=== PATIENT | female | born 1950 | race Caucasian/White ===

== ENCOUNTER → 2017-01-08 | Outpatient (CLI) | payer OTHER ==
[~2017-01-08] MED LIST: ADVIN10/60 INH; ALPR-411 PO; BISO10TA2 PO; CHOL100010 PO; DILT1TAB50 PO; FLUT0.15 NAE; LOSA50TA54 PO; MONT1TAB3 PO; OMEP40CA PO; OXGN; SERT100T PO; TIOTCAP INH; VNTHFA/IN INH
[2017-01-08 13:14] LABS: BASO % 0.2 %; BASO ABS # 0.02 K/uL (0-0.2); COMPLETE YES; EOS % 1.7 %; HEMATOCRIT 36.6 % (37-47); IG% 0.3 %; LYMPH % 8.7 %; LYMPH ABS # 0.81 K/uL (1.2-3.4); MEAN CELL VOLUME 89.7 fL (80-100); MEAN CORPUSCULAR HEMOGLOBIN 27.9 pg (25-34); MEAN CORPUSCULAR HGB CONC 31.1 g/dl (32-36); MEAN PLATELET VOLUME 10.5 fL (7.4-10.4); NEUT % 81.1 %; PLATELET COUNT 288 K/uL (130-400); RED BLOOD COUNT 4.08 M/uL (4.2-5.4); WHITE BLOOD COUNT 9.29 K/uL (4.8-10.8)
[2017-01-08 13:49] LABS: ESTIMATED AVERAGE GLUCOSE 117 mg/dl; HA1C FLAG Normal (Normal)
[2017-01-08 18:15] LABS: ALT/SGPT 13 U/L (12-78); BLOOD UREA NITROGEN 11 mg/dl (7-18); BUN/CREATININE RATIO 13.9 (10-20); CALCIUM 9.1 mg/dl (8.5-10.1); CARBON DIOXIDE 28 mmol/L (21-32); CHLORIDE 102 mmol/L (98-107); CHOLESTEROL 218 mg/dl (0-200); CREATININE 0.75 mg/dl (0.60-1.20); GLUCOSE,FASTING 114 mg/dl (70-99); POTASSIUM 3.6 mmol/L (3.5-5.1); SODIUM 137 mmol/L (136-145); TRIGLYCERIDES 146 mg/dl (0-150); VERY LOW DENSITY LIPOPROT CALC 29 mg/dl
[2017-01-08 18:18] LABS: ALB/GLOB RATIO 0.9 (0.9-2); ALKALINE PHOSPHATASE 79 U/L (45-117); AST/SGOT 11 U/L (15-37); CHOLESTEROL/HDL RATIO 4.6; HDL CHOLESTEROL 47 mg/dl; LDL CHOLESTEROL CALCULATED 142 mg/dl
== END | disposition home or self-care (01) ==
LOC: C.LABPBG 11:01
PROVIDERS: ATTEND Physician Assistant
DX: T80.219A Unspecified infection due to central venous catheter, initial encounter (principal); Y83.8 Other surgical procedures as the cause of abnormal reaction of the patient, or of later complication, without mention of misadventure at the time of the procedure; R73.9 Hyperglycemia, unspecified; E55.9 Vitamin D deficiency, unspecified

== ENCOUNTER → 2017-06-23 | Outpatient (CLI) | payer OTHER ==
[2017-06-23 13:41] LABS: HEMOGLOBIN A1C 5.8 % (4.5-5.6)
[2017-06-23 14:13] LABS: BLOOD UREA NITROGEN 14 mg/dl (7-18); CALCIUM 8.9 mg/dl (8.5-10.1); CARBON DIOXIDE 28 mmol/L (21-32); CREATININE 0.75 mg/dl (0.60-1.20); GLUCOSE 124 mg/dl (70-99); POTASSIUM 3.3 mmol/L (3.5-5.1); SODIUM 140 mmol/L (136-145)
[2017-06-23 14:18] LABS: CHOLESTEROL 192 mg/dl (0-200); LDL CHOLESTEROL CALCULATED 116 mg/dl
== END | disposition home or self-care (01) ==
LOC: C.LABPBG 09:59
PROVIDERS: ATTEND Family Medicine
DX: D50.9 Iron deficiency anemia, unspecified (principal); G47.33 Obstructive sleep apnea (adult) (pediatric); F41.9 Anxiety disorder, unspecified; I10 Essential (primary) hypertension; J96.10 Chronic respiratory failure, unspecified whether with hypoxia or hypercapnia; J44.9 Chronic obstructive pulmonary disease, unspecified; R73.03 Prediabetes

== ENCOUNTER → 2017-09-18 | Outpatient (CLI) | payer OTHER, MEDICARE ==
--- NOTE | 2017-09-19 15:28 | MAMMOGRAPHY REPORT ---
BILATERAL DIGITAL SCREENING MAMMOGRAM TOMOSYNTHESIS WITH CAD: 09/18/2017 CLINICAL HISTORY: Routine screening. Patient has no complaints. TECHNIQUE: The study was acquired using full field digital technology and interpreted from soft copy. Breast tomosynthesis in addition to standard 2D mammography was performed. Current study was also ev aluated with a Computer Aided Detection (CAD) system. COMPARISON: Prior outside mammograms dated 2016, 2015, 2014, 2013, 2012, 2011, 2010, 2008 from [facility]. BREAST COMPOSITION: The tissue of both breasts is almost entirely fatty. FINDINGS: No suspicious masses, calcifications, or areas of architectural distortion are noted in either breast . There has been no significant interval change compared to prior exams. Bilateral benign-appearing calcifications are not significantly changed. IMPRESSION: ACR BI-RADS CATEGORY 2: BENIGN There is no mammographic evidence of malignancy. A 1 year screening mammogram is recommended.( [id number]) The patient will receive written notification of the results. Some breast cancers are not detected with mammography. A negative mammographic report should not qiana y biopsy if a clinically suggestive mass is present. Emily Combs M.D. ah/:09/18/2017 16:17:31 Preschool Substitute Teacher: RT Jennifer(Daniel)(M), [facility] letter sent: Normal 1/2 BI-RADS Code: ACR BI-RADS Category 2: Benign
== END | disposition home or self-care (01) ==
LOC: C.MAMM 15:09
PROVIDERS: ATTEND Family Medicine
DX: Z12.31 Encounter for screening mammogram for malignant neoplasm of breast (principal)

== ENCOUNTER 2020-03-10 11:54 | Inpatient (IN) ==
[2020-03-10] MEDS ORDERED: ALBUTEROL 0.083% NEBU SOLN 3 ML VIAL NEB STA (12:21)
[2020-03-10] MEDS ORDERED: methylPREDNISolone 125 MG/2 ML VIAL IV STA (12:21)
[2020-03-10] MEDS ORDERED: SODIUM CHLORIDE 0.9% 500 ML IV ONE (12:21)
--- NOTE | 2020-03-10 12:29 | Emergency Department Note ---
Impression & Plan Acute respiratory distress, Breath shortness, Cough, COPD with acute exacerbation ED Provider Note NAME: DOMINIQUE AVILES AGE: 69 SEX: F : 1950 ARRIVES VIA: Walk-In INFORMANT: Patient ED PROVIDER(S): Sabino Bocanegra DO CHIEF COMPLAINT: shortness of breath HPI: Patient is a 69-year-old female with extensive past medical history which includes COPD, pulmonary hypertension, recent Covid pneumonia with 12-day admission and discharge in early February. She presents the ER for increasing shortness of breath which started in the past 5 days. She denies any headache or change in vision. Chronically wears 5 L nasal cannula. Significantly short of breath with any kind of movement. She believes she gained about 5 pounds overnight. No history of heart failure. Denies any belly pain, nausea, vomiting, diarrhea, dysuria, urgency or frequency. Has had a change in cough as well. ROS: See above HPI for pertinent positives & negatives. A total of 10 systems reviewed and were otherwise negative. PAST MEDICAL HISTORY:See Below PAST SURGICAL HISTORY:See Below FAMILY HISTORY:See Below SOCIAL HISTORY:See Below HOME MEDICATIONS:See Below ALLERGIES:See Below VITALS:See Below PHYSICAL EXAMINATION: GENERAL: Sitting up in bed, alert, severely short of breath with conversation, moderate distress EYE EXAM: normal conjunctiva. OROPHARYNX: mucous membranes are dry NECK: supple, no nuchal rigidity, no adenopathy, non-tender LUNGS: Diminished bilaterally with minimal air movement. Normal chest wall mechanics HEART: no murmurs, S1 normal and S2 normal ABDOMEN: abdomen soft, non-tender, normo-active bowel sounds, no masses, no rebound or guarding. UPPER EXTREMITIES: upper extremities are grossly normal. LOWER EXTREMITIES: No pitting edema. Calves are equal bilateral NEURO EXAM: Normal sensorium, cranial nerves II-XII grossly intact, normal speech, no gross weakness of arms, no gross weakness of legs. MEDICAL DECISION MAKING: Patient is a 69-year-old female who presents the ER for shortness of breath which has been getting worse over the past 5 days. History of COPD and asthma. IV was established blood work was obtained. When she presented she was in significant distress and extremely short of breath. She was placed on BiPAP. IV was established blood work was obtained. She was given an hour-long neb tr eatment. She was also given steroids. Labs show no significant leukocytosis and mild anemia. INR unremarkable. D-dimer was elevated at 1500. BMP with slightly elevated chloride. LFTs bilirubin was unremarkable. Troponin was negative with symptoms greater than 6 hours not indicative of ACS. Lipase was unremarkable. Covid was negative. CT angio of the chest shows no acute pathology. Patient was updated bedside and remained on BiPAP. Discussed with the hospitalist. She was much improved following BiPAP. Triage Nursing notes reviewed. Limited review of prior medical records performed Vital Signs: reviewed and remarkable for tachy Differential diagnosis: Differential diagnoses includes but is not limited to pneumonia, bronchitis, COPD/Asthma exacerbation, pneumothorax, pulmonary embolism, congestive heart failure, acute coronary syndrome ER treatment provided: See below Diagnostics interpreted by me: ECG: Sinus tachycardia rate of 117 Normal axis Poor baseline QTC 421 Cardiac Monitoring: An order was placed for continuous cardiac monitoring. The monitor shows a rate of 113 with sinus rhythm. Laboratory studies: As stated above and show below. Imaging studies: CT angio of the chest shows no acute pathology Portable AP upright 1 view of the chest shows no focal infiltrate or pneumothorax Consultation(s): Discussed with hospitalist for further evaluation Procedures: none Critical Care: I have personally spent 32 minutes of critical care time in the direct management of this patient. This includes bedside care, interpretation of diagnostic studies, and testing, discussion with consultants, patient, and family members, and other required patient management activities. This 32 m inutes is in excess of all separately billable procedures. Past Med/Surg History Medical History (Updated 03/10/20 @ 16:38 by Sabino Bocanegra DO) Anxiety Asthma Chronic respiratory failure Chronic steroid use Collagenous colitis COPD (chronic obstructive pulmonary disease) Gastritis, chronic Gastroparesis pt denies Hyperlipidemia Hypertension Insomnia, persistent Iron deficiency anemia On home oxygen therapy 4lpm via n/c continuous Osteoarthritis Peripheral neuropathy bilateral hands & feet Prediabetes Pulmonary emphysema Raynaud's disease Right lower lobe pneumonia Urinary incontinence Surgical History H/O cataract extraction (09/2019) b/l eyes H/O laminectomy Lumbar area H/O tooth extraction History of bilateral tubal ligation History of bladder surgery bladder tack History of cataract extraction (09/30/19) Both eyes History of cholecystectomy Open History of colonoscopy History of cystoscopy History of dilatation and curettage History of esophagogastroduodenoscopy (EGD) History of tonsillectomy Hx of lumpectomy Left (-) Family History (Updated 03/10/20 @ 15:28 by Daniel Roberson) Mother , age 73 Stroke Father , age 71 Lung cancer Sister Non Hodgkin's lymphoma Lupus Social History (Updated 03/10/20 @ 15:28 by Daniel Roberson) Smoking Status: Former smoker Tobacco Type: Cigarettes Age Quit Using Tobacco: 59; Years Smoked: 33; Cigarettes Per Day: 40; Smoking End Date: 10 years ago; Number of Years Since Quit: 10; Second Hand Exposure: No; Hx Alcohol Use: No Hx Substance Use: No Preferred Language: Maori Communication Ability: Effective Financial Services Manager Required: No Beliefs That Will Affect Care: None marital status: Current Living Situation: Spouse and Family Current Living Situation Comment: lives in [place] with current occupational status: retired 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 ; 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 How many Children do You have: 2 Other Information That Helps Us Care for You: No Feels Safe at Home: Yes Safety Concerns: Feels Safe At This Time Dental Care, Regularly: Yes Physical Activity Frequency: Does not Exercise Seatbelt Use: always Sunscreen Use: Yes Assistive Devices: Oxygen - Continuous Assistive Devices Comment: scooter Allergies Allergies Allergy/AdvReac Type Severity Reaction Status Date / Time ferric carboxymaltose Allergy Intermediate SOB, Verified 03/10/20 15:56 [From Injectafer] tachycardia Home Meds Home Medications Medication Instructions Recorded Confirmed amlodipine 10 mg PO QAM 02/08/18 03/10/20 calcium carbonate [Calcium 500] 500 mg PO QPM 02/08/18 03/10/20 cholecalciferol (vitamin D3) 2,000 unit PO QAM 02/08/18 03/10/20 [Vitamin D3] Oxygen Home #1 ea 11/03/18 02/14/20 clobetasol 1 applic TOPICAL DAILY PRN 02/01/20 03/10/20 oxybutynin chloride 5 mg PO HS 02/01/20 03/10/20 prednisone 10 mg PO Q2D 02/01/20 03/10/20 sildenafil (pulm.hypertension) 20 mg PO TID 02/04/20 03/10/20 duloxetine 60 mg PO QAM 03/10/20 03/10/20 tiotropium bromide [Spiriva with 1 cap INHALATION QAM 03/10/20 03/10/20 HandiHaler] Previous Rx's Medication Instructions Recorded alprazolam 0.5 mg tablet 0.5 mg PO HS #30 tab 11/25/19 omeprazole 20 mg capsule,delayed 20 mg PO BID #180 cap 12/09/19 release bupropion HCl 100 mg tablet,12 hr 100 mg PO BID #60 ea 01/13/20 sustained-release benzonatate [Tessalon Perles] 100 - 200 mg PO TID PRN #30 cap 02/13/20 codeine-guaifenesin 5 ml PO Q6H PRN #100 ml 02/13/20 folic acid 1 mg PO QAM 30 Days #30 tab 02/13/20 nystatin 5 ml PO QID 10 Days #200 ml 02/13/20 albuterol sulfate 90 mcg/actuation 2 puff INHALATION QID PRN #18 g 02/17/20 aerosol inhaler fluticasone propionate 230 2 puff INHALATION BID #1 inhaler 02/17/20 mcg-salmeterol 21 mcg/actuation HFA inhaler 4 wheeled walker #1 ea 02/18/20 Potty Chair #1 ea 02/18/20 valsartan 80 mg tablet See Rx Instructions .ROUTE 02/20/20 .COMPLEX #90 tablet Portable Oxygen #1 ea 02/21/20 ipratropium 0.5 mg-albuterol 3 mg 3 ml INHALATION Q8H PRN #180 ml 02/22/20 (2.5 mg base)/3 mL nebulization soln Results & Data (ED) Vital Signs Vital Signs - 24 hr 03/10/20 11:55 03/10/20 12:18 03/10/20 12:37 Temperature 36.5 C Temperature Source Temporal Artery Scan Pulse Rate 115 H 124 H Pulse Rate [Apical] 121 H Respiratory Rate 24 24 Respiratory Effort / Characteristics Spontaneous Spontaneous Labored Respiratory Depth Shallow Blood Pressure 133/75 Blood Pressure [Left Arm] Blood Pressure Mean 94 Blood Pressure Mean [Left Arm] Blood Pressure Position Sitting Blood Pressure Position [Left Arm] Pulse Oximetry 97 99 Oxygen Delivery Method Nasal Cannula Nasal Cannula BiPAP Oxygen Flow Rate 5 5 Fraction of Inspired Oxygen 40 Sepsis Recent Fever Within 48 Hours No Sepsis New/Unexplained Change in Mental Status N/A Sepsis Action Taken by Nursing No Action Required 03/10/20 13:12 03/10/20 13:15 03/10/20 14:25 Temperature Temperature Source Pulse Rate Pulse Rate [Apical] 113 H 116 H Respiratory Rate 24 24 Respiratory Effort / Characteristics Respiratory Depth Blood Pressure Blood Pressure [Left Arm] 99/74 L 130/67 Blood Pressure Mean Blood Pressure Mean [Left Arm] 82 88 Blood Pressure Position Blood Pressure Position [Left Arm] Pulse Oximetry 97 97 98 Oxygen Delivery Method BiPAP BiPAP BiPAP Oxygen Flow Rate Fraction of Inspired Oxygen Sepsis Recent Fever Within 48 Hours Sepsis New/Unexplained Change in Mental Status Sepsis Action Taken by Nursing 03/10/20 15:52 03/10/20 16:22 Temperature Temperature Source Pulse Rate Pulse Rate [Apical] 111 H Respiratory Rate 20 Respiratory Effort / Characteristics Respiratory Depth Blood Pressure Blood Pressure [Left Arm] 137/75 Blood Pressure Mean Blood Pressure Mean [Left Arm] 95 Blood Pressure Position Blood Pressure Position [Left Arm] Lying Pulse Oximetry 93 93 Oxygen Delivery Method Nasal Cannula Nasal Cannula Oxygen Flow Rate 5 5 Fraction of Inspired Oxygen Sepsis Recent Fever Within 48 Hours Sepsis New/Unexplained Change in Mental Status Sepsis Action Taken by Nursing Laboratory Data Result diagrams: 03/10/20 13:00 03/10/20 13:00 Lab Results 03/10/20 03/10/20 03/10/20 Range/Units 13:00 13:00 13:00 WBC 8.57 (4.8-10.8) K/uL RBC 3.78 L (4.2-5.4) M/uL Hgb 11.4 L (12.0-16.0) g/dL Hct 36.3 L (37-47) % MCV 96.0 (80-100) fL MCH 30.2 (25-34) pg MCHC 31.4 L (32-36) g/dL RDW Std Deviation 58.4 H (36.4-46.3) fL RDW Coeff of Mag 16.6 H (11.5-14.5) % Plt Count 418 H (130-400) K/uL MPV 9.0 (7.4-10.4) fL Immature Gran % (Auto) 0.8 % Neut % (Auto) 89.8 % Lymph % (Auto) 6.1 % [place] % (Auto) 2.6 % Eos % (Auto) 0.5 % Baso % (Auto) 0.2 % Neut # (Auto) 7.70 H (1.4-6.5) K/uL Lymph # (Auto) 0.52 L (1.2-3.4) K/uL [place] # (Auto) 0.22 (0.11-0.59) K/uL Eos # (Auto) 0.04 (0-0.5) K/uL Baso # (Auto) 0.02 (0-0.2) K/uL Immature Gran # (Auto) 0.07 H (0.00-0.02) K/uL PT 10.0 (9.0-12.0) Seconds INR 0.9 (0.9-1.1) APTT 23.7 (21.0-31.0) Seconds PTT Ratio 0.8 D-Dimer 1560 H* (0-500) ug/L FEU Sodium 141 (136-145) mmol/L Potassium 4.3 (3.5-5.1) mmol/L Chloride 110 H (98-107) mmol/L Carbon Dioxide 26 (21-32) mmol/L Anion Gap 5.0 (3-11) BUN 12 (7-18) mg/dl Creatinine 0.69 (0.6-1.2) mg/dl Est Cr Clr Drug Dosing 83.3 ml/min Est GFR ( Amer) 103.7 Est GFR (Non-Af Amer) 89.4 BUN/Creatinine Ratio 17.8 (10-20) Glucose 149 H (70-99) mg/dl Calcium 8.6 (8.5-10.1) mg/dl Total Bilirubin 0.3 (0.2-1) mg/dl AST 14 L (15-37) U/L ALT 17 (12-78) U/L Alkaline Phosphatase 82 (45-117) U/L Troponin I < 0.015 (0-0.045) ng/ml Total Protein 6.8 (6.4-8.2) gm/dl Albumin 3.3 L (3.4-5.0) gm/dl Globulin 3.5 (2.5-4.0) gm/dl Albumin/Globulin Ratio 0.9 (0.9-2) Lipase 102 (73-393) U/L COVID-19 Eval Order SARS-CoV-2 (PCR) (Negative) Influenza Type A (PCR) (Neg) Influenza Type B (PCR) (Neg) RSV (RT-PCR) (Neg) 03/10/20 03/10/20 Range/Units 14:30 14:30 WBC (4.8-10.8) K/uL RBC (4.2-5.4) M/uL Hgb (12.0-16.0) g/dL Hct (37-47) % MCV (80-100) fL MCH (25-34) pg MCHC (32-36) g/dL RDW Std Deviation (36.4-46.3) fL RDW Coeff of Mag (11.5-14.5) % Plt Count (130-400) K/uL MPV (7.4-10.4) fL Immature Gran % (Auto) % Neut % (Auto) % Lymph % (Auto) % [place] % (Auto) % Eos % (Auto) % Baso % (Auto) % Neut # (Auto) (1.4-6.5) K/uL Lymph # (Auto) (1.2-3.4) K/uL [place] # (Auto) (0.11-0.59) K/uL Eos # (Auto) (0-0.5) K/uL Baso # (Auto) (0-0.2) K/uL Immature Gran # (Auto) (0.00-0.02) K/uL PT (9.0-12.0) Seconds INR (0.9-1.1) APTT (21.0-31.0) Seconds PTT Ratio D-Dimer (0-500) ug/L FEU Sodium (136-145) mmol/L Potassium (3.5-5.1) mmol/L Chloride (98-107) mmol/L Carbon Dioxide (21-32) mmol/L Anion Gap (3-11) BUN (7-18) mg/dl Creatinine (0.6-1.2) mg/dl Est Cr Clr Drug Dosing ml/min Est GFR ( Amer) Est GFR (Non-Af Amer) BUN/Creatinine Ratio (10-20) Glucose (70-99) mg/dl Calcium (8.5-10.1) mg/dl Total Bilirubin (0.2-1) mg/dl AST (15-37) U/L ALT (12-78) U/L Alkaline Phosphatase (45-117) U/L Troponin I (0-0.045) ng/ml Total Protein (6.4-8.2) gm/dl Albumin (3.4-5.0) gm/dl Globulin (2.5-4.0) gm/dl Albumin/Globulin Ratio (0.9-2) Lipase (73-393) U/L COVID-19 Eval Order CovFluRsv at [facility] SARS-CoV-2 (PCR) NEGATIVE (Negative) Influenza Type A (PCR) Negative (Neg) Influenza Type B (PCR) Negative (Neg) RSV (RT-PCR) Negative (Neg) Administered Medications Discontinued Medications Albuterol (Albuterol 0.083% Nebu Soln 3 Ml Vial) 10 mg NEB NOW STA Stop: 03/10/20 12:22 Last Admin: 03/10/20 12:36 Dose: 10 mg Documented by: [id number] Furosemide (Furosemide 40 Mg/4 Ml Vial) 20 mg IV NOW STA Stop: 03/10/20 16:02 Last Admin: 03/10/20 16:22 Dose: 20 mg Documented by: [id number] Sodium Chloride (Nss) 500 mls @ 999 mls/hr IV .Q31M ONE Stop: 03/10/20 12:51 Last Infusion: 03/10/20 13:36 Dose: 0 mls/hr Documented by: [id number] Admin: 03/10/20 13:06 Dose: 999 mls/hr Documented by: [id number] Ioversol (Optiray 320 125ml) 120 ml IV ONCE ONE Stop: 03/10/20 15:02 Last Admin: 03/10/20 15:01 Dose: 120 ml Documented by: [id number] Methylprednisolone (Methylprednisolone 125 Mg/2 Ml Vial) 60 mg IV NOW STA Stop: 03/10/20 12:22 Last Admin: 03/10/20 13:06 Dose: 60 mg Documented by: [id number] Discharge Plan Visit Data Chief Complaint: Respiratory Problems Stated Complaint: TROUBLES BREATHING/ELEVATED HEART RATE ED Provider: Sabino Bocanegra Discharge Problem: Acute respiratory distress, Breath shortness, Cough, COPD with acute exacerbation Forms Stand Alone Forms: [facility] Prescriptions Prescriptions: No Action alprazolam 0.5 mg tablet 0.5 mg PO HS Qty: 30 RF: 3 omeprazole 20 mg capsule,delayed release(DR/EC) 20 mg PO BID Qty: 180 RF: 1 (DME) 4 wheeled walker See Rx Instructions .Route .MEDSUPPLY Qty: 1 RF: 0 (DME) Potty Chair See Rx Instructions .Route .MEDSUPPLY Qty: 1 RF: 0 valsartan 80 mg tablet See Rx Instructions .ROUTE .COMPLEX Qty: 90 RF: 1 ipratropium-albuterol 0.5 mg-3 mg(2.5 mg base)/3 mL solution for nebulization 3 ml inhalation Q8H PRN (Reason: COPD- DX J44.9 J43.9 J45.909 ) Qty: 180 RF: 5 albuterol sulfate [Ventolin HFA] 90 mcg/actuation HFA aerosol inhaler 2 puff inhalation QID PRN (Reason: Shortness Of Breath) Qty: 18 RF: 3 Advair HFA 230-21 mcg/actuation HFA aerosol inhaler 2 puff INHALATION BID Qty: 1 RF: 5 (DME) Portable Oxygen Misc See Rx Instructions .MEDSUPPLY Qty: 1 RF: 0 (DME) Oxygen Home Liters Per Minute See Dose Instructions .ROUTE .MEDSUPPLY Qty: 1 RF: 0 bupropion HCl [Wellbutrin SR] 100 mg tablet sustained-release 12 hr 100 mg PO BID Qty: 60 RF: 5 calcium carbonate [Calcium 500] 500 mg calcium (1,250 mg) Tablet 500 mg PO QPM RF: 0 amlodipine 10 mg tablet 10 mg PO QAM RF: 0 cholecalciferol (vitamin D3) [Vitamin D3] 2,000 unit Tablet 2,000 unit PO QAM RF: 0 prednisone 10 mg tablet 10 mg PO Q2D RF: 0 oxybutynin chloride 5 mg tablet extended release 24hr 5 mg PO HS RF: 0 clobetasol 0.05 % solution 1 applic topical DAILY PRN (Reason: Dandruff) RF: 0 sildenafil (pulm.hypertension) 20 mg Tablet 20 mg PO TID RF: 0 nystatin 100,000 unit/mL Suspension 5 ml PO QID 10 Days Qty: 200 RF: 1 folic acid 1 mg Tablet 1 mg PO QAM 30 Days Qty: 30 RF: 0 codeine-guaifenesin 10-100 mg/5 mL Liquid 5 ml PO Q6H PRN (Reason: cough) Qty: 100 RF: 0 benzonatate [Tessalon Perles] 100 mg capsule 100 - 200 mg PO TID PRN (Reason: cough) Qty: 30 RF: 1 duloxetine 60 mg capsule,delayed release(DR/EC) 60 mg PO QAM RF: 0 Spiriva with HandiHaler 18 mcg capsule, w/inhalation device 1 cap INHALATION QAM RF: 0
--- NOTE | 2020-03-10 12:59 | XRay Report ---
XR chest 1V portable CLINICAL HISTORY: Atypical chest pain COMPARISON STUDY: 02/08/2020 FINDINGS: The cardiac and mediastinal contours remain stable. There is a left-sided A-Port catheter. There is chronic basilar interstitial thickening similar to the prior study. There is pulmonary emphy sema.[ IMPRESSION: Stable chronic interstitial thickening. Pulmonary emphysema. No evidence of acute parench ymal consolidation ACT 112: Negative or not required by law. Electronically signed by: Ayo Stark M.D. 03/10/2020 12:57 PM
--- NOTE | 2020-03-10 13:04 | Electrocardiogram Report ---
Test Reason : Blood Pressure : / mmHG Vent. Rate : 117 BPM Atrial Rate : 117 BPM P-R Int : 172 ms QRS Dur : 078 ms QT Int : 302 ms P-R-T Axes : 068 000 059 degrees QTc Int : 421 ms Poor data quality, interpretation may be adversely affected Sinus tachycardia Low voltage QRS Borderline ECG When compared with ECG of 01-FEB-2020 10:53, Premature ventricular complexes are no longer Present Confirmed by Rao Redmond ([id number]) on 03/10/2020 1:04:39 PM Referred By: REFERRED SELF Confirmed By:Miguelito Redmond
[2020-03-10 13:16] LABS: Basophils # (auto) 0.02 K/uL (0-0.2); Basophils % (auto) 0.2 %; Eosinophils # (auto) 0.04 K/uL (0-0.5); Eosinophils % (auto) 0.5 %; Hematocrit (blood only) 36.3 % (37-47); Hemoglobin 11.4 g/dL (12.0-16.0); Immature Granulocytes # (auto) 0.07 K/uL (0.00-0.02); Immature Granulocytes % (auto) 0.8 %; Lymphocytes # (auto) 0.52 K/uL (1.2-3.4); Lymphocytes % (auto) 6.1 %; Mean Corpuscular Hemoglobin 30.2 pg (25-34); Mean Corpuscular Hgb Conc 31.4 g/dL (32-36); Monocytes # (auto) 0.22 K/uL (0.11-0.59); Monocytes % (auto) 2.6 %; Neutrophils % (auto) 89.8 %; Platelet Count 418 K/uL (130-400); RDW Coefficient of Variation 16.6 % (11.5-14.5); RDW Standard Deviation 58.4 fL (36.4-46.3); Red Blood Count 3.78 M/uL (4.2-5.4); White Blood Count 8.57 K/uL (4.8-10.8)
[2020-03-10 13:38] LABS: INR 0.9 (0.9-1.1); Partial Thromboplastin Ratio 0.8; Partial Thromboplastin Time 23.7 Seconds (21.0-31.0)
[2020-03-10 13:41] LABS: D Dimer 1560 ug/L FEU (0-500)
[2020-03-10 13:42] LABS: Alanine Aminotransferase 17 U/L (12-78); Albumin Level 3.3 gm/dl (3.4-5.0); Aspartate Aminotransferase 14 U/L (15-37); BUN Creatinine Ratio 17.8 (10-20); Blood Urea Nitrogen 12 mg/dl (7-18); Calcium 8.6 mg/dl (8.5-10.1); Carbon Dioxide 26 mmol/L (21-32); Chloride 110 mmol/L (98-107); Creatinine Clr Calc Pharmacy 83.3 ml/min; Est GFR (African American) 103.7; Est GFR (Non-African American) 89.4; Glucose 149 mg/dl (70-99); Lipase 102 U/L (73-393); Potassium 4.3 mmol/L (3.5-5.1); Sodium 141 mmol/L (136-145)
[2020-03-10 13:47] LABS: Albumin Globulin Ratio 0.9 (0.9-2); Alkaline Phosphatase 82 U/L (45-117); Bilirubin,Total 0.3 mg/dl (0.2-1); Globulin 3.5 gm/dl (2.5-4.0); Total Protein 6.8 gm/dl (6.4-8.2); Troponin I < 0.015 ng/ml (0-0.045)
[2020-03-10] MEDS ORDERED: OPTIRAY 320 125ml IV ONE (15:01)
[2020-03-10 15:22] LABS: Influenza A virus by PCR Negative (Neg); Influenza B virus by PCR Negative (Neg); RSV by PCR Negative (Neg); SARS CoV2 RNA(COVID-19) InHosp NEGATIVE (Negative)
--- NOTE | 2020-03-10 15:25 | History & Physical Report ---
Date of Service March 10, 2020 Assessment & Plan (1) Acute on chronic respiratory failure with hypoxia: acute component - suspect 2nd to COPD exacerbation. I cannot rule out element of volume overload given her recent weight gain and report of LE edema (although none on exam today). No evidence of PE or pneumonia. She has made a full recovery from her recent COVID and repeat testing is negative. chronic - 2nd to end-stage, severe COPD. Typically on 5 L NC O2 at rest and 7 L NC O2 w/ ambulation. required BiPAP in ER - received 1-hour duoneb and steroids - able to be weaned back to NC O2. (2) COPD (chronic obstructive pulmonary disease): With exacerbation. Trigger - sinusitis?? Other viral pathogen? Flu/COVID/RSV negative. Solumedrol 60mg IV x 1 given in ER along with bronchodilators. Treat possible sinusitis with omnicef. COPD - continue solumedrol - schedule 60mg IV BID. Schedule duonebs q6h. Pulmonary toilet (flutter valve, incentive, etc). Mucinex. Home inhalers. O2 to maintain sats 90-92%. (3) Acute sinusitis: Suspected. Omnicef 300mg BID x 7-10 days. Saline spray. Nasocort nasal spray. Mucinex. (4) Tachycardia: Hemoglobin - mildly anemic but at baseline. No significant pain or anxiety. TSH wnl. No PE. 2nd to increased cardiac output in the setting of severe COPD with exacerbation? Acute CHF? Other? Telemetry. Echo. Follow. (5) History of COVID-19: Hospitalized for ~10 days from 01/29 to 03/02. Recovered. CTA chest w/o pneumonia or signs of residual COVID. Repeat COVID testing today negative. (6) Hypertension: Cont norvasc 10mg daily. Continue ARB. Had been on low-dose HCTZ in the past but it was stopped during her prior COVID admission due to low BPs. May need the HCTZ resumed. Follow BPs for now. (7) Prediabetes: DM diet. Follow BSGs in light of IV steroid use. A1C 6.5% earlier this month. (8) Scleroderma: Noted. Interstitial findings on CTA chest -- 2nd to scleroderma?? (9) Pulmonary arterial hypertension: Cont sildenafil. Cont NC O2. Echo. (10) Anxiety: Cont home meds. (11) Hyperlipidemia: Not on meds for such. (12) Folate deficiency: Dx earlier this month. Continue folic acid supplement. (13) Candidiasis of mouth and esophagus: Resolved on exam today but will continue nystatin in light of high-dose steroid use. (14) DVT prophylaxis: lovenox 40mg daily updated by phone today History of Present Illness Chief Complaint: dyspnea, cough, sinus symptoms, weight gain Primary Care Provider: Eliza Mayorga, DO Very pleasant 69yo female with O2-dependent COPD with resulting chronic hypoxic respiratory failure on home O2 (5L at rest, 7L with ambulation) - admitted to [facility] with COVID-19 pneumonia from 02/01/20 to 02/13/20 - presents with worsening dyspnea over the last 2 days, 5 pounds of weight gain over the last day, 10 pounds of weight gain over the last week, sinus congestion with purulent drainage (acute on chronic), mild cough, and tachycardia. She states that a home physical therapist visited her today for a PT session and her HR was noted to be in the 120s which is unusual for her. Given her symptoms the PT recommended she come to [facility] for evaluation. Patient reports that her home O2 has not changed - still remains at 5L at rest and 7L with ambulation. Lowest O2 sats at home today were in the low 70s with ambulation. Denies any fevers, chills, loss of appetite, sputum production, orthopnea, chest pain or abdominal pain. No nausea, emesis or diarrhea. Did have LE edema about 1 week ago - now resolved. Patient states that following her admission for COVID she has experienced considerable fatigue but has made progress with her strength and ambulation. She is still hoping to obtain a lung transplant and has f/u with a transplant center later this spring. Prior to my assessment she was placed on BIPAP by the ER provider. During my visit her O2 sats were 100% on BIPAP and 40% FIO2. I asked staff to place her back on 5L NC and she tolerated such with sats in the low to mid 90s. Allergies Allergy/AdvReac Type Severity Reaction Status Date / Time ferric carboxymaltose Allergy Intermediate SOB, Verified 03/10/20 15:56 [From Injectafer] tachycardia Home Medications Medication Instructions Recorded Confirmed Type amlodipine 10 mg PO QAM 12/30/18 01/29/21 History calcium carbonate [Calcium 500] 500 mg PO QPM 02/08/18 03/10/20 History cholecalciferol (vitamin D3) 2,000 unit PO QAM 02/08/18 03/10/20 History [Vitamin D3] Oxygen Home #1 ea 11/03/18 02/14/20 History alprazolam 0.5 mg tablet 0.5 mg PO HS #30 tab 11/25/19 03/10/20 Rx omeprazole 20 mg capsule,delayed 20 mg PO BID #180 cap 12/09/19 03/10/20 Rx release bupropion HCl 100 mg tablet,12 hr 100 mg PO BID #60 ea 01/13/20 03/10/20 Rx sustained-release clobetasol 1 applic TOPICAL DAILY PRN 02/01/20 03/10/20 History oxybutynin chloride 5 mg PO HS 02/01/20 03/10/20 History prednisone 10 mg PO Q2D 02/01/20 03/10/20 History sildenafil (pulm.hypertension) 20 mg PO TID 02/04/20 03/10/20 History benzonatate [Tessalon Perles] 100 - 200 mg PO TID PRN #30 cap 02/13/20 03/10/20 Rx codeine-guaifenesin 5 ml PO Q6H PRN #100 ml 02/13/20 03/10/20 Rx folic acid 1 mg PO QAM 30 Days #30 tab 02/13/20 03/10/20 Rx nystatin 5 ml PO QID 10 Days #200 ml 02/13/20 03/10/20 Rx albuterol sulfate 90 mcg/actuation 2 puff INHALATION QID PRN #18 g 02/17/20 03/10/20 Rx aerosol inhaler fluticasone propionate 230 2 puff INHALATION BID #1 inhaler 02/17/20 03/10/20 Rx mcg-salmeterol 21 mcg/actuation HFA inhaler 4 wheeled walker #1 ea 02/18/20 Rx Potty Chair #1 ea 02/18/20 Rx valsartan 80 mg tablet See Rx Instructions .ROUTE 02/20/20 03/10/20 Rx .COMPLEX #90 tablet Portable Oxygen #1 ea 02/21/20 02/21/20 Rx ipratropium 0.5 mg-albuterol 3 mg 3 ml INHALATION Q8H PRN #180 ml 02/22/20 03/10/20 Rx (2.5 mg base)/3 mL nebulization soln duloxetine 60 mg PO QAM 03/10/20 03/10/20 History tiotropium bromide [Spiriva with 1 cap INHALATION QAM 03/10/20 03/10/20 History HandiHaler] Past Med/Surg History Medical History (Updated 03/10/20 @ 22:26 by Daniel Roberson) Anxiety Asthma Chronic respiratory failure Chronic steroid use Collagenous colitis COPD (chronic obstructive pulmonary disease) Gastritis, chronic Gastroparesis pt denies History of COVID-19 Dx 01/2020; required hospitalization Hyperlipidemia Hypertension Insomnia, persistent Iron deficiency anemia On home oxygen therapy 4lpm via n/c continuous Osteoarthritis Peripheral neuropathy bilateral hands & feet Prediabetes Pulmonary emphysema Raynaud's disease Right lower lobe pneumonia Urinary incontinence Surgical History H/O cataract extraction (09/2019) b/l eyes H/O laminectomy Lumbar area H/O tooth extraction History of bilateral tubal ligation History of bladder surgery bladder tack History of cataract extraction (09/30/19) Both eyes History of cholecystectomy Open History of colonoscopy History of cystoscopy History of dilatation and curettage History of esophagogastroduodenoscopy (EGD) History of tonsillectomy Hx of lumpectomy Left (-) Family History (Updated 03/10/20 @ 15:28 by Daniel Roberson) Mother , age 73 Stroke Father , age 71 Lung cancer Sister Non Hodgkin's lymphoma Lupus Social History (Updated 03/10/20 @ 15:28 by Daniel Roberson) Smoking Status: Unknown if ever smoked Tobacco Type: Cigarettes Age Quit Using Tobacco: 59; Years Smoked: 33; Cigarettes Per Day: 40; Smoking End Date: 10 years ago; Number of Years Since Quit: 10; Second Hand Exposure: No; Do You Dip or Chew Tobacco: No; Hx Alcohol Use: No Hx Substance Use: No Preferred Language: Romanian Communication Ability: Effective 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: No Beliefs That Will Affect Care: None marital status: Current Living Situation: Spouse Current Living Situation Comment: lives in [place] with current occupational status: retired 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 ; 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 How many Children do You have: 2 Other Information That Helps Us Care for You: No Feels Safe at Home: Yes Safety Concerns: Feels Safe At This Time Dental Care, Regularly: Yes Physical Activity Frequency: Does not Exercise Seatbelt Use: always Sunscreen Use: Yes Assistive Devices: Oxygen - Continuous Assistive Devices Comment: mobile home oxygen tank Review of Systems Constitutional: + fatigue and + weight gain; no fever, no chills, no body aches, no weakness and no anorexia Eyes: no worsening vision Ear, Nose, Mouth, Throat: + nasal congestion and + nasal discharge; no dry mouth and no sore throat Respiratory: + cough, + dyspnea and + dyspnea on exertion; no hemoptysis and no wheezing Cardiovascular: as per Subjective / HPI, + dyspnea on exertion and + edema; no chest pain Gastrointestinal: no abdominal pain, no nausea, no vomiting, no constipation, no diarrhea/loose stools and no blood in stools Genitourinary: no dysuria Musculoskeletal: no joint pain Integumentary: no rash Neurologic: no loss of sensation Psychiatric: no depression Endocrine: denies diabetes Hematologic / Lymphatic: no night sweats Physical Exam Constitutional: no acute distress (comfortable on BIPAP) and no altered mental status Eyes: PERRL ENMT: Ears: no TM abnormality Mouth: no oral mucosal abnormality and oral mucous membranes not dry Neck: trachea midline, no thyromegaly Respiratory: no respiratory distress Auscultation: + diminished lung sounds (bases) and + rales (faint, dry, minimal - bases ); no wheezes Cardiovascular: Rate/Rhythm: regular rhythm and + tachycardic Heart Sounds: normal S1 and normal S2; no murmur Vessels: posterior tibial pulses present and dorsalis pedis pulses present; no JVD Extremities: + vascular access device (left upper chest - clean ); no edema Gastrointestinal (Abdomen): normal bowel sounds, soft, nontender, no hepatosplenomegaly Musculoskeletal: Extremities: + clubbing Skin: mild erythematous papules upper chest Neurologic: moves all extremities; no focal motor deficits reflexes brisk b/l Psychiatric: Orientation: alert and oriented x 3 Lymphatic: no cervical lymphadenopathy Results & Data Results & Data ([facility]) Vital Signs (Past 12 Hours) Vital Signs Temp Pulse Pulse Resp BP BP Pulse Ox 03/10/20 14:25 116 H 24 130/67 98 03/10/20 13:15 113 H 24 99/74 L 97 03/10/20 13:12 97 03/10/20 12:37 124 H 121 H 24 99 03/10/20 12:18 97 03/10/20 11:55 36.5 C 115 H 24 133/75 Laboratory Results Laboratory Results - last 24 hr 03/10/20 03/10/20 03/10/20 13:00 13:00 13:00 WBC 8.57 RBC 3.78 L Hgb 11.4 L Hct 36.3 L MCV 96.0 MCH 30.2 MCHC 31.4 L RDW Std Deviation 58.4 H RDW Coeff of Mag 16.6 H Plt Count 418 H MPV 9.0 Immature Gran % (Auto) 0.8 Neut % (Auto) 89.8 Lymph % (Auto) 6.1 [place] % (Auto) 2.6 Eos % (Auto) 0.5 Baso % (Auto) 0.2 Neut # (Auto) 7.70 H Lymph # (Auto) 0.52 L [place] # (Auto) 0.22 Eos # (Auto) 0.04 Baso # (Auto) 0.02 Immature Gran # (Auto) 0.07 H PT 10.0 INR 0.9 APTT 23.7 PTT Ratio 0.8 D-Dimer 1560 H* Sodium 141 Potassium 4.3 Chloride 110 H Carbon Dioxide 26 Anion Gap 5.0 BUN 12 Creatinine 0.69 Est Cr Clr Drug Dosing 83.3 Est GFR ( Amer) 103.7 Est GFR (Non-Af Amer) 89.4 BUN/Creatinine Ratio 17.8 Glucose 149 H Calcium 8.6 Total Bilirubin 0.3 AST 14 L ALT 17 Alkaline Phosphatase 82 Troponin I < 0.015 Total Protein 6.8 Albumin 3.3 L Globulin 3.5 Albumin/Globulin Ratio 0.9 Lipase 102 TSH Pending COVID-19 Eval Order SARS-CoV-2 (PCR) Influenza Type A (PCR) Influenza Type B (PCR) RSV (RT-PCR) 03/10/20 03/10/20 14:30 14:30 WBC RBC Hgb Hct MCV MCH MCHC RDW Std Deviation RDW Coeff of Amg Plt Count MPV Immature Gran % (Auto) Neut % (Auto) Lymph % (Auto) [place] % (Auto) Eos % (Auto) Baso % (Auto) Neut # (Auto) Lymph # (Auto) [place] # (Auto) Eos # (Auto) Baso # (Auto) Immature Gran # (Auto) PT INR APTT PTT Ratio D-Dimer Sodium Potassium Chloride Carbon Dioxide Anion Gap BUN Creatinine Est Cr Clr Drug Dosing Est GFR ( Amer) Est GFR (Non-Af Amer) BUN/Creatinine Ratio Glucose Calcium Total Bilirubin AST ALT Alkaline Phosphatase Troponin I Total Protein Albumin Globulin Albumin/Globulin Ratio Lipase TSH COVID-19 Eval Order CovFluRsv at [facility] SARS-CoV-2 (PCR) NEGATIVE Influenza Type A (PCR) Negative Influenza Type B (PCR) Negative RSV (RT-PCR) Negative Diagnostic Findings CTA chest: IMPRESSION: 1. No evidence for pulmonary embolus. 2. Severe emphysema. 3. Stable 5 mm and 3 mm subpleural nodules within the left upper lobe. No new pulmonary nodules identified. 4. Mild diffuse interstitial thickening which is likely chronic. No new focal lung consolidations to suggest pneumonia. EKG - my reading - sinus tachycardia, low voltage especially inferior leads, no ST changes Code Status & VTE Plan Code Status full code VTE Prophylaxis Plan VTE Prophylaxis will be ordered: Yes PG Care Time/CCT Total # of Minutes Spent Total Time Spent with Patient: Total time spent is greater than 50% in coordination of care (as documented) at patient's floor/unit and/or counseling patient: Coding Level of Care Code 50545 Initial Inpt Care Lvl 3 Diagnoses Acute on chronic respiratory failure with hypoxia J96.21 COPD (chronic obstructive pulmonary disease) J44.9 COPD type: unspecified COPD Acute sinusitis J01.90 Tachycardia R00.0 History of COVID-19 Z86.16 Hypertension I10 Prediabetes R73.03 Scleroderma M34.9 Pulmonary arterial hypertension I27.21 Anxiety F41.9 Hyperlipidemia E78.5 Folate deficiency E53.8 Candidiasis of mouth and esophagus B37.81; B37.0 DVT prophylaxis Z29.9 (1) COPD (chronic obstructive pulmonary disease) COPD type: unspecified COPD Qualified Code(s): J44.9 - Chronic obstructive pulmonary disease, unspecified
--- NOTE | 2020-03-10 15:27 | CT Scan Report ---
CHEST CTA for PULMONARY ARTERIES CT DOSE: 682.82 mGycm HISTORY: Shortness of breath. TECHNIQUE: Multiaxial CT images of the chest were performed following the intravenous administration of contrast to evaluate the pulmonary arteries. Maximal intensity projection images were also obtaine d. A dose lowering technique was utilized adhering to the principles of ALARA. COMPARISON STUDY: Chest CT 03/17/2019. FINDINGS: Normal caliber thoracic aorta with no evidence for dissection. There is a left subclavian P ort-A-Cath which terminates in the distal SVC. The heart is normal in size. No pleural or pericardial effusions. Streak artifact from the patient's overlapping arms results in suboptimal evaluation of t he bilateral segmental and subsegmental pulmonary arteries. However, there are no definite filling de fects within the pulmonary arteries to suggest a pulmonary embolus. The visualized spleen and adrenal glands are within normal limits. Stable 1.4 cm hypodense lesion within the left hepatic lobe. This f avors a small cyst. Normal esophagus. Right retrocrural hypodense nodule remains stable. This may rep resent a normal cisterna chyli. Stable mediastinal and hilar lymph nodes which measure subcentimeter in short axis diameter. Severe emphysema. No pneumothorax. Stable 5 mm subpleural nodule within the l eft upper lobe on image 157. Stable 3 mm subpleural nodule within the left upper lobe on image 136. M ild diffuse interstitial thickening which is likely chronic. This is not significantly changed. No ne w focal lung consolidations to suggest pneumonia. No pneumothorax. The central airways are patent. IMPRESSION: 1. No evidence for pulmonary embolus. 2. Severe emphysema. 3. Stable 5 mm and 3 mm subpleural nodules within the left upper lobe. No new pulmonary nodules ident ified. 4. Mild diffuse interstitial thickening which is likely chronic. No new focal lung consolidations to suggest pneumonia. ACT 112: Negative or not required by law. Electronically signed by: Jose Ramon Morrow M.D. 03/10/2020 3:26 PM
[2020-03-10] MEDS ORDERED: FUROSEMIDE 40 MG/4 ML VIAL IV STA (16:01)
[2020-03-10 16:39] LABS: Thyroid Stimulating Hormone 0.861 uIu/ml (0.300-4.500)
[2020-03-10] MEDS ORDERED: BENZONATATE 100 MG CAPSULE PO PRN (17:51)
[2020-03-10] MEDS ORDERED: ACETAMINOPHEN 325 MG TAB PO PRN (17:51)
[2020-03-10] MEDS ORDERED: SODIUM CHLORIDE 0.65% NA SOLN 45 ML (OCEAN) PRN (17:51)
[2020-03-10] MEDS ORDERED: ONDANSETRON INJ 2 MG/ML 2 ML VIAL IV PRN (17:51)
[2020-03-10] MEDS: ENOXAPARIN INJ 40 MG/0.4 ML SYR SQ SCH (19:10)
[2020-03-10] MEDS: NYSTATIN SUSP 500,000 U/5 ML UDC PO SCH ×2 (19:11→21:00)
[2020-03-10] MEDS: CEFDINIR 300 MG CAP PO SCH (19:12)
[2020-03-10] MEDS: buPROPion SR 100 MG TABCR PO SCH (19:12)
[2020-03-10] MEDS ORDERED: ALBUT/IPRATROP 3MG/0.5MG NEB 3 ML VIAL NEB STA (19:44)
[2020-03-10] MEDS: ALBUT/IPRATROP 3MG/0.5MG NEB 3 ML VIAL INH SCH (20:24)
[2020-03-10] MEDS: OXYBUTYNIN CHLORIDE XL 5 MG TABCR PO SCH (20:59)
[2020-03-10] MEDS: guaiFENesin 600 MG TABCR PO SCH (21:00)
[2020-03-10] MEDS: PANTOprazole 40 MG TAB PO SCH (21:00)
[2020-03-10] MEDS: CALCIUM CARBONATE 1250MG TAB PO SCH (21:01)
[2020-03-10] MEDS: methylPREDNISolone 60 MG in SYRINGE 0 ML IV SCH (21:01)
[2020-03-10] MEDS: ALPRAZolam 0.5 MG TABLET PO SCH (21:05)
[2020-03-10] MEDS: SILDENAFIL CITRATE 20 MG TABLET PO SCH (21:06)
[2020-03-10] MEDS ORDERED: HEPARIN 100 UNIT/ML 5ML FLUSH FLUSH PRN (22:54)
[2020-03-11] MEDS: ALBUT/IPRATROP 3MG/0.5MG NEB 3 ML VIAL INH SCH ×4 (07:26→19:22)
[2020-03-11 07:29] LABS: Hematocrit (blood only) 34.3 % (37-47); Hemoglobin 10.9 g/dL (12.0-16.0); Mean Corpuscular Hemoglobin 29.9 pg (25-34); Mean Corpuscular Hgb Conc 31.8 g/dL (32-36); Mean Corpuscular Volume 94.2 fL (80-100); Mean Platelet Volume 9.6 fL (7.4-10.4); Platelet Count 467 K/uL (130-400); RDW Coefficient of Variation 16.2 % (11.5-14.5); RDW Standard Deviation 56.7 fL (36.4-46.3); Red Blood Count 3.64 M/uL (4.2-5.4); White Blood Count 3.63 K/uL (4.8-10.8)
[2020-03-11 08:16] LABS: Calcium 9.5 mg/dl (8.5-10.1); Est GFR (African American) 104.2; Est GFR (Non-African American) 89.9; Potassium 3.9 mmol/L (3.5-5.1)
[2020-03-11] MEDS: TRIAMCINOLONE ACET NASAL SPRAY 10.8ML BTL NAE SCH (09:20)
[2020-03-11] MEDS: FLUTICASONE/VILANTEROL 200/25MCG 14 PUFFS/INHALER INH SCH (09:20)
[2020-03-11] MEDS: PANTOprazole 40 MG TAB PO SCH ×2 (09:21→20:10)
[2020-03-11] MEDS: CHOLECALCIFEROL 1,000 UNITS 25 MCG TAB PO SCH (09:21)
[2020-03-11] MEDS: NYSTATIN SUSP 500,000 U/5 ML UDC PO SCH ×4 (09:21→20:06)
[2020-03-11] MEDS: SILDENAFIL CITRATE 20 MG TABLET PO SCH ×3 (09:21→20:08)
[2020-03-11] MEDS: buPROPion SR 100 MG TABCR PO SCH ×2 (09:21→17:00)
[2020-03-11] MEDS: ADVANCED PROBIOTIC 1250 MG CAPSULE PO SCH (09:21)
[2020-03-11] MEDS: CEFDINIR 300 MG CAP PO SCH ×2 (09:21→20:09)
[2020-03-11] MEDS: FOLIC ACID 1 MG TAB PO SCH (09:22)
[2020-03-11] MEDS: methylPREDNISolone 60 MG in SYRINGE 0 ML IV SCH ×2 (09:22→20:08)
[2020-03-11] MEDS: DULoxetine HCL 60 MG CAP PO SCH (09:22)
[2020-03-11] MEDS: VALSARTAN 80 MG TAB PO SCH (09:22)
[2020-03-11] MEDS: amLODIPine BESYLATE 5 MG TAB PO SCH (09:22)
[2020-03-11] MEDS: UMECLIDINIUM BROMIDE 62.5MCG/BLISTER 7 PUFFS/INHALER INH SCH (09:22)
[2020-03-11] MEDS: guaiFENesin 600 MG TABCR PO SCH ×2 (09:22→20:08)
--- NOTE | 2020-03-11 13:01 | XCELERA ---
[id number]
[2020-03-11] MEDS ORDERED: DEXTROSE 50% 50 ML SYRINGE IV PRN (13:44)
[2020-03-11] MEDS ORDERED: CARBOHYDRATES FOR HYPOGLYCEMIA PO PRN (13:44)
[2020-03-11] MEDS ORDERED: GLUCAGON FOR INJ 1 MG VIAL SQ PRN (13:44)
[2020-03-11] MEDS ORDERED: GLUCOSE 10 TABS/TUBE PO PRN (13:44)
[2020-03-11] MEDS ORDERED: GLUCOSE 40% GEL 15 GM TUBE PO PRN (13:44)
--- NOTE | 2020-03-11 13:47 | Hospitalist Progress Note ---
Date of Service March 11, 2020 Assessment & Plan (1) Acute on chronic respiratory failure with hypoxia: acute component - suspect 2nd to COPD exacerbation. I cannot rule out element of volume overload given her recent weight gain and report of LE edema (although none on exam today). No evidence of PE or pneumonia. She has made a full recovery from her recent COVID and repeat testing is negative. She is now much improved after receiving IV Lasix. Her HCTZ and bisoprolol were discontinued a few weeks ago during her last hospitalization-she has been tachycardic, hypertensive, this may have exacerbated acute on chronic diastolic CHF chronic - 2nd to end-stage, severe COPD. Typically on 5 L NC O2 at rest and 7 L NC O2 w/ ambulation. required BiPAP in ER - received 1-hour duoneb and steroids -now weaned back to her baseline O2 at rest -Restart home bisoprolol/HCTZ (2) COPD (chronic obstructive pulmonary disease): With exacerbation. Trigger - sinusitis most likely Flu/COVID/RSV negative. Improving -Continue Solumedrol 60mg IV twice daily for now and then return to eventually to prednisone 10 mg every other day -Continue to treat possible sinusitis with omnicef. -Continue Schedule duonebs q6h. Pulmonary toilet (flutter valve, incentive, etc). Mucinex. Home inhalers. O2 to maintain sats 90-92%. Follows with lung transplant at [facility] (3) Acute sinusitis: Suspected. Omnicef 300mg BID x 7-10 days. Saline spray. Nasocort nasal spray. Mucinex. (4) Tachycardia: Hemoglobin - mildly anemic but at baseline. No significant pain or anxiety. TSH wnl. No PE. Could be secondary to discontinuation of previous beta-monroe 2 to 3 weeks ago during last hospital admission Echocardiogram normal -Restart home bisoprolol Follow on telemetry (5) History of COVID-19: Hospitalized for ~10 days from 01/29 to 03/02. Recovered. CTA chest w/o pneumonia or signs of residual COVID. Repeat COVID testing now here is negative. (6) Hypertension: Blood pressures are elevated Cont norvasc 10mg daily. Continue ARB. Restart home bisoprolol/HCT Follow blood pressures (7) Prediabetes: DM diet. Follow BSGs in light of IV steroid use. Add on glucose checks, NovoLog sliding scale A1C 6.5% earlier this month. (8) Scleroderma: Noted. With systemic scleroderma With known pulmonary hypertension, esophageal dysmotility issues, Raynaud's Interstitial findings on CTA chest -- 2nd to scleroderma?? (9) Pulmonary arterial hypertension: Cont sildenafil. Cont NC O2. (10) Anxiety: Cont home meds. (11) Folate deficiency: Dx earlier this month. Continue folic acid supplement. (12) Candidiasis of mouth and esophagus: Resolved on exam here but will continue nystatin in light of high-dose steroid use. (13) DVT prophylaxis: lovenox 40mg daily Dispo-continued stay Admission and Anticipated Discharge Date Admission Date: March 10, 2020 Subjective Patient feeling much better today, less short of breath. She reports she had some ankle swelling and was stopped from her bisoprolol/HCTZ last admission for Covid pneumonia because her blood pressure was mildly low. She did receive IV Lasix upon admission. She is also questioning if her worsening anemia is playing a role in her shortness of breath and reports she previously got IV iron through her pharmacy clinical specialist. She denies chest pain or abdominal pain, is eating well. Had sinus congestion which is now improving. Telemetry with sinus tachycardia and PVCs with rates in the 100s Review of Systems Review of Systems: All systems reviewed & are unremarkable except as noted in HPI & below Physical Exam Constitutional: WD/WN, vitals as above Eyes: + anicteric sclerae Neck: trachea midline, no thyromegaly Respiratory: normal respiratory effort Auscultation: + crackles (Mild at the bases) and + wheezes (Scattered expiratory bilateral); no rhonchi Cardiovascular: Rate/Rhythm: regular rhythm and + tachycardic Heart Sounds: no murmur Extremities: no edema Chest (Breasts): Chest: normal inspection of chest Gastrointestinal (Abdomen): normal bowel sounds, soft, nontender, no hepatosplenomegaly Musculoskeletal: Extremities: extremities normal to inspection; no cyanosis and no clubbing Skin: no rashes, warm and dry Neurologic: moves all extremities and awake; no focal motor deficits Psychiatric: A+Ox3, euthymic affect Lymphatic: no lymphedema Results & Data Results & Data ([facility]) Vital Signs (Past 12 Hours) Vital Signs Temp Pulse Pulse Pulse Resp BP Pulse Ox 03/11/20 12:01 36.7 C 109 H 22 142/74 H 98 03/11/20 11:32 94 H 18 96 03/11/20 07:53 36.7 C 104 H 20 130/84 96 03/11/20 07:26 97 H 18 96 03/11/20 07:00 105 H 03/11/20 03:42 37.2 C 105 H 20 143/71 H 96 03/11/20 03:20 112 H 20 97 Laboratory Results 03/11/20 03/11/20 03/11/20 Range/Units 20:34 16:11 11:18 WBC (4.8-10.8) K/uL RBC (4.2-5.4) M/uL Hgb (12.0-16.0) g/dL Hct (37-47) % MCV (80-100) fL MCH (25-34) pg MCHC (32-36) g/dL RDW Std Deviation (36.4-46.3) fL RDW Coeff of Mag (11.5-14.5) % Plt Count (130-400) K/uL MPV (7.4-10.4) fL Sodium (136-145) mmol/L Potassium (3.5-5.1) mmol/L Chloride (98-107) mmol/L Carbon Dioxide (21-32) mmol/L Anion Gap (3-11) BUN (7-18) mg/dl Creatinine (0.6-1.2) mg/dl Est Cr Clr Drug Dosing ml/min Est GFR ( Amer) Est GFR (Non-Af Amer) BUN/Creatinine Ratio (10-20) Glucose (70-99) mg/dl POC Glucose 189 H 184 H 196 H (70-99) mg/dl Calcium (8.5-10.1) mg/dl Iron (35-150) mcg/dl TIBC (250-450) mcg/dl Transferrin (200-360) mg/dl Transferrin % Sat (15-50) % Ferritin (8-388) ng/ml 03/11/20 03/11/20 03/11/20 Range/Units 07:37 06:53 06:53 WBC (4.8-10.8) K/uL RBC (4.2-5.4) M/uL Hgb (12.0-16.0) g/dL Hct (37-47) % MCV (80-100) fL MCH (25-34) pg MCHC (32-36) g/dL RDW Std Deviation (36.4-46.3) fL RDW Coeff of Mag (11.5-14.5) % Plt Count (130-400) K/uL MPV (7.4-10.4) fL Sodium 139 (136-145) mmol/L Potassium 3.9 (3.5-5.1) mmol/L Chloride 105 (98-107) mmol/L Carbon Dioxide 27 (21-32) mmol/L Anion Gap 7.0 (3-11) BUN 15 (7-18) mg/dl Creatinine 0.68 (0.6-1.2) mg/dl Est Cr Clr Drug Dosing 83.0 ml/min Est GFR ( Amer) 104.2 Est GFR (Non-Af Amer) 89.9 BUN/Creatinine Ratio 22.0 H (10-20) Glucose 171 H (70-99) mg/dl POC Glucose 174 H (70-99) mg/dl Calcium 9.5 (8.5-10.1) mg/dl Iron 39 (35-150) mcg/dl TIBC 320 (250-450) mcg/dl Transferrin 248 (200-360) mg/dl Transferrin % Sat 11 L (15-50) % Ferritin 75.6 (8-388) ng/ml 03/11/20 Range/Units 06:53 WBC 3.63 L (4.8-10.8) K/uL RBC 3.64 L (4.2-5.4) M/uL Hgb 10.9 L (12.0-16.0) g/dL Hct 34.3 L (37-47) % MCV 94.2 (80-100) fL MCH 29.9 (25-34) pg MCHC 31.8 L (32-36) g/dL RDW Std Deviation 56.7 H (36.4-46.3) fL RDW Coeff of Mag 16.2 H (11.5-14.5) % Plt Count 467 H (130-400) K/uL MPV 9.6 (7.4-10.4) fL Sodium (136-145) mmol/L Potassium (3.5-5.1) mmol/L Chloride (98-107) mmol/L Carbon Dioxide (21-32) mmol/L Anion Gap (3-11) BUN (7-18) mg/dl Creatinine (0.6-1.2) mg/dl Est Cr Clr Drug Dosing ml/min Est GFR ( Amer) Est GFR (Non-Af Amer) BUN/Creatinine Ratio (10-20) Glucose (70-99) mg/dl POC Glucose (70-99) mg/dl Calcium (8.5-10.1) mg/dl Iron (35-150) mcg/dl TIBC (250-450) mcg/dl Transferrin (200-360) mg/dl Transferrin % Sat (15-50) % Ferritin (8-388) ng/ml PG Care Time/CCT Total # of Minutes Spent Total Time Spent with Patient: Total time spent is greater than 50% in coordination of care (as documented) at patient's floor/unit and/or counseling patient: Coding Level of Care Code 79063 Subseq Hosp Care Lvl 3 Diagnoses Acute on chronic respiratory failure with hypoxia J96.21 COPD (chronic obstructive pulmonary disease) J44.9 COPD type: unspecified COPD Acute sinusitis J01.90 Tachycardia R00.0 History of COVID-19 Z86.16 Hypertension I10 Prediabetes R73.03 Scleroderma M34.9 Pulmonary arterial hypertension I27.21 Anxiety F41.9 Folate deficiency E53.8 Candidiasis of mouth and esophagus B37.81; B37.0 DVT prophylaxis Z29.9 (1) COPD (chronic obstructive pulmonary disease) COPD type: unspecified COPD Qualified Code(s): J44.9 - Chronic obstructive pulmonary disease, unspecified
[2020-03-11] MEDS: BISOPROLOL FUMARATE 5 MG TAB PO SCH (14:54)
[2020-03-11] MEDS: hydroCHLOROthiazide 25 MG TAB PO SCH (14:54)
[2020-03-11 15:26] LABS: Ferritin 75.6 ng/ml (8-388)
[2020-03-11] MEDS: INSULIN ASPART 100 UNITS/ML 3 ML PEN SC SCH ×2 (16:58→21:43)
[2020-03-11] MEDS: ENOXAPARIN INJ 40 MG/0.4 ML SYR SQ SCH (17:00)
[2020-03-11] MEDS: OXYBUTYNIN CHLORIDE XL 5 MG TABCR PO SCH (20:07)
[2020-03-11] MEDS: CALCIUM CARBONATE 1250MG TAB PO SCH (20:07)
[2020-03-11] MEDS: ALPRAZolam 0.5 MG TABLET PO SCH (20:13)
[2020-03-12 07:11] LABS: Basophils # (auto) 0.01 K/uL (0-0.2); Basophils % (auto) 0.1 %; Hematocrit (blood only) 35.7 % (37-47); Hemoglobin 11.2 g/dL (12.0-16.0); Immature Granulocytes # (auto) 0.04 K/uL (0.00-0.02); Immature Granulocytes % (auto) 0.5 %; Lymphocytes # (auto) 0.79 K/uL (1.2-3.4); Lymphocytes % (auto) 9.7 %; Mean Corpuscular Hemoglobin 29.6 pg (25-34); Mean Corpuscular Hgb Conc 31.4 g/dL (32-36); Mean Corpuscular Volume 94.2 fL (80-100); Mean Platelet Volume 9.8 fL (7.4-10.4); Monocytes # (auto) 0.26 K/uL (0.11-0.59); Monocytes % (auto) 3.2 %; Neutrophils # (auto) 7.04 K/uL (1.4-6.5); Neutrophils % (auto) 86.5 %; Platelet Count 468 K/uL (130-400); RDW Coefficient of Variation 16.2 % (11.5-14.5); RDW Standard Deviation 56.3 fL (36.4-46.3); Red Blood Count 3.79 M/uL (4.2-5.4); White Blood Count 8.14 K/uL (4.8-10.8)
[2020-03-12] MEDS: ALBUT/IPRATROP 3MG/0.5MG NEB 3 ML VIAL INH SCH ×2 (07:14→11:17)
[2020-03-12 07:44] LABS: BUN Creatinine Ratio 33.3 (10-20); Calcium 9.1 mg/dl (8.5-10.1); Est GFR (African American) 105.7; Est GFR (Non-African American) 91.2
[2020-03-12 08:28] LABS: Folate (Folic Acid) > 20.00 ng/ml (>5.38); Vitamin B12 325 pg/ml (193-986)
[2020-03-12] MEDS ORDERED: IRON SUCROSE 300 MG in SODIUM CHLORIDE 0.9% 250 ML IV SCH (09:00)
[2020-03-12] MEDS: TRIAMCINOLONE ACET NASAL SPRAY 10.8ML BTL NAE SCH (09:13)
[2020-03-12] MEDS: FLUTICASONE/VILANTEROL 200/25MCG 14 PUFFS/INHALER INH SCH (09:14)
[2020-03-12] MEDS: methylPREDNISolone 60 MG in SYRINGE 0 ML IV SCH (09:14)
[2020-03-12] MEDS: UMECLIDINIUM BROMIDE 62.5MCG/BLISTER 7 PUFFS/INHALER INH SCH (09:14)
[2020-03-12] MEDS: NYSTATIN SUSP 500,000 U/5 ML UDC PO SCH (09:14)
[2020-03-12] MEDS: buPROPion SR 100 MG TABCR PO SCH (09:16)
[2020-03-12] MEDS: CHOLECALCIFEROL 1,000 UNITS 25 MCG TAB PO SCH (09:16)
[2020-03-12] MEDS: ADVANCED PROBIOTIC 1250 MG CAPSULE PO SCH (09:16)
[2020-03-12] MEDS: PANTOprazole 40 MG TAB PO SCH (09:16)
[2020-03-12] MEDS: SILDENAFIL CITRATE 20 MG TABLET PO SCH (09:16)
[2020-03-12] MEDS: guaiFENesin 600 MG TABCR PO SCH (09:17)
[2020-03-12] MEDS: amLODIPine BESYLATE 5 MG TAB PO SCH (09:17)
[2020-03-12] MEDS: hydroCHLOROthiazide 25 MG TAB PO SCH (09:17)
[2020-03-12] MEDS: BISOPROLOL FUMARATE 5 MG TAB PO SCH (09:17)
[2020-03-12] MEDS: FOLIC ACID 1 MG TAB PO SCH (09:17)
[2020-03-12] MEDS: VALSARTAN 80 MG TAB PO SCH (09:17)
[2020-03-12] MEDS: CEFDINIR 300 MG CAP PO SCH (09:17)
[2020-03-12] MEDS: DULoxetine HCL 60 MG CAP PO SCH (09:17)
[2020-03-12] MEDS: INSULIN ASPART 100 UNITS/ML 3 ML PEN SC SCH (09:18)
--- NOTE | 2020-03-12 11:51 | Discharge Summary ---
Date of Service March 12, 2020 Admission HPI Per Admitting Provider Very pleasant 69yo female with O2-dependent COPD with resulting chronic hypoxic respiratory failure on home O2 (5L at rest, 7L with ambulation) - admitted to [facility] with COVID-19 pneumonia from 02/01/20 to 02/13/20 - presents with worsening dyspnea over the last 2 days, 5 pounds of weight gain over the last day, 10 pounds of weight gain over the last week, sinus congestion with purulent drainage (acute on chronic), mild cough, and tachycardia. She states that a home physical therapist visited her today for a PT session and her HR was noted to be in the 120s which is unusual for her. Given her symptoms the PT rec ommended she come to [facility] for evaluation. Patient reports that her home O2 has not changed - still remains at 5L at rest and 7L with ambulation. Lowest O2 sats at home today were in the low 70s with ambulation. Denies any fevers, chills, loss of appetite, sputum production, orthopnea, chest pain or abdominal pain. No nausea, emesis or diarrhea. Did have LE edema about 1 week ago - now resolved. Patient states that following her admission for COVID she has experienced considerable fatigue but has made progress with her strength and ambulation. She is still hoping to obtain a lung transplant and has f/u with a transplant center later this spring. Prior to my assessment she was placed on BIPAP by the ER provider. During my visit her O2 sats were 100% on BIPAP and 40% FIO2. I asked staff to place her back on 5L NC and she tolerated such with sats in the low to mid 90s. Principal Diagnosis Acute on chronic respiratory failure with hypoxia, COPD exacerbation, Acute sinusitis Discharge Exam Constitutional WD/WN, vitals as above Eyes + anicteric sclerae Neck trachea midline, no thyromegaly Respiratory normal respiratory effort, lungs clear to auscultation Auscultation: + diminished lung sounds (throughout) Cardiovascular RRR, no murmur, no edema Chest (Breasts) Chest: normal inspection of chest Gastrointestinal (Abdomen) normal bowel sounds, soft, nontender, no hepatosplenomegaly Musculoskeletal Extremities: extremities normal to inspection; no cyanosis and no clubbing Skin no rashes, warm and dry Neurologic moves all extremities and awake; no focal motor deficits Psychiatric A+Ox3, euthymic affect Lymphatic no lymphedema Discharge Data Allergies Allergy/AdvReac Type Severity Reaction Status Date / Time ferric carboxymaltose Allergy Intermediate SOB, Verified 03/10/20 15:56 [From Injectafer] tachycardia Consultations 03/10/20 14:37 ED Decision to Admit Stat Ordered Studies 03/10/20 13:48 CT angio chest PE protocol Stat CXR ECHO Hospital Course (1) Acute on chronic respiratory failure with hypoxia: acute component - suspect 2nd to COPD exacerbation. I cannot rule out element of volume overload given her recent weight gain and report of LE edema (although none on exam today). No evidence of PE or pneumonia. She has made a full recovery from her recent COVID and repeat testing is negative. She is now much improved after receiving IV Lasix. Her HCTZ and bisoprolol were discontinued a few weeks ago during her last hospitalization-she has been tachycardic, hypertensive, this may have exacerbated acute on chronic diastolic CHF chronic - 2nd to end-stage, severe COPD. Typically on 5 L NC O2 at rest and 7 L NC O2 w/ ambulation. required BiPAP in ER - received 1-hour duoneb and steroids -now weaned back to her baseline O2 at rest ECHO here with preserved EF -Restarted home bisoprolol/HCTZ and had significant improvement (2) COPD (chronic obstructive pulmonary disease): With exacerbation. Trigger - sinusitis most likely Flu/COVID/RSV negative. Improved -received Solumedrol 60mg IV twice daily and then go home with prednisone 40mg daily x 2 days, then 20mg daily x 2 days, then 10mg daily x 2 days, then return to usual 10 mg every other day -Continue to treat possible sinusitis with omnicef x 7 day course -Continue bronchodilators Pulmonary toilet (flutter valve, incentive, etc). Home inhalers. O2 to maintain sats 90-92%. On 5LNC here which is her baseline Follows with lung transplant at [facility] (3) Acute sinusitis: Suspected. Omnicef 300mg BID x 7 days. Saline spray. (4) Tachycardia: Sinus tachycardia Hemoglobin - mildly anemic but at baseline. No significant pain or anxiety. TSH wnl. No PE. Could be secondary to discontinuation of previous beta-monroe 2 to 3 weeks ago during last hospital admission Echocardiogram normal -Restarted home bisoprolol and no further tachycardia (5) History of COVID-19: Hospitalized for ~10 days from 01/29 to 02/11. Recovered. CTA chest w/o pneumonia or signs of residual COVID. Repeat COVID testing now here is negative. (6) Hypertension: Blood pressures were elevated and then improved with addition of bisoprolol/HCT Cont norvasc 10mg daily. Continue ARB. Restarted home bisoprolol/HCT (7) Prediabetes: DM diet. NovoLog sliding scale used while here A1C 6.5% earlier this month. f/u with PCP no meds on discharge (8) Scleroderma: Noted. With systemic scleroderma With known pulmonary hypertension, esophageal dysmotility issues, Raynaud's Interstitial findings on CTA chest -- 2nd to scleroderma?? (9) Pulmonary arterial hypertension: Cont sildenafil. Cont NC O2. (10) Anxiety: Cont home meds. (11) Folate deficiency: Dx earlier this month. Continue folic acid supplement. (12) Candidiasis of mouth and esophagus: Resolved on exam here but will continue nystatin in light of high-dose steroid use. (13) B12 deficiency: B12 level low normal at 325 start B12 1000mcg po once daily (14) Iron deficiency anemia: Iron sat 10% gave one dose Venofer IV here on day of discharge follows with Heme as outpt (15) DVT prophylaxis: lovenox 40mg daily Dispo-stable for dc to home Total Time Total Time Spent Total Time Spent (In Minutes): 35 min Total Time Includes: Examination of the Patient, Discharge Planning and Medication Reconciliation Discharge Plan Discharge Items Patient Disposition: Home - Self-Care Reason For Visit: ACUTE/CHRONIC HYPOXIA RESPIRATORY FAILURE Discharge Diagnosis: Acute on chronic respiratory failure with hypoxia Condition on Discharge: Good Activity: As commented below Bathing: No limitations Exercise/Sports: Gradually increase as tolerated Non-emergency contact: Primary Care Provider and Wet Process Assistant Head [place] Follow-up/Referrals: Eliza Mayorga DO [Primary Care Provider] - (Follow up within 1 week) Diet: Heart Healthy Addtl Attending Provider Instructions: You were admitted with worsening shortness of breath and low oxygen levels. You were treated with IV diuretics to rid you of excess fluid as well as treated with BiPAP. Your previous medication of bisoprolol/HCT was restarted as your blood pressure and heart rates were elevated; you also will benefit from the diuretic effect of this drug. Please complete a short burst of prednisone 40mg once daily x 2 days then 20mg once daily x 2 days then 10mg once daily x 2 days, then back to usual dose of 10mg every other day. You were also given a dose of IV Venofer (iron) while you were here for low iron levels and anemia. Your vitamin B12 levels were low normal also and this can contribute to anemia-please start taking Vitamin B12 1000mcg once daily by mouth. Please follow up with your PCP and Wet Process Assistant Head [facility]. Pending Studies at Discharge: No Stand-Alone Forms: My [facility] Medications and DC Order Prescriptions: New cefdinir 300 mg Capsule 300 mg PO BID 6 Days Qty: 12 RF: 0 bisoprolol-hydrochlorothiazide 10-6.25 mg tablet 1 tab PO DAILY Qty: 30 RF: 0 cyanocobalamin (vitamin B-12) 1,000 mcg capsule 1,000 mcg PO DAILY Qty: 30 RF: 0 prednisone 20 mg tablet 40 mg PO DAILY Qty: 6 RF: 0 Continued alprazolam 0.5 mg tablet 0.5 mg PO HS Qty: 30 RF: 3 omeprazole 20 mg capsule,delayed release(DR/EC) 20 mg PO BID Qty: 180 RF: 1 (DME) 4 wheeled walker See Rx Instructions .Route .MEDSUPPLY Qty: 1 RF: 0 (DME) Potty Chair See Rx Instructions .Route .MEDSUPPLY Qty: 1 RF: 0 valsartan 80 mg tablet See Rx Instructions .ROUTE .COMPLEX Qty: 90 RF: 1 ipratropium-albuterol 0.5 mg-3 mg(2.5 mg base)/3 mL solution for nebulization 3 ml inhalation Q8H PRN (Reason: COPD- DX J44.9 J43.9 J45.909 ) Qty: 180 RF: 5 albuterol sulfate [Ventolin HFA] 90 mcg/actuation HFA aerosol inhaler 2 puff inhalation QID PRN (Reason: Shortness Of Breath) Qty: 18 RF: 3 Advair HFA 230-21 mcg/actuation HFA aerosol inhaler 2 puff INHALATION BID Qty: 1 RF: 5 (DME) Portable Oxygen Misc See Rx Instructions .MEDSUPPLY Qty: 1 RF: 0 (DME) Oxygen Home Liters Per Minute See Dose Instructions .ROUTE .MEDSUPPLY Qty: 1 RF: 0 bupropion HCl [Wellbutrin SR] 100 mg tablet sustained-release 12 hr 100 mg PO BID Qty: 60 RF: 5 calcium carbonate [Calcium 500] 500 mg calcium (1,250 mg) Tablet 500 mg PO QPM RF: 0 amlodipine 10 mg tablet 10 mg PO QAM RF: 0 cholecalciferol (vitamin D3) [Vitamin D3] 2,000 unit Tablet 2,000 unit PO QAM RF: 0 prednisone 10 mg tablet 10 mg PO Q2D RF: 0 oxybutynin chloride 5 mg tablet extended release 24hr 5 mg PO HS RF: 0 clobetasol 0.05 % solution 1 applic topical DAILY PRN (Reason: Dandruff) RF: 0 sildenafil (pulm.hypertension) 20 mg Tablet 20 mg PO TID RF: 0 nystatin 100,000 unit/mL Suspension 5 ml PO QID 10 Days Qty: 200 RF: 1 folic acid 1 mg Tablet 1 mg PO QAM 30 Days Qty: 30 RF: 0 codeine-guaifenesin 10-100 mg/5 mL Liquid 5 ml PO Q6H PRN (Reason: cough) Qty: 100 RF: 0 benzonatate [Tessalon Perles] 100 mg capsule 100 - 200 mg PO TID PRN (Reason: cough) Qty: 30 RF: 1 duloxetine 60 mg capsule,delayed release(DR/EC) 60 mg PO QAM RF: 0 Spiriva with HandiHaler 18 mcg capsule, w/inhalation device 1 cap INHALATION QAM RF: 0 Discharge Orders: Discharge Order (Routine); Ordered 03/12/20 Ordered By: Rama Corey Admission Data Admit Date/Time: 03/10/20 16:10 Attending Provider: Rama Corey Admit Provider: Daniel Roberson Primary Care Provider: Eliza Mayorga Other Providers: Daniel Roberson Coding Level of Care Code D/C Day Management >30 mins Diagnoses Acute on chronic respiratory failure with hypoxia J96.21 COPD (chronic obstructive pulmonary disease) J44.9 COPD type: unspecified COPD Acute sinusitis J01.90 Tachycardia R00.0 History of COVID-19 Z86.16 Hypertension I10 Prediabetes R73.03 Scleroderma M34.9 Pulmonary arterial hypertension I27.21 Anxiety F41.9 Folate deficiency E53.8 Candidiasis of mouth and esophagus B37.81; B37.0 B12 deficiency E53.8 Iron deficiency anemia D50.9 DVT prophylaxis Z29.9
== END 2020-03-12 13:10 | disposition home or self-care (01) | DRG 190 ==
LOC: ED 11:54 → 2S 16:10 → SUATTDRO 16:10 → 2S 17:07

== ENCOUNTER 2022-01-04 14:01 | Inpatient (IN) ==
--- NOTE | 2022-01-04 15:05 | Emergency Department Note ---
Impression & Plan PATEL (dyspnea on exertion), COPD exacerbation ED Provider Note NAME: DOMINIQUE AVILES AGE: 71 SEX: F : 1950 ARRIVES VIA: Walk-In INFORMANT: Patient, ED PROVIDER(S): Riki Sanabria MD Chief Complaint: Shortness of breath HPI: Patient has a known history of COPD and associated emphysema who is presenting due to concern for worsening shortness of breath. Ongoing for 2 to 3 weeks. She does have baseline oxygen requirement of 10 L. Patient does use the daily nebulizer treatments and prednisone every other day. Patient does feel improved when she is sitting upright. No leg swelling no calf pain. Patient does have a pulse oximeter at home but states that sometimes it is difficult to get an accurate reading given her history of scleroderma. Patient states that she had checked in the past and it was in the 70s. Patient has been wearing her 10 L over the last 3 weeks. Patient does complain of exertional dyspnea and states that she can even walk around her home without being exceptionally w inded. Patient does follow with Dr. Cam. Patient does take 10 mg of prednisone every other day. The patient has had occasionally productive cough. Patient is a former smoker quitting greater than 10 years ago. ROS: See HPI for pertinent positives and negatives. A total of 10 systems were revi ewed and otherwise negative. Past medical history: See below Surgical history: See below Social history: See below Physical Exam: GENERAL: NAD, wearing a mask, non-toxic. Nasal cannula in place EYE EXAM: Normal conjunctiva. PERRL, no anisocoria and EOM's grossly intact w/o pain. NECK: Supple, no nuchal rigidity, no adenopathy, non-tender. No signs of meningismus. FROM of the neck with good chin to chest and neck extension. No stridor. LUNGS: Decreased breath sounds throughout. Normal chest wall mechanics. HEART: NSR, no MRG. ABDOMEN: Abdomen soft, non-tender, normo-active bowel sounds, no masses, no rebound or guarding. BACK: No CVA TTP. SKIN: No rashes and no bruising. UPPER EXTREMITIES: Upper extremities are grossly normal. LOWER EXTREMITIES: Grossly normal, trace symmetric bilateral lower extremity edema. No calf pain or erythema. NEURO EXAM: A&O x3, cranial nerves II-XII grossly intact, normal speech, moves all 4 extremities. Differential diagnoses: Reactive airway disease, pneumonia, pneumothorax, COPD, CHF, infections, cardiac ischemia, pulmonary embolism, musculoskeletal, gastrointestinal, as well as other pathologies. Course: Patient was seen and evaluated the bedside. Full history physical exam was performed. EKG interpreted by me Normal sinus rhythm, rate 82 normal intervals normal axis no ST elevations Imaging Studies: See Below Cardiac monitoring: An order was placed for continuous cardiac monitoring. The monitor shows a rate of 85 with sinus rhythm. MDM: Patient presents due to concern for shortness of breath. Blood work was obtained. The patient's viral swab is negative. VBG does not show any evidence of hypercarbia or acidemia. The patient has a normal white count H&H and platelet count. The patient did have mild improvement with BiPAP but did develop some claustrophobia so this was ceased. I did speak the on-call hospitalist and the patient was admitted by Dr. Jones. Critical Care: I have personally spent 42 minutes of critical care time in direct management of this patient. This includes bedside care, interpretation of diagnostic studies, and testing, discussion with consultants, patient, and family members, and other require inpatient management activities. This 42 minutes is in excess of all separately billable procedures. Past Med/Surg History Medical History Anxiety Asthma Chronic steroid use Collagenous colitis COPD (chronic obstructive pulmonary disease) Gastritis, chronic Gastroparesis pt denies History of COVID-19 Dx 01/2020; required hospitalization Hyperlipidemia Hypertension Insomnia, persistent Iron deficiency anemia On home oxygen therapy 4lpm via n/c continuous Osteoarthritis Osteopenia Perforated nasal septum Peripheral neuropathy bilateral hands & feet Prediabetes Pulmonary emphysema Raynaud's disease Right lower lobe pneumonia Urinary incontinence Surgical History H/O cataract extraction (09/2019) b/l eyes H/O laminectomy Lumbar area H/O tooth extraction History of bilateral tubal ligation History of bladder surgery bladder tack History of cataract extraction (09/30/19) Both eyes History of cholecystectomy Open History of colonoscopy History of cystoscopy History of dilatation and curettage History of esophagogastroduodenoscopy (EGD) History of tonsillectomy Hx of lumpectomy Left (-) Family History Mother , age 73 Stroke Father , age 71 Lung cancer Sister Non Hodgkin's lymphoma Lupus Denies family history of Ovarian cancer Prostate cancer Myocardial infarction Breast cancer Colorectal cancer Social History Smoking Status: Former smoker Tobacco Type: Cigarettes Age Quit Using Tobacco: 59; Cigarettes Per Day: 40; Second Hand Exposure: No; Hx Alcohol Use: No Hx Substance Use: No Preferred Language: Danish Communication Ability: Effective Visual Impairment: Limited Hearing Ability: Normal Prescription Eyeglass Maker Required: No Beliefs That Will Affect Care: None marital status: Current Living Situation: Spouse current occupational status: retired 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 ; 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 How many Children do You have: 2 Other Information That Helps Us Care for You: Yes (waiting on dalia lung transplant) Feels Safe at Home: Yes Safety Concerns: Feels Safe At This Time Diet Comment: chicken and veggies, occasional red meat caffeine: Yes (very little) during the past year weight has: decreased > 10 lbs Dental Care, Regularly: Yes Physical Activity Frequency: Does not Exercise Seatbelt Use: always Sunscreen Use: Yes Assistive Devices: CPAP and Oxygen - Continuous Allergies Allergies Allergy/AdvReac Type Severity Reaction Status Date / Time ferric carboxymaltose Allergy Intermediate SOB, Verified 01/04/22 18:17 [From Injectafer] tachycardia Home Meds Home Medications Medication Instructions Recorded Confirmed amlodipine 10 mg tablet 10 mg PO QAM 02/08/18 01/04/22 cholecalciferol (vitamin D3) 50 2,000 unit PO QAM 02/08/18 01/04/22 mcg (2,000 unit) tablet (Vitamin D3) sildenafil (pulm.hypertension) 20 20 mg PO TID 02/04/20 01/04/22 mg tablet Oxygen Home #1 ea 03/21/20 12/04/21 calcium carbonate 500 mg calcium 500 mg PO QPM 01/04/22 01/04/22 (1,250 mg) tablet nystatin 100,000 unit/mL oral 0 ml buccal BID PRN Mouth 01/04/22 01/04/22 suspension Irritation valsartan 80 mg tablet 80 mg PO QAM 01/04/22 01/04/22 Previous Rx's Medication Instructions Recorded Portable Oxygen #1 ea 02/21/20 cyanocobalamin (vitamin B-12) 1,000 mcg PO DAILY #30 caps 03/12/20 1,000 mcg capsule bupropion HCl 100 mg tablet,12 hr 100 mg PO BID #60 ea 04/17/21 sustained-release (Wellbutrin SR) albuterol sulfate 90 mcg/actuation 2 puff inhalation QID PRN 05/11/21 aerosol inhaler (Ventolin HFA) Shortness Of Breath #18 grams ipratropium 0.5 mg-albuterol 3 mg 3 ml inhalation Q8H PRN COPD- DX 05/11/21 (2.5 mg base)/3 mL nebulization J44.9 J43.9 J45.909 #180 mL soln benzonatate 100 mg capsule 100 mg PO TID PRN cough #30 caps 06/08/21 prednisone 10 mg tablet 10 mg PO Q2D #90 tabs 06/25/21 duloxetine 60 mg capsule,delayed 60 mg PO QAM #90 caps 07/13/21 release oxybutynin chloride 5 mg 5 mg PO HS #90 tabs 08/06/21 tablet,extended release 24 hr tiotropium bromide 18 mcg capsule 1 cap inhalation QAM #90 10/09/21 with inhalation device (Spiriva inhalations with HandiHaler) mupirocin 2 % topical ointment 1 applic topical BID PRN nasal 11/26/21 irritation #22 grams omeprazole 20 mg capsule,delayed 20 mg PO BID #180 caps 11/28/21 release bisoprolol 10 1 tab PO DAILY #90 tabs 11/29/21 mg-hydrochlorothiazide 6.25 mg tablet fluticasone propionate 230 2 puff inhalation BID #1 inhaler 12/03/21 mcg-salmeterol 21 mcg/actuation HFA inhaler (Advair HFA) Results & Data (ED) Vital Signs Vital Signs - 24 hr 01/04/22 14:12 01/04/22 15:04 01/04/22 15:04 Temperature 36.7 C Temperature Source Skin Pulse Rate 93 H Pulse Rate [Right Finger] 89 Pulse Rhythm Regular Pulse Strength Normal Respiratory Rate 24 Respiratory Effort / Characteristics Spontaneous Short of Breath Respiratory Depth Respiratory Pattern Regular Blood Pressure 123/75 Blood Pressure [Right Arm] 142/91 H Blood Pressure Mean 91 Blood Pressure Mean [Right Arm] 108 Pulse Oximetry 94 93 Oxygen Delivery Method Nasal Cannula Nasal Cannula Nasal Cannula Oxygen Flow Rate 4 8 8 Fraction of Inspired Oxygen SaO2/FiO2 Ratio Sepsis Recent Fever Within 48 Hours No Sepsis New/Unexplained Change in Mental Status N/A Sepsis Action Taken by Nursing No Action Required Pulse Oximetry Post Tiitration 92 01/04/22 15:04 01/04/22 15:36 01/04/22 15:36 Temperature Temperature Source Pulse Rate 94 H Pulse Rate [Right Finger] 89 Pulse Rhythm Pulse Strength Respiratory Rate 24 24 Respiratory Effort / Characteristics Non-Labored Spontaneous Non-Labored Spontaneous Respiratory Depth Normal Respiratory Pattern Regular Blood Pressure Blood Pressure [Right Arm] Blood Pressure Mean Blood Pressure Mean [Right Arm] Pulse Oximetry 93 96 94 Oxygen Delivery Method Nasal Cannula CPAP Oxygen Flow Rate 8 Fraction of Inspired Oxygen 35 SaO2/FiO2 Ratio Sepsis Recent Fever Within 48 Hours Sepsis New/Unexplained Change in Mental Status Sepsis Action Taken by Nursing Pulse Oximetry Post Tiitration 01/04/22 17:00 Temperature Temperature Source Pulse Rate Pulse Rate [Right Finger] 95 H Pulse Rhythm Pulse Strength Respiratory Rate Respiratory Effort / Characteristics Respiratory Depth Respiratory Pattern Blood Pressure Blood Pressure [Right Arm] Blood Pressure Mean Blood Pressure Mean [Right Arm] Pulse Oximetry 95 Oxygen Delivery Method BiPAP Oxygen Flow Rate Fraction of Inspired Oxygen 35 SaO2/FiO2 Ratio 271 Sepsis Recent Fever Within 48 Hours Sepsis New/Unexplained Change in Mental Status Sepsis Action Taken by Nursing Pulse Oximetry Post Tiitration Home Medications Current Medication List: was personally reviewed by me Laboratory Data Attestation: I reviewed the patient's lab results. Result diagrams: 01/04/22 14:50 01/04/22 14:50 Lab Results 01/04/22 01/04/22 01/04/22 Range/Units 14:50 14:50 14:50 WBC 10.66 (4.8-10.8) K/ul RBC 3.99 (3.93-5.22) M/uL Hgb 12.3 (12.0-16.0) g/dl Hct 36.9 (34.1-44.9) % MCV 92.5 (80.0-100.0) fL MCH 30.8 (25.0-34.0) pg MCHC 33.3 (32.0-36.0) g/dL RDW Std Deviation 45.2 (36.4-46.3) fL RDW Coeff of Mag 13.3 (11.5-14.5) % Plt Count 326 (130-400) K/uL MPV 9.5 (9.4-12.3) fL Immature Gran % (Auto) 0.3 % Neut % (Auto) 84.7 % Lymph % (Auto) 6.9 % Baca % (Auto) 5.2 % Eos % (Auto) 2.3 % Baso % (Auto) 0.6 % Neut # (Auto) 9.04 H (1.4-6.5) K/uL Lymph # (Auto) 0.74 L (1.2-3.4) K/uL [place] # (Auto) 0.55 (0.24-0.82) K/uL Eos # (Auto) 0.24 (0-0.50) K/uL Baso # (Auto) 0.06 (0-0.2) K/uL Immature Gran # (Auto) 0.03 H (0.00-0.02) K/uL PT 10.3 (9.0-12.0) Seconds INR 1.0 (0.9-1.1) APTT 27.4 (21.0-31.0) Seconds PTT Ratio 1.0 VBG pH (7.36-7.41) VBG pCO2 (38-50) mmHg VBG pO2 mmHg VBG HCO3 mmol/L VBG O2 Saturation % VBG Base Excess mEq/L Sodium 137 (136-145) mmol/L Potassium 3.6 (3.5-5.1) mmol/L Chloride 101 (98-107) mmol/L Carbon Dioxide 28 (21-32) mmol/L Anion Gap 8 (3-11) BUN 10 (6-23) mg/dl Creatinine 0.55 L (0.6-1.2) mg/dl Est Cr Clr Drug Dosing 98.0 ml/min Est GFR ( Amer) 110.1 ml/min Est GFR (Non-Af Amer) 95.0 ml/min BUN/Creatinine Ratio 18.2 (10-20) Glucose 126 H (70-99(Fasting)) mg/dl Calcium 8.9 (8.5-10.1) mg/dl Magnesium 1.8 (1.7-2.4) mg/dl Total Bilirubin 0.7 (0.2-1.0) mg/dl AST 11 L (13-39) U/L ALT 9 (7-52) U/L Alkaline Phosphatase 68 (34-104) U/L Troponin I High Sens 8.9 (0-14) pg/ml Total Protein 6.9 (6.0-8.3) gm/dl Albumin 4.0 (3.4-5.0) gm/dl Globulin 2.9 (2.5-4.0) gm/dl Albumin/Globulin Ratio 1.4 (0.9-2) SARS-CoV-2 (PCR) (Negative) Influenza Type A (PCR) (Neg) Influenza Type B (PCR) (Neg) RSV (RT-PCR) (Neg) 01/04/22 01/04/22 Range/Units 15:10 15:13 WBC (4.8-10.8) K/ul RBC (3.93-5.22) M/uL Hgb (12.0-16.0) g/dl Hct (34.1-44.9) % MCV (80.0-100.0) fL MCH (25.0-34.0) pg MCHC (32.0-36.0) g/dL RDW Std Deviation (36.4-46.3) fL RDW Coeff of Mag (11.5-14.5) % Plt Count (130-400) K/uL MPV (9.4-12.3) fL Immature Gran % (Auto) % Neut % (Auto) % Lymph % (Auto) % Baca % (Auto) % Eos % (Auto) % Baso % (Auto) % Neut # (Auto) (1.4-6.5) K/uL Lymph # (Auto) (1.2-3.4) K/uL [place] # (Auto) (0.24-0.82) K/uL Eos # (Auto) (0-0.50) K/uL Baso # (Auto) (0-0.2) K/uL Immature Gran # (Auto) (0.00-0.02) K/uL PT (9.0-12.0) Seconds INR (0.9-1.1) APTT (21.0-31.0) Seconds PTT Ratio VBG pH 7.41 (7.36-7.41) VBG pCO2 44 (38-50) mmHg VBG pO2 31 mmHg VBG HCO3 28 mmol/L VBG O2 Saturation < 60.0 % VBG Base Excess 2.8 mEq/L Sodium (136-145) mmol/L Potassium (3.5-5.1) mmol/L Chloride (98-107) mmol/L Carbon Dioxide (21-32) mmol/L Anion Gap (3-11) BUN (6-23) mg/dl Creatinine (0.6-1.2) mg/dl Est Cr Clr Drug Dosing ml/min Est GFR ( Amer) ml/min Est GFR (Non-Af Amer) ml/min BUN/Creatinine Ratio (10-20) Glucose (70-99(Fasting)) mg/dl Calcium (8.5-10.1) mg/dl Magnesium (1.7-2.4) mg/dl Total Bilirubin (0.2-1.0) mg/dl AST (13-39) U/L ALT (7-52) U/L Alkaline Phosphatase (34-104) U/L Troponin I High Sens (0-14) pg/ml Total Protein (6.0-8.3) gm/dl Albumin (3.4-5.0) gm/dl Globulin (2.5-4.0) gm/dl Albumin/Globulin Ratio (0.9-2) SARS-CoV-2 (PCR) NEGATIVE (Negative) Influenza Type A (PCR) Negative (Neg) Influenza Type B (PCR) Negative (Neg) RSV (RT-PCR) Negative (Neg) Administered Medications Azithromycin 500 mg/ Dextrose 255 mls @ 127.5 mls/hr IV NOW STA Stop: 01/04/22 20:11 Last Admin: 01/04/22 19:15 Dose: 127.5 mls/hr Documented By: RYAN Azithromycin 500 mg/ Dextrose 255 mls @ 125 mls/hr IV Q24H JAVIER Stop: 01/07/22 19:13 Last Admin: 01/04/22 19:55 Dose: Not Given Documented By: CM Discontinued Medications Albuterol (Albut/Ipratrop 3mg/0.5mg Neb 3 Ml Vial) 12 ml NEB ONE ONE; Protocol Stop: 01/04/22 15:09 Last Admin: 01/04/22 15:33 Dose: 12 ml Documented By: NANNETTE Magnesium Sulfate/Dextrose (Magnesium Sulfate / D5w) 1 gm in 100 mls @ 200 mls/hr IV NOW STA Stop: 01/04/22 15:37 Last Infusion: 01/04/22 15:53 Dose: 0 mls/hr Documented By: Admin: 01/04/22 15:20 Dose: 200 mls/hr Documented By: CARMEN Methylprednisolone (Methylprednisolone 125 Mg/2 Ml Vial) 125 mg IV NOW STA Stop: 01/04/22 15:09 Last Admin: 01/04/22 15:20 Dose: 125 mg Documented By: CARMEN Imaging Data Radiologist's Impression: Chest X-Ray 01/04/22 14:16 XR chest 1V portable HISTORY: 71 years-old Female SOB acute shortness of breath COMPARISON: Chest radiograph 03/10/2020 TECHNIQUE: Portable AP view of the chest FINDINGS: Cardiomediastinal and hilar silhouettes are within normal limits. Emphysema with chronic interstitial coarsening. No pneumothorax, pleural effusion, airspace consolidation or overt pulmonary edema. Degenerative changes of the shoulders and spine. Unchanged left subclavian [id number] catheter. IMPRESSION: Emphysema without acute process. ACT 112: Negative or not required by law. The above report was generated using voice recognition software. It may contain grammatical, syntax or spelling errors. Electronically signed by: Reagan Faith M.D. 01/04/2022 3:44 PM Discharge Plan Visit Data Chief Complaint: Shortness of Breath/Dyspnea Stated Complaint: COPD, SHORTNESS OF BREATH ED Provider: Riki Sanabria ED Midlevel Provider: Carlota Turcios Discharge Problem: PATEL (dyspnea on exertion), COPD exacerbation Patient Disposition: Admitted As Inpatient Discharge Instructions Interventions: ED Discharge Assessment Last Done: 01/04/22 18:30
[2022-01-04 15:08] LABS: Basophils # (auto) 0.06 K/uL (0-0.2); Basophils % (auto) 0.6 %; Eosinophils # (auto) 0.24 K/uL (0-0.50); Eosinophils % (auto) 2.3 %; Hematocrit (blood only) 36.9 % (34.1-44.9); Hemoglobin 12.3 g/dl (12.0-16.0); Immature Granulocytes # (auto) 0.03 K/uL (0.00-0.02); Immature Granulocytes % (auto) 0.3 %; Lymphocytes # (auto) 0.74 K/uL (1.2-3.4); Lymphocytes % (auto) 6.9 %; Mean Corpuscular Hemoglobin 30.8 pg (25.0-34.0); Mean Corpuscular Hgb Conc 33.3 g/dL (32.0-36.0); Mean Corpuscular Volume 92.5 fL (80.0-100.0); Mean Platelet Volume 9.5 fL (9.4-12.3); Monocytes # (auto) 0.55 K/uL (0.24-0.82); Monocytes % (auto) 5.2 %; Neutrophils # (auto) 9.04 K/uL (1.4-6.5); Neutrophils % (auto) 84.7 %; Platelet Count 326 K/uL (130-400); RDW Coefficient of Variation 13.3 % (11.5-14.5); RDW Standard Deviation 45.2 fL (36.4-46.3); Red Blood Count 3.99 M/uL (3.93-5.22); White Blood Count 10.66 K/ul (4.8-10.8)
[2022-01-04] MEDS ORDERED: methylPREDNISolone 125 MG/2 ML VIAL IV STA (15:08)
[2022-01-04] MEDS ORDERED: ALBUT/IPRATROP 3MG/0.5MG NEB 3 ML VIAL NEB ONE (15:08)
[2022-01-04] MEDS ORDERED: MAGNESIUM SULFATE / D5W 1 GM/100 ML BAG IV STA (15:08)
[2022-01-04 15:21] LABS: Partial Thromboplastin Time 27.4 Seconds (21.0-31.0); Prothrombin Time 10.3 Seconds (9.0-12.0)
--- NOTE | 2022-01-04 15:37 | Electrocardiogram Report ---
Test Reason : Blood Pressure : / mmHG Vent. Rate : 092 BPM Atrial Rate : 092 BPM P-R Int : 182 ms QRS Dur : 084 ms QT Int : 368 ms P-R-T Axes : 058 001 051 degrees QTc Int : 455 ms Poor data quality, interpretation may be adversely affected Normal sinus rhythm Low voltage QRS Borderline ECG When compared with ECG of 10-MAR-2020 12:18, No significant change was found Confirmed by Dawson Cruz ([id number]) on 01/04/2022 3:37:30 PM Referred By: Confirmed By:Dawson Cruz
[2022-01-04 15:39] LABS: Albumin Globulin Ratio 1.4 (0.9-2); BUN Creatinine Ratio 18.2 (10-20); Bilirubin,Total 0.7 mg/dl (0.2-1.0); Calcium 8.9 mg/dl (8.5-10.1); Est GFR (African American) 110.1 ml/min; Globulin 2.9 gm/dl (2.5-4.0); Magnesium 1.8 mg/dl (1.7-2.4); Potassium 3.6 mmol/L (3.5-5.1); Total Protein 6.9 gm/dl (6.0-8.3)
[2022-01-04 15:43] LABS: Troponin I High Sensitivity 8.9 pg/ml (0-14)
[2022-01-04 15:43] LABS: Base Excess VBG 2.8 mEq/L; HCO3 VBG 28 mmol/L; Oxygen Saturation VBG < 60.0 %; PCO2 VBG 44 mmHg (38-50); PO2 VBG 31 mmHg; pH VBG 7.41 (7.36-7.41)
--- NOTE | 2022-01-04 15:45 | XRay Report ---
XR chest 1V portable HISTORY: 71 years-old Female SOB acute shortness of breath COMPARISON: Chest radiograph 03/10/2020 TECHNIQUE: Portable AP view of the chest FINDINGS: Cardiomediastinal and hilar silhouettes are within normal limits. Emphysema with chronic interstitial coarsening. No pneumothorax, pleural effusion, airspace consolidation or overt pulmonary edema. Dege nerative changes of the shoulders and spine. Unchanged left subclavian [id number] catheter. IMPRESSION: Emphysema without acute process. ACT 112: Negative or not required by law. The above report was generated using voice recognition software. It may contain grammatical, syntax o r spelling errors. Electronically signed by: Reagan Faith M.D. 01/04/2022 3:44 PM
--- NOTE | 2022-01-04 16:45 | History & Physical Report ---
Date of Service January 04, 2022 Assessment & Plan (1) Acute and chronic respiratory failure with hypoxia: Plan: - Increased O1 requirement with conversational dyspnea, accessory muscles use on arrival, diaphoresis apprecioated on exam - Likely an exacerbation of her COPD/emphysema due to sinusitis, perforated syndrome vs viral - Labs and CXR did not indicate an infectious process, does not appear volume overloaded making CHF exacerbation less likely, low suspicion for PE however if she remains tachycardic and hypoxia samw/worsening with COPD management, would consider chest CT to r/o PE. - Continue home inhalers, scheduled DuoNeb/prn overnight. - Mucinex 1200 mg BID. - Azithromycin for COPD exacerbation/? sinusitis. - Solu Medrol 60 mg IV BID. - FLU/RSV/COVID neg, will add on biofire. - Is a prediabetic manages with lifestyle, will have to monitor BSG with Iv steroids to determine if she requires SSI. - Flutter valve, incentive spirometry encouraged. (2) COPD (chronic obstructive pulmonary disease): Plan: - COPD/BONITA/pulmonary HTN - GOLD Class D - As above, continue home inhalers, Sildenafil - Previously on prednisone 10 mg QOD--hold while receiving IV steroids. - Follows with [facility], currently working towards gary loss to be accepted onto transplant list. - BONITA, will order CPAP at night--brought hers in from home. (3) Hypertension: Plan: - Continue bisoprolol/HCTZ, losartan. (4) Scleroderma: Plan: - Noted, follows with [facility]. - Previously on Plaquenil, d/c in 2019. (5) Gastritis, chronic: Plan: - History of GAVE. - Receives occasional IV iron treatments. Hgb13.7 today. - Continue PPI twice daily. - EGD q3 months. (6) Iron deficiency anemia: Plan: - Secondary to GAVE, b12 deficiency. - B12 injections q6 weeks. - Required occasional IV iron transfusions, last received in September. - Hgb 13.7 on admit. Monitor. (7) Insomnia, persistent: Plan: - Had previously been on Xanax for 20 years, recently tapered off of this and tried trazodone and Remeron, both with significant nasal congestion, therefore stopped these. - Will try combination of melatonin and hydroxyzine while admitted. (8) Perforated nasal septum: Plan: - Diagnosed at PCP appt last month, had a lesion for 2 years that often got picked at, no hx of drug use. - Has been using mupirocin cream. - Seen in [place] for possible surgical repair--not a good candidate. Plan - Admit to PCU. - SCDs for VTE ppx, avoid chemoppx with history of GAVE. - Full Code. History of Present Illness Chief Complaint: Shortness of breath on exertion worsening over 3 weeks Primary Care Provider: DO Victoria Oropeza Neelam is a 71-year-old female with a past medical history significant for COPD on home O2, BONITA, pulmonary arterial hypertension, hyperlipidemia, urinary incontinence, scleroderma, GAVE, iron deficiency anemia, depression, anxiety, insomnia, and recently perforated nasal septum who is presenting today with shortness of breath. This has been ongoing for the past 3 weeks despite using oxygen continuously with daily nebulizer treatments and chronic steroids every other day. She has also had cold sweats, sinus congestion, and a cough sometimes productive of yellow sputum, but denies fevers, orthopnea, weight gain, chest pain, or palpitations. In fact she believes she has lost a few lbs due to lack of appetite with her symptoms. Her baseline O2 requirement is 5 L NC at rest with 7L w/ activity, however for at least 3 months now has required 10 L NC at all times. For the past month, she can barely walk a few steps through her home without becoming short of breath even with her O2 at 10 L. She previously was able to shower independently, ambulate short distances even without her oxygen at times, and perform light household duties such as washing dishes and cooking. She has been checking her pulse ox at home, with readings in the 70s but notes accurate readings are difficult to get with her scleroderma. She had COVID in September and feels she had just recovered back to baseline before her breathing got worse again. She is currently working to lose weight in order to be on the lung transplant list, follows with [facility]. Upon presentation to the ED, she is mildly tachycardic with HR in the 90s, O2 dipping below 90% on 10 L NC, placed on BiPAP. Labs largely unremarkable, without leukocytosis, VBG 7.41/4//28, renal function at baseline, without electrolyte abnormalities. Troponin 8.9. COVID/flu/RSV negative. CXR shows emphysema without acute process. ED course: Neb treatment, IV Solu-Medrol, magnesium. Allergies Allergy/AdvReac Type Severity Reaction Status Date / Time ferric carboxymaltose Allergy Intermediate SOB, Verified 12/04/21 10:41 [From Injectafer] tachycardia Home Medications Medication Instructions Recorded Confirmed Type amlodipine 10 mg tablet 10 mg PO QAM 02/08/18 12/04/21 History cholecalciferol (vitamin D3) 50 2,000 unit PO QAM 02/08/18 12/04/21 History mcg (2,000 unit) tablet (Vitamin D3) sildenafil (pulm.hypertension) 20 20 mg PO TID 02/04/20 12/04/21 History mg tablet Portable Oxygen #1 ea 02/21/20 12/04/21 Rx cyanocobalamin (vitamin B-12) 1,000 mcg PO DAILY #30 caps 03/12/20 12/04/21 Rx 1,000 mcg capsule Oxygen Home #1 ea 03/21/20 12/04/21 History valsartan 80 mg tablet See Rx Instructions .Route 12/18/20 12/04/21 Rx .COMPLEX #90 tabs bupropion HCl 100 mg tablet,12 hr 100 mg PO BID #60 ea 04/17/21 12/04/21 Rx sustained-release (Wellbutrin SR) albuterol sulfate 90 mcg/actuation 2 puff inhalation QID PRN 05/11/21 12/04/21 Rx aerosol inhaler (Ventolin HFA) Shortness Of Breath #18 grams ipratropium 0.5 mg-albuterol 3 mg 3 ml inhalation Q8H PRN COPD- DX 05/11/21 12/04/21 Rx (2.5 mg base)/3 mL nebulization J44.9 J43.9 J45.909 #180 mL soln benzonatate 100 mg capsule 100 mg PO TID PRN cough #30 caps 06/08/21 12/04/21 Rx prednisone 10 mg tablet 10 mg PO Q2D #90 tabs 06/25/21 12/04/21 Rx duloxetine 60 mg capsule,delayed 60 mg PO QAM #90 caps 07/13/21 12/04/21 Rx release oxybutynin chloride 5 mg 5 mg PO HS #90 tabs 08/06/21 12/04/21 Rx tablet,extended release 24 hr tiotropium bromide 18 mcg capsule 1 cap inhalation QAM #90 10/09/21 12/04/21 Rx with inhalation device (Spiriva inhalations with HandiHaler) mupirocin 2 % topical ointment 1 applic topical BID PRN nasal 11/26/21 12/04/21 Rx irritation #22 grams omeprazole 20 mg capsule,delayed 20 mg PO BID #180 caps 11/28/21 12/04/21 Rx release bisoprolol 10 1 tab PO DAILY #90 tabs 11/29/21 12/04/21 Rx mg-hydrochlorothiazide 6.25 mg tablet fluticasone propionate 230 2 puff inhalation BID #1 inhaler 12/03/21 12/04/21 Rx mcg-salmeterol 21 mcg/actuation HFA inhaler (Advair HFA) calcium carbonate 500 mg calcium 500 mg PO QPM 01/04/22 01/04/22 History (1,250 mg) tablet Past Med/Surg History Medical History Anxiety Asthma Chronic steroid use Collagenous colitis COPD (chronic obstructive pulmonary disease) Gastritis, chronic Gastroparesis pt denies History of COVID-19 Dx 01/2020; required hospitalization Hyperlipidemia Hypertension Insomnia, persistent Iron deficiency anemia On home oxygen therapy 4lpm via n/c continuous Osteoarthritis Osteopenia Perforated nasal septum Peripheral neuropathy bilateral hands & feet Prediabetes Pulmonary emphysema Raynaud's disease Right lower lobe pneumonia Urinary incontinence Surgical History H/O cataract extraction (09/2019) b/l eyes H/O laminectomy Lumbar area H/O tooth extraction History of bilateral tubal ligation History of bladder surgery bladder tack History of cataract extraction (09/30/19) Both eyes History of cholecystectomy Open History of colonoscopy History of cystoscopy History of dilatation and curettage History of esophagogastroduodenoscopy (EGD) History of tonsillectomy Hx of lumpectomy Left (-) Family History Mother , age 73 Stroke Father , age 71 Lung cancer Sister Non Hodgkin's lymphoma Lupus Denies family history of Ovarian cancer Prostate cancer Myocardial infarction Breast cancer Colorectal cancer Social History Smoking Status: Current every day smoker Tobacco Type: Cigarettes Age Quit Using Tobacco: 59; Cigarettes Per Day: 40; Second Hand Exposure: No; Hx Alcohol Use: No Hx Substance Use: No Preferred Language: German Communication Ability: Effective Visual Impairment: Limited Hearing Ability: Normal 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 Required: No Beliefs That Will Affect Care: None marital status: Current Living Situation: Spouse Current Living Situation Comment: lives in [place] with current occupational status: retired 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 ; 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 How many Children do You have: 2 Feels Safe at Home: Yes Diet Comment: chicken and veggies, occasional red meat caffeine: Yes (very little) during the past year weight has: decreased > 10 lbs Dental Care, Regularly: Yes Physical Activity Frequency: Does not Exercise Seatbelt Use: always Sunscreen Use: Yes Assistive Devices: CPAP and Oxygen - Continuous Review of Systems Review of Systems: Constitutional: cold sweats, anorexia, fatigue x 3 weeks; no weakness, myalgias, night sweats Eyes: No diplopia, no worsening or blurred vision ENT: normal hearing, no trouble swallowing Respiratory: severe PATEL with minimal activity such as speaking, with sinus congestion and productive cough Cardiovascular: No chest pain, tightness or palpitations Abdomen: No pain, nausea, vomiting, diarrhea or constipation : Denies dysuria, hematuria, increased urgency/frequency, urinary retention Musculoskeletal: No joint pain, calf pain, swelling Neurologic: No weakness, numbness/tingling, or balance problems Psychiatric: No anxiety or depression Skin: No rash or itch Physical Exam Physical Exam: General: awake, alert, no apparent distress; on 9 L NC Head: Normocephalic, atraumatic ENT: PERRL, EOMI, no pharyngeal exudate, mucous membranes moist Chest: diminished breath sounds throughout, without accessory muscle use Cardiac: Regular rate and rhythm, no murmur, no JVD, normal peripheral pulses, good capillary refill Abdominal: NABS x 4 quadrants, soft, nontender to palpation, no rebound, guarding or tenderness Extremities: Normal inspection, no peripheral edema or erythema, calfs nontender to palpation Psych: Normal mood and affect Neuro: AAO x 3, strength intact bilaterally and rated 5/5, no motor deficits, speech is clear, no peripheral sensory deficits Skin: no rash or erythema Results & Data Results & Data ([facility]) Vital Signs (Past 12 Hours) Vital Signs Temp Pulse Pulse Resp BP BP Pulse Ox 01/04/22 15:36 94 H 24 94 01/04/22 15:36 89 24 96 01/04/22 15:04 93 01/04/22 15:04 89 142/91 H 93 01/04/22 15:04 01/04/22 14:12 36.7 C 93 H 24 123/75 94 O2 Del Method O2 Flow Rate FiO2 01/04/22 15:36 35 01/04/22 15:36 CPAP 01/04/22 15:04 Nasal Cannula 8 01/04/22 15:04 Nasal Cannula 8 01/04/22 15:04 Nasal Cannula 8 01/04/22 14:12 Nasal Cannula 4 Laboratory Results Abnormal lab results 01/04/22 01/04/22 Range/Units 14:50 14:50 Neut # (Auto) 9.04 H (1.4-6.5) K/uL Lymph # (Auto) 0.74 L (1.2-3.4) K/uL Immature Gran # (Auto) 0.03 H (0.00-0.02) K/uL Creatinine 0.55 L (0.6-1.2) mg/dl Glucose 126 H (70-99(Fasting)) mg/dl AST 11 L (13-39) U/L Diagnostic Findings Chest X-Ray 01/04/22 14:16 XR chest 1V portable HISTORY: 71 years-old Female SOB acute shortness of breath COMPARISON: Chest radiograph 03/10/2020 TECHNIQUE: Portable AP view of the chest FINDINGS: Cardiomediastinal and hilar silhouettes are within normal limits. Emphysema with chronic interstitial coarsening. No pneumothorax, pleural effusion, airspace consolidation or overt pulmonary edema. Degenerative changes of the shoulders and spine. Unchanged left subclavian [id number] catheter. IMPRESSION: Emphysema without acute process. ACT 112: Negative or not required by law. The above report was generated using voice recognition software. It may contain grammatical, syntax or spelling errors. Electronically signed by: Reagan Faith M.D. 01/04/2022 3:44 PM ECG Additional Comments: Normal sinus rhythm Low voltage QRS Borderline ECG When compared with ECG of 10-MAR-2020 12:18, No significant change was found Confirmed by Dawson Cruz ([id number]) on 01/04/2022 3:37:30 PM. Code Status & VTE Plan Code Status Full Code. Supervising Physician Co-Signing Physician Notes Patient was seen and examined independently I discussed the case with Laura SIFUENTES I reviewed pertinent past medical social family history and also the plan of care and agree with the plan of care. Patient with severe COPD Gold class D reported is being evaluated for transplantation. Presents with exacerbation of her chronic pulmonary disease with escalation of her oxygen need. She typically is on 10 L of oxygen nasal cannula at all times over the last few months. She has been diligent with her inhaler use. She has had recently a cold type symptom complex with upper respiratory and sinus type symptoms. She presents tonight requiring noninvasive positive pressure ventilation to stabilize her now she is escalated back to 10 L nasal cannula. Her significant other also has some coryza. On examination there is any significant focal symptoms to identify objectively she does have very poor air movement and prolonged expiratory phase but no focal air loss. Patient will be given azithromycin and treated as a COPD exacerbation. If need be we can involve pulmonary typical echo technician is Dr. Casillas Any exceptions will be noted below PG Care Time/CCT Total # of Minutes Spent Total Time Spent with Patient: Total time spent is greater than 50% in coordination of care (as documented) at patient's floor/unit and/or counseling patient: Coding Level of Care Code 06368 Initial Inpt Care Lvl 3 Diagnoses Acute and chronic respiratory failure with hypoxia J96.21 COPD (chronic obstructive pulmonary disease) J44.9 COPD type: unspecified COPD Hypertension I10 Scleroderma M34.9 Gastritis, chronic K29.50 Iron deficiency anemia D50.9 Insomnia, persistent G47.00 Perforated nasal septum J34.89 (1) COPD (chronic obstructive pulmonary disease) COPD type: unspecified COPD Qualified Code(s): J44.9 - Chronic obstructive pulmonary disease, unspecified
[2022-01-04 17:07] LABS: Influenza A virus by PCR Negative (Neg); Influenza B virus by PCR Negative (Neg); RSV by PCR Negative (Neg); SARS CoV2 RNA(COVID-19) Ceph NEGATIVE (Negative)
[2022-01-04] MEDS ORDERED: AZITHROMYCIN 500 MG in DEXTROSE 5% 250 ML IV STA (18:12)
[2022-01-04 18:57] LABS: Adenovirus PCR Not Detected (NotDetected); Bordetella parapertussis PCR Not Detected (NotDetected); Bordetella pertussis PCR Not Detected (NotDetected); Chlamydia pneumoniae PCR Not Detected (NotDetected); Coronavirus 229E PCR Not Detected (NotDetected); Coronavirus CoV-2 (COVID19)PCR Not Detected (NotDetected); Coronavirus HKU1 PCR Not Detected (NotDetected); Coronavirus NL63 PCR Not Detected (NotDetected); Coronavirus OC43PCR Not Detected (NotDetected); Human Metapneumovirus PCR Not Detected (NotDetected); Influenza A PCR Not Detected (NotDetected); Influenza B PCR Not Detected (NotDetected); Mycoplasma pneumoniae PCR Not Detected (NotDetected); Parainfluenza Virus 1 PCR Not Detected (NotDetected); Parainfluenza Virus 2 PCR Not Detected (NotDetected); Parainfluenza Virus 3 PCR Not Detected (NotDetected); Parainfluenza Virus 4 PCR Not Detected (NotDetected); Respiratory Syncytial VirusPCR Not Detected (NotDetected); Rhinovirus/Enterovirus PCR Not Detected (NotDetected)
[2022-01-04] MEDS ORDERED: ALUMINUM/MAGNESIUM SUSP 30 ML UDC PO PRN (19:14)
[2022-01-04] MEDS ORDERED: AZITHROMYCIN 500 MG in DEXTROSE 5% 250 ML IV SCH (19:14)
[2022-01-04] MEDS ORDERED: POLYETHYLENE (MIRALAX) 17 GM PACK PO PRN (19:14)
[2022-01-04] MEDS ORDERED: ALBUT/IPRATROP 3MG/0.5MG NEB 3 ML VIAL NEB PRN (19:14)
[2022-01-04] MEDS ORDERED: ALBUT/IPRATROP 3MG/0.5MG NEB 3 ML VIAL INH PRN (19:14)
[2022-01-04] MEDS ORDERED: ONDANSETRON INJ 2 MG/ML 2 ML VIAL IV PRN (19:14)
[2022-01-04] MEDS: ALBUT/IPRATROP 3MG/0.5MG NEB 3 ML VIAL INH SCH (20:38)
[2022-01-04] MEDS ORDERED: CALCIUM CARBONATE 500 MG PO SCH (21:00)
[2022-01-04] MEDS ORDERED: CALCIUM PO SCH (21:00)
[2022-01-04] MEDS ORDERED: MIRTAZAPINE TAB 15 MG TAB PO SCH ×2 (21:00)
[2022-01-04] MEDS: guaiFENesin 600 MG TABCR PO SCH (21:15)
[2022-01-04] MEDS: CALCIUM CARBONATE 500 MG CHEWABLE TAB PO SCH (21:15)
[2022-01-04] MEDS: methylPREDNISolone 60 MG in SYRINGE 0 ML IV SCH (21:16)
[2022-01-04] MEDS: OXYBUTYNIN CHLORIDE XL 5 MG TABCR PO SCH (22:10)
[2022-01-04] MEDS: PANTOprazole 40 MG TAB PO SCH (22:10)
[2022-01-04] MEDS: SILDENAFIL CITRATE 20 MG TABLET PO SCH (22:10)
[2022-01-05] MEDS: ALBUT/IPRATROP 3MG/0.5MG NEB 3 ML VIAL INH SCH ×4 (00:27→19:48)
[2022-01-05 07:43] LABS: Hematocrit (blood only) 37.8 % (34.1-44.9); Hemoglobin 12.5 g/dl (12.0-16.0); Immature Granulocytes # (auto) 0.02 K/uL (0.00-0.02); Immature Granulocytes % (auto) 0.6 %; Lymphocytes # (auto) 0.62 K/uL (1.2-3.4); Lymphocytes % (auto) 18.2 %; Mean Corpuscular Hemoglobin 30.3 pg (25.0-34.0); Mean Corpuscular Hgb Conc 33.1 g/dL (32.0-36.0); Mean Corpuscular Volume 91.7 fL (80.0-100.0); Mean Platelet Volume 9.3 fL (9.4-12.3); Monocytes # (auto) 0.08 K/uL (0.24-0.82); Monocytes % (auto) 2.4 %; Neutrophils # (auto) 2.68 K/uL (1.4-6.5); Neutrophils % (auto) 78.8 %; Platelet Count 312 K/uL (130-400); RDW Coefficient of Variation 13.2 % (11.5-14.5); RDW Standard Deviation 44.8 fL (36.4-46.3); Red Blood Count 4.12 M/uL (3.93-5.22)
[2022-01-05 07:59] LABS: BUN Creatinine Ratio 27.1 (10-20); Calcium 9.5 mg/dl (8.5-10.1); Creatinine Clr Calc Pharmacy 91.7 ml/min; Est GFR (African American) 107.6 ml/min; Est GFR (Non-African American) 92.9 ml/min; Magnesium 2.2 mg/dl (1.7-2.4); Potassium 3.9 mmol/L (3.5-5.1)
[2022-01-05] MEDS: BISOPROLOL FUMARATE 5 MG TAB PO SCH (08:20)
[2022-01-05] MEDS: CHOLECALCIFEROL 1,000 UNITS 25 MCG TAB PO SCH (08:21)
[2022-01-05] MEDS: CYANOCOBALAMIN (B-12) 500 MCG TABLET PO SCH (08:21)
[2022-01-05] MEDS: DULoxetine HCL 60 MG CAP PO SCH (08:24)
[2022-01-05] MEDS: guaiFENesin 600 MG TABCR PO SCH ×2 (08:26→20:22)
[2022-01-05] MEDS: methylPREDNISolone 60 MG in SYRINGE 0 ML IV SCH (08:27)
[2022-01-05] MEDS: PANTOprazole 40 MG TAB PO SCH ×2 (08:27→20:21)
[2022-01-05] MEDS: hydroCHLOROthiazide 25 MG TAB PO SCH (08:28)
[2022-01-05] MEDS: SILDENAFIL CITRATE 20 MG TABLET PO SCH ×3 (08:29→20:22)
[2022-01-05] MEDS: UMECLIDINIUM BROMIDE 62.5MCG/BLISTER 7 PUFFS/INHALER INH SCH (08:29)
[2022-01-05] MEDS: HEPARIN 100 UNIT/ML 5ML FLUSH FLUSH PRN ×2 (08:34→22:10)
[2022-01-05] MEDS: FLUTICASONE/VILANTEROL 100/25MCG 14 PUFFS/INHALER INH SCH (08:44)
[2022-01-05] MEDS ORDERED: FLUTICASONE/VILANTEROL 200/25MCG 14 PUFFS/INHALER INH SCH (09:00)
[2022-01-05] MEDS: LANTUS PER UNIT CHARGE SQ SCH (09:51)
[2022-01-05] MEDS ORDERED: ALTEPLASE, RECOMBINANT 1 MG/ML 2ML VIAL INSTIL ONE (12:00)
[2022-01-05] MEDS: INSULIN ASPART PER UNIT SC SCH ×3 (12:22→20:11)
[2022-01-05] MEDS ORDERED: OPTIRAY 320 500ml IV ONE (15:05)
--- NOTE | 2022-01-05 18:23 | CT Scan Report ---
CT ANGIOGRAM OF THE CHEST CLINICAL HISTORY: COPD. Respiratory failure. COMPARISON STUDY: Chest x-ray dated 01/04/2022. Chest CT dated 12/10/2021. TECHNIQUE: Following the IV administration of 117 cc of Optiray 320, CT angiogram of the chest was pe rformed from the upper abdomen to the thoracic inlet utilizing the pulmonary embolus protocol. Images are reviewed in the axial, sagittal, and coronal planes. 3-D MIPS images are created and assessed. I V contrast was administered without complication. A dose lowering technique was utilized adhering to the principles of ALARA. There is streak artifact from the arms which could not be elevated of the c hest. CT DOSE: 699.06 mGy.cm FINDINGS: Thyroid: Imaged portions of the thyroid gland are normal in size and attenuation. Thoracic aorta: There is atherosclerotic calcification of the thoracic aorta, which is normal in [place] and demonstrates standard 3-vessel arch anatomy. No dissection is seen. Pulmonary vasculature: The main pulmonary arteries are dilated suggesting pulmonary artery hypertensi on. There are no filling defects identified in main, lobar, or segmental pulmonary branches to sugges t pulmonary embolus. Heart: A left subclavian central venous infusion port is in place. The heart is enlarged and without pericardial effusion. Lungs and pleural spaces: There is advanced emphysema. No air space consolidation typical for pneumon ia or pleural effusion is identified. The trachea and central airways appear clear. Foci of probable scarring are seen throughout both lungs. Scattered calcified granulomas are incidentally noted. 5 mm pulmonary and pleural-based nodules are again seen in the left upper lobe on images #143 and #166. Th kanika are unchanged from previous. Mediastinum: Scattered subcentimeter mediastinal lymph nodes are not pathologically enlarged by size criteria. These are unchanged from previous. Sumi: Clear. Axillae: There is no axillary lymphadenopathy. Upper abdomen: Partially visualized upper abdominal viscera is within normal limits. Skeletal structures: The skeletal structures are osteopenic. Degenerative change is noted throughout the thoracic spine. No lytic or blastic bony lesions are seen. IMPRESSION: 1. There is no evidence of pulmonary embolus in the main, lobar, or segmental pulmonary arteries. 2. Cardiomegaly and advanced emphysema. 3. There is no airspace consolidation or pleural effusion. ACT 112: Negative or not required by law. Electronically signed by: Walter Rothman M.D. 01/05/2022 6:20 PM
[2022-01-05] MEDS: OXYBUTYNIN CHLORIDE XL 5 MG TABCR PO SCH (20:21)
[2022-01-05] MEDS: methylPREDNISolone 40 MG in SYRINGE 0 ML IV SCH (20:21)
[2022-01-05] MEDS: CEFDINIR 300 MG CAP PO SCH (20:21)
[2022-01-05] MEDS: CALCIUM CARBONATE 500 MG CHEWABLE TAB PO SCH (20:21)
--- NOTE | 2022-01-05 20:45 | Hospitalist Progress Note ---
Date of Service January 05, 2022 Assessment & Plan (1) Acute and chronic respiratory failure with hypoxia: Plan: acutely she presented with conversational dyspnea, accessory muscles use, tachypnea with documented RR of 26 in the ER, and diaphoresis. chronically she has been on 10 L NC O2 since late summer/early fall. acute resp failure 2nd to COPD exacerbation. although respirator biofire was negative her was recently sick with URI symptoms. thus, she likely has a viral process that has triggered the exacerbation. can't rule out bacterial sinusitis contributing to the exacerbation. CTA chest obtained today - no PE, no pulm edema, no effusions, no pneumonia. Advanced emphysematous changes seen. Continue home inhalers Continue scheduled DuoNebs Mucinex 1200 mg BID Cont Solu Medrol but lower to 40mg IV BID (~1mg/kg/day) Pulmonary toilet Change azithromycin to omnicef 300mg BID for better sinusitis coverage (2) COPD (chronic obstructive pulmonary disease): Plan: COPD - GOLD Class D Steroid dependent -- prednisone 10mg every other day; hold while on IV solumedrol Follows with [facility] -- trying to get on lung transplant list (3) Hypertension: Plan: Continue bisoprolol/HCTZ, losartan. Controlled. (4) Scleroderma: Plan: Follows with [facility] health system. No signs of ILD on CT chest. Previously on Plaquenil, d/c in 2019. (5) Gastritis, chronic: Plan: History of GAVE. Continue PPI twice daily. Gets EGDs every 3 months by report. (6) Iron deficiency anemia: Plan: Secondary to GAVE. Receives occasional IV iron transfusions - previous one was in September. H/H remain stable. (7) Insomnia, persistent: Plan: Had previously been on Xanax for 20 years, recently tapered off Had trials of trazodone and Remeron - prefers to not be on either Melatonin HS (8) Perforated nasal septum: Plan: Seen in [place] for possible surgical repair but felt not to be an operative candidate. (9) BONITA (obstructive sleep apnea): Plan: CPAP HS (10) B12 deficiency: Plan: Is on monthly shots Last B12 level 12/2020 was in the 800+ range (11) Prediabetes: Plan: Last HbA1c was 12/2020; level was 6.1% consider rechecking while here (12) Pulmonary arterial hypertension: Plan: severe 2nd to end-stage COPD on pulmonary vasodilators at home with sildenafil 20mg TID cont NC O2 Plan DVT proph - despite h/o GAVE and Fe def she is at high risk of DVT/PE due to immobility from severe dyspnea consider heparin SC starting in am updated at bedside today Admission and Anticipated Discharge Date Admission Date: January 04, 2022 Subjective patient recounts the last few months of her health had COVID in September 2021 took at least 3-4 weeks for her symptoms - fatigue, increasing dyspnea - to improve has been on 10 L NC O2 since her COVID infection seen by [facility] in November - being prepped for placement on the lung transplant list had negative CT chest late November (no pneumonia, etc) over the last 3-4 weeks has had severe dyspnea and PATEL this has worsened to the point she has severe dyspnea with minimal activity reports sinusitis type symptoms - purulent nasal discharge, etc dx recently with perforated nasal septum - not a candidate to repair it per ENT tele overnight - NSR or sinus tach Review of Systems Review of Systems: gen - no fevers but has had cold chills at times recently cv - mild sternal chest tightness when breathing is at its worst pulm - minimal cough, minimal sputum GI - no abd pain, no nausea or emesis Physical Exam Physical Exam: gen - pleasant, NAD neck - mild JVD present HENT - perforated nasal septum present; MM dry; no thrush heart - tachy, s1 s2 lungs - CTA b/l, no rales, no wheeze, no increased work of breathing abd - soft NT ND BS+ ext - no edema, pulses 2+ b/l psych - a/o x 3 Results & Data Results & Data ([facility]) Vital Signs (Past 12 Hours) Vital Signs Temp Pulse Resp BP Pulse Ox O2 Del Method O2 Flow Rate 01/05/22 19:50 99 H 20 96 Nasal Cannula 9 01/05/22 18:54 36.5 C 93 H 20 144/79 H 94 Nasal Cannula 9 01/05/22 15:25 36.8 C 91 H 21 129/76 91 High Flow Nasal Cannula 9 01/05/22 12:04 84 16 97 Nasal Cannula 10 01/05/22 11:04 36.3 C L 85 22 116/71 95 High Flow Nasal Cannula 10 Laboratory Results Laboratory Results - last 24 hr 01/04/22 01/05/22 01/05/22 20:36 07:17 07:17 WBC 3.40 L D RBC 4.12 Hgb 12.5 Hct 37.8 MCV 91.7 MCH 30.3 MCHC 33.1 RDW Std Deviation 44.8 RDW Coeff of Mag 13.2 Plt Count 312 MPV 9.3 L Immature Gran % (Auto) 0.6 Neut % (Auto) 78.8 Lymph % (Auto) 18.2 Terry % (Auto) 2.4 Eos % (Auto) 0.0 Baso % (Auto) 0.0 Neut # (Auto) 2.68 Lymph # (Auto) 0.62 L Terry # (Auto) 0.08 L Eos # (Auto) 0.00 Baso # (Auto) 0.00 Immature Gran # (Auto) 0.02 Sodium 139 Potassium 3.9 Chloride 104 Carbon Dioxide 25 Anion Gap 10 BUN 16 Creatinine 0.59 L Est Cr Clr Drug Dosing 91.7 Est GFR ( Amer) 107.6 Est GFR (Non-Af Amer) 92.9 BUN/Creatinine Ratio 27.1 H Glucose 179 H POC Glucose 204 H Calcium 9.5 Magnesium 2.2 01/05/22 01/05/22 01/05/22 07:21 11:07 16:21 WBC RBC Hgb Hct MCV MCH MCHC RDW Std Deviation RDW Coeff of Mag Plt Count MPV Immature Gran % (Auto) Neut % (Auto) Lymph % (Auto) Terry % (Auto) Eos % (Auto) Baso % (Auto) Neut # (Auto) Lymph # (Auto) Terry # (Auto) Eos # (Auto) Baso # (Auto) Immature Gran # (Auto) Sodium Potassium Chloride Carbon Dioxide Anion Gap BUN Creatinine Est Cr Clr Drug Dosing Est GFR ( Amer) Est GFR (Non-Af Amer) BUN/Creatinine Ratio Glucose POC Glucose 163 H 253 H 156 H Calcium Magnesium 01/05/22 20:03 WBC RBC Hgb Hct MCV MCH MCHC RDW Std Deviation RDW Coeff of Mag Plt Count MPV Immature Gran % (Auto) Neut % (Auto) Lymph % (Auto) Terry % (Auto) Eos % (Auto) Baso % (Auto) Neut # (Auto) Lymph # (Auto) Terry # (Auto) Eos # (Auto) Baso # (Auto) Immature Gran # (Auto) Sodium Potassium Chloride Carbon Dioxide Anion Gap BUN Creatinine Est Cr Clr Drug Dosing Est GFR ( Amer) Est GFR (Non-Af Amer) BUN/Creatinine Ratio Glucose POC Glucose 153 H Calcium Magnesium PG Care Time/CCT Total # of Minutes Spent Total Time Spent with Patient: Total time spent is greater than 50% in coordination of care (as documented) at patient's floor/unit and/or counseling patient: Coding Level of Care Code 94193 Subseq Hosp Care Lvl 3 Diagnoses Acute and chronic respiratory failure with hypoxia J96.21 COPD (chronic obstructive pulmonary disease) J44.9 COPD type: unspecified COPD Hypertension I10 Scleroderma M34.9 Gastritis, chronic K29.50 Iron deficiency anemia D50.9 Insomnia, persistent G47.00 Perforated nasal septum J34.89 BONITA (obstructive sleep apnea) G47.33 B12 deficiency E53.8 Prediabetes R73.03 Pulmonary arterial hypertension I27.21 (1) COPD (chronic obstructive pulmonary disease) COPD type: unspecified COPD Qualified Code(s): J44.9 - Chronic obstructive pulmonary disease, unspecified
[2022-01-05] MEDS: hydrOXYzine HCl 25 MG TAB PO PRN (22:09)
[2022-01-05] MEDS: MUPIROCIN 2% OINT 22 GM TUBE TOP PRN (22:10)
[2022-01-06] MEDS: ALBUT/IPRATROP 3MG/0.5MG NEB 3 ML VIAL INH SCH ×4 (00:13→19:34)
[2022-01-06] MEDS: MELATONIN 3 MG TAB PO PRN ×2 (00:25→22:39)
[2022-01-06 05:37] LABS: Basophils # (auto) 0.01 K/uL (0-0.2); Basophils % (auto) 0.1 %; Hematocrit (blood only) 34.3 % (34.1-44.9); Hemoglobin 11.2 g/dl (12.0-16.0); Immature Granulocytes # (auto) 0.05 K/uL (0.00-0.02); Immature Granulocytes % (auto) 0.5 %; Lymphocytes # (auto) 0.67 K/uL (1.2-3.4); Lymphocytes % (auto) 7.2 %; Mean Corpuscular Hemoglobin 30.2 pg (25.0-34.0); Mean Corpuscular Hgb Conc 32.7 g/dL (32.0-36.0); Mean Corpuscular Volume 92.5 fL (80.0-100.0); Mean Platelet Volume 9.4 fL (9.4-12.3); Monocytes # (auto) 0.21 K/uL (0.24-0.82); Monocytes % (auto) 2.3 %; Neutrophils # (auto) 8.38 K/uL (1.4-6.5); Neutrophils % (auto) 89.9 %; Platelet Count 289 K/uL (130-400); RDW Coefficient of Variation 13.2 % (11.5-14.5); Red Blood Count 3.71 M/uL (3.93-5.22); White Blood Count 9.32 K/ul (4.8-10.8)
[2022-01-06 06:00] LABS: BUN Creatinine Ratio 42.4 (10-20); Calcium 9.2 mg/dl (8.5-10.1); Creatinine Clr Calc Pharmacy 92.5 ml/min; Est GFR (African American) 107.6 ml/min; Est GFR (Non-African American) 92.9 ml/min
[2022-01-06] MEDS: INSULIN ASPART PER UNIT SC SCH ×4 (08:07→20:53)
[2022-01-06] MEDS: LANTUS PER UNIT CHARGE SQ SCH (08:08)
[2022-01-06] MEDS: BENZONATATE 100 MG CAPSULE PO PRN (08:11)
[2022-01-06] MEDS: PANTOprazole 40 MG TAB PO SCH ×2 (08:12→20:23)
[2022-01-06] MEDS: guaiFENesin 600 MG TABCR PO SCH ×2 (08:12→20:23)
[2022-01-06] MEDS: CHOLECALCIFEROL 1,000 UNITS 25 MCG TAB PO SCH (08:12)
[2022-01-06] MEDS: SILDENAFIL CITRATE 20 MG TABLET PO SCH ×3 (08:12→20:23)
[2022-01-06] MEDS: methylPREDNISolone 40 MG in SYRINGE 0 ML IV SCH ×2 (08:12→20:23)
[2022-01-06] MEDS: DULoxetine HCL 60 MG CAP PO SCH (08:12)
[2022-01-06] MEDS: hydroCHLOROthiazide 25 MG TAB PO SCH (08:13)
[2022-01-06] MEDS: BISOPROLOL FUMARATE 5 MG TAB PO SCH (08:13)
[2022-01-06] MEDS: CYANOCOBALAMIN (B-12) 500 MCG TABLET PO SCH (08:13)
[2022-01-06] MEDS: FLUTICASONE/VILANTEROL 100/25MCG 14 PUFFS/INHALER INH SCH (08:15)
[2022-01-06] MEDS: UMECLIDINIUM BROMIDE 62.5MCG/BLISTER 7 PUFFS/INHALER INH SCH (08:15)
[2022-01-06] MEDS: CEFDINIR 300 MG CAP PO SCH ×2 (08:16→20:23)
[2022-01-06] MEDS: HEPARIN 100 UNIT/ML 5ML FLUSH FLUSH PRN (08:25)
[2022-01-06] MEDS: MUPIROCIN 2% OINT 22 GM TUBE TOP PRN (08:33)
[2022-01-06] MEDS: HEPARIN SOD 5,000 UNIT/0.5 ML VIAL SQ SCH ×2 (12:31→20:23)
--- NOTE | 2022-01-06 17:47 | XCELERA ---
[id number]
[2022-01-06] MEDS: OXYBUTYNIN CHLORIDE XL 5 MG TABCR PO SCH (20:23)
[2022-01-06] MEDS: CALCIUM CARBONATE 500 MG CHEWABLE TAB PO SCH (20:23)
--- NOTE | 2022-01-06 20:26 | Hospitalist Progress Note ---
Date of Service January 06, 2022 Assessment & Plan (1) Acute and chronic respiratory failure with hypoxia: Plan: acutely she presented with conversational dyspnea, accessory muscles use, tachypnea with documented RR of 26 in the ER, and diaphoresis. chronically she has been on 10 L NC O2 since late summer/early fall when she had COVID-19 infection. acute resp failure 2nd to COPD exacerbation. although respirator biofire was negative her was recently sick with URI symptoms. thus, she likely has a viral process that has triggered the exacerbation. can't rule out bacterial sinusitis contributing to the exacerbation. CTA chest obtained 01/05 - no PE, no pulm edema, no effusions, no pneumonia. Advanced emphysematous changes seen. 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 Controlled. (4) Scleroderma: Plan: Follows with [facility] health system. No signs of ILD on CT chest. Previously on Plaquenil, d/c in 2019. (5) Gastritis, chronic: Plan: History of GAVE. Continue PPI twice daily. Gets EGDs every 3 months by report. (6) Iron deficiency anemia: Plan: Secondary to GAVE. Receives occasional IV iron transfusions - previous one was in September. H/H remain stable. (7) Insomnia, persistent: Plan: Had previously been on Xanax for 20 years, recently tapered off Had trials of trazodone and Remeron - prefers to not be on either Melatonin HS Atarax HS if neither of the above help -- doxepin? other? (8) Perforated nasal septum: Plan: Seen in [place] for possible surgical repair but felt not to be an operative candidate. (9) BONITA (obstructive sleep apnea): Plan: CPAP HS (10) B12 deficiency: Plan: Is on monthly shots Last B12 level 12/2020 was in the 800+ range (11) Prediabetes: Plan: Last HbA1c was 12/2020; level was 6.1% consider rechecking while here (12) Pulmonary arterial hypertension: Plan: severe 2nd to end-stage COPD on pulmonary vasodilators at home with sildenafil 20mg TID cont NC O2 (13) NSVT (nonsustained ventricular tachycardia): Plan: 1 run, no symptoms echo obtained today to recheck LV function - EF preserved; no wall motion abnormalities follow tele no specific Rx needed K/mag wnl Plan DVT proph - despite h/o GAVE and Fe def she is at high risk of DVT/PE due to immobility from severe dyspnea start heparin 5000 BID updated at bedside again today Admission and Anticipated Discharge Date Admission Date: January 04, 2022 Subjective patient could not fall asleep last pm despite melatonin & atarax eventually did fall asleep about 1am then slept until the am dyspnea and PATEL about the same as previous eating well minimal cough had brief (9 beat) run of NSVT - no symptoms monitor otherwise wnl Review of Systems Review of Systems: gen - no fevers; still with sweats at times cv - no cp pulm - minimal cough GI - no nausea, emesis psych - insomnia Physical Exam Physical Exam: gen - pleasant, NAD, looks similar to yesterday neck - no JVD present HENT - MM dry; no thrush heart - RRR, s1 s2, 1-2/6 DESTINY LSB lungs - CTA b/l, no rales, no wheeze, no increased work of breathing abd - soft NT ND BS+ ext - no edema, pulses 2+ b/l psych - a/o x 3 Results & Data Results & Data ([facility]) Vital Signs (Past 12 Hours) Vital Signs Temp Pulse Resp BP Pulse Ox O2 Del Method O2 Flow Rate 01/06/22 19:34 20 90 Nasal Cannula 8 01/06/22 19:00 36.7 C 86 20 139/82 94 Nasal Cannula 9 01/06/22 15:39 36.7 C 95 H 20 125/81 92 Nasal Cannula 8 01/06/22 14:14 82 20 92 Nasal Cannula 8 01/06/22 12:00 36.8 C 83 20 124/80 93 Nasal Cannula 8 Laboratory Results Laboratory Results - last 24 hr 01/06/22 01/06/22 01/06/22 05:18 05:18 07:28 WBC 9.32 RBC 3.71 L Hgb 11.2 L Hct 34.3 MCV 92.5 MCH 30.2 MCHC 32.7 RDW Std Deviation 45.0 RDW Coeff of Mag 13.2 Plt Count 289 MPV 9.4 Immature Gran % (Auto) 0.5 Neut % (Auto) 89.9 Lymph % (Auto) 7.2 [place] % (Auto) 2.3 Eos % (Auto) 0.0 Baso % (Auto) 0.1 Neut # (Auto) 8.38 H Lymph # (Auto) 0.67 L [place] # (Auto) 0.21 L Eos # (Auto) 0.00 Baso # (Auto) 0.01 Immature Gran # (Auto) 0.05 H Sodium 138 Potassium 4.0 Chloride 103 Carbon Dioxide 28 Anion Gap 7 BUN 25 H Creatinine 0.59 L Est Cr Clr Drug Dosing 92.5 Est GFR ( Amer) 107.6 Est GFR (Non-Af Amer) 92.9 BUN/Creatinine Ratio 42.4 H Glucose 176 H POC Glucose 158 H Calcium 9.2 01/06/22 01/06/22 01/06/22 11:31 16:37 20:00 WBC RBC Hgb Hct MCV MCH MCHC RDW Std Deviation RDW Coeff of Mag Plt Count MPV Immature Gran % (Auto) Neut % (Auto) Lymph % (Auto) [place] % (Auto) Eos % (Auto) Baso % (Auto) Neut # (Auto) Lymph # (Auto) [place] # (Auto) Eos # (Auto) Baso # (Auto) Immature Gran # (Auto) Sodium Potassium Chloride Carbon Dioxide Anion Gap BUN Creatinine Est Cr Clr Drug Dosing Est GFR ( Amer) Est GFR (Non-Af Amer) BUN/Creatinine Ratio Glucose POC Glucose 155 H 181 H 132 H Calcium PG Care Time/CCT Total # of Minutes Spent Total Time Spent with Patient: Total time spent is greater than 50% in coordination of care (as documented) at patient's floor/unit and/or counseling patient: Coding Level of Care Code 52054 Subseq Hosp Care Lvl 2 Diagnoses Acute and chronic respiratory failure with hypoxia J96.21 COPD (chronic obstructive pulmonary disease) J44.9 COPD type: unspecified COPD Hypertension I10 Scleroderma M34.9 Gastritis, chronic K29.50 Iron deficiency anemia D50.9 Insomnia, persistent G47.00 Perforated nasal septum J34.89 BONITA (obstructive sleep apnea) G47.33 B12 deficiency E53.8 Prediabetes R73.03 Pulmonary arterial hypertension I27.21 NSVT (nonsustained ventricular tachycardia) I47.29 (1) COPD (chronic obstructive pulmonary disease) COPD type: unspecified COPD Qualified Code(s): J44.9 - Chronic obstructive pulmonary disease, unspecified
[2022-01-06] MEDS: hydrOXYzine HCl 25 MG TAB PO PRN (22:39)
[2022-01-07] MEDS: ALBUT/IPRATROP 3MG/0.5MG NEB 3 ML VIAL INH SCH ×4 (00:04→17:49)
[2022-01-07] MEDS: HEPARIN 100 UNIT/ML 5ML FLUSH FLUSH PRN ×2 (03:00→09:38)
[2022-01-07 06:36] LABS: Calcium 9.1 mg/dl (8.5-10.1); Creatinine Clr Calc Pharmacy 78.8 ml/min; Est GFR (African American) 102.2 ml/min; Est GFR (Non-African American) 88.2 ml/min; Potassium 4.2 mmol/L (3.5-5.1)
[2022-01-07] MEDS: SILDENAFIL CITRATE 20 MG TABLET PO SCH ×3 (08:12→20:15)
[2022-01-07] MEDS: PANTOprazole 40 MG TAB PO SCH ×2 (08:12→20:16)
[2022-01-07] MEDS: guaiFENesin 600 MG TABCR PO SCH ×2 (08:12→20:15)
[2022-01-07] MEDS: DULoxetine HCL 60 MG CAP PO SCH (08:12)
[2022-01-07] MEDS: CYANOCOBALAMIN (B-12) 500 MCG TABLET PO SCH (08:13)
[2022-01-07] MEDS: CHOLECALCIFEROL 1,000 UNITS 25 MCG TAB PO SCH (08:13)
[2022-01-07] MEDS: CEFDINIR 300 MG CAP PO SCH ×2 (08:13→20:16)
[2022-01-07] MEDS: BISOPROLOL FUMARATE 5 MG TAB PO SCH (08:13)
[2022-01-07] MEDS: hydroCHLOROthiazide 25 MG TAB PO SCH (08:14)
[2022-01-07] MEDS: LANTUS PER UNIT CHARGE SQ SCH (08:56)
[2022-01-07] MEDS: INSULIN ASPART PER UNIT SC SCH ×4 (08:58→21:18)
[2022-01-07] MEDS: HEPARIN SOD 5,000 UNIT/0.5 ML VIAL SQ SCH ×2 (09:18→20:15)
[2022-01-07] MEDS: methylPREDNISolone 40 MG in SYRINGE 0 ML IV SCH ×2 (09:22→20:16)
[2022-01-07] MEDS: UMECLIDINIUM BROMIDE 62.5MCG/BLISTER 7 PUFFS/INHALER INH SCH (09:23)
[2022-01-07] MEDS: FLUTICASONE/VILANTEROL 100/25MCG 14 PUFFS/INHALER INH SCH (09:24)
[2022-01-07] MEDS: MUPIROCIN 2% OINT 22 GM TUBE TOP PRN (09:28)
[2022-01-07] MEDS: CALCIUM CARBONATE 500 MG CHEWABLE TAB PO SCH (20:15)
[2022-01-07] MEDS: OXYBUTYNIN CHLORIDE XL 5 MG TABCR PO SCH (20:15)
[2022-01-07] MEDS: buPROPion SR 100 MG TABCR PO SCH (20:15)
--- NOTE | 2022-01-07 21:35 | Hospitalist Progress Note ---
Date of Service January 07, 2022 Assessment & Plan (1) Acute and chronic respiratory failure with hypoxia: Plan: acutely she presented with conversational dyspnea, accessory muscles use, tachypnea with documented RR of 26 in the ER, and diaphoresis. chronically she has been on 10 L NC O2 since late summer/early fall when she had COVID-19 infection. acute resp failure 2nd to COPD exacerbation. although respiratory biofire was negative her was recently sick with URI symptoms/bronchitis arguing she too has a viral process. this likely triggered the exacerbation. can't rule out bacterial sinusitis contributing to the exacerbation. CTA chest obtained 01/05 - no PE, no pulm edema, no effusions, no pneumonia. Advanced emphysematous changes seen. 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 Controlled. (4) Scleroderma: Plan: Follows with [facility] health system. No signs of ILD on CT chest. Previously on Plaquenil, d/c in 2019. (5) Gastritis, chronic: Plan: History of GAVE. Continue PPI twice daily. Gets EGDs every 3 months by report. (6) Iron deficiency anemia: Plan: Secondary to GAVE. Receives occasional IV iron transfusions - previous one was in September. H/H remain stable. (7) Insomnia, persistent: Plan: Had previously been on Xanax for 20 years, recently tapered off Had trials of trazodone and Remeron - prefers to not be on either Melatonin HS Atarax HS (8) Perforated nasal septum: Plan: Seen in [place] for possible surgical repair but felt not to be an operative candidate. ?concurrent sinusitis - cont omnicef (9) BONITA (obstructive sleep apnea): Plan: CPAP HS (10) B12 deficiency: Plan: Is on monthly shots Last B12 level 12/2020 was in the 800+ range (11) Prediabetes: Plan: Last HbA1c was 12/2020; level was 6.1% recheck while here (12) Pulmonary arterial hypertension: Plan: severe 2nd to end-stage COPD on pulmonary vasodilators at home with sildenafil 20mg TID cont NC O2 echo this admission - PA pressure 40-50mmHg (13) NSVT (nonsustained ventricular tachycardia): Plan: 1 run, no symptoms echo obtained - EF preserved; no wall motion abnormalities follow tele no specific Rx needed K/mag wnl Plan DVT proph - despite h/o GAVE and Fe def she is at high risk of DVT/PE due to immobility from severe dyspnea cont heparin 5000 BID updated at bedside yesterday slow improvement as anticipated given severity of COPD at baseline Admission and Anticipated Discharge Date Admission Date: January 04, 2022 Subjective tele overnight - NSR no additional runs of NSVT (had 1 brief episode, 9 beats, over weekend) feels about the same as yesterday no better but no worse HOWEVER - does have less PATEL than when she first arrived cough is same eating well no new complaints Review of Systems Review of Systems: gen - no fevers cv - no cp, no orthopnea pulm - baseline PATEL; no dyspnea at rest GI - no nausea, no emesis Physical Exam Physical Exam: gen - pleasant, NAD, looks similar to yesterday; sitting at side of bed eating her meal neck - no JVD HENT - MM dry; no thrush heart - RRR, s1 s2, 1-2/6 DESTINY LSB lungs - CTA b/l, no rales, no wheeze, no increased work of breathing abd - soft NT ND BS+ ext - no edema, pulses 2+ b/l psych - a/o x 3 Results & Data Results & Data ([place]) Vital Signs (Past 12 Hours) Vital Signs Temp Pulse Resp BP Pulse Ox O2 Del Method O2 Flow Rate 01/07/22 19:17 36.7 C 88 18 136/88 96 Nasal Cannula 8 01/07/22 16:00 36.7 C 90 18 137/97 96 Room Air 01/07/22 17:49 90 24 90 Nasal Cannula 8 01/07/22 16:22 Nasal Cannula 8 01/07/22 12:53 95 H 20 96 Nasal Cannula 8 01/07/22 11:50 36.8 C 79 17 167/89 H 95 Nasal Cannula 8 Laboratory Results Laboratory Results - last 24 hr 01/07/22 01/07/22 01/07/22 05:40 07:01 11:25 Sodium 137 Potassium 4.2 Chloride 102 Carbon Dioxide 27 Anion Gap 8 BUN 29 H Creatinine 0.69 Est Cr Clr Drug Dosing 78.8 Est GFR ( Amer) 102.2 Est GFR (Non-Af Amer) 88.2 BUN/Creatinine Ratio 42.0 H Glucose 167 H POC Glucose 160 H 104 H Calcium 9.1 01/07/22 01/07/22 16:32 19:59 Sodium Potassium Chloride Carbon Dioxide Anion Gap BUN Creatinine Est Cr Clr Drug Dosing Est GFR ( Amer) Est GFR (Non-Af Amer) BUN/Creatinine Ratio Glucose POC Glucose 220 H 147 H Calcium Diagnostic Findings echo - LV function preserved; wall motion nl; RV function wnl; pulm HTN 40- 50mmHg PG Care Time/CCT Total # of Minutes Spent Total Time Spent with Patient: Total time spent is greater than 50% in coordination of care (as documented) at patient's floor/unit and/or counseling patient: Coding Level of Care Code 53666 Subseq Hosp Care Lvl 2 Diagnoses Acute and chronic respiratory failure with hypoxia J96.21 COPD (chronic obstructive pulmonary disease) J44.9 COPD type: unspecified COPD Hypertension I10 Scleroderma M34.9 Gastritis, chronic K29.50 Iron deficiency anemia D50.9 Insomnia, persistent G47.00 Perforated nasal septum J34.89 BONITA (obstructive sleep apnea) G47.33 B12 deficiency E53.8 Prediabetes R73.03 Pulmonary arterial hypertension I27.21 NSVT (nonsustained ventricular tachycardia) I47.29 (1) COPD (chronic obstructive pulmonary disease) COPD type: unspecified COPD Qualified Code(s): J44.9 - Chronic obstructive pulmonary disease, unspecified
[2022-01-07] MEDS: MELATONIN 3 MG TAB PO SCH (22:21)
[2022-01-07] MEDS: hydrOXYzine HCl 25 MG TAB PO SCH (22:21)
[2022-01-08] MEDS: ALBUT/IPRATROP 3MG/0.5MG NEB 3 ML VIAL INH SCH ×4 (00:21→17:57)
[2022-01-08 06:59] LABS: Anion Gap 8 (3-11); BUN Creatinine Ratio 34.2 (10-20); Blood Urea Nitrogen 25 mg/dl (6-23); Calcium 9.1 mg/dl (8.5-10.1); Carbon Dioxide 29 mmol/L (21-32); Chloride 100 mmol/L (98-107); Creatinine Clr Calc Pharmacy 74.5 ml/min; Est GFR (African American) 96.7 ml/min; Est GFR (Non-African American) 83.4 ml/min; Glucose 167 mg/dl (70-99(Fasting)); Sodium 137 mmol/L (136-145)
[2022-01-08 07:49] LABS: Estimated Average Glucose 134 mg/dl; Hemoglobin A1C 6.3 % (4.5-5.6)
[2022-01-08] MEDS: DULoxetine HCL 60 MG CAP PO SCH (08:29)
[2022-01-08] MEDS: SILDENAFIL CITRATE 20 MG TABLET PO SCH ×3 (08:30→21:16)
[2022-01-08] MEDS: methylPREDNISolone 40 MG in SYRINGE 0 ML IV SCH ×2 (08:30→21:18)
[2022-01-08] MEDS: hydroCHLOROthiazide 25 MG TAB PO SCH (08:30)
[2022-01-08] MEDS: PANTOprazole 40 MG TAB PO SCH ×2 (08:30→21:17)
[2022-01-08] MEDS: guaiFENesin 600 MG TABCR PO SCH ×2 (08:31→21:16)
[2022-01-08] MEDS: HEPARIN SOD 5,000 UNIT/0.5 ML VIAL SQ SCH ×2 (08:31→21:16)
[2022-01-08] MEDS: CEFDINIR 300 MG CAP PO SCH ×2 (08:32→21:17)
[2022-01-08] MEDS: CYANOCOBALAMIN (B-12) 500 MCG TABLET PO SCH (08:32)
[2022-01-08] MEDS: CHOLECALCIFEROL 1,000 UNITS 25 MCG TAB PO SCH (08:32)
[2022-01-08] MEDS: buPROPion SR 100 MG TABCR PO SCH ×2 (08:32→16:54)
[2022-01-08] MEDS: FLUTICASONE/VILANTEROL 100/25MCG 14 PUFFS/INHALER INH SCH (08:33)
[2022-01-08] MEDS: BISOPROLOL FUMARATE 5 MG TAB PO SCH (08:33)
[2022-01-08] MEDS: UMECLIDINIUM BROMIDE 62.5MCG/BLISTER 7 PUFFS/INHALER INH SCH (08:34)
[2022-01-08] MEDS: LANTUS PER UNIT CHARGE SQ SCH (08:36)
[2022-01-08] MEDS: INSULIN ASPART PER UNIT SC SCH ×4 (08:36→21:20)
[2022-01-08] MEDS: ACETAMINOPHEN 325 MG TAB PO PRN (11:56)
--- NOTE | 2022-01-08 14:41 | Hospitalist Progress Note ---
Date of Service January 08, 2022 Assessment & Plan (1) Acute and chronic respiratory failure with hypoxia: Plan: acutely she presented with conversational dyspnea, accessory muscles use, tachypnea with documented RR of 26 in the ER, and diaphoresis. chronically she has been on 10 L NC O2 since late summer/early fall when she had COVID-19 infection. acute resp failure 2nd to COPD exacerbation. although respiratory biofire was negative her was recently sick with URI symptoms/bronchitis arguing she too has a viral process. this likely triggered the exacerbation. can't rule out bacterial sinusitis contributing to the exacerbation. CTA chest obtained 01/05 - no PE, no pulm edema, no effusions, no pneumonia. Advanced emphysematous changes seen. Continue home inhalers Continue scheduled DuoNebs Mucinex 1200 mg BID Cont Solu Medrol 40mg IV BID (~1mg/kg/day) - no wean today; perhaps start to wean tomorrow Pulmonary toilet Cont omnicef 300mg BID for sinusitis - plan 7 days of such; day #4 today I spoke with her primary assessment manager today, Dr Cam he reviewed her recent CTA chest, etc we discussed her care in detail she is optimized from a medicinal standpoint at this time for her advanced COPD could trial her on mucomyst nebs if she feels she has chest congestion but she denies such at this time (2) COPD (chronic obstructive pulmonary disease): 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 Controlled. (4) Scleroderma: Plan: Follows with [facility] health system. No signs of ILD on CT chest. Previously on Plaquenil, d/c in 2019. (5) Gastritis, chronic: Plan: History of GAVE. Continue PPI twice daily. Gets EGDs every 3 months by report. (6) Iron deficiency anemia: Plan: Secondary to GAVE. Receives occasional IV iron transfusions - previous one was in September. H/H remain stable. (7) Insomnia, persistent: Plan: Improved Had previously been on Xanax for 20 years, recently tapered off Had trials of trazodone and Remeron - prefers to not be on either combo of Melatonin HS and Atarax HS are helping (8) Perforated nasal septum: Plan: Seen in [place] for possible surgical repair but felt not to be an operative candidate. ?concurrent sinusitis - cont omnicef (9) BONITA (obstructive sleep apnea): Plan: CPAP HS (10) B12 deficiency: Plan: Is on monthly shots Last B12 level 12/2020 was in the 800+ range (11) Prediabetes: Plan: Last HbA1c was 12/2020; level was 6.1% now 6.3% some preprandial levels are high - titrate novolog (12) Pulmonary arterial hypertension: Plan: severe 2nd to end-stage COPD on pulmonary vasodilators at home with sildenafil 20mg TID cont NC O2 echo this admission - PA pressure 40-50mmHg (13) NSVT (nonsustained ventricular tachycardia): Plan: 2 runs this admission echo obtained - EF preserved; no wall motion abnormalities follow tele no specific Rx needed K/mag wnl could her sweats be a manifestation of her NSVT? doubt, but I told her to write down times of her sweats to see if they correlate with any NSVT runs defer on beta monroe at this time due to advanced COPD Plan DVT proph - despite h/o GAVE and Fe def she is at high risk of DVT/PE due to immobility from severe dyspnea cont heparin 5000 BID updated on Friday slow improvement as anticipated given severity of COPD at baseline told patient to let us know when she is at a point when she is comfortable to d/c home at that point we could start weaning the IV steroids; defer on that today patient with mouth irritation - no obvious thrush, but will add nystatin just in case Admission and Anticipated Discharge Date Admission Date: January 04, 2022 Subjective no changes in breathing overnight minimal cough PATEL about the same as yesterday feels tired today decent appetite no pain in any location mentions seeing a floater in her right eye present for weeks no flashes of light or visual loss tele overnight - another episode of NSVT Review of Systems Review of Systems: gen - no fever endo - episodes of sweats, present since September, once or twice a day cv - no palpitations at any time; no cp GI - no abd pain, no nausea Physical Exam Physical Exam: gen - pleasant, NAD, looks similar to yesterday; sitting at side of bed neck - no JVD HENT - MM dry; no obvious thrush heart - RRR, s1 s2, 1-2/6 DESTINY LSB lungs - CTA b/l, no rales, no wheeze, no increased work of breathing abd - soft NT ND BS+ ext - no edema, pulses 2+ b/l psych - a/o x 3 Results & Data Results & Data ([facility]) Vital Signs (Past 12 Hours) Vital Signs Temp Pulse Pulse Resp BP Pulse Ox O2 Del Method 01/08/22 07:45 82 01/08/22 07:45 Nasal Cannula 01/08/22 12:32 82 20 94 Nasal Cannula 01/08/22 12:24 36.5 C 78 18 143/92 H 93 Nasal Cannula 01/08/22 10:44 94 01/08/22 07:27 37.0 C 86 18 151/91 H 94 Nasal Cannula 01/08/22 05:37 80 20 94 Nasal Cannula O2 Flow Rate 01/08/22 07:45 01/08/22 07:45 8 01/08/22 12:32 8 01/08/22 12:24 5 01/08/22 10:44 01/08/22 07:27 8 01/08/22 05:37 8 Laboratory Results Laboratory Results - last 24 hr 01/07/22 01/07/22 01/08/22 16:32 19:59 05:56 Sodium 137 Potassium TNP Chloride 100 Carbon Dioxide 29 Anion Gap 8 BUN 25 H Creatinine 0.73 Est Cr Clr Drug Dosing 74.5 Est GFR ( Amer) 96.7 Est GFR (Non-Af Amer) 83.4 BUN/Creatinine Ratio 34.2 H Glucose 167 H POC Glucose 220 H 147 H Estimat Average Glucose Hemoglobin A1c Calcium 9.1 01/08/22 01/08/22 01/08/22 05:59 07:01 07:42 Sodium Potassium 4.2 Chloride Carbon Dioxide Anion Gap BUN Creatinine Est Cr Clr Drug Dosing Est GFR ( Amer) Est GFR (Non-Af Amer) BUN/Creatinine Ratio Glucose POC Glucose 146 H Estimat Average Glucose 134 Hemoglobin A1c 6.3 H Calcium 01/08/22 11:19 Sodium Potassium Chloride Carbon Dioxide Anion Gap BUN Creatinine Est Cr Clr Drug Dosing Est GFR ( Amer) Est GFR (Non-Af Amer) BUN/Creatinine Ratio Glucose POC Glucose 142 H Estimat Average Glucose Hemoglobin A1c Calcium PG Care Time/CCT Total # of Minutes Spent Total Time Spent with Patient: Total time spent is greater than 50% in coordination of care (as documented) at patient's floor/unit and/or counseling patient: Coding Level of Care Code 00574 Subseq Hosp Care Lvl 2 Diagnoses Acute and chronic respiratory failure with hypoxia J96.21 COPD (chronic obstructive pulmonary disease) J44.9 COPD type: unspecified COPD Hypertension I10 Scleroderma M34.9 Gastritis, chronic K29.50 Iron deficiency anemia D50.9 Insomnia, persistent G47.00 Perforated nasal septum J34.89 BONITA (obstructive sleep apnea) G47.33 B12 deficiency E53.8 Prediabetes R73.03 Pulmonary arterial hypertension I27.21 NSVT (nonsustained ventricular tachycardia) I47.29 (1) COPD (chronic obstructive pulmonary disease) COPD type: unspecified COPD Qualified Code(s): J44.9 - Chronic obstructive pulmonary disease, unspecified
[2022-01-08] MEDS ORDERED: Nursing to Pharmacy Communication SCH (15:45)
[2022-01-08] MEDS: NYSTATIN SUSP 500,000 U/5 ML UDC PO SCH ×2 (16:55→21:15)
[2022-01-08] MEDS: CALCIUM CARBONATE 500 MG CHEWABLE TAB PO SCH (21:15)
[2022-01-08] MEDS: OXYBUTYNIN CHLORIDE XL 5 MG TABCR PO SCH (21:17)
[2022-01-08] MEDS: hydrOXYzine HCl 25 MG TAB PO SCH (21:18)
[2022-01-08] MEDS: MELATONIN 3 MG TAB PO SCH (21:19)
[2022-01-09] MEDS: ALBUT/IPRATROP 3MG/0.5MG NEB 3 ML VIAL INH SCH ×4 (00:37→19:25)
[2022-01-09] MEDS: HEPARIN 100 UNIT/ML 5ML FLUSH FLUSH PRN (07:39)
[2022-01-09] MEDS: BISOPROLOL FUMARATE 5 MG TAB PO SCH (07:59)
[2022-01-09] MEDS: CEFDINIR 300 MG CAP PO SCH ×2 (08:00→21:52)
[2022-01-09] MEDS: buPROPion SR 100 MG TABCR PO SCH ×2 (08:00→17:15)
[2022-01-09] MEDS: SILDENAFIL CITRATE 20 MG TABLET PO SCH ×3 (08:00→21:51)
[2022-01-09] MEDS: PANTOprazole 40 MG TAB PO SCH ×2 (08:00→21:52)
[2022-01-09] MEDS: guaiFENesin 600 MG TABCR PO SCH ×2 (08:00→21:52)
[2022-01-09] MEDS: CYANOCOBALAMIN (B-12) 500 MCG TABLET PO SCH (08:00)
[2022-01-09] MEDS: CHOLECALCIFEROL 1,000 UNITS 25 MCG TAB PO SCH (08:01)
[2022-01-09] MEDS: NYSTATIN SUSP 500,000 U/5 ML UDC PO SCH ×4 (08:01→21:52)
[2022-01-09] MEDS: HEPARIN SOD 5,000 UNIT/0.5 ML VIAL SQ SCH ×2 (08:01→21:51)
[2022-01-09] MEDS: UMECLIDINIUM BROMIDE 62.5MCG/BLISTER 7 PUFFS/INHALER INH SCH (08:01)
[2022-01-09] MEDS: DULoxetine HCL 60 MG CAP PO SCH (08:01)
[2022-01-09] MEDS: hydroCHLOROthiazide 25 MG TAB PO SCH (08:01)
[2022-01-09] MEDS: methylPREDNISolone 40 MG in SYRINGE 0 ML IV SCH (08:02)
[2022-01-09] MEDS: FLUTICASONE/VILANTEROL 100/25MCG 14 PUFFS/INHALER INH SCH (08:02)
[2022-01-09] MEDS: ACETAMINOPHEN 325 MG TAB PO PRN (08:18)
[2022-01-09] MEDS: LANTUS PER UNIT CHARGE SQ SCH (08:19)
[2022-01-09] MEDS: INSULIN ASPART PER UNIT SC SCH ×4 (08:19→21:07)
--- NOTE | 2022-01-09 08:25 | Hospitalist Progress Note ---
Date of Service January 09, 2022 Assessment & Plan (1) Acute and chronic respiratory failure with hypoxia: Plan: acutely she presented with conversational dyspnea, accessory muscles use, tachypnea with documented RR of 26 in the ER, and diaphoresis. chronically she has been on 10 L NC O2 since late summer/early fall when she had COVID-19 infection (2nd infection w/ COVID, had been hospitalized for 12 days at start of pandemic) acute resp failure 2nd to COPD exacerbation. although respiratory biofire was negative her was recently sick with URI symptoms/bronchitis arguing she too has a viral process. this likely triggered the exacerbation. can't rule out bacterial sinusitis contributing to the exacerbation. CTA chest obtained 01/05 - no PE, no pulm edema, no effusions, no pneumonia. Advanced emphysematous changes seen. Continue home inhalers Continue scheduled DuoNebs Mucinex 1200 mg BID Continue pulmonary toilet Cont Solu Medrol 40mg IV BID (~1mg/kg/day) --> stated feeling better, down to 7-8L NC --> switch to prednisone 60mg today, titrate at discharge Q2D Cont omnicef 300mg BID for sinusitis - plan 7 days of such; (day #5/7 today) Previous provider spoke with patient's eligibility analyst, Dr Cam, yesterday he reviewed her recent CTA chest, etc, discussed her care in detail --> she is optimized from a medicinal standpoint at this time for her advanced COPD Prior notes stated if patient has worsening in breathing, then azithromycin 250mg QOD -- did message. advised against at this time could trial her on mucomyst nebs if she feels she has chest congestion but she denies such at this time --> continues to deny chest congestion, however will attempt to see if any additional benefit. 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 BP controlled, elevated this morning likely from steroids --> convert to long acting Mild headache this morning, no visual symptoms Hydralazine available prn Monitor (4) Scleroderma: Plan: Follows with [facility]. No signs of ILD on CT chest. 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 Continue PPI twice daily. Gets EGDs every 3 months by report. No bleeding reported, remains on Heparin SQ while inpatient (6) Iron deficiency anemia: Plan: Secondary to GAVE. Receives occasional IV iron transfusions - previous one was in September. H/H remain stable. (7) Insomnia, persistent: Plan: Improved Had previously been on Xanax for 20 years, recently tapered off Had trials of trazodone and Remeron - prefers to not be on either combo of Melatonin HS and Atarax HS are helping -- continue (8) Perforated nasal septum: Plan: Seen in [place] for possible surgical repair but felt not to be an operative candidate. ?concurrent sinusitis - cont omnicef day 5 of 7 (9) BONITA (obstructive sleep apnea): Plan: CPAP HS -- compliant as outpatient, 100% of days w/ use per last report (10) B12 deficiency: Plan: Is on monthly shots Last B12 level 12/2020 was in the 800+ range (11) Prediabetes: Plan: Last HbA1c was 12/2020; level was 6.1% -->now 6.3% some preprandial levels are high , tightened novolog coverage BSGs today 151, 148 Steroids converted to prednisone daily --> monitor (12) Pulmonary arterial hypertension: Plan: severe 2nd to end-stage COPD echo this admission - PA pressure 40-50mmHg , on CPAP HS on pulmonary vasodilators at home with sildenafil 20mg TID cont NC O2 , titrate as above (13) NSVT (nonsustained ventricular tachycardia): Plan: 2 runs this admission echo obtained - EF preserved; no wall motion abnormalities follow tele no specific Rx needed K/mag wnl could her sweats be a manifestation of her NSVT? doubt, but I told her to write down times of her sweats to see if they correlate with any NSVT runs defer on beta monroe at this time due to advanced COPD 01/09--> no further sweats, no further SVT on monitor overnight. monitor for any recurrance Plan DVT proph: * Despite h/o GAVE and Fe def she is at high risk of DVT/PE due to immobility from severe dyspnea * Cont heparin 5000 BID Patient reporting feeling slightly better, Continued inpatient stay, anticipate patient likely to remain inpatient additional ~48 hours to prevent readmission. Patient reports in no rider for discharge but finally feeling slightly better, still quite deconditioned as well and planning to transition to PO prednisone for today Slow improvement as anticipated given severity of COPD at baseline updated on Friday , update as needed/requested Admission and Anticipated Discharge Date Admission Date: January 04, 2022 Subjective eval this morning, sitting up a side of bed on electronic device, watching soap opera states breathing better than when she came in, no further chest heaviness. Not as much work of breathing, as she reported difficult to breath when she first came in. No sputum production, on 8L NC. Prior COVID inpatient 12 days when first came around, got again this summer/fall and has been on 10L since. Has been doing pulmonary rehab, but endorses rehab/conditioning difficult as she gets weakness with her scleroderma and does make getting more active difficult, especially with her breathing/severe emphysema, however she has lost the weight they wanted her to loose to be considered for lung transplant. Hx deviated septum, on Omnicef for a sinusitis. Discussed switching her to prednisone today, will continue/taper at discharge. 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 On amlodipine, sildenafil for scleroderma, follows [facility] (previously on Plaquenil for short time). No fever/chills, chest pain, abdominal pain, nausea or vomiting. Questions/concerns addressed at this time. Review of Systems Review of Systems: All systems reviewed & are unremarkable except as noted in HPI & below Physical Exam Physical Exam: General: WD/WN female sitting up at side of bed, NAD HEENT: head normocephalic, atraumatic, mm slightly dry, trachea midline Resp: CTAB, no w/c, prolonged expiratory phases, on 8L NC CV: RRR, +systolic murmur LSB, no r/g, no pitting edema/calf tenderness GI: +BS, soft/NT MSk/Neuro: no focal deficit, sclerodema appearance to hands/thickening of skin, calcinosis to b/l elbow (R elbow covered w/ richar pad), no erythema/streaking Psych: AOx3, pleasant and cooperative Results & Data Results & Data ([facility]) Vital Signs (Past 12 Hours) Vital Signs Temp Pulse Pulse Resp BP Pulse Ox O2 Del Method 01/09/22 07:54 36.7 C 93 H 18 154/96 H 95 Nasal Cannula 01/09/22 07:04 83 16 89 L Nasal Cannula 01/09/22 03:41 36.3 C L 70 18 153/94 H 100 CPAP 01/09/22 01:50 83 01/09/22 00:50 Nasal Cannula 01/09/22 00:38 77 20 95 CPAP 01/08/22 23:30 36.7 C 84 20 152/77 H 95 Nasal Cannula O2 Flow Rate 01/09/22 07:54 8 01/09/22 07:04 8 01/09/22 03:41 8 01/09/22 01:50 01/09/22 00:50 8 01/09/22 00:38 8 01/08/22 23:30 8 Laboratory Results 01/09/22 01/09/22 01/09/22 Range/Units 11:32 07:46 07:46 Sodium 138 (136-145) mmol/L Potassium 4.7 (3.5-5.1) mmol/L Chloride 101 (98-107) mmol/L Carbon Dioxide 29 (21-32) mmol/L Anion Gap 8 (3-11) BUN 26 H (6-23) mg/dl Creatinine 0.75 (0.6-1.2) mg/dl Est Cr Clr Drug Dosing 71.4 ml/min Est GFR ( Amer) 93.6 ml/min Est GFR (Non-Af Amer) 80.8 ml/min BUN/Creatinine Ratio 34.7 H (10-20) Glucose 157 H (70-99(Fasting)) mg/dl POC Glucose 148 H 151 H (70-99) mg/dl Calcium 9.2 (8.5-10.1) mg/dl Magnesium 2.1 (1.7-2.4) mg/dl 01/08/22 01/08/22 Range/Units 20:14 16:29 Sodium (136-145) mmol/L Potassium (3.5-5.1) mmol/L Chloride (98-107) mmol/L Carbon Dioxide (21-32) mmol/L Anion Gap (3-11) BUN (6-23) mg/dl Creatinine (0.6-1.2) mg/dl Est Cr Clr Drug Dosing ml/min Est GFR ( Amer) ml/min Est GFR (Non-Af Amer) ml/min BUN/Creatinine Ratio (10-20) Glucose (70-99(Fasting)) mg/dl POC Glucose 214 H 217 H (70-99) mg/dl Calcium (8.5-10.1) mg/dl Magnesium (1.7-2.4) mg/dl PG Care Time/CCT Total # of Minutes Spent Total Time Spent with Patient: Total time spent is greater than 50% in coordination of care (as documented) at patient's floor/unit and/or counseling patient: Coding Level of Care Code 74758 Subseq Hosp Care Lvl 3 Diagnoses Acute and chronic respiratory failure with hypoxia J96.21 COPD (chronic obstructive pulmonary disease) J44.9 COPD type: unspecified COPD Hypertension I10 Scleroderma M34.9 Gastritis, chronic K29.50 Iron deficiency anemia D50.9 Insomnia, persistent G47.00 Perforated nasal septum J34.89 BONITA (obstructive sleep apnea) G47.33 B12 deficiency E53.8 Prediabetes R73.03 Pulmonary arterial hypertension I27.21 NSVT (nonsustained ventricular tachycardia) I47.29 (1) COPD (chronic obstructive pulmonary disease) COPD type: unspecified COPD Qualified Code(s): J44.9 - Chronic obstructive pulmonary disease, unspecified
[2022-01-09 08:36] LABS: BUN Creatinine Ratio 34.7 (10-20); Calcium 9.2 mg/dl (8.5-10.1); Creatinine Clr Calc Pharmacy 71.4 ml/min; Est GFR (African American) 93.6 ml/min; Est GFR (Non-African American) 80.8 ml/min; Magnesium 2.1 mg/dl (1.7-2.4); Potassium 4.7 mmol/L (3.5-5.1)
[2022-01-09] MEDS ORDERED: hydrALAZINE HCL 20 MG/ML VIAL IV PRN (13:17)
[2022-01-09] MEDS: predniSONE 50 MG TAB PO SCH (13:57)
[2022-01-09] MEDS ORDERED: ACETYLCYSTEINE 10% INHAL SOLN 4 ML **DISPENSED BY RESP. INH SCH (15:00)
[2022-01-09] MEDS: OXYBUTYNIN CHLORIDE XL 5 MG TABCR PO SCH (21:50)
[2022-01-09] MEDS: CALCIUM CARBONATE 500 MG CHEWABLE TAB PO SCH (21:51)
[2022-01-09] MEDS: MELATONIN 3 MG TAB PO SCH (21:51)
[2022-01-09] MEDS: hydrOXYzine HCl 25 MG TAB PO SCH (21:53)
[2022-01-10] MEDS: ALBUT/IPRATROP 3MG/0.5MG NEB 3 ML VIAL INH SCH ×4 (00:08→18:01)
[2022-01-10 06:26] LABS: Hematocrit (blood only) 39.4 % (34.1-44.9); Hemoglobin 12.9 g/dl (12.0-16.0); Mean Corpuscular Hemoglobin 30.4 pg (25.0-34.0); Mean Corpuscular Hgb Conc 32.7 g/dL (32.0-36.0); Mean Corpuscular Volume 92.9 fL (80.0-100.0); Mean Platelet Volume 9.4 fL (9.4-12.3); Platelet Count 316 K/uL (130-400); RDW Coefficient of Variation 13.3 % (11.5-14.5); RDW Standard Deviation 45.1 fL (36.4-46.3); Red Blood Count 4.24 M/uL (3.93-5.22); White Blood Count 13.18 K/ul (4.8-10.8)
[2022-01-10 06:55] LABS: Anion Gap 6 (3-11); BUN Creatinine Ratio 34.2 (10-20); Blood Urea Nitrogen 27 mg/dl (6-23); Calcium 9.2 mg/dl (8.5-10.1); Carbon Dioxide 31 mmol/L (21-32); Chloride 99 mmol/L (98-107); Creatinine Clr Calc Pharmacy 69.4 ml/min; Est GFR (African American) 87.9 ml/min; Est GFR (Non-African American) 75.8 ml/min; Glucose 124 mg/dl (70-99(Fasting)); Sodium 136 mmol/L (136-145)
[2022-01-10] MEDS: INSULIN ASPART PER UNIT SC SCH ×4 (07:44→22:02)
--- NOTE | 2022-01-10 07:57 | Hospitalist Progress Note ---
Date of Service January 10, 2022 Assessment & Plan (1) Acute and chronic respiratory failure with hypoxia: Plan: acutely she presented with conversational dyspnea, accessory muscles use, tachypnea with documented RR of 26 in the ER, and diaphoresis. chronically she has been on 10 L NC O2 since late summer/early fall when she had COVID-19 infection (2nd infection w/ COVID, had been hospitalized for 12 days at start of pandemic) acute resp failure 2nd to COPD exacerbation. although respiratory biofire was negative her was recently sick with URI symptoms/bronchitis arguing she too has a viral process. this likely triggered the exacerbation. can't rule out bacterial sinusitis contributing to the exacerbation. CTA chest obtained 01/05 - no PE, no pulm edema, no effusions, no pneumonia. Advanced emphysematous changes seen. Continue home inhalers Continue scheduled DuoNebs Mucinex 1200 mg BID Continue pulmonary toilet Solu Medrol 40mg IV BID (~1mg/kg/day) -->converted to 50mg prednisone on 01/09, plan to decrease to 40mg for tomorrow, decrease by 10mg Q2D to complete course Continue omnicef 300mg BID for sinusitis (day #6/7 today) Previous provider spoke with patient's operations and maintenance specialist, Dr Cam who reviewed her recent CTA chest, etc, discussed her care in detail--> she is optimized from a medicinal standpoint at this time for her advanced COPD Prior notes stated if patient has worsening in breathing, then azithromycin 250mg QOD -- did message. advised against at this time could trial her on mucomyst nebs if she feels she has chest congestion but she denies such at this time --> declined Currently 97% on 7L --> titrate O2 to maintain sats. Suspect lower O2 needs at rest, increased w/ activity. Consider ambulatory pulse ox prior to dc Her losartan was not ordered on admit, bP 151/86 -- resumed for this morning. Weight does appear slightly up, may need dose of lasix. 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 -- on chronic prednisone 10mg every other day; hold while on IV solumedrol Follows with [facility] -- trying to get on lung transplant list , reported weight loss for such last visit with them - November 2021 patient with mouth irritation - no obvious thrush, but added nystatin just in c ase (3) Hypertension: Plan: Continue bisoprolol 10mg, HCTZ 6.25mg daily Losartan previously not ordered, resumed for this morning given elevated BPs Also on amlodipine 10mg daily -- likely for CREST/scleroderma --> resume BP currently 127/80 Hydralazine available prn Continue to monitor (4) Scleroderma: Plan: Follows with [facility]. No signs of ILD on CT chest. 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 Continue PPI twice daily. Gets EGDs every 3 months by report. No bleeding reported, remains on Heparin SQ while inpatient (6) Iron deficiency anemia: Plan: Secondary to GAVE. Receives occasional IV iron transfusions - previous one was in September. H/H remain stable on repeat (7) Insomnia, persistent: Plan: Improved Had previously been on Xanax for 20 years, recently tapered off Had trials of trazodone and Remeron - prefers to not be on either combo of Melatonin HS and Atarax HS are helping -- continue (8) Perforated nasal septum: Plan: Seen in [place] for possible surgical repair but felt not to be an operative candidate. ?concurrent sinusitis - cont omnicef day 6 of 7 (9) BONITA (obstructive sleep apnea): Plan: CPAP HS -- compliant as outpatient, 100% of days w/ use per last report (10) B12 deficiency: Plan: Is on monthly shots Last B12 level 12/2020 was in the 800+ range (11) Prediabetes: Plan: Last HbA1c was 12/2020; level was 6.1% -->now 6.3% some preprandial levels are high , tightened novolog coverage BSGs acceptable past 24 hours, titrating steroids as above (12) Pulmonary arterial hypertension: Plan: severe 2nd to end-stage COPD echo this admission - PA pressure 40-50mmHg , on CPAP HS on pulmonary vasodilators at home with sildenafil 20mg TID cont NC O2 currently down to 7L titrate as above (13) NSVT (nonsustained ventricular tachycardia): Plan: 2 runs this admission echo obtained - EF preserved; no wall motion abnormalities follow tele no specific Rx needed K/mag wnl could her sweats be a manifestation of her NSVT? doubt, but I told her to write down times of her sweats to see if they correlate with any NSVT runs defer on beta monroe at this time due to advanced COPD 01/09-01/10-> no further sweats, no further SVT on monitor overnight. monitor for any recurrence Plan DVT proph: * Despite h/o GAVE and Fe def she is at high risk of DVT/PE due to immobility from severe dyspnea * Cont heparin 5000 BID Patient reporting feeling slightly better than day prior. Planning to decrease steroids as above for tomorrow. If continued improvement/stable O2 needs, consider ambulatory pulse ox/discharge in next 24-48 hours Slow improvement as anticipated given severity of COPD at baseline Admission and Anticipated Discharge Date Admission Date: January 04, 2022 Subjective Patient evaluated this morning, breathing stable. States she is feeling slightly better than the day before. Down to 7L NC, discussed may need increased O2 w/ ambulation and can test closer to discharge. Sleeping this morning, tired, but awoken early. Discussed diuretics/BP -- typically on losartan 80mg daily -- resumed for this morning. Discussed continue prednisone 50mg for today, planning to decrease to 40mg tomorrow and slower taper at discharge. No fever/chills/chest pain/sputum production, or abdominal pain/nausea/vomiting. Questions/concerns addressed at this time. Review of Systems Review of Systems: All systems reviewed & are unremarkable except as noted in HPI & below Physical Exam Physical Exam: General: WD/WN female sitting up at side of bed, NAD HEENT: head normocephalic, atraumatic, mm slightly dry, trachea midline Resp: CTAB, no w/c, prolonged expiratory phases, on 7L NC CV: RRR, +systolic murmur LSB, no r/g, no pitting edema/calf tenderness GI: +BS, soft/NT MSk/Neuro: no focal deficit, scleredema appearance to hands/thickening of skin, calcinosis to b/l elbow (R elbow covered w/ richar pad), no erythema/streaking Psych: AOx3, pleasant and cooperative Results & Data Results & Data ([facility]) Vital Signs (Past 12 Hours) Vital Signs Temp Pulse Pulse Resp BP Pulse Ox O2 Del Method 01/10/22 05:04 19 CPAP 01/10/22 03:00 36 C L 83 18 151/86 H 98 CPAP 01/09/22 22:30 92 H 01/10/22 00:08 20 96 CPAP 01/09/22 23:00 36.6 C 84 18 151/86 H 93 Nasal Cannula 01/09/22 20:00 Nasal Cannula O2 Flow Rate 01/10/22 05:04 8 01/10/22 03:00 01/09/22 22:30 01/10/22 00:08 8 01/09/22 23:00 7 01/09/22 20:00 7 Laboratory Results 01/10/22 01/10/22 01/10/22 Range/Units 11:10 07:28 07:27 WBC (4.8-10.8) K/ul RBC (3.93-5.22) M/uL Hgb (12.0-16.0) g/dl Hct (34.1-44.9) % MCV (80.0-100.0) fL MCH (25.0-34.0) pg MCHC (32.0-36.0) g/dL RDW Std Deviation (36.4-46.3) fL RDW Coeff of Mag (11.5-14.5) % Plt Count (130-400) K/uL MPV (9.4-12.3) fL Sodium (136-145) mmol/L Potassium 4.2 Chloride (98-107) mmol/L Carbon Dioxide (21-32) mmol/L Anion Gap (3-11) BUN (6-23) mg/dl Creatinine (0.6-1.2) mg/dl Est Cr Clr Drug Dosing ml/min Est GFR ( Amer) ml/min Est GFR (Non-Af Amer) ml/min BUN/Creatinine Ratio (10-20) Glucose (70-99(Fasting)) mg/dl POC Glucose 124 H 106 H (70-99) mg/dl Calcium (8.5-10.1) mg/dl Magnesium (1.7-2.4) mg/dl 01/10/22 01/10/22 01/10/22 Range/Units 05:41 05:41 05:41 WBC 13.18 H (4.8-10.8) K/ul RBC 4.24 (3.93-5.22) M/uL Hgb 12.9 (12.0-16.0) g/dl Hct 39.4 (34.1-44.9) % MCV 92.9 (80.0-100.0) fL MCH 30.4 (25.0-34.0) pg MCHC 32.7 (32.0-36.0) g/dL RDW Std Deviation 45.1 (36.4-46.3) fL RDW Coeff of Mag 13.3 (11.5-14.5) % Plt Count 316 (130-400) K/uL MPV 9.4 (9.4-12.3) fL Sodium 136 (136-145) mmol/L Potassium TNP Chloride 99 (98-107) mmol/L Carbon Dioxide 31 (21-32) mmol/L Anion Gap 6 (3-11) BUN 27 H (6-23) mg/dl Creatinine 0.79 (0.6-1.2) mg/dl Est Cr Clr Drug Dosing 69.4 ml/min Est GFR ( Amer) 87.9 ml/min Est GFR (Non-Af Amer) 75.8 ml/min BUN/Creatinine Ratio 34.2 H (10-20) Glucose 124 H (70-99(Fasting)) mg/dl POC Glucose (70-99) mg/dl Calcium 9.2 (8.5-10.1) mg/dl Magnesium 2.2 (1.7-2.4) mg/dl 01/09/22 01/09/22 Range/Units 20:14 16:09 WBC (4.8-10.8) K/ul RBC (3.93-5.22) M/uL Hgb (12.0-16.0) g/dl Hct (34.1-44.9) % MCV (80.0-100.0) fL MCH (25.0-34.0) pg MCHC (32.0-36.0) g/dL RDW Std Deviation (36.4-46.3) fL RDW Coeff of Mag (11.5-14.5) % Plt Count (130-400) K/uL MPV (9.4-12.3) fL Sodium (136-145) mmol/L Potassium Chloride (98-107) mmol/L Carbon Dioxide (21-32) mmol/L Anion Gap (3-11) BUN (6-23) mg/dl Creatinine (0.6-1.2) mg/dl Est Cr Clr Drug Dosing ml/min Est GFR ( Amer) ml/min Est GFR (Non-Af Amer) ml/min BUN/Creatinine Ratio (10-20) Glucose (70-99(Fasting)) mg/dl POC Glucose 156 H 261 H (70-99) mg/dl Calcium (8.5-10.1) mg/dl Magnesium (1.7-2.4) mg/dl PG Care Time/CCT Total # of Minutes Spent Total Time Spent with Patient: Total time spent is greater than 50% in coordination of care (as documented) at patient's floor/unit and/or counseling patient: Coding Level of Care Code 16486 Subseq Hosp Care Lvl 3 Diagnoses Acute and chronic respiratory failure with hypoxia J96.21 COPD (chronic obstructive pulmonary disease) J44.9 COPD type: unspecified COPD Hypertension I10 Scleroderma M34.9 Gastritis, chronic K29.50 Iron deficiency anemia D50.9 Insomnia, persistent G47.00 Perforated nasal septum J34.89 BONITA (obstructive sleep apnea) G47.33 B12 deficiency E53.8 Prediabetes R73.03 Pulmonary arterial hypertension I27.21 NSVT (nonsustained ventricular tachycardia) I47.29 (1) COPD (chronic obstructive pulmonary disease) COPD type: unspecified COPD Qualified Code(s): J44.9 - Chronic obstructive pulmonary disease, unspecified
[2022-01-10] MEDS: guaiFENesin 600 MG TABCR PO SCH ×2 (08:07→21:04)
[2022-01-10] MEDS: PANTOprazole 40 MG TAB PO SCH ×2 (08:08→21:01)
[2022-01-10] MEDS: NYSTATIN SUSP 500,000 U/5 ML UDC PO SCH ×4 (08:08→21:01)
[2022-01-10] MEDS: hydroCHLOROthiazide 25 MG TAB PO SCH (08:08)
[2022-01-10] MEDS: predniSONE 50 MG TAB PO SCH (08:09)
[2022-01-10] MEDS: BISOPROLOL FUMARATE 5 MG TAB PO SCH (08:09)
[2022-01-10] MEDS: CHOLECALCIFEROL 1,000 UNITS 25 MCG TAB PO SCH (08:09)
[2022-01-10] MEDS: CYANOCOBALAMIN (B-12) 500 MCG TABLET PO SCH (08:09)
[2022-01-10] MEDS: DULoxetine HCL 60 MG CAP PO SCH (08:10)
[2022-01-10] MEDS: SILDENAFIL CITRATE 20 MG TABLET PO SCH ×3 (08:10→21:04)
[2022-01-10] MEDS: CEFDINIR 300 MG CAP PO SCH ×2 (08:10→21:05)
[2022-01-10] MEDS: UMECLIDINIUM BROMIDE 62.5MCG/BLISTER 7 PUFFS/INHALER INH SCH (08:11)
[2022-01-10] MEDS: MUPIROCIN 2% OINT 22 GM TUBE TOP PRN (08:11)
[2022-01-10] MEDS: FLUTICASONE/VILANTEROL 100/25MCG 14 PUFFS/INHALER INH SCH (08:11)
[2022-01-10] MEDS: buPROPion SR 100 MG TABCR PO SCH ×2 (08:14→17:41)
[2022-01-10] MEDS: HEPARIN SOD 5,000 UNIT/0.5 ML VIAL SQ SCH ×2 (08:17→21:09)
[2022-01-10] MEDS: LANTUS PER UNIT CHARGE SQ SCH (08:25)
[2022-01-10] MEDS: VALSARTAN 80 MG TAB PO SCH (09:32)
[2022-01-10] MEDS: ACETAMINOPHEN 325 MG TAB PO PRN (15:16)
[2022-01-10] MEDS: amLODIPine BESYLATE 5 MG TAB PO SCH (16:18)
[2022-01-10] MEDS: CALCIUM CARBONATE 500 MG CHEWABLE TAB PO SCH (21:02)
[2022-01-10] MEDS: OXYBUTYNIN CHLORIDE XL 5 MG TABCR PO SCH (21:02)
[2022-01-10] MEDS: MELATONIN 3 MG TAB PO SCH (21:03)
[2022-01-10] MEDS: hydrOXYzine HCl 25 MG TAB PO SCH (21:05)
[2022-01-11] MEDS: ALBUT/IPRATROP 3MG/0.5MG NEB 3 ML VIAL INH SCH ×4 (00:50→19:30)
[2022-01-11] MEDS: CHOLECALCIFEROL 1,000 UNITS 25 MCG TAB PO SCH (07:31)
[2022-01-11] MEDS: HEPARIN SOD 5,000 UNIT/0.5 ML VIAL SQ SCH ×2 (07:31→20:25)
[2022-01-11] MEDS: VALSARTAN 80 MG TAB PO SCH (07:32)
[2022-01-11] MEDS: amLODIPine BESYLATE 5 MG TAB PO SCH (07:32)
[2022-01-11] MEDS: CEFDINIR 300 MG CAP PO SCH ×2 (07:32→20:17)
[2022-01-11] MEDS: DULoxetine HCL 60 MG CAP PO SCH (07:32)
[2022-01-11] MEDS: SILDENAFIL CITRATE 20 MG TABLET PO SCH ×3 (07:33→20:20)
[2022-01-11] MEDS: hydroCHLOROthiazide 25 MG TAB PO SCH (07:33)
[2022-01-11] MEDS: CYANOCOBALAMIN (B-12) 500 MCG TABLET PO SCH (07:33)
[2022-01-11] MEDS: BISOPROLOL FUMARATE 5 MG TAB PO SCH (07:34)
[2022-01-11] MEDS: predniSONE 20 MG TAB PO SCH (07:34)
[2022-01-11] MEDS: guaiFENesin 600 MG TABCR PO SCH ×2 (07:34→20:18)
[2022-01-11] MEDS: UMECLIDINIUM BROMIDE 62.5MCG/BLISTER 7 PUFFS/INHALER INH SCH (07:35)
[2022-01-11] MEDS: NYSTATIN SUSP 500,000 U/5 ML UDC PO SCH ×4 (07:35→20:17)
[2022-01-11] MEDS: PANTOprazole 40 MG TAB PO SCH ×2 (07:35→20:20)
[2022-01-11] MEDS: FLUTICASONE/VILANTEROL 100/25MCG 14 PUFFS/INHALER INH SCH (07:36)
[2022-01-11] MEDS: buPROPion SR 100 MG TABCR PO SCH ×2 (07:36→16:56)
--- NOTE | 2022-01-11 07:48 | Hospitalist Progress Note ---
Date of Service January 11, 2022 Assessment & Plan (1) Acute and chronic respiratory failure with hypoxia: Plan: acutely she presented with conversational dyspnea, accessory muscles use, tachypnea with documented RR of 26 in the ER, and diaphoresis. chronically she has been on 10 L NC O2 since late summer/early fall when she had COVID-19 infection (2nd infection w/ COVID, had been hospitalized for 12 days at start of pandemic) acute resp failure 2nd to COPD exacerbation. although respiratory biofire was negative her was recently sick with URI symptoms/bronchitis arguing she too has a viral process. this likely triggered the exacerbation. can't rule out bacterial sinusitis contributing to the exacerbation. CTA chest obtained 01/05 - no PE, no pulm edema, no effusions, no pneumonia. Advanced emphysematous changes seen. Continue home inhalers Continue scheduled DuoNebs Mucinex 1200 mg BID Continue pulmonary toilet Solu Medrol 40mg IV BID (~1mg/kg/day) -->converted to 50mg prednisone on 01/09, decreased to 40mg daily and plans to decrease by 10mg Q2D to complete course Continued omnicef 300mg BID for sinusitis (day #08/16 today, complete after this evening's dose) Previous provider spoke with patient's county attorney, Dr Cam who reviewed her recent CTA chest, etc, discussed her care in detail--> she is optimized from a medicinal standpoint at this time for her advanced COPD Prior notes stated if patient has worsening in breathing, then azithromycin 250mg QOD -- did message. advised against at this time could trial her on mucomyst nebs if she feels she has chest congestion but she denies such at this time --> declined 01/11 --Completing course Omnicef after today's doses -- Prednisone 40mg today, decrease by 10mg QOD --End expiratory wheezing/weight gain, likely from steroids, lasix 20mg PO x 1 w/ PO KCl --Currently 100% on 7L --> titrate O2 to maintain sats, discussed with nursing staff --Suspect lower O2 needs at rest, increased w/ activity. 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 -- on chronic prednisone 10mg every other day; hold while on IV solumedrol Follows with [facility] [place] -- trying to get on lung transplant list , reported weight loss for such last visit with them - November 2021 patient with mouth irritation - no obvious thrush, but added nystatin just in case (3) Hypertension: Plan: Continue bisoprolol 10mg, HCTZ 6.25mg daily Losartan previously not ordered, resumed 01/10 w/ improvement of BP Amlodipine resumed 10mg daily -- likely for CREST/scleroderma BP currently 143/84, lasix x 1 as above for fluid retention from steroids Hydralazine available prn Continue to monitor (4) Scleroderma: Plan: Follows with [facility]. No signs of ILD on CT chest. 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 Continue PPI twice daily. Gets EGDs every 3 months by report. No bleeding reported, remains on Heparin SQ while inpatient (6) Iron deficiency anemia: Plan: Secondary to GAVE. Receives occasional IV iron transfusions - previous one was in September. H/H remain stable on repeat (7) Insomnia, persistent: Plan: Improved Had previously been on Xanax for 20 years, recently tapered off Had trials of trazodone and Remeron - prefers to not be on either combo of Melatonin HS and Atarax HS are helping -- continue (8) Perforated nasal septum: Plan: Seen in [place] for possible surgical repair but felt not to be an operative candidate. ?concurrent sinusitis - cont omnicef day 7 of 7 (9) BONITA (obstructive sleep apnea): Plan: CPAP HS -- compliant as outpatient, 100% of days w/ use per last report (10) B12 deficiency: Plan: Is on monthly shots Last B12 level 12/2020 was in the 800+ range (11) Prediabetes: Plan: Last HbA1c was 12/2020; level was 6.1% -->now 6.3% some preprandial levels are high , tightened novolog coverage BSGs acceptable past 24 hours, titrating steroids as above (12) Pulmonary arterial hypertension: Plan: severe 2nd to end-stage COPD echo this admission - PA pressure 40-50mmHg , on CPAP HS on pulmonary vasodilators at home with sildenafil 20mg TID cont NC O2 currently down to 7L titrate as above (13) NSVT (nonsustained ventricular tachycardia): Plan: 2 runs this admission echo obtained - EF preserved; no wall motion abnormalities follow tele no specific Rx needed K/mag wnl could her sweats be a manifestation of her NSVT? doubt, but I told her to write down times of her sweats to see if they correlate with any NSVT runs defer on beta monroe at this time due to advanced COPD Did resume her amlodipine 10mg dose 01/10 01/09-01/11 --> no further sweats reported, had not had any further episodes. Had some artifact yesterday afternoon, no symptoms reported Plan DVT proph: * Despite h/o GAVE and Fe def she is at high risk of DVT/PE due to immobility from severe dyspnea * Cont heparin 5000 BID Patient reporting feeling slightly better than day prior, slow improvements each day given severity of COPD at baseline. Decreased prednisone to 40mg for today, decrease by 10mg QOD planned (on 01/13 for 30mg) Lasix 20mg PO x 1, 20meq KCL Continued inpatient stay Titrate O2 down to maintain sats, rec repeating 2step prior to d/c Likely d/c in next 24-48 hours pending response Admission and Anticipated Discharge Date Admission Date: January 04, 2022 Supervising Physician Co-Signing Physician Notes PA Supervision Note: I personally saw and examined the patient. I verified all albright points and agree with MACIEJ Weston with the following exceptions and/or additions: none. Lasix IV with wean O2 as tolerated. Long-COVID chronic hypoxia since summertime. Subjective eval this morning, doing better breathing stable on 7L. discussed asking nurse to titrate down as able faint end expiratory wheezing in bases/weight gain and as discussed yesterday will try low dose of lasix x 1 for likely fluid retention from steroids. Discussed continuing current dose prednisone for now, taper as previously discussed. Moved her bowels day prior, good appetite. Discussed possible d/c in next 24-48 hours depending on how she is feeling. No fever/chills, chest pain, abdominal pain, nausea or vomiting at this time. Review of Systems Review of Systems: All systems reviewed & are unremarkable except as noted in HPI & below Physical Exam Physical Exam: General: WD/WN female resting in bed, NAD HEENT: head normocephalic, atraumatic, mm slightly dry, trachea midline Resp: CTAB, slightly diminished in the bases with end expiratory wheezing in the lower posterior lung lema, prolonged expiratory phase, on 7L NC SpO2 100% CV: RRR, +systolic murmur LSB, no r/g, no pitting edema/calf tenderness GI: +BS, soft/NT MSk/Neuro: no focal deficit, scleredema appearance to hands/thickening of skin, calcinosis to b/l elbow (R elbow covered w/ richar pad), no erythema/streaking Psych: AOx3, pleasant and cooperative Results & Data Results & Data ([facility]) Vital Signs (Past 12 Hours) Vital Signs Temp Pulse Pulse Resp BP BP Pulse Ox 01/11/22 06:56 36.4 C L 78 20 143/84 H 100 01/11/22 05:27 76 18 98 01/10/22 23:35 78 01/11/22 03:46 36.5 C 76 16 127/79 99 01/11/22 00:51 88 21 96 01/10/22 22:31 36.7 C 91 H 20 120/78 95 O2 Del Method O2 Flow Rate 01/11/22 06:56 CPAP 7 01/11/22 05:27 CPAP 8 01/10/22 23:35 01/11/22 03:46 CPAP 01/11/22 00:51 CPAP 01/10/22 22:31 Nasal Cannula 7 Laboratory Results 01/11/22 01/11/22 01/10/22 Range/Units 07:23 06:55 20:04 Sodium 137 (136-145) mmol/L Potassium 3.6 (3.5-5.1) mmol/L Chloride 99 (98-107) mmol/L Carbon Dioxide 31 (21-32) mmol/L Anion Gap 7 (3-11) BUN 27 H (6-23) mg/dl Creatinine 0.90 (0.6-1.2) mg/dl Est Cr Clr Drug Dosing 61.0 ml/min Est GFR ( Amer) 75.1 ml/min Est GFR (Non-Af Amer) 64.8 ml/min BUN/Creatinine Ratio 30.0 H (10-20) Glucose 90 (70-99(Fasting)) mg/dl POC Glucose 93 193 H (70-99) mg/dl Calcium 9.0 (8.5-10.1) mg/dl 01/10/22 01/10/22 Range/Units 16:16 11:10 Sodium (136-145) mmol/L Potassium (3.5-5.1) mmol/L Chloride (98-107) mmol/L Carbon Dioxide (21-32) mmol/L Anion Gap (3-11) BUN (6-23) mg/dl Creatinine (0.6-1.2) mg/dl Est Cr Clr Drug Dosing ml/min Est GFR ( Amer) ml/min Est GFR (Non-Af Amer) ml/min BUN/Creatinine Ratio (10-20) Glucose (70-99(Fasting)) mg/dl POC Glucose 170 H 124 H (70-99) mg/dl Calcium (8.5-10.1) mg/dl PG Care Time/CCT Total # of Minutes Spent Total Time Spent with Patient: Total time spent is greater than 50% in coordination of care (as documented) at patient's floor/unit and/or counseling patient: Coding Level of Care Code 88445 Subseq Hosp Care Lvl 2 Diagnoses Acute and chronic respiratory failure with hypoxia J96.21 COPD (chronic obstructive pulmonary disease) J44.9 COPD type: unspecified COPD Hypertension I10 Scleroderma M34.9 Gastritis, chronic K29.50 Iron deficiency anemia D50.9 Insomnia, persistent G47.00 Perforated nasal septum J34.89 BONITA (obstructive sleep apnea) G47.33 B12 deficiency E53.8 Prediabetes R73.03 Pulmonary arterial hypertension I27.21 NSVT (nonsustained ventricular tachycardia) I47.29 (1) COPD (chronic obstructive pulmonary disease) COPD type: unspecified COPD Qualified Code(s): J44.9 - Chronic obstructive pulmonary disease, unspecified
[2022-01-11] MEDS: INSULIN ASPART PER UNIT SC SCH ×4 (08:01→20:41)
[2022-01-11] MEDS: LANTUS PER UNIT CHARGE SQ SCH (08:05)
[2022-01-11 08:07] LABS: Est GFR (African American) 75.1 ml/min; Est GFR (Non-African American) 64.8 ml/min; Potassium 3.6 mmol/L (3.5-5.1)
[2022-01-11] MEDS ORDERED: POTASSIUM CHLORIDE 20 MEQ/15 ML UDC PO STA (10:07)
[2022-01-11] MEDS ORDERED: FUROSEMIDE 20 MG TAB PO ONE (10:15)
[2022-01-11] MEDS: BENZONATATE 100 MG CAPSULE PO PRN (20:17)
[2022-01-11] MEDS: OXYBUTYNIN CHLORIDE XL 5 MG TABCR PO SCH (20:19)
[2022-01-11] MEDS: CALCIUM CARBONATE 500 MG CHEWABLE TAB PO SCH (20:19)
[2022-01-11] MEDS: hydrOXYzine HCl 25 MG TAB PO SCH (22:13)
[2022-01-11] MEDS: MELATONIN 3 MG TAB PO SCH (22:13)
[2022-01-12] MEDS: ALBUT/IPRATROP 3MG/0.5MG NEB 3 ML VIAL INH SCH ×4 (00:14→19:17)
[2022-01-12] MEDS: ACETAMINOPHEN 325 MG TAB PO PRN (02:54)
[2022-01-12 07:45] LABS: BUN Creatinine Ratio 35.5 (10-20); Calcium 8.5 mg/dl (8.5-10.1); Est GFR (African American) 60.9 ml/min; Est GFR (Non-African American) 52.6 ml/min; Magnesium 2.1 mg/dl (1.7-2.4); Potassium 3.7 mmol/L (3.5-5.1)
--- NOTE | 2022-01-12 07:47 | Hospitalist Progress Note ---
Date of Service January 12, 2022 Assessment & Plan (1) Acute and chronic respiratory failure with hypoxia: Plan: acutely she presented with conversational dyspnea, accessory muscles use, tachypnea with documented RR of 26 in the ER, and diaphoresis. chronically she has been on 10 L NC O2 since late summer/early fall when she had COVID-19 infection (2nd infection w/ COVID, had been hospitalized for 12 days at start of pandemic) acute resp failure 2nd to COPD exacerbation. although respiratory biofire was negative her was recently sick with URI symptoms/bronchitis arguing she too has a viral process. this likely triggered the exacerbation. can't rule out bacterial sinusitis contributing to the exacerbation. CTA chest obtained 01/05 - no PE, no pulm edema, no effusions, no pneumonia. Advanced emphysematous changes seen. Continue home inhalers Continue scheduled DuoNebs Mucinex 1200 mg BID Continue pulmonary toilet Solu Medrol 40mg IV BID (~1mg/kg/day) -->converted to 50mg prednisone on 01/09, decreased to 40mg daily and plans to decrease by 10mg Q2D to complete course Previous provider spoke with patient's rapier insertion loom fixer, Dr Cam who reviewed her recent CTA chest, etc, discussed her care in detail--> she is optimized from a medicinal standpoint at this time for her advanced COPD Prior notes stated if patient has worsening in breathing, then azithromycin 250mg QOD -- did message. 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 -- on chronic prednisone 10mg every other day; hold while on IV solumedrol Follows with [facility], [place], operated by [facility] -- trying to get on lung transplant list , reported weight loss for such last visit with them - November 2021 patient with mouth irritation - no obvious thrush, but added nystatin just in case (3) Hypertension: Plan: Continue bisoprolol 10mg, HCTZ 6.25mg daily Losartan previously not ordered, resumed 01/10 w/ improvement of BP Amlodipine resumed 10mg daily -- likely for CREST/scleroderma BP currently low normal but denied/lightheadedness/dizziness --> monitor/hold amlodipine if needed for AM No further lasix (given 20mg PO x 1) Continue to monitor (4) Scleroderma: Plan: Follows with [facility]. No signs of ILD on CT chest. 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 Continue PPI twice daily. Gets EGDs every 3 months by report. No bleeding reported, remains on Heparin SQ while inpatient (6) Iron deficiency anemia: Plan: Secondary to GAVE. Receives occasional IV iron transfusions - previous one was in September. H/H remained stable on repeat (7) Insomnia, persistent: Plan: Improved Had previously been on Xanax for 20 years, recently tapered off Had trials of trazodone and Remeron - prefers to not be on either combo of Melatonin HS and Atarax HS are helping -- continue (8) Perforated nasal septum: Plan: Seen in [place] for possible surgical repair but felt not to be an operative candidate. ?concurrent sinusitis - completed 7 days omnice inpatient (9) BONITA (obstructive sleep apnea): Plan: CPAP HS -- compliant as outpatient, 100% of days w/ use per last report (10) B12 deficiency: Plan: Is on monthly shots Last B12 level 12/2020 was in the 800+ range (11) Prediabetes: Plan: Last HbA1c was 12/2020; level was 6.1% -->now 6.3% some preprandial levels are high , tightened novolog coverage BSGs acceptable past 24 hours, titrating steroids as above (12) Pulmonary arterial hypertension: Plan: severe 2nd to end-stage COPD echo this admission - PA pressure 40-50mmHg , on CPAP HS on pulmonary vasodilators at home with sildenafil 20mg TID cont NC O2 currently down to 7L titrate as above, titrate as able (13) NSVT (nonsustained ventricular tachycardia): Plan: 2 runs this admission echo obtained - EF preserved; no wall motion abnormalities follow tele no specific Rx needed K/mag wnl could her sweats be a manifestation of her NSVT? doubt, but I told her to write down times of her sweats to see if they correlate with any NSVT runs defer on beta monroe at this time due to advanced COPD Did resume her amlodipine 10mg dose 01/10 01/09-01/12 --> no further sweats reported, had not had any further episodes. Had some artifact 01/10 afternoon, no symptoms reported Plan DVT proph: * Despite h/o GAVE and Fe def she is at high risk of DVT/PE due to immobility from severe dyspnea * Cont heparin 5000 BID Patient reporting feeling almost back to baseline -- slow improvements each day given severity of COPD at baseline. Decrease prednisone to 30mg daily tomorrow, decrease by 10mg QOD Supplemental O2 to maintain sats 2 step tomorrow, likely d/c Admission and Anticipated Discharge Date Admission Date: January 04, 2022 Supervising Physician Co-Signing Physician Notes PA Supervision Note: I personally saw and examined the patient. I verified all albright points and agree with MACIEJ Weston with the following exceptions and/or additions: no additions. In short, patient with COPD and COVID-19 during the summer on 10LNC since that time admitted for COPD exacerbation. On steroid taper at this time as above, completed course of Omnicef, continue home inhalers and Mucinex. Pulmonology without other interventions for COPD optimization. Two step done and patient required 6-8LNC. Patient is feeling overall much improved compared to baseline and anticipating discharge home tomorrow unless clinical status worsens. Subjective Patient evaluated this morning. Feeling well, on baseline 7L. States 6L didn't work as she got winded up/moving around. She would like to monitor status overnight but hopeful for possible d/c tomorrow and will repeat 2 step. Review of Systems Review of Systems: All systems reviewed & are unremarkable except as noted in HPI & below Physical Exam Physical Exam: General: WD/WN female resting in bed, NAD HEENT: head normocephalic, atraumatic, mmm, trachea midline Resp: CTAB, slightly diminished in the bases with end expiratory wheezing in the lower posterior lung lema, prolonged expiratory phase, on 7L NC SpO2 100% CV: RRR, +systolic murmur LSB, no r/g, no pitting edema/calf tenderness GI: +BS, soft/NT MSk/Neuro: no focal deficit, scleredema appearance to hands/thickening of skin, calcinosis to b/l elbow (R elbow covered w/ richar pad), no erythema/streaking Psych: AOx3, pleasant and cooperative Results & Data Results & Data ([facility]) Vital Signs (Past 12 Hours) Vital Signs Temp Pulse Pulse Resp BP BP Pulse Ox 01/12/22 07:21 36.7 C 86 20 102/71 98 01/12/22 05:30 87 20 94 01/11/22 22:55 89 01/12/22 02:49 36.5 C 94 H 23 151/75 H 92 01/12/22 00:14 97 01/11/22 23:31 36.8 C 91 H 21 122/82 94 O2 Del Method O2 Flow Rate 01/12/22 07:21 CPAP 01/12/22 05:30 CPAP 7 01/11/22 22:55 01/12/22 02:49 Nasal Cannula 7 01/12/22 00:14 CPAP 7 01/11/22 23:31 Nasal Cannula 7 Laboratory Results 01/12/22 01/12/22 01/11/22 Range/Units 07:19 06:38 20:34 Sodium 134 L (136-145) mmol/L Potassium 3.7 (3.5-5.1) mmol/L Chloride 98 (98-107) mmol/L Carbon Dioxide 29 (21-32) mmol/L Anion Gap 7 (3-11) BUN 38 H (6-23) mg/dl Creatinine 1.07 (0.6-1.2) mg/dl Est Cr Clr Drug Dosing 50.0 ml/min Est GFR ( Amer) 60.9 ml/min Est GFR (Non-Af Amer) 52.6 ml/min BUN/Creatinine Ratio 35.5 H (10-20) Glucose 122 H (70-99(Fasting)) mg/dl POC Glucose 116 H 168 H (70-99) mg/dl Calcium 8.5 (8.5-10.1) mg/dl Magnesium 2.1 (1.7-2.4) mg/dl 01/11/22 01/11/22 01/11/22 Range/Units 15:59 11:28 06:55 Sodium 137 (136-145) mmol/L Potassium 3.6 (3.5-5.1) mmol/L Chloride 99 (98-107) mmol/L Carbon Dioxide 31 (21-32) mmol/L Anion Gap 7 (3-11) BUN 27 H (6-23) mg/dl Creatinine 0.90 (0.6-1.2) mg/dl Est Cr Clr Drug Dosing 61.0 ml/min Est GFR ( Amer) 75.1 ml/min Est GFR (Non-Af Amer) 64.8 ml/min BUN/Creatinine Ratio 30.0 H (10-20) Glucose 90 (70-99(Fasting)) mg/dl POC Glucose 220 H 121 H (70-99) mg/dl Calcium 9.0 (8.5-10.1) mg/dl Magnesium (1.7-2.4) mg/dl PG Care Time/CCT Total # of Minutes Spent Total Time Spent with Patient: Total time spent is greater than 50% in coordination of care (as documented) at patient's floor/unit and/or counseling patient: Coding Level of Care Code 90518 Subseq Hosp Care Lvl 2 Diagnoses Acute and chronic respiratory failure with hypoxia J96.21 COPD (chronic obstructive pulmonary disease) J44.9 COPD type: unspecified COPD Hypertension I10 Scleroderma M34.9 Gastritis, chronic K29.50 Iron deficiency anemia D50.9 Insomnia, persistent G47.00 Perforated nasal septum J34.89 BONITA (obstructive sleep apnea) G47.33 B12 deficiency E53.8 Prediabetes R73.03 Pulmonary arterial hypertension I27.21 NSVT (nonsustained ventricular tachycardia) I47.29 (1) COPD (chronic obstructive pulmonary disease) COPD type: unspecified COPD Qualified Code(s): J44.9 - Chronic obstructive pulmonary disease, unspecified
[2022-01-12] MEDS: INSULIN ASPART PER UNIT SC SCH ×4 (08:02→22:19)
[2022-01-12] MEDS: BENZONATATE 100 MG CAPSULE PO PRN ×2 (08:30→17:44)
[2022-01-12] MEDS: LANTUS PER UNIT CHARGE SQ SCH (08:30)
[2022-01-12] MEDS: FLUTICASONE/VILANTEROL 100/25MCG 14 PUFFS/INHALER INH SCH (08:30)
[2022-01-12] MEDS: NYSTATIN SUSP 500,000 U/5 ML UDC PO SCH ×4 (08:31→22:09)
[2022-01-12] MEDS: DULoxetine HCL 60 MG CAP PO SCH (08:32)
[2022-01-12] MEDS: VALSARTAN 80 MG TAB PO SCH (08:32)
[2022-01-12] MEDS: PANTOprazole 40 MG TAB PO SCH ×2 (08:32→22:10)
[2022-01-12] MEDS: predniSONE 20 MG TAB PO SCH (08:32)
[2022-01-12] MEDS: SILDENAFIL CITRATE 20 MG TABLET PO SCH ×3 (08:32→22:10)
[2022-01-12] MEDS: hydroCHLOROthiazide 25 MG TAB PO SCH (08:32)
[2022-01-12] MEDS: HEPARIN SOD 5,000 UNIT/0.5 ML VIAL SQ SCH ×2 (08:33→22:15)
[2022-01-12] MEDS: buPROPion SR 100 MG TABCR PO SCH ×2 (08:33→17:43)
[2022-01-12] MEDS: CHOLECALCIFEROL 1,000 UNITS 25 MCG TAB PO SCH (08:33)
[2022-01-12] MEDS: CYANOCOBALAMIN (B-12) 500 MCG TABLET PO SCH (08:33)
[2022-01-12] MEDS: guaiFENesin 600 MG TABCR PO SCH ×2 (08:33→22:09)
[2022-01-12] MEDS: BISOPROLOL FUMARATE 5 MG TAB PO SCH (08:34)
[2022-01-12] MEDS: amLODIPine BESYLATE 5 MG TAB PO SCH (08:34)
[2022-01-12] MEDS: UMECLIDINIUM BROMIDE 62.5MCG/BLISTER 7 PUFFS/INHALER INH SCH (11:12)
[2022-01-12] MEDS: OXYBUTYNIN CHLORIDE XL 5 MG TABCR PO SCH (22:09)
[2022-01-12] MEDS: CALCIUM CARBONATE 500 MG CHEWABLE TAB PO SCH (22:10)
[2022-01-12] MEDS: hydrOXYzine HCl 25 MG TAB PO SCH (22:12)
[2022-01-12] MEDS: MELATONIN 3 MG TAB PO SCH (22:12)
[2022-01-13] MEDS: ALBUT/IPRATROP 3MG/0.5MG NEB 3 ML VIAL INH SCH ×2 (00:20→07:12)
--- NOTE | 2022-01-13 07:57 | Hospitalist Progress Note ---
Date of Service January 13, 2022 Assessment & Plan (1) Acute and chronic respiratory failure with hypoxia: Plan: acutely she presented with conversational dyspnea, accessory muscles use, tachypnea with documented RR of 26 in the ER, and diaphoresis. chronically she has been on 10 L NC O2 since late summer/early fall when she had COVID-19 infection (2nd infection w/ COVID, had been hospitalized for 12 days at start of pandemic) acute resp failure 2nd to COPD exacerbation. although respiratory biofire was negative her was recently sick with URI symptoms/bronchitis arguing she too has a viral process. this likely triggered the exacerbation. can't rule out bacterial sinusitis contributing to the exacerbation. CTA chest obtained 01/05 - no PE, no pulm edema, no effusions, no pneumonia. Advanced emphysematous changes seen. Continue home inhalers Continue scheduled DuoNebs Mucinex 1200 mg BID Continue pulmonary toilet Solu Medrol 40mg IV BID (~1mg/kg/day) -->converted to 50mg prednisone on 01/09, decreased to 40mg daily and plans to decrease by 10mg Q2D to complete course Previous provider spoke with patient's home theater experience expert, Dr Cam who reviewed her recent CTA chest, etc, discussed her care in detail--> she is optimized from a medicinal standpoint at this time for her advanced COPD Prior notes stated if patient has worsening in breathing, then azithromycin 250mg QOD -- did message. 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 -- on chronic prednisone 10mg every other day; hold while on IV solumedrol Follows with [facility] -- trying to get on lung transplant list , reported weight loss for such last visit with them - November 2021 patient with mouth irritation - no obvious thrush, but added nystatin just in case (3) Hypertension: Plan: Continue bisoprolol 10mg, HCTZ 6.25mg daily Losartan previously not ordered, resumed 01/10 w/ improvement of BP Amlodipine resumed 10mg daily -- 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 No signs of ILD on CT chest. 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 Continue PPI twice daily. Gets EGDs every 3 months by report. No bleeding reported, remains on Heparin SQ while inpatient (6) Iron deficiency anemia: Plan: Secondary to GAVE. Receives occasional IV iron transfusions - previous one was in September. H/H remained stable on repeat (7) Insomnia, persistent: Plan: Improved Had previously been on Xanax for 20 years, recently tapered off Had trials of trazodone and Remeron - prefers to not be on either combo of Melatonin HS and Atarax HS are helping -- continue (8) Perforated nasal septum: Plan: Seen in [place] for possible surgical repair but felt not to be an operative candidate. ?concurrent sinusitis - completed 7 days omnice inpatient (9) BONITA (obstructive sleep apnea): Plan: CPAP HS -- compliant as outpatient, 100% of days w/ use per last report (10) B12 deficiency: Plan: Is on monthly shots Last B12 level 12/2020 was in the 800+ range (11) Prediabetes: Plan: Last HbA1c was 12/2020; level was 6.1% -->now 6.3% some preprandial levels are high , tightened novolog coverage BSGs acceptable past 24 hours, titrating steroids as above (12) Pulmonary arterial hypertension: Plan: severe 2nd to end-stage COPD echo this admission - PA pressure 40-50mmHg , on CPAP HS on pulmonary vasodilators at home with sildenafil 20mg TID cont NC O2 currently down to 7L titrate as above, titrate as able (13) NSVT (nonsustained ventricular tachycardia): Plan: 2 runs this admission echo obtained - EF preserved; no wall motion abnormalities follow tele no specific Rx needed K/mag wnl could her sweats be a manifestation of her NSVT? doubt, but I told her to write down times of her sweats to see if they correlate with any NSVT runs defer on beta monroe at this time due to advanced COPD Did resume her amlodipine 10mg dose 01/10 01/09-01/12 --> no further sweats reported, had not had any further episodes. Had some artifact 01/10 afternoon, no symptoms reported Plan DVT proph: * Despite h/o GAVE and Fe def she is at high risk of DVT/PE due to immobility from severe dyspnea * Cont heparin 5000 BID Patient reporting feeling almost back to baseline -- slow improvements each day given severity of COPD at baseline. Decrease prednisone to 30mg daily tomorrow, decrease by 10mg QOD Supplemental O2 to maintain sats 2 step tomorrow, likely d/c Admission and Anticipated Discharge Date Admission Date: January 04, 2022 Results & Data Results & Data ([facility] [place]) Vital Signs (Past 12 Hours) Vital Signs Temp Pulse Pulse Resp BP Pulse Ox O2 Del Method 01/13/22 07:19 36.5 C 87 20 130/85 98 Nasal Cannula 01/13/22 07:13 93 H 20 96 Nasal Cannula 01/13/22 03:28 36.9 C 86 20 111/68 99 Room Air 01/12/22 22:25 85 01/12/22 20:00 High Flow Nasal Cannula 01/12/22 23:00 36.7 C 85 12 128/76 96 High Flow Nasal Cannula 01/13/22 00:20 80 18 95 CPAP O2 Flow Rate 01/13/22 07:19 7 01/13/22 07:13 7 01/13/22 03:28 01/12/22 22:25 01/12/22 20:00 7 01/12/22 23:00 7 01/13/22 00:20 7 PG Care Time/CCT Total # of Minutes Spent Total Time Spent with Patient: Total time spent is greater than 50% in coordination of care (as documented) at patient's floor/unit and/or counseling patient: Coding Diagnoses Acute and chronic respiratory failure with hypoxia J96.21 COPD (chronic obstructive pulmonary disease) J44.9 COPD type: unspecified COPD Hypertension I10 Scleroderma M34.9 Gastritis, chronic K29.50 Iron deficiency anemia D50.9 Insomnia, persistent G47.00 Perforated nasal septum J34.89 BONITA (obstructive sleep apnea) G47.33 B12 deficiency E53.8 Prediabetes R73.03 Pulmonary arterial hypertension I27.21 NSVT (nonsustained ventricular tachycardia) I47.29 (1) COPD (chronic obstructive pulmonary disease) COPD type: unspecified COPD Qualified Code(s): J44.9 - Chronic obstructive pulmonary disease, unspecified
[2022-01-13] MEDS ORDERED: predniSONE 10 MG TABLET PO SCH (09:00)
[2022-01-13] MEDS: UMECLIDINIUM BROMIDE 62.5MCG/BLISTER 7 PUFFS/INHALER INH SCH (09:14)
[2022-01-13] MEDS: FLUTICASONE/VILANTEROL 100/25MCG 14 PUFFS/INHALER INH SCH (09:14)
[2022-01-13] MEDS: guaiFENesin 600 MG TABCR PO SCH (09:15)
[2022-01-13] MEDS: CYANOCOBALAMIN (B-12) 500 MCG TABLET PO SCH (09:15)
[2022-01-13] MEDS: buPROPion SR 100 MG TABCR PO SCH (09:15)
[2022-01-13] MEDS: DULoxetine HCL 60 MG CAP PO SCH (09:16)
[2022-01-13] MEDS: VALSARTAN 80 MG TAB PO SCH (09:16)
[2022-01-13] MEDS: hydroCHLOROthiazide 25 MG TAB PO SCH (09:16)
[2022-01-13] MEDS: BISOPROLOL FUMARATE 5 MG TAB PO SCH (09:16)
[2022-01-13] MEDS: amLODIPine BESYLATE 5 MG TAB PO SCH (09:16)
[2022-01-13] MEDS: CHOLECALCIFEROL 1,000 UNITS 25 MCG TAB PO SCH (09:16)
[2022-01-13] MEDS: HEPARIN SOD 5,000 UNIT/0.5 ML VIAL SQ SCH (09:17)
[2022-01-13] MEDS: PANTOprazole 40 MG TAB PO SCH (09:17)
[2022-01-13] MEDS: NYSTATIN SUSP 500,000 U/5 ML UDC PO SCH (09:17)
[2022-01-13] MEDS: SILDENAFIL CITRATE 20 MG TABLET PO SCH (09:17)
[2022-01-13] MEDS: LANTUS PER UNIT CHARGE SQ SCH (09:20)
[2022-01-13] MEDS: INSULIN ASPART PER UNIT SC SCH (09:20)
--- NOTE | 2022-01-13 09:48 | Discharge Summary ---
Date of Service January 13, 2022 Admission HPI Per Admitting Provider Victoria Richter is a 71-year-old female with a past medical history significant for COPD on home O2, BONITA, pulmonary arterial hypertension, hyperlipidemia, urinary incontinence, scleroderma, GAVE, iron deficiency anemia, depression, anxiety, insomnia, and recently perforated nasal septum who is presenting today with shortness of breath. This has been ongoing for the past 3 weeks despite using oxygen continuously with daily nebulizer treatments and chronic steroids every other day. She has also had cold sweats, sinus congestion, and a cough sometimes productive of yellow sputum, but denies fevers, orthopnea, weight gain, chest pain, or palpitations. In fact she believes she has lost a few lbs due to lack of appetite with her symptoms. Her baseline O2 requirement is 5 L NC at rest with 7L w/ activity, however for at least 3 months now has required 10 L NC at all times. For the past month, she can barely walk a few steps through her home without becoming short of breath even with her O2 at 10 L. She previously was able to shower independently, ambulate short distances even without her oxygen at times, and perform light household duties such as washing dishes and cooking. She has been checking her pulse ox at home, with readings in the 70s but notes accurate readings are difficult to get with her scleroderma. She had COVID in September and feels she had just recovered back to baseline before her breathing got worse again. She is currently working to lose weight in order to be on the lung transplant list, follows with [facility]. Upon presentation to the ED, she is mildly tachycardic with HR in the 90s, O2 dipping below 90% on 10 L NC, placed on BiPAP. Labs largely unremarkable, without leukocytosis, VBG 7.41//, renal function at baseline, without electrolyte abnormalities. Troponin 8.9. COVID/flu/RSV negative. CXR shows emphysema without acute process. ED course: Neb treatment, IV Solu-Medrol, magnesium. Admission Exam Per Admitting Provider Physical Exam: General: awake, alert, no apparent distress; on 9 L NC Head: Normocephalic, atraumatic ENT: PERRL, EOMI, no pharyngeal exudate, mucous membranes moist Chest: diminished breath sounds throughout, without accessory muscle use Cardiac: Regular rate and rhythm, no murmur, no JVD, normal peripheral pulses, good capillary refill Abdominal: NABS x 4 quadrants, soft, nontender to palpation, no rebound, guarding or tenderness Extremities: Normal inspection, no peripheral edema or erythema, calfs nontender to palpation Psych: Normal mood and affect Neuro: AAO x 3, strength intact bilaterally and rated 5/5, no motor deficits, speech is clear, no peripheral sensory deficits Skin: no rash or erythema Principal Diagnosis COPD Exacerbation Discharge Exam General: WD/WN female resting in bed, NAD HEENT: head normocephalic, atraumatic, mmm, trachea midline Resp: CTAB, slightly diminished in the bases with end expiratory wheezing in the lower posterior lung lema, prolonged expiratory phase, on 7L NC SpO2 98% CV: RRR, +systolic murmur LSB, no r/g, no pitting edema/calf tenderness GI: +BS, soft/NT MSk/Neuro: no focal deficit, scleredema appearance to hands/thickening of skin, calcinosis to b/l elbow (R elbow covered w/ richar pad), no erythema/streaking Psych: AOx3, pleasant and cooperative Discharge Data Allergies Allergy/AdvReac Type Severity Reaction Status Date / Time ferric carboxymaltose Allergy Intermediate SOB, Verified 01/04/22 18:17 [From Injectafer] tachycardia Consultations 01/04/22 17:00 ED Decision to Admit Stat Ordered Studies Chest X-Ray 01/04/22 14:16 XR chest 1V portable HISTORY: 71 years-old Female SOB acute shortness of breath COMPARISON: Chest radiograph 03/10/2020 TECHNIQUE: Portable AP view of the chest FINDINGS: Cardiomediastinal and hilar silhouettes are within normal limits. Emphysema with chronic interstitial coarsening. No pneumothorax, pleural effusion, airspace consolidation or overt pulmonary edema. Degenerative changes of the shoulders and spine. Unchanged left subclavian [id number] catheter. IMPRESSION: Emphysema without acute process. ACT 112: Negative or not required by law. The above report was generated using voice recognition software. It may contain grammatical, syntax or spelling errors. Electronically signed by: Reagan Faith M.D. 01/04/2022 3:44 PM Chest CTA 01/05/22 13:03 CT ANGIOGRAM OF THE CHEST CLINICAL HISTORY: COPD. Respiratory failure. COMPARISON STUDY: Chest x-ray dated 01/04/2022. Chest CT dated 12/10/2021. TECHNIQUE: Following the IV administration of 117 cc of Optiray 320, CT angiogram of the chest was performed from the upper abdomen to the thoracic inlet utilizing the pulmonary embolus protocol. Images are reviewed in the axial, sagittal, and coronal planes. 3-D MIPS images are created and assessed. IV contrast was administered without complication. A dose lowering technique wa s utilized adhering to the principles of ALARA. There is streak artifact from the arms which could not be elevated of the chest. CT DOSE: 699.06 mGy.cm FINDINGS: Thyroid: Imaged portions of the thyroid gland are normal in size and attenuation. Thoracic aorta: There is atherosclerotic calcification of the thoracic aorta, which is normal in caliber and demonstrates standard 3-vessel arch anatomy. No dissection is seen. Pulmonary vasculature: The main pulmonary arteries are dilated suggesting pulmonary artery hypertension. There are no filling defects identified in main, lobar, or segmental pulmonary branches to suggest pulmonary embolus. Heart: A left subclavian central venous infusion port is in place. The heart is enlarged and without pericardial effusion. Lungs and pleural spaces: There is advanced emphysema. No air space consolidation typical for pneumonia or pleural effusion is identified. The trachea and central airways appear clear. Foci of probable scarring are seen throughout both lungs. Scattered calcified granulomas are incidentally noted. 5 mm pulmonary and pleural-based nodules are again seen in the left upper lobe on images #143 and #166. These are unchanged from previous. Mediastinum: Scattered subcentimeter mediastinal lymph nodes are not pathologically enlarged by size criteria. These are unchanged from previous. Sumi: Clear. Axillae: There is no axillary lymphadenopathy. Upper abdomen: Partially visualized upper abdominal viscera is within normal limits. Skeletal structures: The skeletal structures are osteopenic. Degenerative change is noted throughout the thoracic spine. No lytic or blastic bony lesions are seen. IMPRESSION: 1. There is no evidence of pulmonary embolus in the main, lobar, or segmental pulmonary arteries. 2. Cardiomegaly and advanced emphysema. 3. There is no airspace consolidation or pleural effusion. ACT 112: Negative or not required by law. Electronically signed by: Walter Rothman M.D. 01/05/2022 6:20 PM Hospital Course (1) Acute and chronic respiratory failure with hypoxia: acutely she presented with conversational dyspnea, accessory muscles use, tachypnea with documented RR of 26 in the ER, and diaphoresis. chronically she has been on 10 L NC O2 since late summer/early fall when she had COVID-19 infection (2nd infection w/ COVID, had been hospitalized for 12 days at start of pandemic) acute resp failure 2nd to COPD exacerbation. although respiratory biofire was negative her was recently sick with URI symptoms/bronchitis arguing she too has a viral process. this likely triggered the exacerbation. can't rule out bacterial sinusitis contributing to the exacerbation -- completed course omnicef for concurrent sinusitis CTA chest obtained 01/05 - no PE, no pulm edema, no effusions, no pneumonia. Advanced emphysematous changes seen. Continue home inhalers, duonebs, Mucinex BID, pulmonary toilet Steroids with Solu Medrol 40mg IV BID (~1mg/kg/day) initially --> converted to PO prednisone 50mg and titrated at d/c. Currently was down to 30mg daily, to decrease by 10mg Q2D and then resume her usual 10mg Q2D Previous provider spoke with patient's wire spooler, Dr Cam who reviewed her recent CTA chest, etc, discussed her care in detail--> she is optimized from a medicinal standpoint at this time for her advanced COPD Prior notes stated if patient has worsening in breathing, then azithromycin 250mg QOD -- did message. advised against at this time could trial her on Mucomyst nebs if she feels she has chest congestion but she denies such at this time --> declined Did repeat 2 step -- 6L at rest, 8L w/ ambulation Patient stated best she had felt in a while --> stable for discharge on prednisone taper, rx for refill on nebulizers and Vistaril for sleep Pulmonary follow up at discharge (2) COPD (chronic obstructive pulmonary disease): COPD - GOLD Class D Steroid dependent -- on chronic prednisone 10mg every other day; held while on IV solu-medrol and converted to PO prednisone Follows with [facility] -- trying to get on lung transplant list , reported weight loss for such last visit with them - November 2021 patient with mouth irritation - no obvious thrush, but added nystatin just in case, resolved Steroid taper at d/c as above and outpatient pulm in follow up (3) Hypertension: Continue bisoprolol 10mg, HCTZ 6.25mg daily Losartan previously not ordered, resumed 01/10 w/ improvement of BP and remained on amlodipine 10mg daily (likely for CREST/scleroderma) Lasix 20mg PO x 1 was provided but no further needed BP stable at d/c 130/85 (4) Scleroderma: Follows with [facility]. No signs of ILD on CT chest. 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 (5) Gastritis, chronic: History of GAVE. Continued PPI twice daily. Gets EGDs every 3 months by report. No bleeding reported, remained on Heparin SQ while inpatient (6) Iron deficiency anemia: Secondary to GAVE. Receives occasional IV iron transfusions - previous one was in September. H/H remained stable on repeat (7) Insomnia, persistent: Improved Had previously been on Xanax for 20 years, recently tapered off Had trials of trazodone and Remeron - prefers to not be on either combo of Melatonin HS and Atarax HS are helping -- continued, and sent rx for Vistaril for sleep at ar (8) Perforated nasal septum: Seen in [place] for possible surgical repair but felt not to be an operative candidate. ?concurrent sinusitis - completed 7 days omnicef while inpatient, did have improvements w/ above as well (9) BONITA (obstructive sleep apnea): CPAP HS -- compliant as outpatient, 100% of days w/ use per last report (10) B12 deficiency: Is on monthly shots Last B12 level 12/2020 was in the 800+ range (11) Prediabetes: Last HbA1c was 12/2020; level was 6.1% -->now 6.3% BSGs acceptable Outpt f/u PCP (12) Pulmonary arterial hypertension: severe 2nd to end-stage COPD echo this admission - PA pressure 40-50mmHg , on CPAP HS on pulmonary vasodilators at home with sildenafil 20mg TID cont NC O2 currently down to 6-7L, 2step as above Outpt f/u pulm/transplant (13) NSVT (nonsustained ventricular tachycardia): 2 runs this admission echo obtained - EF preserved; no wall motion abnormalities follow tele no specific Rx needed K/mag wnl could her sweats be a manifestation of her NSVT? doubt, but I told her to write down times of her sweats to see if they correlate with any NSVT runs --> no further correlation, no further episodes since resumption of amlodipine 10mg daily defer on beta monroe at this time due to advanced COPD Plan DVT proph: * Despite h/o GAVE and Fe def she is at high risk of DVT/PE due to immobility from severe dyspnea and continued heparin SQ while inpatient discharged home w/ prednisone taper, refill nebulizers, vistaril for sleep follow up pulm Total Time Total Time Spent Total Time Spent (In Minutes): 50 Discharge Plan Discharge Items Patient Disposition: Home - Self-Care Reason For Visit: COPD EXACERBATION Discharge Diagnosis: COPD exacerbation Goals: You have been hospitalized for an acute medical problem. During your stay at [facility], we have made an effort to correct the problem that brought you to the hospital while keeping you as comfortable as possible. Medications were used to bring your condition under control and your discharge instructions will include directions for any medications you should take after leaving the hospital. Please make sure you see your Primary Care Provider as part of your follow up plan. Activity: Resume your previous activity Non-emergency contact: Primary Care Provider and Car Scrubber Call non-emergency contact if: you have any medication questions, your symptoms worsen and you have a fever Follow-up/Referrals: Eliza Mayorga DO [Primary Care Provider] - 01/24/22 9:15 am Sarah Cam MD, FCCP [Physician] - 01/16/22 1:30 pm (with ROOSEVELT Ruiz) Diet: Heart Healthy Addtl Attending Provider Instructions: You have been hospitalized for acute respiratory failure, secondary to COPD exacerbation. You were treated with nebulizers and medications and are being sent home on a prednisone taper. You will take 30mg by mouth tomorrow, and reduce to 20mg x 2 days, then 10mg x 2 days to complete course. You should follow up with pulmonology and primary care after discharge to monitor your progress. Please return to the ER with any increased shortness of breath , fever, or for any other symptoms concerning for you. It has been a pleasure being a part of the medical team providing for you while you have been in the hospital. Take care! Pending Studies at Discharge: No Stand-Alone Forms: My [facility] Medications and DC Order Prescriptions: New hydroxyzine HCl 25 mg Tablet 25 mg PO HS Qty: 30 0RF prednisone 10 mg Tablet 30 mg PO QAM Qty: 9 0RF guaifenesin [Mucinex] 600 mg Tablet Extended Release 12hr 1,200 mg PO BID Qty: 14 0RF Continued bupropion HCl [Wellbutrin SR] 100 mg tablet sustained-release 12 hr 100 mg PO BID Qty: 60 5RF prednisone 10 mg tablet 10 mg PO Q2D Qty: 90 1RF Rx Instructions: takes every other day oxybutynin chloride 5 mg tablet extended release 24 hr 5 mg PO HS Qty: 90 1RF Spiriva with HandiHaler 18 mcg capsule, w/inhalation device 1 cap INHALATION QAM Qty: 90 1RF omeprazole 20 mg capsule,delayed release(DR/EC) 20 mg PO BID Qty: 180 1RF bisoprolol-hydrochlorothiazide 10-6.25 mg tablet 1 tab PO DAILY Qty: 90 1RF Advair HFA 230-21 mcg/actuation HFA aerosol inhaler 2 puff INHALATION BID Qty: 1 5RF duloxetine 60 mg capsule,delayed release(DR/EC) 60 mg PO QAM Qty: 90 1RF (DME) Portable Oxygen Misc See Rx Instructions .MEDSUPPLY Qty: 1 0RF Rx Instructions: Oxygen 7 liters continuous with portable concentrator. Keep o2 sat 88-92%. LAURA 99 mupirocin 2 % ointment 1 applic topical BID PRN (Reason: nasal irritation) Qty: 22 0RF Rx Instructions: APPLY TO BILATERAL NARES (DME) Oxygen Home Liters Per Minute See Rx Instructions .ROUTE .MEDSUPPLY Qty: 1 Rx Instructions: 5LPM via NC albuterol sulfate [Ventolin HFA] 90 mcg/actuation HFA aerosol inhaler 2 puff inhalation QID PRN (Reason: Shortness Of Breath) Qty: 18 3RF Rx Instructions: USE 2 PUFFS BY MOUTH 4 TIMES A DAY NEEDED benzonatate 100 mg capsule 100 mg PO TID PRN (Reason: cough) Qty: 30 0RF amlodipine 10 mg tablet 10 mg PO QAM cholecalciferol (vitamin D3) [Vitamin D3] 2,000 unit Tablet 2,000 unit PO QAM sildenafil (pulm.hypertension) 20 mg Tablet 20 mg PO TID cyanocobalamin (vitamin B-12) 1,000 mcg capsule 1,000 mcg PO DAILY Qty: 30 0RF calcium carbonate 500 mg calcium (1,250 mg) Tablet 500 mg PO QPM valsartan 80 mg tablet 80 mg PO QAM nystatin 100,000 unit/mL suspension 0 ml buccal BID PRN (Reason: Mouth Irritation) ipratropium-albuterol 0.5 mg-3 mg(2.5 mg base)/3 mL solution for nebulization 3 ml inhalation Q8H PRN (Reason: COPD- DX J44.9 J43.9 J45.909 ) Qty: 180 5RF Discharge Orders: Discharge Order (Routine); Ordered 01/13/22 Ordered By: Mya Marley/Other Patient Handouts: Prediabetes, 5 Steps for Eating Healthier Admission Data Admit Date/Time: 01/04/22 17:12 Attending Provider: Bettie Hsu Admit Provider: Mainor Jones Primary Care Provider: Eliza Mayorga Other Providers: Mainor Jones ; Daniel Roberson Other Interventions: Discharge Summary Assessment (RN) Last Done: 01/13/22 11:42 Supervising Physician Co-Signing Physician Notes PA Supervision Note: I personally saw and examined the patient. I verified all albright points and agree with MACIEJ Weston with the following exceptions and/or additions: Summary of present stay: 71 yo F Hx COPD and pulmonary HTN, BONITA, COVID-19 with residual supplemental oxygen requirement (usually 10LNC), HTN admitted for COPD exacerbation and PNA. CTA chest obtained 01/05 - no PE, no pulm edema, no effusions, no pneumonia. Has been on methylpred taper to prednisone with c ontinued taper on discharge with eventual return to home prednisone 10mg daily dosing. Also was on nebulizers, which were refilled, and Mucinex. Able to decrease supplemental O2 to 6LNC with rest, 8LNC with ambulation per two-step performed 01/12. Patient is overall feeling much better compared to prior to admission and is stable for discharge with Pulm/PCP follow up. Physical exam: Vitals reviewed Gen: Alert and oriented, NAD HEENT: anicteric sclerae, EOMI CV: RRR no mgr nl S1S2 Pulm: CTAB no wcr, on 7LNC saturating to 98% Abd: +BS soft NT ND no masses Ext: no edema, 2+ DP pulses Skin: no rashes, warm/dry Neuro: No focal neurologic deficits Labs, Rads, and ECG reviewed ECHOCARDIOGRAM No significant valvular heart disease LV systolic function is normal Grade I diastolic dysfunction (abnormal relaxation pattern) Right ventricular systolic pressure is elevated at 40-50mmHg Coding Level of Care Code D/C DAY MANAGEMENT >30 MINS Diagnoses Acute and chronic respiratory failure with hypoxia J96.21 COPD (chronic obstructive pulmonary disease) J44.9 COPD type: unspecified COPD Hypertension I10 Scleroderma M34.9 Gastritis, chronic K29.50 Iron deficiency anemia D50.9 Insomnia, persistent G47.00 Perforated nasal septum J34.89 BONITA (obstructive sleep apnea) G47.33 B12 deficiency E53.8 Prediabetes R73.03 Pulmonary arterial hypertension I27.21 NSVT (nonsustained ventricular tachycardia) I47.29
[2022-01-13 09:52] LABS: BUN Creatinine Ratio 35.1 (10-20); Creatinine Clr Calc Pharmacy 69.6 ml/min; Est GFR (African American) 90.7 ml/min; Est GFR (Non-African American) 78.2 ml/min; Potassium 3.8 mmol/L (3.5-5.1)
== END 2022-01-13 13:05 | disposition home or self-care (01) | DRG 189 ==
LOC: ED 14:01 → 2S 17:12 → SUATTDRO 17:12 → 2S 18:30

== ENCOUNTER 2023-01-03 17:59 | Inpatient (IN) ==
--- OUTSIDE RECORDS SUMMARY | 2023-01-03 18:06 | External Medical Summary | Summary of Care ---
Author Name Unknown Organization [facility] Address [address] [place] [address] Phone [phone] Care Team Providers Care Tile Designer Name Role Phone [facility] Link Primary Care Provider [phone] Reason for Visit * Reason Onset Date Comments Appointment 12/31/2022 [place] Encounter Details Date Type Department Care Team (Late st Contact Info) Description 12/31/2022 Telephone Access Center, [place] [address] [facility] *DO NOT REMOVE THIS DEPARTMENT* [place], [place] [id number] Services, Scheduling [address] [place] [address] Appointment ([place] ) Allergies Active Allergy Reactions Criticality Noted Date Comments Ferric Carboxymaltose Other (Please comment) High 04/02/2018 Pt c/o chest pressure/pain, SOB documented as of this encounter (statuses as of 12/31/2022) Medications Medication Sig Dispensed Refills Start Date End Date Status FLONASE 50 MCG/ACT NA SUSP use as directed 0 0 04/18/2004 Active OMEPRAZOLE 40 MG PO CPDR once capsule twice daily 0 11/22/2013 Active LOSARTAN POTASSIUM 50 MG PO TABS 1 TABLET DAILY 0 11/22/2013 Active VENTOLIN HFA 108 (90 BASE) MCG/ACT IN AERS 2 puffs every 4-6 hours as needed 0 11/22/2013 Active VITAMIN D 1000 UNITS PO TABS 1 tablet by mouth daily 0 Active Misc. Devices (HURRICAINE SPR EXTENSION TUBES) MISC Use as directed. 0 Active tiotropium bromide (SPIRIVA) 18 MCG inhalation Capsule Inhale 1 Cap by mouth daily. 0 Active Calcium Carbonate 600 MG Oral Tablet 2 times a day with morning and evening meals. 0 Active Fluticasone-Salmetero l 250-50 MCG/DOSE Inhalation Aerosol Powder Breath Activated Inhale 1 Puff by mouth in the morning and 1 Puff before bedtime. 0 Active amLODIPine (NORVASC) 10 MG Tablet Take 1 Tablet by mouth in the morning. 0 Active sildenafil (REVATIO) 20 MG Tablet Take 20 mg by mouth 3 times a day. 0 Active predniSONE (DELTASONE) 5 MG Tablet Take 10 mg by mouth every other day. 0 Active bisoprolol-hctz 10-6.25 mg per tab (ZIAC) 10-6.25 MG per tablet Take 1 Tablet by mouth in the morning. 0 03/13/2019 Active DULoxetine (CYMBALTA) 30 MG CPEP Take 2 Capsules by mouth in the morning. 0 03/03/2019 Active oxygen GAS Use 4 L/min(Oxygen) as directed daily. 4 L/min when sitting and 5 L/min when active 0 Active buPROPion HCl ER (SR) 100 MG Oral Tablet Extended Release 12 Hour Take 1 Tablet by mouth in the morning and 1 Tablet before bedtime. 0 Active Vitamin B-12 1000 MCG Oral Tablet Take 1,000 mcg by mouth daily. 0 Active documented as of this encounter (statuses as of 12/31/2022) Active Problems Problem Noted Date Diagnosed Date B12 deficiency 11/16/2017 Iron deficiency anemia due to chronic blood loss 01/31/2017 Pruritus 08/11/2015 GAVE (gastric antral vascular ectasia) 5 Anemia 11/22/2013 Iron deficiency anemia 11/22/2013 documented as of this encounter (statuses as of 12/31/2022) Immunizations Name Administration Dates Next Due COVID-19 mRNA, LNP-s, No Pre serve, 2-Dose Series (ADVANCED MEDICAL ISOTOPE) 04/20/2021,12/26/2020,05/31/2020,05/10 Pneumococcal Polysaccharide PPV23 (Pneumovax) 04/13/2021 Seasonal Influenza, Quadriva lent Hd (Fluzone Hd) 11/09/2020 documented as of this encounter Social History Tobacco Use Types Packs/Day Years Used Date Smoking Tobacco: Former Cigarettes Q uit: 02/10/2010 Smokeless Tobacco: Never Comments:quit in 04/2010 Alcohol Use Standard Drinks/Week Comments No 0 (1 standard drink = 0.6 oz pur e alcohol) Sex and Gender Information Value Date Recorded Sex Assigned at Not on file Gender Identity Not on file Sexual Orientation Not on file Job Start Date Occupation Industry Not on file Not on file Not on file documented as of this encounter Miscellaneous Notes * Telephone Encounter - Leilani Crane OSA - 12/31/2022 3:39 PM EST Spoke to patient, scheduled port flush 01/06/23. * Telephone Encounter - Lorraine Christian OSA - 12/31/2022 2:38 PM EST Pt calling in to reschedule appointment from 12.05.2022. Please assist. Thank you. documented in this encounter Plan of Treatment Upcoming Encounters Date Type Department Care Team (Late st Contact Info) Description 01/06/2023 2:30 PM EST Immunization/Injec tion Hematology/Oncology Treatment, [place] [address] [facility] [place] [address] Nurse, Med [address] [facility] [address] 03/20/2023 11:15 AM EST Office Visit Hematology/Oncology [facility] [address] [facility] [place] [address] Holger Cuevas MD [address] [place] [address] Scheduled Procedures Name Priority Associated Diagnoses Date/Ti me COLONOSCOPY FLEXIBLE PROXIMA L DIAGNOSTIC Recall Special screening for malignant neoplasms, colon Health Maintenance Due Date Last Done Comments DXA Scan 1950 Lipid Panel 1951 Depression Screening 1963 DTaP,Tdap,and Td Vaccines (1 - Tdap) 06/25/1970 Cologuard 06/25/1996 Sigmoidoscopy 06/25/1996 Fecal Occult Blood Test 03/01/2015 03/01/19 15, 12/27/2013, 12/23/2013 Mammogram 04/03/2017 04/03/2016 COVID-19 Vaccine ( season) 2022 04/20/2021, 04/20/2021, 12/26/2020, Additional history exists Influenza Vaccine (FLU shot) (#1) 2022 11/09/2020, 11/09/2020, 12/22/2018, Additional history exists Colonoscopy 11/27/2028 11/27/2018, 05/04/2014 Colorectal Cancer Screening 11/27/2028 Zoster Vaccines Completed 02/28/2021, 08/12/2020 Hepatitis C Screening Completed 04/03/2021 Pneumococcal Vaccine: 65+ Years Completed 04/13/2021, 08/01/2016, 12/14/2012, Additional history exists Hepatitis B Completed 10/18/2021, 06/2021, 04/13/2021, Additional history exists GARDASIL-HPV IMMUNIZATION SERIES Aged Out No longer eligible based on patient's age to complete this topic MENINGOCOCCAL (MENACTRA/MENVEO) Aged Out No longer eligible based on patient's age to complete this topic documented as of this encounter Medical Devices Not on filedocumented as of this encounter Care Teams Tile Designer Relationship Specialty Start Date End Date Eliza Mayorga DO [address] [facility] [address] [place] [address] PCP - General Family Medicine 05/14/17 documented as of this encounter
--- NOTE | 2023-01-03 18:43 | Emergency Department Note ---
Impression & Plan Breathlessness, Pulmonary emphysema, PATEL (dyspnea on exertion), Pulmonary HTN ED Provider Note Provider: Todd Rainey MD DATE OF SERVICE: 01/03/2023 CHIEF COMPLAINT: Shortness of breath HISTORY OF PRESENT ILLNESS: Patient is a 72-year-old female past medical history including scleroderma, pulmonary hypertension, COPD, hypertension and gastroparesis presenting here today reporting over the past 2 to 3 days worsening breathing status. Is on 6 to 8 L of oxygen at home and states she can barely get around her house with this. Occasionally some swelling in the legs but not too much right now. Little bit of discomfort at times in her chest that she relates to an area where she had prior rib fracture several months ago. Denies any new trauma or falls. Denies new or different abdominal symptoms has been using nebulizers at home with seem to help son and alternating 10 mg of prednisone every other day and follows with pulmonary here. Has been taking her sildenafil. No sick contacts. Reportedly had some low pulse ox is in the low 80s at home but not the best peripheral perfusion of the fingers. Follows with scleroderma specialist in [place]. Has discussed transplant at both [facility] and [facility]. States she is come to the understanding she is not going to proceed with this. PAST MEDICAL HISTORY: As noted above MEDICATIONS: Reviewed home medication on home oxygen SOCIAL HISTORY: , former smoker quit over a decade ago PHYSICAL EXAM: GENERAL: alert and oriented in no acute distress on stretcher Head: normocephalic and atraumatic EYES: No injection, discharge or icterus. NECK: Trachea midline. ENT: Mucous membranes pink and moist. Pharynx without erythema or exudate. LUNGS: Airway patent. No retractions but some mild tachypnea. Breath sounds diminished faint expiratory wheeze. HEART: Regular rate and rhythm. No chest wall tenderness ABDOMEN: Soft and non-tender, without guarding or rebound. SKIN: Acyanotic, warm, dry, without rashes EXTREMITIES: Without deformity with trace pedal edema and slight diffuse tenderness of the bilateral feet. NEUROLOGICAL:No aphasia. No facial droop or slurred speech. Normal strength and tone in the extremities. Some mild neuropathy/diminished sensation in the feet. EK bpm sinus rhythm with PVC. No acute ST segment elevation or depression with a QTc of 455 CONTINUOUS CARDIAC MONITORING: was ordered and showed a heart rate of 90s-100s bpm in normal sinus rhythm 1 view chest x-ray: Per my interpretation no evidence of pneumothorax or pneumonia. Chronic lung scarring noted. No significant cardiomegaly. Central catheter port appears to terminate in the SVC. Patient's laboratory studies and imaging reviewed. Differential includes Reactive airway disease, pneumonia, pneumothorax, COPD, CHF, infections, cardiac ischemia, pulmonary embolism, musculoskeletal, gastrointestinal, as well as other pathologies. IMPRESSION/MEDICAL DECISION MAKING: Patient with significant underlying medical comorbidities and pulmonary issues. Follows with [facility]. On chronic 6 to 8 L of oxygen; forehead probe here predominantly reading in the 90s on her home O2. Is somewhat tachypneic however. Slight wheezing given DuoNeb. No significant evidence of fluid overload at this time. Respiratory viral panel and labs sent. Slight chest wall pain likely more related to prior broken ribs but EKG and troponin were sent for thoroughness. No recent travel. Benign abdomen. Blood work here without significant anemia or leukocytosis. No significant electrolyte abnormalities. Normal renal function. BNP minimally elevated to 203. Respiratory viral panel negative including COVID and flu. High- sensitivity troponin normal. No signs of hepatitis or significant renal dysfunction. No evidence of significant electrolyte abnormality. VBG without evidence of significant hypercarbia or abnormality. Patient given a DuoNeb and Solu-Medrol for what ever component of COPD may at play here. Discussed with her obtaining a CTA scan to evaluate for any occult pulmonary etiology. Patient even getting to the bedside commode extremely short of breath. Patient stable but gets extremely dyspneic with any exertion. Do not see obvious PE. With her significant dyspnea on any exertion will bring in for further care. Patient wishes for this. Hospitalist contacted DIAGNOSIS: Shortness of breath, COPD, pulmonary hypertension DISPOSITION: Hospitalist will evaluate Patient was agreeable with this plan. Past Med/Surg History Medical History (Updated 01/03/23 @ 22:00 by Todd Rainey M.D.) NSVT (nonsustained ventricular tachycardia) Osteopenia History of COVID-19 Dx 01/2020; required hospitalization Prediabetes Hypertension B12 deficiency Pneumonia due to COVID-19 virus Acute and chronic respiratory failure with hypoxia Urinary incontinence Collagenous colitis Multiple pulmonary nodules determined by computed tomography of lung Raynaud's disease Osteoarthritis Chronic steroid use Peripheral neuropathy bilateral hands & feet On home oxygen therapy 4lpm via n/c continuous Hypertension Pulmonary emphysema Prediabetes monitoring Iron deficiency anemia Insomnia, persistent Gastritis, chronic Depression Asthma Anxiety Scleroderma Obstructive sleep apnea cpap Hyperlipidemia GAVE (gastric antral vascular ectasia) Gastroenterology in [facility]. Dr. Marinelli Right lower lobe pneumonia Gastroparesis pt denies COPD (chronic obstructive pulmonary disease) Surgical History History of cataract extraction (09/30/19) Both eyes H/O cataract extraction (09/2019) b/l eyes History of cystoscopy Hx of lumpectomy Left (-) History of dilatation and curettage History of bilateral tubal ligation History of esophagogastroduodenoscopy (EGD) H/O tooth extraction History of tonsillectomy H/O laminectomy Lumbar area History of colonoscopy History of bladder surgery bladder tack History of cholecystectomy Open Family History Mother Stroke Father Lung cancer Sister Non Hodgkin's lymphoma Lupus Denies family history of Ovarian cancer Prostate cancer Myocardial infarction Breast cancer Colorectal cancer Social History Smoking Status: Former smoker Tobacco Type: Cigarettes Age Quit Using Tobacco: 59; Cigarettes Per Day: 40; Second Hand Exposure: No; Do You Dip or Chew Tobacco: No; Hx Alcohol Use: No Hx Substance Use: No Preferred Language: Greenlandic Communication Ability: Effective Visual Impairment: Limited Hearing Ability: Normal Career Technology Teacher Required: No Beliefs That Will Affect Care: None marital status: Current Living Situation: Spouse current occupational status: retired 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 ; 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 How many Children do You have: 2 Feels Safe at Home: Yes Childhood Exposure to Second-Hand Smoke: Yes Diet: regular Diet Comment: Regular caffeine: Yes during the past year weight has: remained stable Dental Care, Regularly: Yes Physical Activity Frequency: Does not Exercise Seatbelt Use: always Sunscreen Use: Yes Assistive Devices: CPAP, Oxygen - Continuous and Walker Allergies Allergies Allergy/AdvReac Type Severity Reaction Status Date / Time ferric carboxymaltose Allergy Intermediate SOB, Verified 01/03/23 19:10 [From Injectafer] tachycardia Home Meds Home Medications Medication Instructions Recorded Confirmed Oxygen Home #1 ea 09/03/22 12/17/22 amlodipine 10 mg tablet 10 mg PO QAM 09/03/22 01/03/23 sildenafil (pulm.hypertension) 20 20 mg PO Q8H 09/03/22 01/03/23 mg tablet guaifenesin 600 mg tablet, 600 mg PO BID 12/17/22 01/03/23 extended release 12 hr (Mucinex) azithromycin 250 mg tablet 250 mg PO 3XWK 01/03/23 01/03/23 prednisone 10 mg tablet 10 mg PO Q OTHER DAY 01/03/23 01/03/23 Previous Rx's Medication Instructions Recorded mupirocin 2 % topical ointment 1 applic topical BID PRN nasal 11/26/21 irritation #22 grams hydroxyzine HCl 25 mg tablet 25 mg PO HS #90 tabs 03/14/22 bupropion HCl 100 mg tablet,12 hr 100 mg PO BID #180 ea 04/12/22 sustained-release (Wellbutrin SR) bisoprolol 10 1 tab PO DAILY #90 tabs 05/17/22 mg-hydrochlorothiazide 6.25 mg tablet duloxetine 60 mg capsule,delayed 60 mg PO QAM #90 caps 05/17/22 release Portable Oxygen #1 ea 09/03/22 CPAP Machine #1 ea 09/04/22 albuterol sulfate 90 mcg/actuation 2 puff inhalation QID PRN 09/04/22 aerosol inhaler (Ventolin HFA) Shortness Of Breath #18 grams ipratropium 0.5 mg-albuterol 3 mg 3 ml inhalation Q8H PRN COPD- DX 09/04/22 (2.5 mg base)/3 mL nebulization J44.9 J43.9 J45.909 #180 mL soln tiotropium bromide 18 mcg capsule 1 cap inhalation QAM #90 09/04/22 with inhalation device (Spiriva inhalations with HandiHaler) Advair HFA 230 mcg-21 2 puff inhalation BID #12 grams 09/17/22 mcg/actuation aerosol inhaler (fluticasone propion-salmeterol) oxycodone 5 mg tablet 5 mg PO Q6H PRN pain #20 tabs 10/17/22 gabapentin 300 mg capsule 300 mg PO HS #90 caps 12/17/22 pantoprazole 40 mg tablet,delayed 40 mg PO BID #180 tabs 12/17/22 release Results & Data (ED) Vital Signs Vital Signs - 24 hr 01/03/23 18:15 01/03/23 18:25 01/03/23 18:32 Temperature 36.8 C Temperature Source Temporal Artery Scan Pulse Rate 92 H 91 H Pulse Rate [Apical] Pulse Rhythm Respiratory Rate 18 Respiratory Effort / Characteristics Non-Labored Spontaneous Labored Short of Breath Respiratory Depth Normal Respiratory Pattern Regular Blood Pressure 121/71 Blood Pressure [Right Arm] Blood Pressure Mean 87 Blood Pressure Mean [Right Arm] Blood Pressure Position Sitting Blood Pressure Position [Right Arm] Pulse Oximetry 93 Oxygen Delivery Method Room Air Nasal Cannula Oxygen Flow Rate 8 Sepsis Recent Fever Within 48 Hours No Sepsis New/Unexplained Change in Mental Status No Sepsis Action Taken by Nursing No Action Required Oxygen Flow Rate - Titration 01/03/23 18:32 01/03/23 18:32 01/03/23 21:00 Temperature Temperature Source Pulse Rate 92 H Pulse Rate [Apical] 91 H Pulse Rhythm Regular Respiratory Rate 26 H 26 H Respiratory Effort / Characteristics Labored Respiratory Depth Respiratory Pattern Blood Pressure Blood Pressure [Right Arm] 142/81 H Blood Pressure Mean Blood Pressure Mean [Right Arm] 101 Blood Pressure Position Blood Pressure Position [Right Arm] Sitting Pulse Oximetry 90 93 Oxygen Delivery Method Nasal Cannula Nasal Cannula Nasal Cannula Oxygen Flow Rate 8 8 Sepsis Recent Fever Within 48 Hours Sepsis New/Unexplained Change in Mental Status Sepsis Action Taken by Nursing Oxygen Flow Rate - Titration 6 01/03/23 21:00 Temperature Temperature Source Pulse Rate Pulse Rate [Apical] 92 H Pulse Rhythm Respiratory Rate 20 Respiratory Effort / Characteristics Respiratory Depth Respiratory Pattern Blood Pressure Blood Pressure [Right Arm] 158/80 H Blood Pressure Mean Blood Pressure Mean [Right Arm] 106 Blood Pressure Position Blood Pressure Position [Right Arm] Pulse Oximetry 100 Oxygen Delivery Method Nasal Cannula Oxygen Flow Rate 6 Sepsis Recent Fever Within 48 Hours Sepsis New/Unexplained Change in Mental Status Sepsis Action Taken by Nursing Oxygen Flow Rate - Titration Laboratory Data 01/03/23 18:55 01/03/23 18:55 Lab Results 01/03/23 01/03/23 Range/Units 18:55 19:25 WBC 7.46 (4.8-10.8) K/ul RBC 4.18 L (4.20-5.40) M/uL Hgb 12.4 (12.0-16.0) g/dl Hct 38.2 (37.0-47.0) % MCV 91.4 (80.0-100.0) fL MCH 29.7 (25.0-34.0) pg MCHC 32.5 (32.0-36.0) g/dL RDW Std Deviation 47.4 H (36.4-46.3) fL RDW Coeff of Mag 14.2 (11.5-14.5) % Plt Count 282 (130-400) K/uL MPV 9.8 (9.4-12.4) fL Immature Gran % (Auto) 0.4 % Neut % (Auto) 63.8 % Lymph % (Auto) 20.4 % Aiken % (Auto) 9.8 % Eos % (Auto) 4.8 % Baso % (Auto) 0.8 % Neut # (Auto) 4.76 (1.40-6.50) K/uL Lymph # (Auto) 1.52 (1.20-3.40) K/uL Aiken # (Auto) 0.73 H (0.11-0.59) K/uL Eos # (Auto) 0.36 (0.00-0.50) K/uL Baso # (Auto) 0.06 (0.00-0.20) K/uL Immature Gran # (Auto) 0.03 (0.01-0.20) K/uL PT 10.5 (9.0-12.0) Seconds INR 1.0 (0.9-1.1) APTT 28.1 (21.0-31.0) Seconds PTT Ratio 1.0 VBG pH 7.42 H (7.36-7.41) VBG pCO2 48 (38-50) mmHg VBG pO2 39 mmHg VBG HCO3 31 mmol/L VBG O2 Saturation 62.9 % VBG Base Excess 5.5 mEq/L Sodium 139 (136-145) mmol/L Potassium 3.4 L (3.5-5.1) mmol/L Chloride 105 (98-107) mmol/L Carbon Dioxide 28 (21-32) mmol/L Anion Gap 6 (3-11) BUN 11 (6-23) mg/dl Creatinine 0.56 L (0.6-1.2) mg/dl Est Cr Clr Drug Dosing Not Reportable Est GFR ( Amer) 108.7 ml/min Est GFR (Non-Af Amer) 93.8 ml/min BUN/Creatinine Ratio 19.6 (10-20) Glucose 115 H (70-99(Fasting)) mg/dl Calcium 9.2 (8.6-10.3) mg/dl Magnesium 1.7 (1.7-2.4) mg/dl Total Bilirubin 0.6 (0.2-1.0) mg/dl AST 11 L (13-39) U/L ALT 6 L (7-52) U/L Alkaline Phosphatase 72 (34-104) U/L Troponin I High Sens 5.6 (0-14) pg/ml B-Natriuretic Peptide 203 H (0-100) pg/ml Total Protein 6.6 (6.0-8.3) gm/dl Albumin 3.9 (3.4-5.0) gm/dl Globulin 2.7 (2.5-4.0) gm/dl Albumin/Globulin Ratio 1.4 (0.9-2) Adenovirus (PCR) Not Detected (NotDetected) B. pertussis DNA (PCR) Not Detected (NotDetected) B.parapertussis DNA PCR Not Detected (NotDetected) C. pneumoniae DNA (PCR) Not Detected (NotDetected) Coronavirus OC43 (PCR) Not Detected (NotDetected) Coronavirus HKU1 (PCR) Not Detected (NotDetected) Coronavirus 229E (PCR) Not Detected (NotDetected) SARS-CoV-2 (PCR) Not Detected (NotDetected) Coronavirus NL63 (PCR) Not Detected (NotDetected) Human Metapneumovir PCR Not Detected (NotDetected) Influenza Type A (PCR) Not Detected (NotDetected) Influenza Type B (PCR) Not Detected (NotDetected) M. pneumoniae (PCR) Not Detected (NotDetected) Parainfluenza 1 (PCR) Not Detected (NotDetected) Parainfluenza 2 (PCR) Not Detected (NotDetected) Parainfluenza 3 (PCR) Not Detected (NotDetected) Parainfluenza 4 (PCR) Not Detected (NotDetected) RSV (PCR) Not Detected (NotDetected) Entero/Rhino (PCR) Not Detected (NotDetected) Administered Medications Discontinued Medications Albuterol (Albut/Ipratrop 3mg/0.5mg Neb 3 Ml Vial) 3 ml NEB NOW STA; Protocol Stop: 01/03/23 20:02 Last Admin: 01/03/23 20:35 Dose: 3 ml Documented By: CARLY Ioversol (Optiray 320 125ml) 117 ml IV ONCE ONE Stop: 01/03/23 20:25 Last Admin: 01/03/23 20:24 Dose: 117 ml Documented By: ANIYA Methylprednisolone (Methylprednisolone 125 Mg/2 Ml Vial) 125 mg IV NOW STA Stop: 01/03/23 20:02 Last Admin: 01/03/23 20:35 Dose: 125 mg Documented By: CARLY Imaging Data Radiologist's Impression: Chest X-Ray 01/03/23 18:19 XR chest 1V portable HISTORY: Dyspnea COMPARISON: Chest CT 09/16/2022. FINDINGS: Emphysema again noted. No pneumothorax. No pleural effusions. Bibasilar interstitial thickening persists. This is likely chronic. Left subclavian Port-A-Cath terminates in the SVC. The heart is normal in size. No evidence for pulmonary edema. Healing/healed left-sided rib fractures are noted. IMPRESSION: 1. Emphysema and chronic interstitial thickening again noted. 2. Healing/healed left-sided rib fractures. No pneumothorax. ACT 112: Negative or not required by law. Electronically signed by: Jose Ramon Morrow M.D. 01/03/2023 9:18 PM Discharge Plan Visit Data Chief Complaint: Shortness of Breath/Dyspnea Stated Complaint: SOB ED Provider: Todd Rainey Discharge Problem: Breathlessness, Pulmonary emphysema, PATEL (dyspnea on exertion), Pulmonary HTN Patient Disposition: Being Evaluated by Hospitalist Forms Stand Alone Forms: My [facility] 2can Prescriptions Prescriptions: No Action hydroxyzine HCl 25 mg tablet 25 mg PO HS Qty: 90 2RF Hold Instructions: Home Medication placed on hold at Doctor's office bupropion HCl [Wellbutrin SR] 100 mg tablet sustained-release 12 hr 100 mg PO BID Qty: 180 2RF bisoprolol-hydrochlorothiazide 10-6.25 mg tablet 1 tab PO DAILY Qty: 90 1RF duloxetine 60 mg capsule,delayed release(DR/EC) 60 mg PO QAM Qty: 90 1RF sildenafil (pulm.hypertension) 20 mg tablet 20 mg PO Q8H Rx Instructions: TAKES 0800, 1700, & HS (DME) Portable Oxygen Misc See Rx Instructions .MEDSUPPLY Qty: 1 0RF Rx Instructions: Oxygen 7 liters continuous 6 L with portable concentrator. Keep o2 sat 88- 92%. LAURA 96 (DME) Oxygen Home Liters Per Minute See Rx Instructions .ROUTE .MEDSUPPLY Qty: 1 Rx Instructions: 6 LPM via [place] amlodipine 10 mg tablet 10 mg PO QAM Advair HFA 230-21 mcg/actuation HFA aerosol inhaler 2 puff INHALATION BID Qty: 12 11RF mupirocin 2 % ointment 1 applic topical BID PRN (Reason: nasal irritation) Qty: 22 0RF Rx Instructions: APPLY TO BILATERAL NARES oxycodone 5 mg tablet 5 mg PO Q6H PRN (Reason: pain) Qty: 20 0RF ipratropium-albuterol 0.5 mg-3 mg(2.5 mg base)/3 mL solution for nebulization 3 ml inhalation Q8H PRN (Reason: COPD- DX J44.9 J43.9 J45.909 ) Qty: 180 5RF albuterol sulfate [Ventolin HFA] 90 mcg/actuation HFA aerosol inhaler 2 puff inhalation QID PRN (Reason: Shortness Of Breath) Qty: 18 3RF Rx Instructions: USE 2 PUFFS BY MOUTH 4 TIMES A DAY NEEDED Spiriva with HandiHaler 18 mcg capsule, w/inhalation device 1 cap INHALATION QAM Qty: 90 1RF (DME) CPAP Machine Misc See Rx Instructions .Route Qty: 1 0RF Rx Instructions: CPAP 9cmH2O, mask fit to patient comfort, heated humidification, compliance download capabilities, LAURA:99 guaifenesin [Mucinex] 600 mg tablet extended release 12hr 600 mg PO BID gabapentin 300 mg capsule 300 mg PO HS Qty: 90 1RF pantoprazole 40 mg tablet,delayed release (DR/EC) 40 mg PO BID Qty: 180 0RF prednisone 10 mg tablet 10 mg PO Q OTHER DAY Rx Instructions: takes every other day DC [facility] 09/01/22- Pt states she is unsure if she should do this after her taper Prednisone- To ask Dr. Cam at 7/26/appt. azithromycin 250 mg tablet 250 mg PO 3XWK Rx Instructions: 250 mg PO 1 tab p.o. on [id number]; Referrals Referrals: Eliza Mayorga DO [Primary Care Provider] - Discharge Problem: Pulmonary emphysema Qualifiers: Emphysema type: panlobular Qualified Code(s): J43.1 - Panlobular emphysema
[2023-01-03 19:17] LABS: Basophils # (auto) 0.06 K/uL (0.00-0.20); Basophils % (auto) 0.8 %; Eosinophils # (auto) 0.36 K/uL (0.00-0.50); Eosinophils % (auto) 4.8 %; Hematocrit (blood only) 38.2 % (37.0-47.0); Hemoglobin 12.4 g/dl (12.0-16.0); Immature Granulocytes # (auto) 0.03 K/uL (0.01-0.20); Immature Granulocytes % (auto) 0.4 %; Lymphocytes # (auto) 1.52 K/uL (1.20-3.40); Lymphocytes % (auto) 20.4 %; Mean Corpuscular Hemoglobin 29.7 pg (25.0-34.0); Mean Corpuscular Hgb Conc 32.5 g/dL (32.0-36.0); Mean Corpuscular Volume 91.4 fL (80.0-100.0); Mean Platelet Volume 9.8 fL (9.4-12.4); Monocytes # (auto) 0.73 K/uL (0.11-0.59); Monocytes % (auto) 9.8 %; Neutrophils # (auto) 4.76 K/uL (1.40-6.50); Neutrophils % (auto) 63.8 %; Platelet Count 282 K/uL (130-400); RDW Coefficient of Variation 14.2 % (11.5-14.5); RDW Standard Deviation 47.4 fL (36.4-46.3); Red Blood Count 4.18 M/uL (4.20-5.40); White Blood Count 7.46 K/ul (4.8-10.8)
[2023-01-03 19:35] LABS: Alanine Aminotransferase 6 U/L (7-52); Albumin Globulin Ratio 1.4 (0.9-2); Albumin Level 3.9 gm/dl (3.4-5.0); Alkaline Phosphatase 72 U/L (34-104); Anion Gap 6 (3-11); Aspartate Aminotransferase 11 U/L (13-39); BUN Creatinine Ratio 19.6 (10-20); Bilirubin,Total 0.6 mg/dl (0.2-1.0); Blood Urea Nitrogen 11 mg/dl (6-23); Calcium 9.2 mg/dl (8.6-10.3); Carbon Dioxide 28 mmol/L (21-32); Chloride 105 mmol/L (98-107); Est GFR (African American) 108.7 ml/min; Est GFR (Non-African American) 93.8 ml/min; Globulin 2.7 gm/dl (2.5-4.0); Glucose 115 mg/dl (70-99(Fasting)); Magnesium 1.7 mg/dl (1.7-2.4); Potassium 3.4 mmol/L (3.5-5.1); Sodium 139 mmol/L (136-145); Total Protein 6.6 gm/dl (6.0-8.3)
[2023-01-03 19:42] LABS: Troponin I High Sensitivity 5.6 pg/ml (0-14)
[2023-01-03 19:44] LABS: Partial Thromboplastin Time 28.1 Seconds (21.0-31.0); Prothrombin Time 10.5 Seconds (9.0-12.0)
[2023-01-03 19:55] LABS: Base Excess VBG 5.5 mEq/L; HCO3 VBG 31 mmol/L; Oxygen Saturation VBG 62.9 %; PCO2 VBG 48 mmHg (38-50); PO2 VBG 39 mmHg; pH VBG 7.42 (7.36-7.41)
[2023-01-03 19:59] LABS: Adenovirus PCR Not Detected (NotDetected); Bordetella parapertussis PCR Not Detected (NotDetected); Bordetella pertussis PCR Not Detected (NotDetected); Chlamydia pneumoniae PCR Not Detected (NotDetected); Coronavirus 229E PCR Not Detected (NotDetected); Coronavirus CoV-2 (COVID19)PCR Not Detected (NotDetected); Coronavirus HKU1 PCR Not Detected (NotDetected); Coronavirus NL63 PCR Not Detected (NotDetected); Coronavirus OC43PCR Not Detected (NotDetected); Human Metapneumovirus PCR Not Detected (NotDetected); Influenza A PCR Not Detected (NotDetected); Influenza B PCR Not Detected (NotDetected); Mycoplasma pneumoniae PCR Not Detected (NotDetected); Parainfluenza Virus 1 PCR Not Detected (NotDetected); Parainfluenza Virus 2 PCR Not Detected (NotDetected); Parainfluenza Virus 3 PCR Not Detected (NotDetected); Parainfluenza Virus 4 PCR Not Detected (NotDetected); Respiratory Syncytial VirusPCR Not Detected (NotDetected); Rhinovirus/Enterovirus PCR Not Detected (NotDetected)
[2023-01-03] MEDS ORDERED: ALBUT/IPRATROP 3MG/0.5MG NEB 3 ML VIAL NEB STA (20:01)
[2023-01-03] MEDS ORDERED: methylPREDNISolone 125 MG/2 ML VIAL IV STA (20:01)
[2023-01-03] MEDS ORDERED: OPTIRAY 320 125ml IV ONE (20:24)
--- NOTE | 2023-01-03 21:21 | XRay Report ---
XR chest 1V portable HISTORY: Dyspnea COMPARISON: Chest CT 09/16/2022. FINDINGS: Emphysema again noted. No pneumothorax. No pleural effusions. Bibasilar interstitial thicke reji persists. This is likely chronic. Left subclavian Port-A-Cath terminates in the SVC. The heart i s normal in size. No evidence for pulmonary edema. Healing/healed left-sided rib fractures are noted. IMPRESSION: 1. Emphysema and chronic interstitial thickening again noted. 2. Healing/healed left-sided rib fractures. No pneumothorax. ACT 112: Negative or not required by law. Electronically signed by: Jose Ramon Morrow M.D. 01/03/2023 9:18 PM
[2023-01-03] MEDS ORDERED: POTASSIUM CHLORIDE CRTAB 20 MEQ TABCR PO STA (21:58)
--- NOTE | 2023-01-03 22:03 | History & Physical Report ---
Date of Service January 03, 2023 Assessment & Plan (1) Acute and chronic respiratory failure with hypoxia: (2) Pulmonary HTN: (3) PATEL (dyspnea on exertion): (4) BONITA (obstructive sleep apnea): (5) Scleroderma: (6) Pulmonary arterial hypertension: (7) Breathlessness: (8) Interstitial lung disease: Plan Acute on chronic respiratory failure with hypoxia/COPD with emphysema/chronic interstitial lung disease/BONITA on CPAP/chronic basal oxygen requirement of 6 L at rest and 7 to 8 L with exertion- I doubt the patient can take a deep enough breath that any of her inhalers are helpful at this time Duonebs every 4 hours while awake and every 2 hours when necessary. Pulmicort Respules 0.5 mg inhaled twice daily Patient did receive Solu-Medrol 125 mg IV in the ED Solu-Medrol 40 mg IV every 8 hours Guaifenesin extended release 600 mg p.o. twice daily Change azithromycin from 500 mg 3 times per week orally to 500 mg IV daily for a few days Continue sildenafil 20 mg p.o. every 8 hours for pulmonary hypertension Humidify nasal cannula O2 BioFire is negative Electrolyte disturbances/hypokalemia/hypomagnesemia- Give magnesium sulfate 2 g IV for mag 1.7 and due to lung dysfunction Give Klor-Con 40 mEq p.o. for potassium 3.4 Recheck laboratories in a.m. Anxiety- Continue bupropion, duloxetine, gabapentin and hydroxyzine History of Present Illness Chief Complaint: The patient presents to the emergency department with 3 days of worsening shortness of breath despite her using 6 L of oxygen at baseline and up to 8 L with ambulation Primary Care Provider: Eliza Mayorga DO The patient is a 72-year-old female with a past medical history including pulmonary hypertension on sildenafil, BONITA on CPAP, hypertension, chronic respiratory failure with hypoxia requiring 6 L at baseline and 7-8 L with ambulation, COPD, interstitial lung disease, fatty liver, chronic gastritis, anxiety, hyperlipidemia and gastroparesis. She reports that over the past 3 days she has had worsening shortness of breath at rest, and more so with dyspnea on exertion. She has a chronic cough which is nonproductive. She follows with pulmonology Dr. Lacey. She has been seen for lung transplant in [place], and was told she is not eligible Allergies Allergy/AdvReac Type Severity Reaction Status Date / Time ferric carboxymaltose Allergy Intermediate SOB, Verified 01/03/23 19:10 [From Injectafer] tachycardia Home Medications Medication Instructions Recorded Confirmed Type mupirocin 2 % topical ointment 1 applic topical BID PRN nasal 11/26/21 01/03/23 Rx irritation #22 grams hydroxyzine HCl 25 mg tablet 25 mg PO HS #90 tabs 03/14/22 01/03/23 Rx bupropion HCl 100 mg tablet,12 hr 100 mg PO BID #180 ea 04/12/22 01/03/23 Rx sustained-release (Wellbutrin SR) bisoprolol 10 1 tab PO DAILY #90 tabs 05/17/22 01/03/23 Rx mg-hydrochlorothiazide 6.25 mg tablet duloxetine 60 mg capsule,delayed 60 mg PO QAM #90 caps 05/17/22 01/03/23 Rx release Oxygen Home #1 ea 09/03/22 12/17/22 History Portable Oxygen #1 ea 09/03/22 12/17/22 Rx amlodipine 10 mg tablet 10 mg PO QAM 09/03/22 01/03/23 History sildenafil (pulm.hypertension) 20 20 mg PO Q8H 09/03/22 01/03/23 History mg tablet CPAP Machine #1 ea 09/04/22 12/17/22 Rx albuterol sulfate 90 mcg/actuation 2 puff inhalation QID PRN 09/04/22 01/03/23 Rx aerosol inhaler (Ventolin HFA) Shortness Of Breath #18 grams ipratropium 0.5 mg-albuterol 3 mg 3 ml inhalation Q8H PRN COPD- DX 09/04/22 01/03/23 Rx (2.5 mg base)/3 mL nebulization J44.9 J43.9 J45.909 #180 mL soln tiotropium bromide 18 mcg capsule 1 cap inhalation QAM #90 09/04/22 01/03/23 Rx with inhalation device (Spiriva inhalations with HandiHaler) Advair HFA 230 mcg-21 2 puff inhalation BID #12 grams 09/17/22 01/03/23 Rx mcg/actuation aerosol inhaler (fluticasone propion-salmeterol) oxycodone 5 mg tablet 5 mg PO Q6H PRN pain #20 tabs 10/17/22 01/03/23 Rx gabapentin 300 mg capsule 300 mg PO HS #90 caps 12/17/22 01/03/23 Rx guaifenesin 600 mg tablet, 600 mg PO BID 12/17/22 01/03/23 History extended release 12 hr (Mucinex) pantoprazole 40 mg tablet,delayed 40 mg PO BID #180 tabs 12/17/22 01/03/23 Rx release azithromycin 250 mg tablet 250 mg PO 3XWK 01/03/23 01/03/23 History prednisone 10 mg tablet 10 mg PO Q OTHER DAY 01/03/23 01/03/23 History Past Med/Surg History Medical History (Updated 01/04/23 @ 04:25 by Manny Rust MD) Interstitial lung disease NSVT (nonsustained ventricular tachycardia) Osteopenia History of COVID-19 Dx 01/2020; required hospitalization Prediabetes Hypertension B12 deficiency Pneumonia due to COVID-19 virus Acute and chronic respiratory failure with hypoxia Urinary incontinence Collagenous colitis Multiple pulmonary nodules determined by computed tomography of lung Raynaud's disease Osteoarthritis Chronic steroid use Peripheral neuropathy bilateral hands & feet On home oxygen therapy 4lpm via n/c continuous Hypertension Pulmonary emphysema Prediabetes monitoring Iron deficiency anemia Insomnia, persistent Gastritis, chronic Depression Asthma Anxiety Scleroderma Obstructive sleep apnea cpap Hyperlipidemia GAVE (gastric antral vascular ectasia) Gastroenterology in [facility]. Dr. Marinelli Right lower lobe pneumonia Gastroparesis pt denies COPD (chronic obstructive pulmonary disease) Surgical History History of cataract extraction (09/30/19) Both eyes H/O cataract extraction (09/2019) b/l eyes History of cystoscopy Hx of lumpectomy Left (-) History of dilatation and curettage History of bilateral tubal ligation History of esophagogastroduodenoscopy (EGD) H/O tooth extraction History of tonsillectomy H/O laminectomy Lumbar area History of colonoscopy History of bladder surgery bladder tack History of cholecystectomy Open Family History Mother Stroke Father Lung cancer Sister Non Hodgkin's lymphoma Lupus Denies family history of Ovarian cancer Prostate cancer Myocardial infarction Breast cancer Colorectal cancer Social History Smoking Status: Former smoker Tobacco Type: Cigarettes Age Quit Using Tobacco: 59; Cigarettes Per Day: 40; Second Hand Exposure: No; Do You Dip or Chew Tobacco: No; Hx Alcohol Use: No Hx Substance Use: No Preferred Language: Hebrew Communication Ability: Effective Visual Impairment: Limited Hearing Ability: Normal Skates Operator Required: No Beliefs That Will Affect Care: None marital status: Current Living Situation: Spouse current occupational status: retired 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 ; 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 How many Children do You have: 2 Feels Safe at Home: Yes Childhood Exposure to Second-Hand Smoke: Yes Diet: regular Diet Comment: Regular caffeine: Yes during the past year weight has: remained stable Dental Care, Regularly: Yes Physical Activity Frequency: Does not Exercise Seatbelt Use: always Sunscreen Use: Yes Assistive Devices: Bedside Commode, CPAP, Denture - Upper, Nebulizer, Oxygen - Continuous and Other Review of Systems Review of Systems: The patient denies chest pain, palpitations, sore throat, fevers, chills, sweats, nausea, vomiting, diarrhea , constipation, abdominal pain, pelvic pain, blood in urine or stool, dysuria, urinary frequency or urgency, lightheadedness, dizziness, headache, memory loss, loss of consciousness, rash, abnormal bruising or bleeding, focal or generalized weakness, numbness or tingling in arms or legs, generalized arthralgias or myalgias, back or neck pain, or night sweats. The review of systems is otherwise negative other than for that already noted above, and at least 10 systems have been reviewed. Physical Exam Physical Exam: The patient is awake, alert and oriented 3, well developed and well nourished, normocephalic and atraumatic, lying in bed and in no acute distress. HEENT--PERRL, EOMI, mucous membranes and oropharynx dry. Neck--supple. No JVD. No bruits. Thyroid normal, trachea midline, no adenopathy. Heart--normal S1 and S2. No murmurs, rubs or gallops. Lungs--decreased breath sounds throughout. No respiratory distress at rest or accessory muscle use on 8 L nasal cannula oxygen Abdomen--normal bowel sounds and soft. Nontender. Nondistended Extremities-- No edema. Dermatologic--normal skin turgor, normal color, no abnormal lymph nodes, no rash. Neurologic--cranial nerves II through XII grossly intact. Rheumatologic--limited exam Psychiatric--normal affect. Results & Data Results & Data Vital Signs (Past 12 Hours) Vital Signs Temp Pulse Pulse Resp BP BP Pulse Ox 01/03/23 21:00 92 H 20 158/80 H 100 01/03/23 21:00 01/03/23 18:32 92 H 26 H 93 01/03/23 18:32 91 H 26 H 142/81 H 90 01/03/23 18:32 01/03/23 18:25 91 H 01/03/23 18:15 36.8 C 92 H 18 121/71 93 O2 Del Method O2 Flow Rate 01/03/23 21:00 Nasal Cannula 6 01/03/23 21:00 Nasal Cannula 01/03/23 18:32 Nasal Cannula 8 01/03/23 18:32 Nasal Cannula 8 01/03/23 18:32 Nasal Cannula 8 01/03/23 18:25 01/03/23 18:15 Room Air Laboratory Results Laboratory Results WBC 7.46 K/ul (4.8-10.8) 01/03/23 18:55 RBC 4.18 M/uL (4.20-5.40) L 01/03/23 18:55 Hgb 12.4 g/dl (12.0-16.0) 01/03/23 18:55 Hct 38.2 % (37.0-47.0) 01/03/23 18:55 MCV 91.4 fL (80.0-100.0) 01/03/23 18:55 MCH 29.7 pg (25.0-34.0) 01/03/23 18:55 MCHC 32.5 g/dL (32.0-36.0) 01/03/23 18:55 RDW Std Deviation 47.4 fL (36.4-46.3) H 01/03/23 18:55 RDW Coeff of Mag 14.2 % (11.5-14.5) 01/03/23 18:55 Plt Count 282 K/uL (130-400) 01/03/23 18:55 MPV 9.8 fL (9.4-12.4) 01/03/23 18:55 Immature Gran % (Auto) 0.4 % 01/03/23 18:55 Neut % (Auto) 63.8 % 01/03/23 18:55 Lymph % (Auto) 20.4 % 01/03/23 18:55 [place] % (Auto) 9.8 % 01/03/23 18:55 Eos % (Auto) 4.8 % 01/03/23 18:55 Baso % (Auto) 0.8 % 01/03/23 18:55 Neut # (Auto) 4.76 K/uL (1.40-6.50) 01/03/23 18:55 Lymph # (Auto) 1.52 K/uL (1.20-3.40) 01/03/23 18:55 [place] # (Auto) 0.73 K/uL (0.11-0.59) H 01/03/23 18:55 Eos # (Auto) 0.36 K/uL (0.00-0.50) 01/03/23 18:55 Baso # (Auto) 0.06 K/uL (0.00-0.20) 01/03/23 18:55 Immature Gran # (Auto) 0.03 K/uL (0.01-0.20) 01/03/23 18:55 PT 10.5 Seconds (9.0-12.0) 01/03/23 18:55 INR 1.0 (0.9-1.1) 01/03/23 18:55 APTT 28.1 Seconds (21.0-31.0) 01/03/23 18:55 PTT Ratio 1.0 01/03/23 18:55 VBG pH 7.42 (7.36-7.41) H 01/03/23 19:25 VBG pCO2 48 mmHg (38-50) 01/03/23 19:25 VBG pO2 39 mmHg 01/03/23 19:25 VBG HCO3 31 mmol/L 01/03/23 19:25 VBG O2 Saturation 62.9 % 01/03/23 19:25 VBG Base Excess 5.5 mEq/L 01/03/23 19:25 Sodium 139 mmol/L (136-145) 01/03/23 18:55 Potassium 3.4 mmol/L (3.5-5.1) L 01/03/23 18:55 Chloride 105 mmol/L (98-107) 01/03/23 18:55 Carbon Dioxide 28 mmol/L (21-32) 01/03/23 18:55 Anion Gap 6 (3-11) 01/03/23 18:55 BUN 11 mg/dl (6-23) 01/03/23 18:55 Creatinine 0.56 mg/dl (0.6-1.2) L 01/03/23 18:55 Est Cr Clr Drug Dosing Not Reportable 01/03/23 18:55 Est GFR ( Amer) 108.7 ml/min 01/03/23 18:55 Est GFR (Non-Af Amer) 93.8 ml/min 01/03/23 18:55 BUN/Creatinine Ratio 19.6 (10-20) 01/03/23 18:55 Glucose 115 mg/dl (70-99(Fasting)) H 01/03/23 18:55 Calcium 9.2 mg/dl (8.6-10.3) 01/03/23 18:55 Magnesium 1.7 mg/dl (1.7-2.4) 01/03/23 18:55 Total Bilirubin 0.6 mg/dl (0.2-1.0) 01/03/23 18:55 AST 11 U/L (13-39) L 01/03/23 18:55 ALT 6 U/L (7-52) L 01/03/23 18:55 Alkaline Phosphatase 72 U/L (34-104) 01/03/23 18:55 Troponin I High Sens 5.6 pg/ml (0-14) 01/03/23 18:55 B-Natriuretic Peptide 203 pg/ml (0-100) H 01/03/23 18:55 Total Protein 6.6 gm/dl (6.0-8.3) 01/03/23 18:55 Albumin 3.9 gm/dl (3.4-5.0) 01/03/23 18:55 Globulin 2.7 gm/dl (2.5-4.0) 01/03/23 18:55 Albumin/Globulin Ratio 1.4 (0.9-2) 01/03/23 18:55 Urine Color Yellow 01/04/23 00:31 Urine Appearance Clear (Clear) 01/04/23 00:31 Urine pH 7.0 (4.5-7.5) 01/04/23 00:31 Ur Specific [place] 1.027 (1.000-1.030) 01/04/23 00: Urine Protein Negative (Negative) 01/04/23 00: Urine Glucose (UA) Negative (Negative) 01/04/23 00: Urine Ketones Trace (Negative) H 01/04/23 00: Urine Blood Negative (Negative) 01/04/23 Urine Nitrite Positive (Negative) A 01/04/23 Urine Bilirubin Negative (Negative) 01/04/23 00: Urine Urobilinogen Negative (Negative) 01/04/23 00: Ur Leukocyte Esterase 2+ (Negative) H 01/04/23 00: Urine WBC (Auto) >30 /hpf (0-5) H 01/04/23 00: Urine RBC (Auto) 0-4 /hpf (0-4) 01/04/23: U Hyaline Cast (Auto) 1-5 /lpf (0-5) 01/04/23 00: U Epithel Cells (Auto) 5-10 /lpf (0-5) H 01/04/23 00:31 Urine Bacteria (Auto) 4+ (Negative) H 01/04/23 00:31 Adenovirus (PCR) Not Detected (NotDetected) 01/03/23 18:55 B. pertussis DNA (PCR) Not Detected (NotDetected) 01/03/23 18:55 B.parapertussis DNA PCR Not Detected (NotDetected) 01/03/23 18:55 C. pneumoniae DNA (PCR) Not Detected (NotDetected) 01/03/23 18:55 Coronavirus OC43 (PCR) Not Detected (NotDetected) 01/03/23 18:55 Coronavirus HKU1 (PCR) Not Detected (NotDetected) 01/03/23 18:55 Coronavirus 229E (PCR) Not Detected (NotDetected) 01/03/23 18:55 SARS-CoV-2 (PCR) Not Detected (NotDetected) 01/03/23 18:55 Coronavirus NL63 (PCR) Not Detected (NotDetected) 01/03/23 18:55 Human Metapneumovir PCR Not Detected (NotDetected) 01/03/23 18:55 Influenza Type A (PCR) Not Detected (NotDetected) 01/03/23 18:55 Influenza Type B (PCR) Not Detected (NotDetected) 01/03/23 18:55 M. pneumoniae (PCR) Not Detected (NotDetected) 01/03/23 18:55 Parainfluenza 1 (PCR) Not Detected (NotDetected) 01/03/23 18:55 Parainfluenza 2 (PCR) Not Detected (NotDetected) 01/03/23 18:55 Parainfluenza 3 (PCR) Not Detected (NotDetected) 01/03/23 18:55 Parainfluenza 4 (PCR) Not Detected (NotDetected) 01/03/23 18:55 RSV (PCR) Not Detected (NotDetected) 01/03/23 18:55 Entero/Rhino (PCR) Not Detected (NotDetected) 01/03/23 18:55 Impressions Chest X-Ray 01/03/23 18:19 XR chest 1V portable HISTORY: Dyspnea COMPARISON: Chest CT 09/16/2022. FINDINGS: Emphysema again noted. No pneumothorax. No pleural effusions. Bibasilar interstitial thickening persists. This is likely chronic. Left subclavian Port-A-Cath terminates in the SVC. The heart is normal in size. No evidence for pulmonary edema. Healing/healed left-sided rib fractures are noted. IMPRESSION: 1. Emphysema and chronic interstitial thickening again noted. 2. Healing/healed left-sided rib fractures. No pneumothorax. ACT 112: Negative or not required by law. Electronically signed by: Jose Ramon Morrow M.D. 01/03/2023 9:18 PM Chest CTA 01/03/23 20:03 Exam(s): CTA CHEST IV Amt: 117ml EXAM: CT Angiography Chest With Intravenous Contrast CLINICAL HISTORY: Reason for exam: PE, worsening SOB, Pulm htn, Copd. TECHNIQUE: Axial computed tomographic angiography images of the chest with intravenous contrast. CTDI is 39.04 mGy and DLP is 893.27 mGy-cm. Automated exposure control was utilized for the study. A dose lowering technique was utilized adhering to the principles of ALARA. MIP reconstructed images were created and reviewed. COMPARISON: CT chest September 16, 2022. FINDINGS: Pulmonary arteries: Unremarkable. No pulmonary embolism. Aorta: No acute findings. No thoracic aortic aneurysm. Lungs: Severe bullous emphysematous changes. Limited by respiratory motion in the lung bases. No mass. No consolidation. Pleural space: Unremarkable. No significant effusion. No pneumothorax. Heart: Unremarkable. No cardiomegaly. No significant pericardial effusion. No evidence of RV dysfunction. Bones/joints: No acute fracture. No dislocation. Soft tissues: Unremarkable. Lymph nodes: Unremarkable. No enlarged lymph nodes. IMPRESSION: No pulmonary emboli identified. Severe bullous emphysematous changes. Electronically signed by: Louis Santos MD 01/04/23 00:13 AM Code Status & VTE Plan Code Status Full code PG Care Time/CCT Total # of Minutes Spent Total Time Spent with Patient: Total time spent is greater than 50% in coordination of care (as documented) at patient's floor/unit and/or counseling patient: Coding Level of Care Code 13264 INT INP/OBS CARE 3/75MIN Diagnoses Acute and chronic respiratory failure with hypoxia J96.21 Pulmonary HTN I27.20 PATEL (dyspnea on exertion) R06.09 BONITA (obstructive sleep apnea) G47.33 Scleroderma M34.9 Pulmonary arterial hypertension I27.21 Breathlessness R06.81 Interstitial lung disease J84.9
[2023-01-03] MEDS: MAGNESIUM SULFATE / D5W 1 GM/100 ML BAG IV SCH (23:02)
--- NOTE | 2023-01-04 00:13 | CT Scan Report ---
Exam(s): CTA CHEST IV Amt: 117ml EXAM: CT Angiography Chest With Intravenous Contrast CLINICAL HISTORY: Reason for exam: PE, worsening SOB, Pulm htn, Copd. TECHNIQUE: Axial computed tomographic angiography images of the chest with intravenous contrast. CTDI is 39.04 mGy and DLP is 893.27 mGy-cm. Automated exposure control was utilized for the study. A dose lowering technique was utilized adhering to the principles of ALARA. MIP reconstructed images were created and reviewed. COMPARISON: CT chest September 16, 2022. FINDINGS: Pulmonary arteries: Unremarkable. No pulmonary embolism. Aorta: No acute findings. No thoracic aortic aneurysm. Lungs: Severe bullous emphysematous changes. Limited by respiratory motion in the lung bases. No mass. No consolidation. Pleural space: Unremarkable. No significant effusion. No pneumothorax. Heart: Unremarkable. No cardiomegaly. No significant pericardial effusion. No evidence of RV dysfunction. Bones/joints: No acute fracture. No dislocation. Soft tissues: Unremarkable. Lymph nodes: Unremarkable. No enlarged lymph nodes. IMPRESSION: No pulmonary emboli identified. Severe bullous emphysematous changes. Electronically signed by: Louis Santos MD 01/04/23 00:13 AM
[2023-01-04] MEDS: MAGNESIUM SULFATE / D5W 1 GM/100 ML BAG IV SCH (00:44)
[2023-01-04 00:48] LABS: Appearance Urine Clear (Clear); Bacteria Urine Automated 4+ (Negative); Bilirubin Urine Negative (Negative); Blood Urine Negative (Negative); Color Urine Yellow; Glucose Urine UA Negative (Negative); Ketones Urine Trace (Negative); Leukocyte Esterase Urine 2+ (Negative); Nitrite Urine Positive (Negative); Protein Urine Negative (Negative); RBC Urine Automated 0-4 /hpf (0-4); Specific Gravity Urine 1.027 (1.000-1.030); Urobilinogen Urine Negative (Negative); WBC Urine Automated >30 /hpf (0-5)
[2023-01-04] MEDS ORDERED: ALBUT/IPRATROP 3MG/0.5MG NEB 3 ML VIAL NEB STA (00:52)
[2023-01-04] MEDS ORDERED: MUPIROCIN 2% OINT 22 GM TUBE TOP PRN (02:53)
[2023-01-04] MEDS ORDERED: ONDANSETRON INJ 2 MG/ML 2 ML VIAL IV PRN (02:53)
[2023-01-04] MEDS ORDERED: ALBUT/IPRATROP 3MG/0.5MG NEB 3 ML VIAL ONE (05:11)
[2023-01-04] MEDS: ALBUT/IPRATROP 3MG/0.5MG NEB 3 ML VIAL NEB SCH ×7 (05:16→19:42)
[2023-01-04] MEDS: methylPREDNISolone 40 MG in SYRINGE 0 ML IV SCH ×3 (05:29→21:17)
[2023-01-04] MEDS ORDERED: GABAPENTIN 300 MG CAP PO ONE (05:44)
[2023-01-04 05:47] LABS: Hematocrit (blood only) 39.7 % (37.0-47.0); Mean Corpuscular Hemoglobin 29.4 pg (25.0-34.0); Mean Corpuscular Hgb Conc 32.7 g/dL (32.0-36.0); Mean Corpuscular Volume 89.8 fL (80.0-100.0); Mean Platelet Volume 9.8 fL (9.4-12.4); Platelet Count 316 K/uL (130-400); Red Blood Count 4.42 M/uL (4.20-5.40); White Blood Count 6.07 K/ul (4.8-10.8)
[2023-01-04 06:02] LABS: Albumin Globulin Ratio 1.5 (0.9-2); Albumin Level 4.1 gm/dl (3.4-5.0); BUN Creatinine Ratio 17.6 (10-20); Bilirubin,Total 0.7 mg/dl (0.2-1.0); Calcium 8.9 mg/dl (8.6-10.3); Est GFR (African American) 112.1 ml/min; Est GFR (Non-African American) 96.7 ml/min; Globulin 2.7 gm/dl (2.5-4.0); Magnesium 2.3 mg/dl (1.7-2.4); Phosphorus 2.8 mg/dl (2.5-4.9); Total Protein 6.8 gm/dl (6.0-8.3)
[2023-01-04 06:09] LABS: Basophils # (auto) 0.02 K/uL (0.00-0.20); Basophils % (auto) 0.3 %; Immature Granulocytes # (auto) 0.03 K/uL (0.01-0.20); Immature Granulocytes % (auto) 0.5 %; Lymphocytes # (auto) 0.44 K/uL (1.20-3.40); Lymphocytes % (auto) 7.2 %; Monocytes # (auto) 0.03 K/uL (0.11-0.59); Monocytes % (auto) 0.5 %; Neutrophils # (auto) 5.55 K/uL (1.40-6.50); Neutrophils % (auto) 91.5 %
[2023-01-04] MEDS ORDERED: BUDESONIDE 0.5 MG/2 ML VIAL (PULMICORT) NEB SCH (07:00)
[2023-01-04] MEDS: AZITHROMYCIN 500 MG in DEXTROSE 5% 250 ML IV SCH (07:56)
[2023-01-04] MEDS: DULoxetine HCL 60 MG CAP PO SCH (07:56)
[2023-01-04] MEDS: buPROPion SR 100 MG TABCR PO SCH ×2 (07:56→21:16)
[2023-01-04] MEDS: POTASSIUM CHLORIDE CRTAB 20 MEQ TABCR PO SCH ×2 (07:57→21:15)
[2023-01-04] MEDS: PANTOprazole 40 MG TAB PO SCH ×2 (07:57→21:14)
[2023-01-04] MEDS: guaiFENesin 600 MG TABCR PO SCH ×2 (07:57→21:16)
[2023-01-04] MEDS: amLODIPine BESYLATE 5 MG TAB PO SCH (07:57)
[2023-01-04] MEDS: SILDENAFIL CITRATE 20 MG TABLET PO SCH ×3 (07:57→21:13)
[2023-01-04] MEDS: BISOPROLOL FUMARATE 5 MG TAB PO SCH (07:58)
[2023-01-04] MEDS: hydroCHLOROthiazide 25 MG TAB PO SCH (07:58)
--- NOTE | 2023-01-04 08:33 | Electrocardiogram Report ---
Test Reason : Blood Pressure : / mmHG Vent. Rate : 090 BPM Atrial Rate : 090 BPM P-R Int : 190 ms QRS Dur : 086 ms QT Int : 372 ms P-R-T Axes : 059 -24 058 degrees QTc Int : 455 ms Poor data quality, interpretation may be adversely affected Sinus rhythm with occasional Premature ventricular complexes Low voltage QRS Possible Old Inferior infarct Abnormal ECG When compared with ECG of 26-MAR-2022 15:42, Borderline Criteria for Inferior infarct now present Confirmed by Dawson Cruz ([id number] on 01/04/2023 8:33:18 AM Referred By: REFERRED SELF Confirmed By:Dawson Cruz
[2023-01-04] MEDS ORDERED: GLUCOSE 10 TAB/TUBE PO PRN (10:45)
[2023-01-04] MEDS ORDERED: DEXTROSE 50% 50 ML SYRINGE IV PRN (10:45)
[2023-01-04] MEDS ORDERED: GLUCOSE 40% GEL 15 GM TUBE PO PRN (10:45)
[2023-01-04] MEDS ORDERED: GLUCAGON FOR INJ 1 MG VIAL IM PRN (10:45)
[2023-01-04] MEDS: FLUTICASONE/VILANTEROL 200/25MCG 14 PUFFS/INHALER INH SCH (11:57)
[2023-01-04] MEDS: UMECLIDINIUM BROMIDE 62.5MCG/BLISTER 7 PUFFS/INHALER INH SCH (11:57)
[2023-01-04] MEDS: INSULIN ASPART PER UNIT CHARGE SC SCH ×3 (12:54→21:17)
--- NOTE | 2023-01-04 14:03 | Hospitalist Progress Note ---
Date of Service January 04, 2023 Assessment & Plan (1) Acute and chronic respiratory failure with hypoxia: Plan: acute component 2nd to COPD / ILD exacerbation chronic - COPD, ILD, pulmonary HTN, etc cont steroids, abx, etc nebs O2 keep sats 90-92% (2) Interstitial lung disease: Plan: with flare no pneumonia on CT chest at presentation steroids/abx/O2/etc (3) Pulmonary HTN: Plan: severe on sildenafil 20mg TID cont NC O2 or other - keep sats 90-92% (4) BONITA (obstructive sleep apnea): Plan: CPAP 9cm H20 (5) Prediabetes: Plan: with severe hyperglycemia on IV steroids change diet to T2DM BSGs ac/hs begin lantus + novolog check a1c while here to see if she has flipped to full-blown T2DM in the last year last a1c was 6.3% about 1 year ago (6) Hypertension: Plan: cont home meds (7) Scleroderma: Plan: known dx (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 see #1 above (9) Hyperlipidemia: Plan: not on meds for such (10) Chronic steroid use: Plan: 10mg prednisone QOD for COPD/ILD/etc (11) DVT prophylaxis: Plan: add lovenox 40mg daily (12) UTI (urinary tract infection): Plan: u/a suspicious for such start rocephin 2gm IV daily follow culture Admission and Anticipated Discharge Date Admission Date: January 04, 2023 Subjective patient quite dyspneic today during the visit able to talk in sentences but gets dyspneic with dosing so in fact she had her home nasal CPAP on during my visit CPAP setting is 9cm H20 she has cough but nonproductive has dyspnea with minimal movements has been using 5 L NC O2 at home at rest and higher amounts with activity no fevers tele overnight wnl Review of Systems Review of Systems: gen - no fevers - urinary frequency but no odor cv - mild orthopnea; no edema GI - no abd pain pulm - no sputum production Physical Exam Physical Exam: gen - lying in bed with nasal CPAP in place, mild-mod dyspnea with talking mouth - MM dry neck - no JVD heart - tones are distant but RR, mildly tachy, s1 s2 lungs - amazingly her lungs are CTA b/l with good airation and no adventitious sounds abd - soft NT ND BS+ ext - no edema, pulses 2+ b/l psych - a/o x 3 Results & Data Results & Data Vital Signs (Past 12 Hours) Vital Signs Temp Pulse Pulse Resp BP Pulse Ox O2 Del Method 01/04/23 12:05 36.9 C 105 H 22 141/80 H 99 CPAP 01/04/23 10:22 94 H 28 H 94 Nasal Cannula 01/04/23 08:18 36.8 C 120 H 22 127/85 88 L High Flow Nasal Cannula 01/04/23 08:00 96 H 01/04/23 08:00 Nasal Cannula 01/04/23 07:21 93 H 20 88 L Nasal Cannula 01/04/23 05:16 99 H 20 87 L Nasal Cannula 01/04/23 02:56 High Flow Nasal Cannula 01/04/23 02:56 36.4 C L 99 H 22 145/78 H 90 High Flow Nasal Cannula 01/04/23 02:53 36.4 C L 91 H 22 120/81 98 Nasal Cannula O2 Flow Rate 01/04/23 12:05 01/04/23 10:22 7 01/04/23 08:18 6 01/04/23 08:00 01/04/23 08:00 6 01/04/23 07:21 7 01/04/23 05:16 5 01/04/23 02:56 6 01/04/23 02:56 6 01/04/23 02:53 Laboratory Results Laboratory Results 01/03/23 01/03/23 01/04/23 18:55 19:25 00:31 WBC 7.46 RBC 4.18 L Hgb 12.4 Hct 38.2 MCV 91.4 MCH 29.7 MCHC 32.5 RDW Std Deviation 47.4 H RDW Coeff of Mag 14.2 Plt Count 282 MPV 9.8 Immature Gran % (Auto) 0.4 Neut % (Auto) 63.8 Lymph % (Auto) 20.4 Harper % (Auto) 9.8 Eos % (Auto) 4.8 Baso % (Auto) 0.8 Neut # (Auto) 4.76 Lymph # (Auto) 1.52 Harper # (Auto) 0.73 H Eos # (Auto) 0.36 Baso # (Auto) 0.06 Immature Gran # (Auto) 0.03 PT 10.5 INR 1.0 APTT 28.1 PTT Ratio 1.0 VBG pH 7.42 H VBG pCO2 48 VBG pO2 39 VBG HCO3 31 VBG O2 Saturation 62.9 VBG Base Excess 5.5 Sodium 139 Potassium 3.4 L Chloride 105 Carbon Dioxide 28 Anion Gap 6 BUN 11 Creatinine 0.56 L Est Cr Clr Drug Dosing Not Reportable Est GFR ( Amer) 108.7 Est GFR (Non-Af Amer) 93.8 BUN/Creatinine Ratio 19.6 Glucose 115 H POC Glucose Calcium 9.2 Phosphorus Magnesium 1.7 Total Bilirubin 0.6 AST 11 L ALT 6 L Alkaline Phosphatase 72 Troponin I High Sens 5.6 B-Natriuretic Peptide 203 H Total Protein 6.6 Albumin 3.9 Globulin 2.7 Albumin/Globulin Ratio 1.4 Urine Color Yellow Urine Appearance Clear Urine pH 7.0 Ur Specific [place] 1.027 Urine Protein Negative Urine Glucose (UA) Negative Urine Ketones Trace H Urine Blood Negative Urine Nitrite Positive A Urine Bilirubin Negative Urine Urobilinogen Negative Ur Leukocyte Esterase 2+ H Urine WBC (Auto) >30 H Urine RBC (Auto) 0-4 U Hyaline Cast (Auto) 1-5 U Epithel Cells (Auto) 5-10 H Urine Bacteria (Auto) 4+ H Adenovirus (PCR) Not Detected B. pertussis DNA (PCR) Not Detected B.parapertussis DNA PCR Not Detected C. pneumoniae DNA (PCR) Not Detected Coronavirus OC43 (PCR) Not Detected Coronavirus HKU1 (PCR) Not Detected Coronavirus 229E (PCR) Not Detected SARS-CoV-2 (PCR) Not Detected Coronavirus NL63 (PCR) Not Detected Human Metapneumovir PCR Not Detected Influenza Type A (PCR) Not Detected Influenza Type B (PCR) Not Detected M. pneumoniae (PCR) Not Detected Parainfluenza 1 (PCR) Not Detected Parainfluenza 2 (PCR) Not Detected Parainfluenza 3 (PCR) Not Detected Parainfluenza 4 (PCR) Not Detected RSV (PCR) Not Detected Entero/Rhino (PCR) Not Detected 01/04/23 01/04/23 01/04/23 05:36 12:02 16:50 WBC 6.07 RBC 4.42 Hgb 13.0 Hct 39.7 MCV 89.8 MCH 29.4 MCHC 32.7 RDW Std Deviation 46.0 RDW Coeff of Mag 14.0 Plt Count 316 MPV 9.8 Immature Gran % (Auto) 0.5 Neut % (Auto) 91.5 Lymph % (Auto) 7.2 Harper % (Auto) 0.5 Eos % (Auto) 0.0 Baso % (Auto) 0.3 Neut # (Auto) 5.55 Lymph # (Auto) 0.44 L Harper # (Auto) 0.03 L Eos # (Auto) 0.00 Baso # (Auto) 0.02 Immature Gran # (Auto) 0.03 PT INR APTT PTT Ratio VBG pH VBG pCO2 VBG pO2 VBG HCO3 VBG O2 Saturation VBG Base Excess Sodium 136 Potassium 4.0 Chloride 103 Carbon Dioxide 26 Anion Gap 7 BUN 9 Creatinine 0.51 L Est Cr Clr Drug Dosing 106.0 Est GFR ( Amer) 112.1 Est GFR (Non-Af Amer) 96.7 BUN/Creatinine Ratio 17.6 Glucose 273 H POC Glucose 282 H 250 H Calcium 8.9 Phosphorus 2.8 Magnesium 2.3 Total Bilirubin 0.7 AST 10 L ALT 7 Alkaline Phosphatase 72 Troponin I High Sens B-Natriuretic Peptide Total Protein 6.8 Albumin 4.1 Globulin 2.7 Albumin/Globulin Ratio 1.5 Urine Color Urine Appearance Urine pH Ur Specific [place] Urine Protein Urine Glucose (UA) Urine Ketones Urine Blood Urine Nitrite Urine Bilirubin Urine Urobilinogen Ur Leukocyte Esterase Urine WBC (Auto) Urine RBC (Auto) U Hyaline Cast (Auto) U Epithel Cells (Auto) Urine Bacteria (Auto) Adenovirus (PCR) B. pertussis DNA (PCR) B.parapertussis DNA PCR C. pneumoniae DNA (PCR) Coronavirus OC43 (PCR) Coronavirus HKU1 (PCR) Coronavirus 229E (PCR) SARS-CoV-2 (PCR) Coronavirus NL63 (PCR) Human Metapneumovir PCR Influenza Type A (PCR) Influenza Type B (PCR) M. pneumoniae (PCR) Parainfluenza 1 (PCR) Parainfluenza 2 (PCR) Parainfluenza 3 (PCR) Parainfluenza 4 (PCR) RSV (PCR) Entero/Rhino (PCR) PG Care Time/CCT Total # of Minutes Spent Total Time Spent with Patient: Total time spent is greater than 50% in coordination of care (as documented) at patient's floor/unit and/or counseling patient: Coding Level of Care Code 52254 SUB INP/OBS CARE MIN Diagnoses Acute and chronic respiratory failure with hypoxia J96.21 Interstitial lung disease J84.9 Pulmonary HTN I27.20 BONITA (obstructive sleep apnea) G47.33 Prediabetes R73.03 Hypertension I10 Scleroderma M34.9 COPD with emphysema J43.1 Emphysema type: panlobular Hyperlipidemia E78.5 Chronic steroid use DVT prophylaxis Z29.9 UTI (urinary tract infection) N39.0 (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
[2023-01-04] MEDS ORDERED: SUCRALFATE 1 GM/10 ML UDC PO PRN (14:05)
[2023-01-04] MEDS: ACETAMINOPHEN 325 MG TAB PO PRN (14:09)
[2023-01-04] MEDS: cefTRIAXone SODIUM 2,000 MG in DEXTROSE 5 % MINI-B 50 ML IV SCH (14:48)
[2023-01-04] MEDS ORDERED: NON-FORMULARY MEDICATION (Cpap Machine misc) SCH (21:00)
[2023-01-04] MEDS: hydrOXYzine HCl 25 MG TAB PO SCH (21:15)
[2023-01-04] MEDS: GABAPENTIN 300 MG CAP PO SCH (21:16)
[2023-01-04] MEDS: LANTUS PER UNIT CHARGE SQ SCH (21:17)
[2023-01-05] MEDS: methylPREDNISolone 40 MG in SYRINGE 0 ML IV SCH ×3 (05:51→20:08)
[2023-01-05 06:42] LABS: Calcium 9.1 mg/dl (8.6-10.3); Creatinine Clr Calc Pharmacy 106.7 ml/min; Est GFR (African American) 112.9 ml/min; Est GFR (Non-African American) 97.4 ml/min; Potassium 4.3 mmol/L (3.5-5.1)
[2023-01-05] MEDS: ALBUT/IPRATROP 3MG/0.5MG NEB 3 ML VIAL NEB SCH ×4 (07:10→19:57)
[2023-01-05] MEDS: guaiFENesin 600 MG TABCR PO SCH ×2 (08:31→20:08)
[2023-01-05] MEDS: hydroCHLOROthiazide 25 MG TAB PO SCH (08:31)
[2023-01-05] MEDS: buPROPion SR 100 MG TABCR PO SCH ×2 (08:31→20:09)
[2023-01-05] MEDS: POTASSIUM CHLORIDE CRTAB 20 MEQ TABCR PO SCH ×2 (08:31→20:07)
[2023-01-05] MEDS: PANTOprazole 40 MG TAB PO SCH ×2 (08:32→20:07)
[2023-01-05] MEDS: SILDENAFIL CITRATE 20 MG TABLET PO SCH ×3 (08:32→20:06)
[2023-01-05] MEDS: FLUTICASONE/VILANTEROL 200/25MCG 14 PUFFS/INHALER INH SCH (08:32)
[2023-01-05] MEDS: BISOPROLOL FUMARATE 5 MG TAB PO SCH (08:32)
[2023-01-05] MEDS: DULoxetine HCL 60 MG CAP PO SCH (08:32)
[2023-01-05] MEDS: UMECLIDINIUM BROMIDE 62.5MCG/BLISTER 7 PUFFS/INHALER INH SCH (08:32)
[2023-01-05] MEDS: amLODIPine BESYLATE 5 MG TAB PO SCH (08:32)
[2023-01-05] MEDS: INSULIN ASPART PER UNIT CHARGE SC SCH ×4 (08:36→20:50)
[2023-01-05] MEDS: LANTUS PER UNIT CHARGE SQ SCH ×3 (08:37→21:58)
[2023-01-05] MEDS: AZITHROMYCIN 500 MG in DEXTROSE 5% 250 ML IV SCH (08:43)
[2023-01-05] MEDS: ENOXAPARIN INJ 40 MG/0.4 ML SYR SQ SCH (11:26)
[2023-01-05] MEDS: ACETAMINOPHEN 325 MG TAB PO PRN (12:57)
[2023-01-05] MEDS: cefTRIAXone SODIUM 2,000 MG in DEXTROSE 5 % MINI-B 50 ML IV SCH (15:48)
--- NOTE | 2023-01-05 19:02 | XRay Report ---
XR chest 1V portable CLINICAL HISTORY: resp failure, eval edema etc TECHNIQUE: Single frontal radiograph of the chest was obtained. Comparison: Comparison is made to chest radiograph 01/03/2023 FINDINGS: A port catheter is seen. Calcified aortic knob is seen. Reticular interstitial opacities are seen. No evidence of pleural effusion or pneumothorax. Healing left-sided rib fractures are again seen. IMPRESSION: Interstitial thickening without definite evidence of pulmonary edema. ACT 112: Negative or not required by law. Electronically signed by: Black Childs M.D. 01/05/2023 7:01 PM
[2023-01-05] MEDS: GABAPENTIN 300 MG CAP PO SCH (20:06)
[2023-01-05] MEDS: hydrOXYzine HCl 25 MG TAB PO SCH (20:07)
[2023-01-05] MEDS: oxyCODONE HCL IR 5 MG TAB (IMMEDIATE RELEASE) PO PRN (20:14)
--- NOTE | 2023-01-05 20:32 | Hospitalist Progress Note ---
Date of Service January 05, 2023 Assessment & Plan (1) Acute and chronic respiratory failure with hypoxia: Plan: acute component 2nd to COPD / ILD exacerbation chronic - COPD, ILD, pulmonary HTN, etc cont steroids, abx, etc - no wean on steroids today get another cxr - ensure no developing pneumonia or pulm edema nebs O2 keep sats 88-92% (2) Interstitial lung disease: Plan: with flare no pneumonia on CT chest at presentation see #1 above steroids/abx/O2/etc (3) Pulmonary HTN: Plan: severe on sildenafil 20mg TID cont NC O2 or other - keep sats 88-92% (4) BONITA (obstructive sleep apnea): Plan: CPAP 9cm H20 (5) Prediabetes: Plan: with severe hyperglycemia on IV steroids changed diet to T2DM BSGs ac/hs increase lantus increase novolog parameters check a1c while here to see if she has flipped to full-blown T2DM in the last year (I suspect such) last a1c was 6.3% about 1 year ago (6) Hypertension: Plan: cont home meds (7) Scleroderma: Plan: known dx (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 see #1 above (9) Hyperlipidemia: Plan: not on meds for such (10) Chronic steroid use: Plan: 10mg prednisone QOD for COPD/ILD/etc (11) DVT prophylaxis: Plan: lovenox 40mg daily (12) UTI (urinary tract infection): Plan: GNR cont rocephin 2gm IV daily follow cx to completion Admission and Anticipated Discharge Date Admission Date: January 04, 2023 Subjective tele overnight NSR or ST feels "ok" had episode of dyspnea around lunch-time today was very short of breath she was just laying in bed no fevers no sputum ongoing dry cough can't sleep at night has problems at home as well was on chronic xanax in the past - this was entirely weaned off using CPAP at HS and during the day when she has dyspnea at bedside Review of Systems Review of Systems: gen - did get out of bed this am ; no fevers or chills cv - no chest pain; no edema GI - no abd pain or vomiting Physical Exam Physical Exam: gen - lying in bed comfortably, occasionally looks dyspneic but can talk in full sentences; looks very similar or modestly better today mouth - MM more moist neck - no JVD heart - tones are distant but RRR, s1 s2, no obvious murmur lungs - still CTA b/l with good airation and no adventitious sounds abd - soft NT ND BS+ ext - no edema, pulses 2+ b/l psych - a/o x 3 ; little anxious Results & Data Results & Data Vital Signs (Past 12 Hours) Vital Signs Temp Pulse Pulse Pulse Resp BP BP 01/05/23 19:00 36.7 C 88 18 138/74 01/05/23 19:00 01/05/23 15:50 36.5 C 96 H 20 129/78 01/05/23 15:45 88 18 01/05/23 14:10 93 H 01/05/23 12:13 36.6 C 93 H 20 116/70 01/05/23 11:12 90 18 01/05/23 08:50 Pulse Ox O2 Del Method O2 Flow Rate 01/05/23 19:00 93 Nasal Cannula 6 01/05/23 19:00 CPAP 01/05/23 15:50 92 High Flow Nasal Cannula 8 01/05/23 15:45 94 Nasal Cannula 8 01/05/23 14:10 01/05/23 12:13 93 High Flow Nasal Cannula 8 01/05/23 11:12 Nasal Cannula 8 01/05/23 08:50 High Flow Nasal Cannula 6 Laboratory Results Laboratory Results - last 24 hr 01/04/23 01/05/23 01/05/23 20:53 05:45 07:53 Sodium 139 Potassium 4.3 Chloride 107 Carbon Dioxide 26 Anion Gap 6 BUN 20 Creatinine 0.50 L Est Cr Clr Drug Dosing 106.7 Est GFR ( Amer) 112.9 Est GFR (Non-Af Amer) 97.4 BUN/Creatinine Ratio 40.0 H Glucose 206 H POC Glucose 229 H 196 H Estimat Average Glucose Pending Hemoglobin A1c Pending Calcium 9.1 01/05/23 01/05/23 01/05/23 11:58 11:59 16:47 Sodium Potassium Chloride Carbon Dioxide Anion Gap BUN Creatinine Est Cr Clr Drug Dosing Est GFR ( Amer) Est GFR (Non-Af Amer) BUN/Creatinine Ratio Glucose POC Glucose 331 H* 329 H* 164 H Estimat Average Glucose Hemoglobin A1c Calcium 01/05/23 20:25 Sodium Potassium Chloride Carbon Dioxide Anion Gap BUN Creatinine Est Cr Clr Drug Dosing Est GFR ( Amer) Est GFR (Non-Af Amer) BUN/Creatinine Ratio Glucose POC Glucose 236 H Estimat Average Glucose Hemoglobin A1c Calcium PG Care Time/CCT Total # of Minutes Spent Total Time Spent with Patient: Total time spent is greater than 50% in coordination of care (as documented) at patient's floor/unit and/or counseling patient: Coding Level of Care Code 31319 SUB INP/OBS CARE 2/35MIN Diagnoses Acute and chronic respiratory failure with hypoxia J96.21 Interstitial lung disease J84.9 Pulmonary HTN I27.20 BONITA (obstructive sleep apnea) G47.33 Prediabetes R73.03 Hypertension I10 Scleroderma M34.9 COPD with emphysema J43.1 Emphysema type: panlobular Hyperlipidemia E78.5 Chronic steroid use DVT prophylaxis Z29.9 UTI (urinary tract infection) N39.0 (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
[2023-01-06] MEDS: methylPREDNISolone 40 MG in SYRINGE 0 ML IV SCH ×3 (05:30→20:32)
[2023-01-06 06:15] LABS: Calcium 9.2 mg/dl (8.6-10.3); Creatinine Clr Calc Pharmacy 86.9 ml/min; Est GFR (African American) 104.6 ml/min; Est GFR (Non-African American) 90.2 ml/min; Potassium 4.8 mmol/L (3.5-5.1)
[2023-01-06 06:28] LABS: Thyroid Stimulating Hormone 0.16 uIu/ml (0.300-4.500)
[2023-01-06 07:03] LABS: T4 Free Thyroxine 0.97 ng/dl (0.61-1.60)
[2023-01-06 07:23] LABS: Estimated Average Glucose 146 mg/dl; Hemoglobin A1C 6.7 % (4.5-5.6)
[2023-01-06] MEDS: ALBUT/IPRATROP 3MG/0.5MG NEB 3 ML VIAL NEB SCH ×4 (07:33→20:06)
[2023-01-06] MEDS: FLUTICASONE/VILANTEROL 200/25MCG 14 PUFFS/INHALER INH SCH (09:27)
[2023-01-06] MEDS: UMECLIDINIUM BROMIDE 62.5MCG/BLISTER 7 PUFFS/INHALER INH SCH (09:27)
[2023-01-06] MEDS: guaiFENesin 600 MG TABCR PO SCH ×2 (09:28→20:30)
[2023-01-06] MEDS: SILDENAFIL CITRATE 20 MG TABLET PO SCH ×3 (09:28→20:30)
[2023-01-06] MEDS: ENOXAPARIN INJ 40 MG/0.4 ML SYR SQ SCH (09:28)
[2023-01-06] MEDS: hydroCHLOROthiazide 25 MG TAB PO SCH (09:28)
[2023-01-06] MEDS: buPROPion SR 100 MG TABCR PO SCH ×2 (09:28→20:31)
[2023-01-06] MEDS: PANTOprazole 40 MG TAB PO SCH ×2 (09:28→20:30)
[2023-01-06] MEDS: BISOPROLOL FUMARATE 5 MG TAB PO SCH (09:29)
[2023-01-06] MEDS: DULoxetine HCL 60 MG CAP PO SCH (09:29)
[2023-01-06] MEDS: amLODIPine BESYLATE 5 MG TAB PO SCH (09:29)
[2023-01-06] MEDS: POTASSIUM CHLORIDE CRTAB 20 MEQ TABCR PO SCH ×2 (09:29→20:32)
[2023-01-06] MEDS: LANTUS PER UNIT CHARGE SQ SCH ×2 (09:33→20:41)
[2023-01-06] MEDS: INSULIN ASPART PER UNIT CHARGE SC SCH ×4 (09:33→20:41)
[2023-01-06] MEDS: AZITHROMYCIN 500 MG in DEXTROSE 5% 250 ML IV SCH (09:47)
--- NOTE | 2023-01-06 15:14 | Hospitalist Progress Note ---
Date of Service January 06, 2023 Assessment & Plan (1) Acute and chronic respiratory failure with hypoxia: Plan: acute component 2nd to COPD / ILD exacerbation chronic - COPD, ILD, pulmonary HTN, etc cont steroids, abx, etc - no wean on steroids today, maybe tomorrow cxr yesterday w/o complicating pulmonary edema or pneumonia day #3 of 5 of zithromax omnicef is more so for UTI but will cover typicals, if present, in the lungs cont nebs, inhalers, O2, etc keep sats 88-92% I consulted Dr Cam - her services tech - for any additional recommendations could trial her on saline nebs, vibration vest, etc but I am uncertain she has that much mucous in the lungs at this time would Rx her anxiety as this makes her breathing worse low-dose ativan? 0.25mg q8h prn? appreciate Dr Cam's consultation & recs (2) Interstitial lung disease: Plan: with flare no pneumonia on CT chest at presentation cxr yesterday w/o infiltrates steroids/abx/O2/etc (3) Pulmonary HTN: Plan: severe on sildenafil 20mg TID cont NC O2 or other - keep sats 88-92% (4) BONITA (obstructive sleep apnea): Plan: CPAP 9cm H20 (5) Prediabetes: Plan: with severe hyperglycemia on IV steroids, and then had a low today due to over- correction BSGs ac/hs cont lantus 18 units BID adjust novolog parameters could consider a dose of AM NPH to cover her steroids last a1c was 6.3% about 1 year ago now 6.7% we discussed metformin once or twice daily at discharge in light of chronic prednisone usage but she declined stating she has tried metformin in the past and had side effects (6) Hypertension: Plan: cont home meds control is reasonable at this time (7) Scleroderma: Plan: known dx follows with Scleroderma specialist in [place] she asks about seeing someone local in [place] from rheumatology Dr Jordi Cohn is available with [facility] could consider referral at d/c per her wishes (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 see #1 above (9) Hyperlipidemia: Plan: not on meds for such (10) Chronic steroid use: Plan: 10mg prednisone QOD for COPD/ILD/etc (11) DVT prophylaxis: Plan: lovenox 40mg daily (12) UTI (urinary tract infection): Plan: 2nd pansens klebsiella stop rocephin 2gm IV daily change to omnicef 300mg BID x 5 days then stop all abx (13) History of anemia due to vitamin B12 deficiency: Plan: at her request - vitamin B12 1000mcg IM x 1 last B12 level was 2020 consider checking while here Plan appreciate pulm consultation needs PT/OT, but uncertain she will be able to meaningfully participate due to severe dyspnea with minimal exertion consider palliative care consultation as lung disease is end-stage she would benefit from symptom management (anxiety, dyspnea, etc) Admission and Anticipated Discharge Date Admission Date: January 04, 2023 Subjective patient reports feeling really no different in comparison to when she first arrived at [facility] a few days ago has episodes of dyspnea - often come on randomly, sometimes at rest these make her anxious, and then she feels even more dyspneic she asks if seeing rheumatology here might help with management of her scleroderma? she also reports that her B12 injection is due and asks if she can have such still no sputum production eating well tele - NSR or mild sinus tach Review of Systems Review of Systems: gen - no fevers or chills cv - no chest pains pulm - dyspnea with any exertion; dry cough; dyspnea at rest some times insomnia - ongoing issues sleeping at night Physical Exam Physical Exam: gen - lying in bed comfortably, she looks better than yesterday mouth - MM dry, palate and buccal mucosa look a little irritated neck - no JVD heart - tones are distant but RRR, s1 s2, no obvious murmur lungs - still CTA b/l with good airation and transient wheeze only; no rales abd - soft NT ND BS+ ext - no edema, pulses 2+ b/l psych - a/o x 3 Results & Data Results & Data Vital Signs (Past 12 Hours) Vital Signs Temp Pulse Pulse Resp BP Pulse Ox O2 Del Method 01/06/23 11:34 36.9 C 100 H 18 124/82 92 CPAP 01/06/23 10:48 88 20 94 CPAP 01/06/23 09:20 High Flow Nasal Cannula 01/06/23 07:52 36.4 C L 89 19 141/74 H 92 Nasal Cannula 01/06/23 07:34 79 17 CPAP 01/06/23 05:48 79 O2 Flow Rate 01/06/23 11:34 01/06/23 10:48 7 01/06/23 09:20 6 01/06/23 07:52 6 01/06/23 07:34 8 01/06/23 05:48 Laboratory Results Laboratory Results - last 24 hr 01/05/23 01/05/23 01/05/23 05:45 16:47 20:25 Sodium 139 Potassium 4.3 Chloride 107 Carbon Dioxide 26 Anion Gap 6 BUN 20 Creatinine 0.50 L Est Cr Clr Drug Dosing 106.7 Est GFR ( Amer) 112.9 Est GFR (Non-Af Amer) 97.4 BUN/Creatinine Ratio 40.0 H Glucose 206 H POC Glucose 164 H 236 H Estimat Average Glucose 146 Hemoglobin A1c 6.7 H Calcium 9.1 TSH Free T4 01/06/23 01/06/23 01/06/23 05:28 07:36 11:26 Sodium 137 Potassium 4.8 Chloride 105 Carbon Dioxide 25 Anion Gap 7 BUN 29 H Creatinine 0.63 Est Cr Clr Drug Dosing 86.9 Est GFR ( Amer) 104.6 Est GFR (Non-Af Amer) 90.2 BUN/Creatinine Ratio 46.0 H Glucose 184 H POC Glucose 172 H 326 H* Estimat Average Glucose Hemoglobin A1c Calcium 9.2 TSH 0.160 L Free T4 0.97 01/06/23 11:28 Sodium Potassium Chloride Carbon Dioxide Anion Gap BUN Creatinine Est Cr Clr Drug Dosing Est GFR ( Amer) Est GFR (Non-Af Amer) BUN/Creatinine Ratio Glucose POC Glucose 308 H* Estimat Average Glucose Hemoglobin A1c Calcium TSH Free T4 PG Care Time/CCT Total # of Minutes Spent Total Time Spent with Patient: Total time spent is greater than 50% in coordination of care (as documented) at patient's floor/unit and/or counseling patient: Coding Level of Care Code 61236 SUB INP/OBS CARE 235MIN Diagnoses Acute and chronic respiratory failure with hypoxia J96.21 Interstitial lung disease J84.9 Pulmonary HTN I27.20 BONITA (obstructive sleep apnea) G47.33 Prediabetes R73.03 Hypertension I10 Scleroderma M34.9 COPD with emphysema J43.1 Emphysema type: panlobular Hyperlipidemia E78.5 Chronic steroid use DVT prophylaxis Z29.9 UTI (urinary tract infection) N39.0 History of anemia due to vitamin B12 deficiency Z86.2 (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
[2023-01-06] MEDS ORDERED: HEPARIN 100 UNIT/ML 5ML FLUSH FLUSH PRN (15:50)
[2023-01-06] MEDS: CARBOHYDRATES FOR HYPOGLYCEMIA PO PRN ×2 (16:20→16:40)
[2023-01-06] MEDS: NYSTATIN SUSP 500,000 U/5 ML UDC PO SCH ×2 (16:40→20:33)
--- NOTE | 2023-01-06 17:37 | Pulmonary Consultation ---
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 Qualified Code(s): J43.1 - Panlobular emphysema Plan CTA chest 01/03/2023 personally reviewed: Severe centrilobular and paraseptal emphysema appreciated bilaterally Motion degraded study, Edac cannot be ruled out Left upper lobe peripheral pulmonary nodule No significant mediastinal lymphadenopathy 2D echo 09/22/2022: EF 55-60%, grade 1 diastolic dysfunction, RV normal in size and function -- Acute on chronic hypoxic hypercapnic respiratory failure Likely secondary to underlying severe COPD with emphysema and chronic bronchitis exacerbation Gold class E Respiratory bio fire negative for everything on 01/03/2023 BNP 203 On Advair 230-21 mcg and Spiriva. Azithromycin 250 mg Qpoukj-Tgtdqiccx-Khmtme, QTc 455 on 01/06/2023 Continue with as needed albuterol and Teresita's Patient was asking about AVAPS machine left 1999. Her last FEV1 was 67% predicted. It needs to be less than 50% to qualify. Patient is also on chronic prednisone 10 mg every other day as per the transplant physician at [place]. Unfortunately [facility] told her that she would not be a transplant candidate. She followed up with [facility] since then but she got infection was in the hospital multiple times. She is going to follow-up with them again For chronic bronchitis continue with Mucinex and flutter valve. If that does not help and I will add hypertonic saline Spirometry 01/21/2022 personally reviewed: Moderate obstructive lung dysfunction (Decrease in FVC by 60 mm, increase in FEV1 by 90 mL compared to 03/2021) FVC 2.70 L 95%, FEV1 1.36 L 67%, FEV1/FVC 50% --Chronic hypoxic respiratory failure On 6 L nasal cannula at rest with 8 L on exertion Advised to keep oxygen saturation between 88-92% --Pulmonary nodule Left upper lobe 5 mm Has been stable --BONITA She was on CPAP of 9 cm H2O Continue with CPAP while in the hospital --Pulmonary hypertension Combination of type I, type II and type III Type I likely from underlying scleroderma 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 Defer management to them 2D echo 09/22/2022: EF 55-60%, grade 1 diastolic dysfunction, RV normal in size and function 2D echo 01/04/2022: EF 60-65%, grade 1 diastolic dysfunction, RV normal in size and function, RVSP 40-50 mmHg --S/p COVID-19 pneumonia January 2020, was hospitalized S/p treatment with dexamethasone --Scleroderma Following up with rheumatology Plan: Go down on Solu-Medrol to 40 mg Q12 Patient seems to be almost back to her baseline I will try to get an ABG tomorrow and if she is hypercapnic then we will try to see if she will be able to get AVAPS machine at home On discharge would again recommend azithromycin Qheryi-Jbpjegluh-Kazuee 250 mg along with Advair and Spiriva Please note the above document was generated using voice recognition software. It may contain grammatical, syntax or spelling errors.Any formal questions or concerns about the content, text or information contained within the body of this dictation should be directly addressed to the provider for clarification. History of Present Illness Attending Physician: Daniel Roberson MD History of Present Illness 72-year-old female admitted to the hospital for worsening shortness of breath She is following with pulmonary for her severe COPD with emphysema on home O2 6 L at baseline 8 L on activity, pulmonary hypertension on sildenafil Past medical history: Scleroderma following up with rheumatology, hypertension, anxiety, she is a transplant candidate and follows up with [facility] on chronic prednisone 10 mg every other day as per the transplant physician Patient was last seen by me on 09/04/2022 At the time of examination patient was saturating 90-91% on 6 L nasal cannula at rest She stated she is feeling better compared to when she came to the hospital At home she did not do anything out of the ordinary. No upper respiratory tract infections. Denies any significant nasal congestion Has been compliant with her inhalers along with azithromycin Rdlteo-Ojhwvisvo-Ruduey. No fever or chills No night sweats, no unintentional weight loss Did have dysuria. No hematuria, no diarrhea Social history: Greater than 29-qjme-bdxe smoking history, quit at the age of 61 , denies any illicit drug use, no alcohol use. 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 Pets: Has a cat and a dog at home. No birds or poultry nearby Allergies: Seasonal takes llwo-bfl-itpkspf medications for it Asthma: No personal or family history of asthma Lung cancer: Family history of lung cancer in the father who was a smoker Allergies Allergy/AdvReac Type Severity Reaction Status Date / Time ferric carboxymaltose Allergy Intermediate SOB, Verified 01/03/23 19:10 [From Injectafer] tachycardia Home Medications Medication Instructions Recorded Confirmed Type mupirocin 2 % topical ointment 1 applic topical BID PRN nasal 11/26/21 01/03/23 Rx irritation #22 grams hydroxyzine HCl 25 mg tablet 25 mg PO HS #90 tabs 03/14/22 01/03/23 Rx bupropion HCl 100 mg tablet,12 hr 100 mg PO BID #180 ea 04/12/22 01/03/23 Rx sustained-release (Wellbutrin SR) bisoprolol 10 1 tab PO DAILY #90 tabs 05/17/22 01/03/23 Rx mg-hydrochlorothiazide 6.25 mg tablet duloxetine 60 mg capsule,delayed 60 mg PO QAM #90 caps 05/17/22 01/03/23 Rx release Oxygen Home #1 ea 09/03/22 12/17/22 History Portable Oxygen #1 ea 09/03/22 12/17/22 Rx amlodipine 10 mg tablet 10 mg PO QAM 09/03/22 01/03/23 History sildenafil (pulm.hypertension) 20 20 mg PO Q8H 09/03/22 01/03/23 History mg tablet CPAP Machine #1 ea 09/04/22 12/17/22 Rx albuterol sulfate 90 mcg/actuation 2 puff inhalation QID PRN 09/04/22 01/03/23 Rx aerosol inhaler (Ventolin HFA) Shortness Of Breath #18 grams ipratropium 0.5 mg-albuterol 3 mg 3 ml inhalation Q8H PRN COPD- DX 09/04/22 01/03/23 Rx (2.5 mg base)/3 mL nebulization J44.9 J43.9 J45.909 #180 mL soln tiotropium bromide 18 mcg capsule 1 cap inhalation QAM #90 09/04/22 01/03/23 Rx with inhalation device (Spiriva inhalations with HandiHaler) Advair HFA 230 mcg-21 2 puff inhalation BID #12 grams 09/17/22 01/03/23 Rx mcg/actuation aerosol inhaler (fluticasone propion-salmeterol) oxycodone 5 mg tablet 5 mg PO Q6H PRN pain #20 tabs 10/17/22 01/03/23 Rx gabapentin 300 mg capsule 300 mg PO HS #90 caps 12/17/22 01/03/23 Rx guaifenesin 600 mg tablet, 600 mg PO BID 12/17/22 01/03/23 History extended release 12 hr (Mucinex) pantoprazole 40 mg tablet,delayed 40 mg PO BID #180 tabs 12/17/22 01/03/23 Rx release azithromycin 250 mg tablet 250 mg PO 3XWK 01/03/23 01/03/23 History prednisone 10 mg tablet 10 mg PO Q OTHER DAY 01/03/23 01/03/23 History Patient History Medical History (Updated 01/05/23 @ 09:10 by Daniel Roberson MD) Acute and chronic respiratory failure with hypoxia Interstitial lung disease NSVT (nonsustained ventricular tachycardia) Osteopenia History of COVID-19 Dx 01/2020; required hospitalization Prediabetes Hypertension B12 deficiency Pneumonia due to COVID-19 virus Urinary incontinence Collagenous colitis Multiple pulmonary nodules determined by computed tomography of lung Raynaud's disease Osteoarthritis Chronic steroid use Peripheral neuropathy bilateral hands & feet On home oxygen therapy 4lpm via n/c continuous Hypertension Pulmonary emphysema Prediabetes monitoring Iron deficiency anemia Insomnia, persistent Gastritis, chronic Depression Asthma Anxiety Scleroderma Obstructive sleep apnea cpap Hyperlipidemia GAVE (gastric antral vascular ectasia) Gastroenterology in [facility]. Dr. Marinelli Right lower lobe pneumonia Gastroparesis pt denies COPD (chronic obstructive pulmonary disease) Surgical History History of cataract extraction (09/30/19) Both eyes H/O cataract extraction (09/2019) b/l eyes History of cystoscopy Hx of lumpectomy Left (-) History of dilatation and curettage History of bilateral tubal ligation History of esophagogastroduodenoscopy (EGD) H/O tooth extraction History of tonsillectomy H/O laminectomy Lumbar area History of colonoscopy History of bladder surgery bladder tack History of cholecystectomy Open Family History Mother Stroke Father Lung cancer Sister Non Hodgkin's lymphoma Lupus Denies family history of Ovarian cancer Prostate cancer Myocardial infarction Breast cancer Colorectal cancer Social History Smoking Status: Former smoker Tobacco Type: Cigarettes Age Quit Using Tobacco: 59; Cigarettes Per Day: 40; Second Hand Exposure: No; Do You Dip or Chew Tobacco: No; Tobacco Cessation Education Requested by Patient: No Hx Alcohol Use: No Hx Substance Use: No Preferred Language: American Communication Ability: Effective Visual Impairment: Limited Hearing Ability: Normal Belt Changer Required: No Beliefs That Will Affect Care: None marital status: Current Living Situation: Spouse current occupational status: retired 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 ; 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 How many Children do You have: 2 Other Information That Helps Us Care for You: No Feels Safe at Home: Yes Childhood Exposure to Second-Hand Smoke: Yes Diet: regular Diet Comment: Regular caffeine: Yes during the past year weight has: remained stable Dental Care, Regularly: Yes Physical Activity Frequency: Does not Exercise Seatbelt Use: always Sunscreen Use: Yes Assistive Devices: Stair Lift, Walker and Wheelchair Assistive Devices Comment: Rolater Review of Systems 2 Review of Systems: All systems reviewed & are unremarkable except as noted in HPI & below Physical Exam 2 Physical Exam: Constitutional: No acute distress HEENT: EOMI, PERRLA Respiratory system: Decreased air entry bilaterally, no wheeze, no rhonchi, mild crackles bilateral lower lobe CVS: S1-S2 positive, no murmurs or gallops, accentuated P2 Abdomen: Soft, nontender, nondistended, positive bowel sounds x4 Extremities: +2 pulses bilaterally radialis/ dorsalis pedis, no cyanosis, no edema Neuro: Awake alert oriented x3 Psych: Normal mood and affect G/U: Pure wick catheter Skin: no rashes, warm and dry Lymphatic: no cervical or axillary lymphadenopathy Results & Data Results & Data Vital Signs (Past 12 Hours) Vital Signs Temp Pulse Pulse Resp BP BP Pulse Ox 01/06/23 16:11 36.5 C 71 18 142/83 H 95 01/06/23 15:31 92 H 20 91 01/06/23 14:09 89 01/06/23 11:34 36.9 C 100 H 18 124/82 92 01/06/23 10:48 88 20 94 01/06/23 09:20 01/06/23 07:52 36.4 C L 89 19 141/74 H 92 01/06/23 07:34 79 17 01/06/23 05:48 79 O2 Del Method O2 Flow Rate 01/06/23 16:11 Nasal Cannula 6 01/06/23 15:31 Nasal Cannula 6 01/06/23 14:09 01/06/23 11:34 CPAP 01/06/23 10:48 CPAP 7 01/06/23 09:20 High Flow Nasal Cannula 6 01/06/23 07:52 Nasal Cannula 6 01/06/23 07:34 CPAP 8 01/06/23 05:48 Laboratory Results 01/04/23 05:36 01/06/23 05:28 PG Care Time/CCT Total # of Minutes Spent Total Time Spent with Patient: Total time spent is greater than 50% in coordination of care (as documented) at patient's floor/unit and/or counseling patient: Coding Level of Care Code 45070 INT INP/OBS CARE 3/75MIN Diagnoses Chronic steroid use Acute and chronic respiratory failure with hypoxia J96.21 Interstitial lung disease J84.[address] R93.89 Pulmonary HTN I27.20 BONITA (obstructive sleep apnea) G47.33 COPD with emphysema J43.1 Emphysema type: panlobular
[2023-01-06] MEDS: CEFDINIR 300 MG CAP PO SCH (20:30)
[2023-01-06] MEDS: GABAPENTIN 300 MG CAP PO SCH (20:31)
[2023-01-06] MEDS: hydrOXYzine HCl 25 MG TAB PO SCH (20:32)
[2023-01-06] MEDS: oxyCODONE HCL IR 5 MG TAB (IMMEDIATE RELEASE) PO PRN (20:40)
[2023-01-07] MEDS: methylPREDNISolone 40 MG in SYRINGE 0 ML IV SCH (06:11)
[2023-01-07] MEDS: ALBUT/IPRATROP 3MG/0.5MG NEB 3 ML VIAL NEB SCH ×4 (07:14→19:24)
--- NOTE | 2023-01-07 08:26 | Pulmonology Progress Note ---
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 Qualified Code(s): J43.1 - Panlobular emphysema Plan CTA chest 01/03/2023 personally reviewed: Severe centrilobular and paraseptal emphysema appreciated bilaterally Motion degraded study, Edac cannot be ruled out Left upper lobe peripheral pulmonary nodule No significant mediastinal lymphadenopathy 2D echo 09/22/2022: EF 55-60%, grade 1 diastolic dysfunction, RV normal in size and function ABG 01/07/2023: 7.43/37/74 on 6 L -- Acute on chronic hypoxic hypercapnic respiratory failure Likely secondary to underlying severe COPD with emphysema and chronic bronchitis exacerbation Gold class E Respiratory bio fire negative for everything on 01/03/2023 BNP 203 On Advair 230-21 mcg and Spiriva. Azithromycin 250 mg Ijojqp-Efpyvpdva-Ljvmyx, QTc 455 on 01/06/2023 Continue with as needed albuterol and Teresita's Patient was asking about AVAPS machine left 1999. Her last FEV1 was 67% predicted. It needs to be less than 50% to qualify. Patient is also on chronic prednisone 10 mg every other day as per the transplant physician at [place]. Unfortunately [facility] told her that she would not be a transplant candidate. She followed up with [facility] since then but she got infection was in the hospital multiple times. She is going to follow-up with them again She is not a candidate for lung volume reduction or endobronchial valve placement given that her RV was only 113% in TLC 94% based on PFT 08/17/2020 For chronic bronchitis continue with Mucinex and flutter valve. If that does not help and I will add hypertonic saline Spirometry 01/21/2022 personally reviewed: Moderate obstructive lung dysfunction (Decrease in FVC by 60 mm, increase in FEV1 by 90 mL compared to 03/2021) FVC 2.70 L 95%, FEV1 1.36 L 67%, FEV1/FVC 50% --Chronic hypoxic respiratory failure On 6 L nasal cannula at rest with 8 L on exertion Advised to keep oxygen saturation between 88-92% --Pulmonary nodule Left upper lobe 5 mm Has been stable --BONITA She was on CPAP of 9 cm H2O Continue with CPAP while in the hospital --Pulmonary hypertension Combination of type I, type II and type III Type I likely from underlying scleroderma Patient has been on sildenafil from the rn patient care Defer management to them 2D echo 09/22/2022: EF 55-60%, grade 1 diastolic dysfunction, RV normal in size and function 2D echo 01/04/2022: EF 60-65%, grade 1 diastolic dysfunction, RV normal in size and function, RVSP 40-50 mmHg --S/p COVID-19 pneumonia January 2020, was hospitalized S/p treatment with dexamethasone --Scleroderma Following up with rheumatology Plan: Transition Solu-Medrol to 40 mg of prednisone as of tomorrow and titrated off back to her home dose of 10 mg every other day and 5-6 days Patient is not hypercapnic on the ABG. She will not be a candidate for AVAPS machine right now. On discharge would again recommend azithromycin Sloizi-Bjatlmvwq-Iobyyj 250 mg along with Advair and Spiriva Please note the above document was generated using voice recognition software. It may contain grammatical, syntax or spelling errors.Any formal questions or concerns about the content, text or information contained within the body of this dictation should be directly addressed to the provider for clarification. Admission and Anticipated Discharge Date Admission Date: January 04, 2023 Subjective Patient seen and examined at bedside. No acute distress, no adverse events overnight She was saturating 93-94% on 6 L nasal cannula while at rest Overall she says she is feeling better compared to when she came to the hospital Shortness of breath improved Denies any chest pain Occasional cough with clear phlegm, no chest congestion No nausea vomiting, fair appetite Review of Systems 2 Review of Systems: All systems reviewed & are unremarkable except as noted in Subjective Physical Exam 2 Physical Exam: Constitutional: No acute distress HEENT: EOMI, PERRLA Respiratory system: Decreased air entry bilaterally, no wheeze, no rhonchi, mild crackles bilateral lower lobe CVS: S1-S2 positive, no murmurs or gallops, accentuated P2 Abdomen: Soft, nontender, nondistended, positive bowel sounds x4 Extremities: +2 pulses bilaterally radialis/ dorsalis pedis, no cyanosis, no edema Neuro: Awake alert oriented x3 Psych: Normal mood and affect G/U: Pure wick catheter Skin: no rashes, warm and dry Lymphatic: no cervical or axillary lymphadenopathy Results & Data Results & Data Vital Signs (Past 12 Hours) Vital Signs Temp Pulse Pulse Resp BP Pulse Ox O2 Del Method 01/07/23 08:19 36.6 C 92 H 20 126/81 90 High Flow Nasal Cannula 01/07/23 07:17 82 18 91 Nasal Cannula 01/07/23 03:00 36.3 C L 109 H 18 150/85 H 96 CPAP 01/06/23 23:02 100 H 01/06/23 22:00 36.8 C 74 18 133/76 98 CPAP O2 Flow Rate 01/07/23 08:19 6 01/07/23 07:17 6 01/07/23 03:00 01/06/23 23:02 01/06/23 22:00 Laboratory Results 01/04/23 05:36 01/06/23 05:28 PG Care Time/CCT Total # of Minutes Spent Total Time Spent with Patient: Total time spent is greater than 50% in coordination of care (as documented) at patient's floor/unit and/or counseling patient: Coding Level of Care Code 05516 SUB INP/OBS CARE 2/35MIN Diagnoses Chronic steroid use Acute and chronic respiratory failure with hypoxia J96.21 Interstitial lung disease J84.[address] R93.89 Pulmonary HTN I27.20 BONITA (obstructive sleep apnea) G47.33 COPD with emphysema J43.1 Emphysema type: panlobular
[2023-01-07 09:04] LABS: Base Excess ABG 0.5 mEq/L (-9-1.8); HCO3 ABG 25 mmol/L (19-24); Oxygen Saturation ABG 95.8 % (90-95); PCO2 ABG 37 mmHg (35-46); PO2 ABG 74 mmHg (80-95); pH ABG 7.43 (7.35-7.45)
[2023-01-07 09:10] LABS: Allen Test Pos (Pos)
[2023-01-07] MEDS: buPROPion SR 100 MG TABCR PO SCH ×2 (09:13→20:48)
[2023-01-07] MEDS: amLODIPine BESYLATE 5 MG TAB PO SCH (09:13)
[2023-01-07] MEDS: NYSTATIN SUSP 500,000 U/5 ML UDC PO SCH ×4 (09:13→20:51)
[2023-01-07] MEDS: BISOPROLOL FUMARATE 5 MG TAB PO SCH (09:13)
[2023-01-07] MEDS: CEFDINIR 300 MG CAP PO SCH ×2 (09:14→20:53)
[2023-01-07] MEDS: guaiFENesin 600 MG TABCR PO SCH ×2 (09:14→20:51)
[2023-01-07] MEDS: DULoxetine HCL 60 MG CAP PO SCH (09:14)
[2023-01-07] MEDS: hydroCHLOROthiazide 25 MG TAB PO SCH (09:14)
[2023-01-07] MEDS: SILDENAFIL CITRATE 20 MG TABLET PO SCH ×3 (09:15→20:52)
[2023-01-07] MEDS: FLUTICASONE/VILANTEROL 200/25MCG 14 PUFFS/INHALER INH SCH (09:15)
[2023-01-07] MEDS: PANTOprazole 40 MG TAB PO SCH ×2 (09:15→20:52)
[2023-01-07] MEDS: ENOXAPARIN INJ 40 MG/0.4 ML SYR SQ SCH (09:15)
[2023-01-07] MEDS: UMECLIDINIUM BROMIDE 62.5MCG/BLISTER 7 PUFFS/INHALER INH SCH (09:15)
[2023-01-07] MEDS: POTASSIUM CHLORIDE CRTAB 20 MEQ TABCR PO SCH ×2 (09:21→20:50)
[2023-01-07] MEDS: LANTUS PER UNIT CHARGE SQ SCH (09:34)
[2023-01-07] MEDS: INSULIN ASPART PER UNIT CHARGE SC SCH ×5 (09:35→23:51)
[2023-01-07] MEDS: AZITHROMYCIN 500 MG in DEXTROSE 5% 250 ML IV SCH (09:39)
[2023-01-07] MEDS ORDERED: CYANOCOBALAMIN 1000 MCG/ML VIAL IM ONE (11:51)
[2023-01-07] MEDS ORDERED: PHARMACY GLYCEMIC MGMT CONSULT PRN (14:44)
--- NOTE | 2023-01-07 15:16 | Pharmacy Report ---
Pharmacy Glycemic Short Note 2 - Date of Service January 07, 2023 - Glycemic Short BSG Results (Last 24 hours): 01/06/23 01/06/23 01/06/23 16:15 16:16 16:36 POC Glucose 62 L* 69 L* 60 L* 01/06/23 01/06/23 01/06/23 16:53 16:54 16:56 POC Glucose 57 L* 51 L* 63 L* 01/06/23 01/06/23 01/06/23 17:06 17:08 20:06 POC Glucose 69 L* 134 H 194 H 01/07/23 01/07/23 07:40 11:45 POC Glucose 166 H 363 H* OUTPATIENT ANTIDIABETIC REGIMEN: * N/A HbA1C: 6.7% ASSESSMENT: * Pt is a 72 year old female admitted with acute on chronic respiratory failure secondary to COPD/ILD exacerbation. History of pre-diabetes - no antihyperglycemic medications at home. Pharmacy consulted today to assist with glycemic management in the setting of hyper/hypoglycemia with steroids. * BSGs tenuous over the course of admission: [phone]/dL the last 24h. Received 33 units of basal and 44 units of bolus insulin yesterday. Received treatment for hypoglycemia last evening. * Tolerating diet, methylpred 40mg IV q8h transitioned to q12h today. * Agree with titration of Lantus to 18 units BID given elevated fasting- will likely need to decrease as steroid dose is decreased. Pt is persistently elevated at lunch followed by drastic decline in BSG at dinner. Will tighten breakfast Novolog and loosen Novolog parameters at all other times of day to try to mitigate this. PLAN FOR INPATIENT GLYCEMIC CONTROL: * Hold outpatient oral diabetes medications * Basal insulin * Lantus 18 units SQ BID * Bolus insulin * NovoLog per scale ACHS or Q6hrs while NPO * Goal Range: Low 120 mg/dL - High 160 mg/dL * Correction Factor: 12 mg/dL/unit at breakfast, 20mg/dl/unit all other times of day * Nutritional / Prandial insulin per carb ratio of 1 unit per 4 grams (breakfast) 5 grams (all other times of day) CHO consumed
--- NOTE | 2023-01-07 19:31 | Hospitalist Progress Note ---
Date of Service January 07, 2023 Assessment & Plan (1) Acute and chronic respiratory failure with hypoxia: Plan: acute component 2nd to COPD / ILD exacerbation chronic - COPD with chronic bronchitis, ILD, pulmonary HTN, etc cont steroids, abx, etc - steroids decreased to methylprednisolone 40 mg IV twice daily cxr yesterday w/o complicating pulmonary edema or pneumonia completed 4 days of high-dose azithromycin, will change to her chronic dosing 250 mg Friday and Friday omnicef is more so for UTI but will cover typicals, if present, in the lungs cont nebs, inhalers, O2, etc keep sats 88-92% I consulted Dr Cam - her fire observer - for any additional recommendations - reviewed recommendations in his note today continue Mucinex, flutter valve, consider hypertonic saline (2) Interstitial lung disease: Plan: with flare no pneumonia on CT chest at presentation cxr 01/05 w/o infiltrates steroids/abx/O2/etc (3) Pulmonary HTN: Plan: severe on sildenafil 20mg TID cont NC O2 or other - keep sats 88-92% (4) BONITA (obstructive sleep apnea): Plan: CPAP 9cm H20 (5) Prediabetes: Plan: with severe hyperglycemia on IV steroids, remains very labile -severely hyperglycemic BG in the 360s late morning, discussed with clinical pharmacist who recommended adjusting ratios for increased a.m. coverage and relatively less in midday/evening -pharmacy glycemic management consult -steroids are decreasing last a1c was 6.3% about 1 year ago now 6.7% we discussed metformin once or twice daily at discharge in light of chronic prednisone usage but she declined stating she has tried metformin in the past and had side effects (6) Hypertension: Plan: cont home meds control is reasonable at this time (7) Scleroderma: Plan: known dx follows with Scleroderma specialist in [place] she asks about seeing someone local in [place] from rheumatology Dr Jordi Cohn is available with [facility] could consider referral at d/c per her wishes (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 see #1 above (9) Hyperlipidemia: Plan: not on meds for such (10) Chronic steroid use: Plan: 10mg prednisone QOD for COPD/ILD/etc (11) DVT prophylaxis: Plan: lovenox 40mg daily (12) UTI (urinary tract infection): Plan: 2nd pansens klebsiella initially ceftriaxone, changed to omnicef 300mg BID x 5 days then stop all abx (13) History of anemia due to vitamin B12 deficiency: Plan: at her request - vitamin B12 1000mcg IM x 1 last B12 level was 2020 consider checking while here Plan appreciate pulm consultation needs PT/OT, but uncertain she will be able to meaningfully participate due to severe dyspnea with minimal exertion consider palliative care consultation as lung disease is end-stage she would benefit from symptom management (anxiety, dyspnea, etc) Admission and Anticipated Discharge Date Admission Date: January 04, 2023 Subjective she does feel like her dyspnea has improved a little bit over the last couple of days. she cannot identify any precipitant of the current exacerbation but notes she has been in the hospital 4 times since the summer. She continues to have severe dyspnea on exertion was extremely winded after returning from the bathroom and required her CPAP to recover. She is near her baseline level of oxygen which is 6 L at rest and 8 L with exertion Physical Exam 2 Physical Exam: PHYSICAL EXAMINATION Last 24h vital signs reviewed, see documentation in flowsheet General: observed ambulating slowly back from bathroom, severely dyspneic with any exertion sits on edge of bed and recover slowly using CPAP HEENT: Normocephalic, atraumatic, pupils round and equal, sclerae anicteric, no conjunctival injection, moist mucus membranes Lungs: initially labored but then comfortable enough to tolerate conversation, increased respiratory effort. Clear to auscultation bilaterally except for slight basilar crackles and very diminished in apices. good air movement into bases without wheezing Heart: mildly tachycardic Regular rate and rhythm, no murmurs. No JVD Abdomen: Soft, nondistended. Bowel sounds present. Extremities: Warm, dry, well-perfused. No extremity edema. Neuro: Alert and oriented x 4, face symmetric, moves 4 extremities well Psych: Normal affect and behavior Results & Data Results & Data Vital Signs (Past 12 Hours) Vital Signs Temp Pulse Pulse Pulse Resp BP Pulse Ox 01/07/23 16:21 36.8 C 101 H 20 128/86 90 01/07/23 15:07 98 H 14 97 01/07/23 14:21 94 H 01/07/23 12:33 36.5 C 92 H 22 116/75 90 01/07/23 11:26 91 H 15 90 01/07/23 09:10 01/07/23 08:19 36.6 C 92 H 20 126/81 90 O2 Del Method O2 Flow Rate 01/07/23 16:21 CPAP 01/07/23 15:07 Nasal Cannula 6 01/07/23 14:21 01/07/23 12:33 High Flow Nasal Cannula 6 01/07/23 11:26 Oxymask 5 01/07/23 09:10 High Flow Nasal Cannula 6 01/07/23 08:19 High Flow Nasal Cannula 6 Laboratory Results 01/04/23 05:36 01/06/23 05:28 PG Care Time/CCT Total # of Minutes Spent Total Time Spent with Patient: Total time spent is greater than 50% in coordination of care (as documented) at patient's floor/unit and/or counseling patient: Coding Level of Care Code 07660 SUB INP/OBS CARE 2/35MIN Diagnoses Acute and chronic respiratory failure with hypoxia J96.21 Interstitial lung disease J84.9 Pulmonary HTN I27.20 BONITA (obstructive sleep apnea) G47.33 Prediabetes R73.03 Hypertension I10 Scleroderma M34.9 COPD with emphysema J43.1 Emphysema type: panlobular Hyperlipidemia E78.5 Chronic steroid use DVT prophylaxis Z29.9 UTI (urinary tract infection) N39.0 History of anemia due to vitamin B12 deficiency Z86.2 (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
[2023-01-07] MEDS: hydrOXYzine HCl 25 MG TAB PO SCH (20:50)
[2023-01-07] MEDS: GABAPENTIN 300 MG CAP PO SCH (20:52)
[2023-01-07] MEDS: oxyCODONE HCL IR 5 MG TAB (IMMEDIATE RELEASE) PO PRN (21:00)
[2023-01-07] MEDS ORDERED: methylPREDNISolone 40 MG in SYRINGE 0 ML IV SCH (21:00)
[2023-01-07] MEDS ORDERED: LANTUS PER UNIT CHARGE SQ SCH (21:00)
[2023-01-08] MEDS: INSULIN ASPART PER UNIT CHARGE SC SCH ×5 (03:58→21:13)
[2023-01-08] MEDS: ALBUT/IPRATROP 3MG/0.5MG NEB 3 ML VIAL NEB SCH ×4 (07:34→20:36)
--- NOTE | 2023-01-08 07:40 | Pulmonology Progress Note ---
Date of Service January 08, 2023 Assessment & Plan (1) Chronic steroid use: (2) Acute and chronic respiratory failure with hypoxia: (3) Interstitial lung disease: (4) Abnormal chest CT: (5) Pulmonary HTN: (6) BONITA (obstructive sleep apnea): (7) COPD with emphysema: Emphysema type: panlobular Qualified Code(s): J43.1 - Panlobular emphysema Plan CTA chest 01/03/2023 personally reviewed: Severe centrilobular and paraseptal emphysema appreciated bilaterally Motion degraded study, Edac cannot be ruled out Left upper lobe peripheral pulmonary nodule No significant mediastinal lymphadenopathy 2D echo 09/22/2022: EF 55-60%, grade 1 diastolic dysfunction, RV normal in size and function ABG 01/07/2023: 7.43/37/74 on 6 L -- Acute on chronic hypoxic hypercapnic respiratory failure Likely secondary to underlying severe COPD with emphysema and chronic bronchitis exacerbation Gold class E Respiratory bio fire negative for everything on 01/03/2023 BNP 203 On Advair 230-21 mcg and Spiriva. Azithromycin 250 mg Kzbupi-Euwggwqyw-Mnxtsl, QTc 455 on 01/06/2023 Continue with as needed albuterol and Teresita's Patient was asking about AVAPS machine left 1999. Her last FEV1 was 67% predicted. It needs to be less than 50% to qualify. Patient is also on chronic prednisone 10 mg every other day as per the transplant physician at [facility]. Unfortunately [facility] told her that she would not be a transplant candidate. She followed up with [facility] since then but she got infection was in the hospital multiple times. She is going to follow-up with them again She is not a candidate for lung volume reduction or endobronchial valve placement given that her RV was only 113% in TLC 94% based on PFT 08/17/2020 For chronic bronchitis continue with Mucinex and flutter valve. If that does not help and I will add hypertonic saline Spirometry 01/21/2022 personally reviewed: Moderate obstructive lung dysfunction (Decrease in FVC by 60 mm, increase in FEV1 by 90 mL compared to 03/2021) FVC 2.70 L 95%, FEV1 1.36 L 67%, FEV1/FVC 50% --Chronic hypoxic respiratory failure On 6 L nasal cannula at rest with 8 L on exertion Advised to keep oxygen saturation between 88-92% --Pulmonary nodule Left upper lobe 5 mm Has been stable --BONITA She was on CPAP of 9 cm H2O Continue with CPAP while in the hospital --Pulmonary hypertension Combination of type I, type II and type III Type I likely from underlying scleroderma Patient has 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 She will not be a candidate for AVAPS machine right now. On discharge would again recommend azithromycin Jjrdhz-Uuqncseje-Ctxjzv 250 mg along with Advair and Spiriva No further recommendation from pulmonary perspective, will sign off Please call directly with any questions Please note the above document was generated using voice recognition software. It may contain grammatical, syntax or spelling errors.Any formal questions or concerns about the content, text or information contained within the body of this dictation should be directly addressed to the provider for clarification. Admission and Anticipated Discharge Date Admission Date: January 04, 2023 Subjective Patient seen and examined at bedside. No acute distress, no adverse events overnight She was saturating 93-94% on 6 L nasal cannula at rest She has been using her CPAP machine at night Overall she is feeling better. She complains of shortness of breath on minimal exertion but that is still better compared to when she came to the hospital No nausea vomiting Occasional cough with clear phlegm, no hemoptysis Review of Systems 2 Review of Systems: All systems reviewed & are unremarkable except as noted in Subjective Physical Exam 2 Physical Exam: Constitutional: No acute distress HEENT: EOMI, PERRLA Respiratory system: Decreased air entry bilaterally, no wheeze, no rhonchi, mild crackles bilateral lower lobe CVS: S1-S2 positive, no murmurs or gallops, accentuated P2 Abdomen: Soft, nontender, nondistended, positive bowel sounds x4 Extremities: +2 pulses bilaterally radialis/ dorsalis pedis, no cyanosis, no edema Neuro: Awake alert oriented x3 Psych: Normal mood and affect G/U: Pure wick catheter Skin: no rashes, warm and dry Lymphatic: no cervical or axillary lymphadenopathy Results & Data Results & Data Vital Signs (Past 12 Hours) Vital Signs Temp Pulse Resp BP Pulse Ox O2 Del Method O2 Flow Rate 01/08/23 07:32 CPAP 6 01/08/23 07:07 36.4 C L 89 19 132/87 92 CPAP 6 01/08/23 03:30 36.6 C 78 18 138/84 96 CPAP 01/07/23 22:00 36.9 C 91 H 18 117/65 94 CPAP 6 01/07/23 20:00 High Flow Nasal Cannula 8 Laboratory Results 01/04/23 05:36 01/06/23 05:28 PG Care Time/CCT Total # of Minutes Spent Total Time Spent with Patient: Total time spent is greater than 50% in coordination of care (as documented) at patient's floor/unit and/or counseling patient: Coding Level of Care Code 91127 SUB INP/OBS CARE 2/35MIN Diagnoses Chronic steroid use Acute and chronic respiratory failure with hypoxia J96.21 Interstitial lung disease J84.[address] R93.89 Pulmonary HTN I27.20 BONITA (obstructive sleep apnea) G47.33 COPD with emphysema J43.1 Emphysema type: panlobular
[2023-01-08] MEDS: methylPREDNISolone 40 MG in SYRINGE 0 ML IV SCH (08:22)
[2023-01-08] MEDS: UMECLIDINIUM BROMIDE 62.5MCG/BLISTER 7 PUFFS/INHALER INH SCH (08:22)
[2023-01-08] MEDS: FLUTICASONE/VILANTEROL 200/25MCG 14 PUFFS/INHALER INH SCH (08:23)
[2023-01-08] MEDS: CEFDINIR 300 MG CAP PO SCH ×2 (08:23→20:59)
[2023-01-08] MEDS: AZITHROMYCIN 250 MG TAB PO SCH (08:23)
[2023-01-08] MEDS: ENOXAPARIN INJ 40 MG/0.4 ML SYR SQ SCH (08:23)
[2023-01-08] MEDS: amLODIPine BESYLATE 5 MG TAB PO SCH (08:24)
[2023-01-08] MEDS: POTASSIUM CHLORIDE CRTAB 20 MEQ TABCR PO SCH ×2 (08:24→20:59)
[2023-01-08] MEDS: DULoxetine HCL 60 MG CAP PO SCH (08:24)
[2023-01-08] MEDS: guaiFENesin 600 MG TABCR PO SCH ×2 (08:24→20:59)
[2023-01-08] MEDS: buPROPion SR 100 MG TABCR PO SCH ×3 (08:25→21:03)
[2023-01-08] MEDS: BISOPROLOL FUMARATE 5 MG TAB PO SCH (08:25)
[2023-01-08] MEDS: hydroCHLOROthiazide 25 MG TAB PO SCH (08:26)
[2023-01-08] MEDS: SILDENAFIL CITRATE 20 MG TABLET PO SCH ×3 (08:26→20:59)
[2023-01-08] MEDS: PANTOprazole 40 MG TAB PO SCH ×2 (08:27→20:59)
[2023-01-08] MEDS: NYSTATIN SUSP 500,000 U/5 ML UDC PO SCH ×4 (08:28→21:00)
--- NOTE | 2023-01-08 10:43 | Pharmacy Report ---
Pharmacy Glycemic Short Note 2 - Date of Service January 08, 2023 - Glycemic Short BSG Results (Last 24 hours): 01/07/23 01/07/23 01/07/23 11:45 16:38 20:15 POC Glucose 363 H* 145 H 110 H 01/07/23 01/08/23 01/08/23 23:37 03:52 08:06 POC Glucose 112 H 90 75 OUTPATIENT ANTIDIABETIC REGIMEN: * N/A HbA1C: 6.7% ASSESSMENT: 01/08/23 * Patient received 75 units of insulin yesterday, 33 basal, 42 bolus, blood sugars dropping to today - Solu-Medrol decreased to 40mg IV daily yesterday and today, transitioning to Prednisone tomorrow. * Continue tight CF/CR at breakfast, and looser throughout the day - continue to loosen as steroids are tapered * Move basal to once daily and reduce dose, give later today at lunch time as fasting BSG 75mg/dl, to prevent hypoglycemia. 01/07/23 * Pt is a 72 year old female admitted with acute on chronic respiratory failure secondary to COPD/ILD exacerbation. History of pre-diabetes - no antihyperglycemic medications at home. Pharmacy consulted today to assist with glycemic management in the setting of hyper/hypoglycemia with steroids. * BSGs tenuous over the course of admission: [phone]/dL the last 24h. Received 33 units of basal and 44 units of bolus insulin yesterday. Received treatment for hypoglycemia last evening. * Tolerating diet, methylpred 40mg IV q8h transitioned to q12h today. * Agree with titration of Lantus to 18 units BID given elevated fasting- will likely need to decrease as steroid dose is decreased. Pt is persistently elevated at lunch followed by drastic decline in BSG at dinner. Will tighten breakfast Novolog and loosen Novolog parameters at all other times of day to try to mitigate this. PLAN FOR INPATIENT GLYCEMIC CONTROL: * Basal insulin -decrease * Lantus 20 units SQ daily * Bolus insulin * NovoLog per scale ACHS or Q6hrs while NPO * Goal Range: Low 120 mg/dL - High 160 mg/dL * Correction Factor: 12 mg/dL/unit at breakfast, 25 mg/dl/unit all other times of day * Nutritional / Prandial insulin per carb ratio of 1 unit per 4 grams (breakfast) 8 grams (all other times of day) CHO consumed
[2023-01-08] MEDS: LANTUS PER UNIT CHARGE SQ SCH (12:37)
--- NOTE | 2023-01-08 19:14 | Hospitalist Progress Note ---
Date of Service January 08, 2023 Assessment & Plan (1) Acute and chronic respiratory failure with hypoxia: Plan: acute component 2nd to COPD / ILD exacerbation chronic - COPD with chronic bronchitis, ILD, pulmonary HTN cont steroids, abx, etc - steroids decreased to methylprednisolone 40 mg IV twice daily today, plan prednisone 40 mg tomorrow and slowly taper back to baseline per recs in pulmonary note today completed 4 days of high-dose azithromycin, changed to her chronic dosing 250 mg Friday and Friday omnicef is more so for UTI but will cover typicals, if present, in the lungs cont nebs, inhalers, O2, etc keep sats 88-92% I consulted Dr Cam - her semaphore operator - for any additional recommendations - reviewed recommendations in his note 01/08 continue Mucinex, flutter valve, consider hypertonic saline (2) Interstitial lung disease: Plan: with flare no pneumonia on CT chest at presentation cxr 01/05 w/o infiltrates steroids/abx/O2 (3) Pulmonary HTN: Plan: severe on sildenafil 20mg TID cont NC O2 or other - keep sats 88-92% (4) BONITA (obstructive sleep apnea): Plan: CPAP 9cm H20 (5) Prediabetes: Plan: with severe hyperglycemia on IV steroids, remains very labile -pharmacy glycemic management consult, reviewed recs in note today -steroids are decreasing and BG improving last a1c was 6.3% about 1 year ago now 6.7% we discussed metformin once or twice daily at discharge in light of chronic prednisone usage but she declined stating she has tried metformin in the past and had side effects we discussed that previously she went home with nighttime insulin but within 2-3 days was having morning hypoglycemias if remaining severely hyperglycemic once reduced to prednisone and ready for discharge, consider AM low dose glipizide sliding scale or AM short acting insulin sliding scale (6) Hypertension: Plan: cont home meds control is reasonable at this time (7) Scleroderma: Plan: known dx follows with Scleroderma specialist in [place] she asks about seeing someone local in [place] from rheumatology Dr Jordi Cohn is available with [facility] could consider referral at d/c per her wishes (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 see #1 above (9) Hyperlipidemia: Plan: not on meds for such (10) Chronic steroid use: Plan: 10mg prednisone QOD for COPD/ILD/etc (11) DVT prophylaxis: Plan: lovenox 40mg daily (12) UTI (urinary tract infection): Plan: 2nd pansens klebsiella initially ceftriaxone, changed to omnicef 300mg BID x 5 days then stop all abx (13) History of anemia due to vitamin B12 deficiency: Plan: at her request - vitamin B12 1000mcg IM x 1 last B12 level was 2020 consider checking while here Plan appreciate pulm consultation needs PT/OT, but uncertain she will be able to meaningfully participate due to severe dyspnea with minimal exertion consider palliative care consultation as lung disease is end-stage she would benefit from symptom management (anxiety, dyspnea, etc) Admission and Anticipated Discharge Date Admission Date: January 04, 2023 Subjective Breathing slowly improving, PATEL walking to bathroom persists and used CPAP to recover again. Feels like she probably turned the corner Physical Exam Physical Exam: PHYSICAL EXAMINATION Last 24h vital signs reviewed, see documentation in flowsheet General: sitting in bed just back from bathroom using CPAP HEENT: Normocephalic, atraumatic, pupils round and equal, sclerae anicteric, no conjunctival injection, moist mucus membranes Lungs: increased WOB but can tolerate conversation, increased respiratory effort. Clear to auscultation bilaterally except unchanged basilar crackles and very diminished in apices. good air movement into bases without wheezing Heart: Regular rate and rhythm, no murmurs. No JVD Abdomen: Soft, nondistended. Bowel sounds present. Extremities: Warm, dry, well-perfused. No extremity edema. Neuro: Alert and oriented x 4, face symmetric, moves 4 extremities well Psych: Normal affect and behavior Results & Data Results & Data Vital Signs (Past 12 Hours) Vital Signs Temp Pulse Resp BP BP Pulse Ox O2 Del Method 01/08/23 16:02 36.6 C 94 H 20 133/85 100 CPAP 01/08/23 14:39 91 H 22 100 CPAP 01/08/23 11:37 113 H 18 92 Nasal Cannula 01/08/23 11:08 36.5 C 84 19 117/77 94 Nasal Cannula 01/08/23 07:39 81 20 93 CPAP 01/08/23 07:32 CPAP O2 Flow Rate 01/08/23 16:02 01/08/23 14:39 6 01/08/23 11:37 6 01/08/23 11:08 6 01/08/23 07:39 6 01/08/23 07:32 6 PG Care Time/CCT Total # of Minutes Spent Total Time Spent with Patient: Total time spent is greater than 50% in coordination of care (as documented) at patient's floor/unit and/or counseling patient: Coding Level of Care Code 89691 SUB INP/OBS CARE 2/35MIN Diagnoses Acute and chronic respiratory failure with hypoxia J96.21 Interstitial lung disease J84.9 Pulmonary HTN I27.20 BONITA (obstructive sleep apnea) G47.33 Prediabetes R73.03 Hypertension I10 Scleroderma M34.9 COPD with emphysema J43.1 Emphysema type: panlobular Hyperlipidemia E78.5 Chronic steroid use DVT prophylaxis Z29.9 UTI (urinary tract infection) N39.0 History of anemia due to vitamin B12 deficiency Z86.2 (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
[2023-01-08] MEDS: hydrOXYzine HCl 25 MG TAB PO SCH (20:59)
[2023-01-08] MEDS: GABAPENTIN 300 MG CAP PO SCH (21:00)
[2023-01-08] MEDS: oxyCODONE HCL IR 5 MG TAB (IMMEDIATE RELEASE) PO PRN (21:13)
[2023-01-09] MEDS: ALBUT/IPRATROP 3MG/0.5MG NEB 3 ML VIAL NEB SCH ×4 (07:36→19:54)
[2023-01-09] MEDS: SILDENAFIL CITRATE 20 MG TABLET PO SCH ×3 (08:41→21:03)
[2023-01-09] MEDS: BISOPROLOL FUMARATE 5 MG TAB PO SCH (08:42)
[2023-01-09] MEDS: amLODIPine BESYLATE 5 MG TAB PO SCH (08:42)
[2023-01-09] MEDS: DULoxetine HCL 60 MG CAP PO SCH (08:43)
[2023-01-09] MEDS: CEFDINIR 300 MG CAP PO SCH ×2 (08:43→21:03)
[2023-01-09] MEDS: buPROPion SR 100 MG TABCR PO SCH ×2 (08:43→21:16)
[2023-01-09] MEDS: ENOXAPARIN INJ 40 MG/0.4 ML SYR SQ SCH (08:44)
[2023-01-09] MEDS: hydroCHLOROthiazide 25 MG TAB PO SCH (08:44)
[2023-01-09] MEDS: guaiFENesin 600 MG TABCR PO SCH ×2 (08:45→21:03)
[2023-01-09] MEDS: FLUTICASONE/VILANTEROL 200/25MCG 14 PUFFS/INHALER INH SCH (08:46)
[2023-01-09] MEDS: UMECLIDINIUM BROMIDE 62.5MCG/BLISTER 7 PUFFS/INHALER INH SCH (08:46)
[2023-01-09] MEDS: POTASSIUM CHLORIDE CRTAB 20 MEQ TABCR PO SCH ×2 (08:47→21:07)
[2023-01-09] MEDS: NYSTATIN SUSP 500,000 U/5 ML UDC PO SCH ×4 (08:47→21:03)
[2023-01-09] MEDS: PANTOprazole 40 MG TAB PO SCH ×2 (08:47→21:03)
[2023-01-09] MEDS: methylPREDNISolone 40 MG in SYRINGE 0 ML IV SCH (08:48)
[2023-01-09] MEDS: INSULIN ASPART PER UNIT CHARGE SC SCH ×4 (09:39→21:20)
[2023-01-09] MEDS: LANTUS PER UNIT CHARGE SQ SCH (09:40)
--- NOTE | 2023-01-09 18:12 | Hospitalist Progress Note ---
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 - appreciate now clearly improved anticipated continued slow improvement and probably home this (2) Interstitial lung disease: Plan: with flare no pneumonia on CT chest at presentation cxr 01/05 w/o infiltrates steroids/abx/O2 (3) Pulmonary HTN: Plan: severe on sildenafil 20mg TID cont NC O2 or other - keep sats 88-92% (4) BONITA (obstructive sleep apnea): Plan: CPAP 9cm H20 (5) Prediabetes: Plan: severe steroid induced hyperglycemia this admission, now improving -pharmacy glycemic management consult, reviewed recs in note today -steroids are decreasing and BG improving -overcontrolled today with steroids reducing, I reduced insulin glargine to 15 qAM, relaxed morning short acting to CF 20, carb ratio 8, since I don't see pharmacy note for today last a1c was 6.3% about 1 year ago now 6.7% we discussed metformin once or twice daily at discharge in light of chronic prednisone usage but she declined stating she has tried metformin in the past and had side effects we discussed that previously she went home with nighttime insulin but within 2-3 days was having morning hypoglycemias if remaining severely hyperglycemic once reduced to prednisone and ready for dis charge, consider AM low dose glipizide sliding scale or AM short acting insulin sliding scale (6) Hypertension: Plan: cont home meds control is reasonable at this time (7) Scleroderma: Plan: known dx follows with Scleroderma specialist [facility], [place] she asks about seeing someone local in [place] from rheumatology Dr Jordi Cohn is available with [facility] could consider referral at d/c per her wishes (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 see #1 above (9) Hyperlipidemia: Plan: not on meds for such (10) Chronic steroid use: Plan: 10mg prednisone QOD for COPD/ILD/etc (11) UTI (urinary tract infection): Plan: 2nd pansens klebsiella initially ceftriaxone, changed to omnicef 300mg BID x 5 days then stop (end 01/11) (12) History of anemia due to vitamin B12 deficiency: Plan: at her request - vitamin B12 1000mcg IM x 1 last B12 level was 2020 consider checking while here Plan DVT ppx: enox 40 dispo: home apx 2 days Admission and Anticipated Discharge Date Admission Date: January 04, 2023 Subjective dyspnea on exertion and at rest slowly improving. sitting up in chair today. has been needing to turn up oxygen less. feels slow progressive improvement may loose cough but nonproductive persists. states she never can bring up mucus but its loosening Physical Exam Physical Exam: PHYSICAL EXAMINATION Last 24h vital signs reviewed, see documentation in flowsheet General: sitting in chair working on computer HEENT: Normocephalic, atraumatic, pupils round and equal, sclerae anicteric, no conjunctival injection, moist mucus membranes Lungs: increased WOB but speaking in longer phrases/sentences, increased respiratory effort. Clear to auscultation bilaterally except unchanged basilar crackles and very diminished in apices. good air movement into bases without wheezing. no change Heart: Regular rate and rhythm, no murmurs. No JVD Abdomen: Soft, nondistended. Bowel sounds present. Extremities: Warm, dry, well-perfused. No extremity edema. Neuro: Alert and oriented x 4, face symmetric, moves 4 extremities well Psych: Normal affect and behavior Results & Data Results & Data Vital Signs (Past 12 Hours) Vital Signs Temp Pulse Pulse Resp BP BP Pulse Ox 01/09/23 16:43 36.4 C L 89 18 132/77 95 01/09/23 15:57 89 01/09/23 14:11 82 18 92 01/09/23 11:46 36.9 C 78 20 119/67 93 01/09/23 11:16 81 18 92 01/09/23 10:12 01/09/23 07:50 82 01/09/23 07:46 36.4 C L 85 18 139/84 97 01/09/23 07:39 80 16 98 O2 Del Method O2 Flow Rate 01/09/23 16:43 Nasal Cannula 6 01/09/23 15:57 01/09/23 14:11 Nasal Cannula 6 01/09/23 11:46 Nasal Cannula 5 01/09/23 11:16 Nasal Cannula 5 01/09/23 10:12 Nasal Cannula 6 01/09/23 07:50 01/09/23 07:46 Nasal Cannula 6 01/09/23 07:39 CPAP 8 PG Care Time/CCT Total # of Minutes Spent Total Time Spent with Patient: Total time spent is greater than 50% in coordination of care (as documented) at patient's floor/unit and/or counseling patient: Coding Level of Care Code 32719 SUB INP/OBS CARE 2/35MIN Diagnoses Acute and chronic respiratory failure with hypoxia J96.21 Interstitial lung disease J84.9 Pulmonary HTN I27.20 BONITA (obstructive sleep apnea) G47.33 Prediabetes R73.03 Hypertension I10 Scleroderma M34.9 COPD with emphysema J43.1 Emphysema type: panlobular Hyperlipidemia E78.5 Chronic steroid use UTI (urinary tract infection) N39.0 History of anemia due to vitamin B12 deficiency Z86.2 (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
[2023-01-09] MEDS: GABAPENTIN 300 MG CAP PO SCH (21:03)
[2023-01-09] MEDS: hydrOXYzine HCl 25 MG TAB PO SCH (21:03)
[2023-01-09] MEDS: oxyCODONE HCL IR 5 MG TAB (IMMEDIATE RELEASE) PO PRN (21:22)
[2023-01-10] MEDS: ALBUT/IPRATROP 3MG/0.5MG NEB 3 ML VIAL NEB SCH ×4 (07:01→19:55)
[2023-01-10] MEDS: SILDENAFIL CITRATE 20 MG TABLET PO SCH ×3 (08:17→21:28)
[2023-01-10] MEDS: AZITHROMYCIN 250 MG TAB PO SCH (08:39)
[2023-01-10] MEDS: amLODIPine BESYLATE 5 MG TAB PO SCH (08:39)
[2023-01-10] MEDS: CEFDINIR 300 MG CAP PO SCH ×2 (08:41→21:30)
[2023-01-10] MEDS: buPROPion SR 100 MG TABCR PO SCH ×2 (08:41→21:29)
[2023-01-10] MEDS: BISOPROLOL FUMARATE 5 MG TAB PO SCH (08:41)
[2023-01-10] MEDS: FLUTICASONE/VILANTEROL 200/25MCG 14 PUFFS/INHALER INH SCH (08:42)
[2023-01-10] MEDS: ENOXAPARIN INJ 40 MG/0.4 ML SYR SQ SCH (08:42)
[2023-01-10] MEDS: DULoxetine HCL 60 MG CAP PO SCH (08:42)
[2023-01-10] MEDS: hydroCHLOROthiazide 25 MG TAB PO SCH (08:43)
[2023-01-10] MEDS: guaiFENesin 600 MG TABCR PO SCH ×2 (08:43→21:29)
[2023-01-10] MEDS: methylPREDNISolone 40 MG in SYRINGE 0 ML IV SCH (08:44)
[2023-01-10] MEDS: NYSTATIN SUSP 500,000 U/5 ML UDC PO SCH ×4 (08:44→21:32)
[2023-01-10] MEDS: UMECLIDINIUM BROMIDE 62.5MCG/BLISTER 7 PUFFS/INHALER INH SCH (08:45)
[2023-01-10] MEDS: POTASSIUM CHLORIDE CRTAB 20 MEQ TABCR PO SCH ×2 (08:45→21:28)
[2023-01-10] MEDS: PANTOprazole 40 MG TAB PO SCH ×2 (08:45→21:32)
[2023-01-10] MEDS: INSULIN ASPART PER UNIT CHARGE SC SCH ×4 (08:59→21:33)
[2023-01-10] MEDS ORDERED: LANTUS PER UNIT CHARGE SQ SCH (09:00)
--- NOTE | 2023-01-10 10:52 | Pharmacy Report ---
Pharmacy Glycemic Short Note 2 - Date of Service January 10, 2023 - Glycemic Short BSG Results (Last 24 hours): 01/09/23 01/09/23 01/09/23 11:01 16:15 20:13 POC Glucose 141 H 110 H 168 H 01/10/23 07:24 POC Glucose 82 OUTPATIENT ANTIDIABETIC REGIMEN: * N/A HbA1C: 6.7% ASSESSMENT: 01/10/23: * Victoria received 36 units of insulin yesterday (20 were basal) * Fasting BSG below goal yesterday and today, 25% reduction in basal * Solumedrol 40mg daily continues, call pharmacist to adjust basal insulin dosing if held or discontinued * Mealtime BSGs within goal range, continue loosened Novolog parameters from 01/0801/08/23 * Patient received 75 units of insulin yesterday, 33 basal, 42 bolus, blood sugars dropping to today - Solu-Medrol decreased to 40mg IV daily yesterday and today, transitioning to Prednisone tomorrow. * Continue tight CF/CR at breakfast, and looser throughout the day - continue to loosen as steroids are tapered * Move basal to once daily and reduce dose, give later today at lunch time as fasting BSG 75mg/dl, to prevent hypoglycemia. 01/07/23 * Pt is a 72 year old female admitted with acute on chronic respiratory failure secondary to COPD/ILD exacerbation. History of pre-diabetes - no antihyperglycemic medications at home. Pharmacy consulted today to assist with glycemic management in the setting of hyper/hypoglycemia with steroids. * BSGs tenuous over the course of admission: [phone]/dL the last 24h. Received 33 units of basal and 44 units of bolus insulin yesterday. Received treatment for hypoglycemia last evening. * Tolerating diet, methylpred 40mg IV q8h transitioned to q12h today. * Agree with titration of Lantus to 18 units BID given elevated fasting- will likely need to decrease as steroid dose is decreased. Pt is persistently elevated at lunch followed by drastic decline in BSG at dinner. Will tighten breakfast Novolog and loosen Novolog parameters at all other times of day to try to mitigate this. PLAN FOR INPATIENT GLYCEMIC CONTROL: * Basal insulin -decrease * Lantus 15 units SQ daily * Bolus insulin * NovoLog per scale ACHS or Q6hrs while NPO * Goal Range: Low 120 mg/dL - High 160 mg/dL * Correction Factor: 15 mg/dL/unit at breakfast, 30 mg/dl/unit all other times of day * Nutritional / Prandial insulin per carb ratio of 1 unit per 5 grams (breakfast) 10 grams (all other times of day) CHO consumed
--- NOTE | 2023-01-10 18:14 | Hospitalist Progress Note ---
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 - appreciate now clearly improved anticipated continued slow improvement and probably home this (2) Interstitial lung disease: Plan: with flare no pneumonia on CT chest at presentation cxr 01/05 w/o infiltrates steroids/abx/O2 (3) Pulmonary HTN: Plan: severe on sildenafil 20mg TID cont NC O2 or other - keep sats 88-92% (4) BONITA (obstructive sleep apnea): Plan: CPAP 9cm H20 (5) Prediabetes: Plan: severe steroid induced hyperglycemia this admission, now improving -pharmacy glycemic management consult, reviewed recs in note today -steroids are decreasing and BG improving -01/09 I reduced insulin glargine to 15 qAM, relaxed morning short acting to CF 20, carb ratio 8, since I don't see pharmacy note for today - BG acceptable at goal 01/10 last a1c was 6.3% about 1 year ago now 6.7% we discussed metformin once or twice daily at discharge in light of chronic prednisone usage but she declined stating she has tried metformin in the past and had side effects we discussed that previously she went home with nighttime insulin but within 2-3 days was having morning hypoglycemias if remaining severely hyperglycemic once reduced to prednisone and ready for discharge, consider AM low dose glipizide sliding scale or AM short acting insulin sliding scale (6) Hypertension: Plan: cont home meds control is reasonable at this time (7) Scleroderma: Plan: known dx follows with Scleroderma specialist [facility] she asks about seeing someone local in [place] from rheumatology Dr Jordi Cohn is available with [facility] could consider referral at d/c per her wishes (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 see #1 above (9) Hyperlipidemia: Plan: not on meds for such (10) Chronic steroid use: Plan: 10mg prednisone QOD for COPD/ILD/etc (11) UTI (urinary tract infection): Plan: 2nd pansens klebsiella initially ceftriaxone, changed to omnicef 300mg BID x 5 days then stop (end 01/11) (12) History of anemia due to vitamin B12 deficiency: Plan: at her request - vitamin B12 1000mcg IM x 1 last B12 level was 2020 consider checking while here Plan DVT ppx: enox 40 dispo: home apx 1-2 days Admission and Anticipated Discharge Date Admission Date: January 04, 2023 Subjective dyspnea at rest and on exertion slowly improving, feels tired today but was up in chair a lot yesterday. Does not feel close enough to baseline for home today, prob over weekend Physical Exam Physical Exam: PHYSICAL EXAMINATION Last 24h vital signs reviewed, see documentation in flowsheet General: sitting in bed HEENT: Normocephalic, atraumatic, pupils round and equal, sclerae anicteric, no conjunctival injection, moist mucus membranes Lungs: increased WOB but speaking in longer phrases/sentences, increased respiratory effort. Clear to auscultation bilaterally except unchanged basilar crackles and diminished in apices but less so. good air movement into bases without wheezing. slight improvement 01/10 Heart: Regular rate and rhythm, no murmurs. No JVD Abdomen: Soft, nondistended. Bowel sounds present. Extremities: Warm, dry, well-perfused. No extremity edema. Neuro: Alert and oriented x 4, face symmetric, moves 4 extremities well Psych: Normal affect and behavior Results & Data Results & Data Vital Signs (Past 12 Hours) Vital Signs Temp Pulse Pulse Resp BP BP Pulse Ox 01/10/23 17:20 01/10/23 16:30 82 01/10/23 15:45 36.5 C 90 28 H 121/69 90 01/10/23 15:17 87 12 93 01/10/23 11:30 36.8 C 87 20 105/68 93 01/10/23 10:22 75 14 89 L 01/10/23 07:01 91 H 18 94 01/10/23 07:00 91 H 01/10/23 07:00 01/10/23 07:00 36.8 C 89 20 126/83 97 O2 Del Method O2 Flow Rate 01/10/23 17:20 Nasal Cannula 6 01/10/23 16:30 01/10/23 15:45 Nasal Cannula 8 01/10/23 15:17 Nasal Cannula 6 01/10/23 11:30 Nasal Cannula 6 01/10/23 10:22 Nasal Cannula 6 01/10/23 07:01 CPAP 6 01/10/23 07:00 01/10/23 07:00 CPAP 01/10/23 07:00 CPAP PG Care Time/CCT Total # of Minutes Spent Total Time Spent with Patient: Total time spent is greater than 50% in coordination of care (as documented) at patient's floor/unit and/or counseling patient: Coding Level of Care Code 42110 SUB INP/OBS CARE 2/35MIN Diagnoses Acute and chronic respiratory failure with hypoxia J96.21 Interstitial lung disease J84.9 Pulmonary HTN I27.20 BONITA (obstructive sleep apnea) G47.33 Prediabetes R73.03 Hypertension I10 Scleroderma M34.9 COPD with emphysema J43.1 Emphysema type: panlobular Hyperlipidemia E78.5 Chronic steroid use UTI (urinary tract infection) N39.0 History of anemia due to vitamin B12 deficiency Z86.2 (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
[2023-01-10] MEDS: hydrOXYzine HCl 25 MG TAB PO SCH (21:29)
[2023-01-10] MEDS: GABAPENTIN 300 MG CAP PO SCH (21:30)
[2023-01-10] MEDS: oxyCODONE HCL IR 5 MG TAB (IMMEDIATE RELEASE) PO PRN (22:56)
[2023-01-11] MEDS: ALBUT/IPRATROP 3MG/0.5MG NEB 3 ML VIAL NEB SCH ×4 (08:12→20:18)
[2023-01-11] MEDS: SILDENAFIL CITRATE 20 MG TABLET PO SCH ×3 (08:32→20:04)
[2023-01-11] MEDS ORDERED: LANTUS PER UNIT CHARGE SQ SCH (09:00)
[2023-01-11] MEDS: INSULIN ASPART PER UNIT CHARGE SC SCH ×4 (09:10→20:22)
[2023-01-11] MEDS: amLODIPine BESYLATE 5 MG TAB PO SCH (09:10)
[2023-01-11] MEDS: BISOPROLOL FUMARATE 5 MG TAB PO SCH (09:11)
[2023-01-11] MEDS: buPROPion SR 100 MG TABCR PO SCH ×2 (09:12→20:06)
[2023-01-11] MEDS: ENOXAPARIN INJ 40 MG/0.4 ML SYR SQ SCH (09:13)
[2023-01-11] MEDS: CEFDINIR 300 MG CAP PO SCH (09:13)
[2023-01-11] MEDS: DULoxetine HCL 60 MG CAP PO SCH (09:13)
[2023-01-11] MEDS: hydroCHLOROthiazide 25 MG TAB PO SCH (09:14)
[2023-01-11] MEDS: FLUTICASONE/VILANTEROL 200/25MCG 14 PUFFS/INHALER INH SCH (09:14)
[2023-01-11] MEDS: guaiFENesin 600 MG TABCR PO SCH ×2 (09:14→20:05)
[2023-01-11] MEDS: POTASSIUM CHLORIDE CRTAB 20 MEQ TABCR PO SCH ×2 (09:15→20:04)
[2023-01-11] MEDS: NYSTATIN SUSP 500,000 U/5 ML UDC PO SCH ×4 (09:15→20:04)
[2023-01-11] MEDS: PANTOprazole 40 MG TAB PO SCH ×2 (09:15→20:05)
[2023-01-11] MEDS: predniSONE 20 MG TAB PO SCH (09:16)
[2023-01-11] MEDS: UMECLIDINIUM BROMIDE 62.5MCG/BLISTER 7 PUFFS/INHALER INH SCH (10:50)
--- NOTE | 2023-01-11 18:06 | Hospitalist Progress Note ---
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 - appreciate now clearly improved anticipated continued slow improvement and probably home in AM (2) Interstitial lung disease: Plan: with flare no pneumonia on CT chest at presentation cxr 01/05 w/o infiltrates steroids/abx/O2 (3) Pulmonary HTN: Plan: severe on sildenafil 20mg TID cont NC O2 or other - keep sats 88-92% (4) BONITA (obstructive sleep apnea): Plan: CPAP 9cm H20 (5) Prediabetes: Plan: severe steroid induced hyperglycemia this admission, now improving -pharmacy glycemic management consult, reviewed recs in note today -steroids are decreasing and BG improving -01/09 I reduced insulin glargine to 15 qAM, relaxed morning short acting to CF 20, carb ratio 8, since I don't see pharmacy note for today - BG acceptable at goal 01/11 labile last a1c was 6.3% about 1 year ago now 6.7% we discussed metformin once or twice daily at discharge in light of chronic prednisone usage but she declined stating she has tried metformin in the past and had side effects we discussed that previously she went home with nighttime insulin but within 2-3 days was having morning hypoglycemias if remaining severely hyperglycemic once reduced to prednisone and ready for discharge, consider AM low dose glipizide sliding scale or AM short acting insulin sliding scale (6) Hypertension: Plan: cont home meds control is reasonable at this time (7) Scleroderma: Plan: known dx follows with Scleroderma specialist [facility] she asks about seeing someone local in [place] from rheumatology Dr Jordi Cohn is available with [facility] could consider referral at d/c per her wishes (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 see #1 above (9) Hyperlipidemia: Plan: not on meds for such (10) Chronic steroid use: Plan: 10mg prednisone QOD for COPD/ILD/etc (11) UTI (urinary tract infection): Plan: 2nd pansens klebsiella initially ceftriaxone, changed to omnicef 300mg BID x 5 days then stop (end 01/11) (12) History of anemia due to vitamin B12 deficiency: Plan: at her request - vitamin B12 1000mcg IM x 1 last B12 level was 2020 Plan DVT ppx: enox 40 dispo: home AM Admission and Anticipated Discharge Date Admission Date: January 04, 2023 Subjective Slowly continues to improve wrt dyspnea - PATEL improved to where now can recover without CPAP, takes about 5 minutes Physical Exam Physical Exam: PHYSICAL EXAMINATION Last 24h vital signs reviewed, see documentation in flowsheet Exam unchanged 01/11: General: sitting in bed HEENT: Normocephalic, atraumatic, pupils round and equal, sclerae anicteric, no conjunctival injection, moist mucus membranes Lungs: increased WOB but speaking sentences, increased respiratory effort. crackles in bases, diminished in apices, air movement into bases without wheezing. slight improvement 01/10 Heart: Regular rate and rhythm, no murmurs. No JVD Abdomen: Soft, nondistended. Bowel sounds present. Neuro: Alert and oriented x 4, face symmetric, moves 4 extremities well Psych: Normal affect and behavior Results & Data Results & Data Vital Signs (Past 12 Hours) Vital Signs Temp Pulse Resp BP Pulse Ox O2 Del Method O2 Flow Rate 01/11/23 16:57 36.6 C 86 18 123/73 96 High Flow Nasal Cannula 5 01/11/23 15:34 83 18 94 Nasal Cannula 5.5 01/11/23 11:27 81 17 95 Nasal Cannula 6 01/11/23 10:59 36.8 C 83 20 147/87 H 96 High Flow Nasal Cannula 5 01/11/23 08:13 80 18 CPAP 6 01/11/23 07:16 36.3 C L 73 18 113/70 96 CPAP 01/11/23 07:00 High Flow Nasal Cannula 6 PG Care Time/CCT Total # of Minutes Spent Total Time Spent with Patient: Total time spent is greater than 50% in coordination of care (as documented) at patient's floor/unit and/or counseling patient: Coding Level of Care Code 30106 SUB INP/OBS CARE 2/35MIN Diagnoses Acute and chronic respiratory failure with hypoxia J96.21 Interstitial lung disease J84.9 Pulmonary HTN I27.20 BONITA (obstructive sleep apnea) G47.33 Prediabetes R73.03 Hypertension I10 Scleroderma M34.9 COPD with emphysema J43.1 Emphysema type: panlobular Hyperlipidemia E78.5 Chronic steroid use UTI (urinary tract infection) N39.0 History of anemia due to vitamin B12 deficiency Z86.2 (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
[2023-01-11] MEDS: hydrOXYzine HCl 25 MG TAB PO SCH (20:06)
[2023-01-11] MEDS: GABAPENTIN 300 MG CAP PO SCH (20:06)
[2023-01-11] MEDS: oxyCODONE HCL IR 5 MG TAB (IMMEDIATE RELEASE) PO PRN (21:51)
[2023-01-12] MEDS: ALBUT/IPRATROP 3MG/0.5MG NEB 3 ML VIAL NEB SCH ×2 (07:21→11:08)
[2023-01-12] MEDS: SILDENAFIL CITRATE 20 MG TABLET PO SCH (08:10)
[2023-01-12] MEDS: INSULIN ASPART PER UNIT CHARGE SC SCH (08:52)
[2023-01-12] MEDS: BISOPROLOL FUMARATE 5 MG TAB PO SCH (08:55)
[2023-01-12] MEDS: amLODIPine BESYLATE 5 MG TAB PO SCH (08:55)
[2023-01-12] MEDS: buPROPion SR 100 MG TABCR PO SCH (08:56)
[2023-01-12] MEDS: DULoxetine HCL 60 MG CAP PO SCH (08:56)
[2023-01-12] MEDS: ENOXAPARIN INJ 40 MG/0.4 ML SYR SQ SCH (08:57)
[2023-01-12] MEDS: guaiFENesin 600 MG TABCR PO SCH (08:58)
[2023-01-12] MEDS: FLUTICASONE/VILANTEROL 200/25MCG 14 PUFFS/INHALER INH SCH (08:58)
[2023-01-12] MEDS: hydroCHLOROthiazide 25 MG TAB PO SCH (08:59)
[2023-01-12] MEDS: NYSTATIN SUSP 500,000 U/5 ML UDC PO SCH (08:59)
[2023-01-12] MEDS: POTASSIUM CHLORIDE CRTAB 20 MEQ TABCR PO SCH (09:00)
[2023-01-12] MEDS: predniSONE 20 MG TAB PO SCH (09:00)
[2023-01-12] MEDS ORDERED: LANTUS PER UNIT CHARGE SQ SCH (09:00)
[2023-01-12] MEDS: PANTOprazole 40 MG TAB PO SCH (09:00)
[2023-01-12] MEDS: UMECLIDINIUM BROMIDE 62.5MCG/BLISTER 7 PUFFS/INHALER INH SCH (09:00)
--- NOTE | 2023-01-12 10:06 | Discharge Summary ---
Date of Service January 12, 2023 Admission HPI Per Admitting Provider The patient is a 72-year-old female with a past medical history including pulmonary hypertension on sildenafil, BONITA on CPAP, hypertension, chronic respiratory failure with hypoxia requiring 6 L at baseline and 7-8 L with ambulation, COPD, interstitial lung disease, fatty liver, chronic gastritis, anxiety, hyperlipidemia and gastroparesis. She reports that over the past 3 days she has had worsening shortness of breath at rest, and more so with dyspnea on exertion. She has a chronic cough which is nonproductive. She follows with pulmonology Dr. Lacey. She has been seen for lung transplant in [place], and was told she is not eligible Principal Diagnosis Acute on chronic hypoxic respiratory failure due to acute exacerbation of COPD and exacerbation of ILD Discharge Exam PHYSICAL EXAMINATION Last 24h vital signs reviewed, see documentation in flowsheet General: sitting in bed, looks good, stronger HEENT: Normocephalic, atraumatic, pupils round and equal, sclerae anicteric, no conjunctival injection, moist mucus membranes Lungs: increased WOB but speaking full sentences, crackles in bases, diminished in apices but much better air mvt apices and midfields than previous, air movement into bases without wheezing. huge improvement over last 4-5 days Heart: Regular rate and rhythm, no murmurs. No JVD Abdomen: Soft, nondistended. Bowel sounds present. Ext: wwp no leg edema Neuro: Alert and oriented x 4, face symmetric, moves 4 extremities well Psych: Normal affect and behavior Discharge Data Allergies Allergy/AdvReac Type Severity Reaction Status Date / Time ferric carboxymaltose Allergy Intermediate SOB, Verified 01/03/23 19:10 [From Injectafer] tachycardia Consultations 01/03/23 21:31 ED Decision to Admit Stat 01/06/23 15:12 Consult Pulmonology Routine 01/12/23 10:03 Consult [facility] medical coding instructor Routine Ordered Studies 01/03/23 20:03 CT angio chest PE protocol Stat Chest X-Ray 01/03/23 18:19 XR chest 1V portable HISTORY: Dyspnea COMPARISON: Chest CT 09/16/2022. FINDINGS: Emphysema again noted. No pneumothorax. No pleural effusions. Bibasilar interstitial thickening persists. This is likely chronic. Left subclavian Port-A-Cath terminates in the SVC. The heart is normal in size. No evidence for pulmonary edema. Healing/healed left-sided rib fractures are noted. IMPRESSION: 1. Emphysema and chronic interstitial thickening again noted. 2. Healing/healed left-sided rib fractures. No pneumothorax. ACT 112: Negative or not required by law. Electronically signed by: Jose Ramon Morrow M.D. 01/03/2023 9:18 PM Chest CTA 01/03/23 20:03 Exam(s): CTA CHEST IV Amt: 117ml EXAM: CT Angiography Chest With Intravenous Contrast CLINICAL HISTORY: Reason for exam: PE, worsening SOB, Pulm htn, Copd. TECHNIQUE: Axial computed tomographic angiography images of the chest with intravenous contrast. CTDI is 39.04 mGy and DLP is 893.27 mGy-cm. Automated exposure control was utilized for the study. A dose lowering technique was utilized adhering to the principles of ALARA. MIP reconstructed images were created and reviewed. COMPARISON: CT chest September 16, 2022. FINDINGS: Pulmonary arteries: Unremarkable. No pulmonary embolism. Aorta: No acute findings. No thoracic aortic aneurysm. Lungs: Severe bullous emphysematous changes. Limited by respiratory motion in the lung bases. No mass. No consolidation. Pleural space: Unremarkable. No significant effusion. No pneumothorax. Heart: Unremarkable. No cardiomegaly. No significant pericardial effusion. No evidence of RV dysfunction. Bones/joints: No acute fracture. No dislocation. Soft tissues: Unremarkable. Lymph nodes: Unremarkable. No enlarged lymph nodes. IMPRESSION: No pulmonary emboli identified. Severe bullous emphysematous changes. Electronically signed by: Louis Santos MD 01/04/23 00:13 AM Chest X-Ray 01/05/23 15:28 XR chest 1V portable CLINICAL HISTORY: resp failure, eval edema etc TECHNIQUE: Single frontal radiograph of the chest was obtained. Comparison: Comparison is made to chest radiograph 01/03/2023 FINDINGS: A port catheter is seen. Calcified aortic knob is seen. Reticular interstitial opacities are seen. No evidence of pleural effusion or pneumothorax. Healing left-sided rib fractures are again seen. IMPRESSION: Interstitial thickening without definite evidence of pulmonary edema. ACT 112: Negative or not required by law. Electronically signed by: Black Childs M.D. 01/05/2023 7:01 PM Diabetes Follow up steroid induced, will resolve. prediabetes follow up in primary care Hospital Course (1) Acute and chronic respiratory failure with hypoxia: acute component 2nd to acute exacerbatio COPD / ILD exacerbation chronic - very severe bullous emphysema / COPD with chronic bronchitis, ILD, pulmonary HTN Chest CTA negative for PE, no consolidation to suggest pneumonia I consulted Dr Cam - tipple worker - appreciate his advice this admission treated with IV steroids, bronchodilators, and antibiotics - steroids decreased to 40 prednisone on 01/11 tolerating well, slowly taper back to baseline 10 mg qod completed 4 days of high-dose azithromycin, changed to her chronic dosing 250 mg Friday and Friday was treated with cephalosporin as well, though primarily for UTI Substantially improved compared to beginning of week and able to return home. Back on her baseline level of O2 and nighttime CPAP (2) Interstitial lung disease: with flare no pneumonia on CT chest at presentation cxr 01/05 w/o infiltrates steroids/abx/O2 as above (3) Pulmonary HTN: severe on sildenafil 20mg TID caused by scleroderma - follows with Rheum at [facility] in [place] (4) BONITA (obstructive sleep apnea): CPAP 9cm H20 (5) Prediabetes: severe steroid induced hyperglycemia this admission, now improving significantly as steroids tapered last a1c was 6.3% about 1 year ago now 6.7% we discussed metformin once or twice daily at discharge in light of chronic prednisone usage but she declined stating she has tried metformin in the past and had side effects we discussed that previously she went home with nighttime insulin but within 2-3 days was having morning hypoglycemias. QAM NPH would have been a better strategy which we discussed but she would rather avoid insulin. discharged with low dose AM glipizide sliding scale to cover steroid hyperglycemia until her taper progresses. Has glucometer. (6) Hypertension: cont home meds control is reasonable at this time (7) Scleroderma: known dx follows with Scleroderma specialist [facility] has next appt February she asks about seeing someone local in [place] from rheumatology Dr Jordi Cohn [place] [facility] [place] I made outpatient referral (8) COPD with emphysema: on chronic prednisone 10mg QOD see #1 above (9) Hyperlipidemia: not on meds for such (10) Chronic steroid use: 10mg prednisone QOD for COPD/ILD/etc (11) UTI (urinary tract infection): 2nd pansens klebsiella initially ceftriaxone, changed to omnicef 300mg BID x 5 days then stop (end 12/2) (12) History of anemia due to vitamin B12 deficiency: at her request - vitamin B12 1000mcg IM x 1 last B12 level was 2020 Total Time Total Time Spent Total Time Spent (In Minutes): forty minutes spend coordinating care for discharge Discharge Plan Discharge Items Patient Disposition: Home - Self-Care Reason For Visit: ACUTE ON CHRONIC RESP FAILURE WITH HYPOXIA Discharge Diagnosis: Acute on chronic hypoxic respiratory failure Condition on Discharge: Fair Activity: Resume your previous activity Non-emergency contact: Primary Care Provider and [facility] Call non-emergency contact if: you have any medication questions, your symptoms worsen and you have a fever Follow-up/Referrals: Eliza Mayorga DO [Primary Care Provider] - Diet: Regular Addtl Attending Provider Instructions: Dear Ms. Liconabarak, You were treated for flare of COPD and interstitial lung disease which caused shortness of breath and low oxygen levels -you completed antibiotics in the hospital to treat potential bacteria in the lungs (though we did not identify a pneumonia) and UTI -steroids - tapering prednisone over roughly 3 weeks, after the taper resume your usual prednisone 10 mg every other day -follow up with your tipple worker and family services assistant -I will make local rheumatology referral to Dr. Cohn For steroid- induced hyperglycemia: Avoid sugary foods Check blood sugar in the morning If blood sugar 201-250 take a half tab of glipizide If blood sugar over 250 take a full tab of glipizide -don't take glipizide after midday because you could get low blood sugar at night -call your doctor if blood sugars persistently running too high despite prednisone taper It was a pleasure taking care of you in the hospital Meghana Espino MD Pending Studies at Discharge: No Stand-Alone Forms: My [facility] [employer], Smoking Cessation Medications and DC Order Prescriptions: New potassium chloride 20 mEq Tablet,Er Particles/Crystals 20 meq PO BID Qty: 60 0RF prednisone 10 mg tablet See Taper PO DIRECTED Qty: 27 0RF Taper: Taper, Blank 40 mg DAILY for 3 Days 20 mg DAILY for 5 Days 10 mg DAILY for 5 Days Rx Instructions: see taper instructions glipizide 5 mg tablet See Rx Instructions .ROUTE .COMPLEX Qty: 10 0RF Rx Instructions: If morning blood sugar 201-250 take a half tab, if morning blood sugar >250 take 1 tab Continued hydroxyzine HCl 25 mg tablet 25 mg PO HS Qty: 90 2RF Hold Instructions: Home Medication placed on hold at Doctor's office bupropion HCl [Wellbutrin SR] 100 mg tablet sustained-release 12 hr 100 mg PO BID Qty: 180 2RF bisoprolol-hydrochlorothiazide 10-6.25 mg tablet 1 tab PO DAILY Qty: 90 1RF duloxetine 60 mg capsule,delayed release(DR/EC) 60 mg PO QAM Qty: 90 1RF sildenafil (pulm.hypertension) 20 mg tablet 20 mg PO Q8H Rx Instructions: TAKES 0800, 1700, & HS (DME) Portable Oxygen Misc See Rx Instructions .MEDSUPPLY Qty: 1 0RF Rx Instructions: Oxygen 7 liters continuous 6 L with portable concentrator. Keep o2 sat 88- 92%. LAURA 96 (DME) Oxygen Home Liters Per Minute See Rx Instructions .ROUTE .MEDSUPPLY Qty: 1 Rx Instructions: 6 LPM via NC amlodipine 10 mg tablet 10 mg PO QAM Advair HFA 230-21 mcg/actuation HFA aerosol inhaler 2 puff INHALATION BID Qty: 12 11RF mupirocin 2 % ointment 1 applic topical BID PRN (Reason: nasal irritation) Qty: 22 0RF Rx Instructions: APPLY TO BILATERAL NARES oxycodone 5 mg tablet 5 mg PO Q6H PRN (Reason: pain) Qty: 20 0RF ipratropium-albuterol 0.5 mg-3 mg(2.5 mg base)/3 mL solution for nebulization 3 ml inhalation Q8H PRN (Reason: COPD- DX J44.9 J43.9 J45.909 ) Qty: 180 5RF albuterol sulfate [Ventolin HFA] 90 mcg/actuation HFA aerosol inhaler 2 puff inhalation QID PRN (Reason: Shortness Of Breath) Qty: 18 3RF Rx Instructions: USE 2 PUFFS BY MOUTH 4 TIMES A DAY NEEDED Spiriva with HandiHaler 18 mcg capsule, w/inhalation device 1 cap INHALATION QAM Qty: 90 1RF (DME) CPAP Machine Misc See Rx Instructions .Route Qty: 1 0RF Rx Instructions: CPAP 9cmH2O, mask fit to patient comfort, heated humidification, compliance download capabilities, LAURA:99 guaifenesin [Mucinex] 600 mg tablet extended release 12hr 600 mg PO BID gabapentin 300 mg capsule 300 mg PO HS Qty: 90 1RF pantoprazole 40 mg tablet,delayed release (DR/EC) 40 mg PO BID Qty: 180 0RF azithromycin 250 mg tablet 250 mg PO 3XWK Rx Instructions: 250 mg PO 1 tab p.o. on Niuarn-Rmrpurtfo-Lermhb; Held prednisone 10 mg tablet 10 mg PO Q OTHER DAY Hold Instructions: Resume on 01/26/23. resume once prednisone taper completed Rx Instructions: takes every other day DC [facility] 09/01/22- Pt states she is unsure if she should do this after her taper Prednisone- To ask Dr. Cam at 09/04/appt. Discharge Orders: Discharge Order (Routine); Ordered 01/12/23 Ordered By: Meghana Marley/Other Patient Handouts: Glipizide Oral Tablet, Potassium Chloride Oral Tablet, Prednisone Oral Tablet, What Is COPD, Interstitial Lung Disease Admission Data Admit Date/Time: 01/04/23 00:06 Attending Provider: Meghana Espino Admit Provider: Manny Rust Primary Care Provider: Eliza Mayorga Other Providers: Manny Rust; Sarah Cam Other Interventions: Discharge Summary Assessment (RN) Last Done: 01/12/23 12:28 Coding Level of Care Code 21852 INP/OBS DISCH >30 MIN Diagnoses Acute and chronic respiratory failure with hypoxia J96.21 Interstitial lung disease J84.9 Pulmonary HTN I27.20 BONITA (obstructive sleep apnea) G47.33 Prediabetes R73.03 Hypertension I10 Scleroderma M34.9 COPD with emphysema J43.1 Emphysema type: panlobular Hyperlipidemia E78.5 Chronic steroid use UTI (urinary tract infection) N39.0 History of anemia due to vitamin B12 deficiency Z86.2
== END 2023-01-12 12:31 | disposition home or self-care (01) | DRG 189 ==
LOC: ED 17:59 → 4W 01-04 00:06 → SUATTDRO 01-04 00:06 → 4W 01-04 02:11

== ENCOUNTER 2023-01-31 15:57 | Inpatient (IN) ==
[2023-01-31] MEDS ORDERED: methylPREDNISolone 125 MG/2 ML VIAL IV STA (16:22)
[2023-01-31] MEDS ORDERED: ALBUT/IPRATROP 3MG/0.5MG NEB 3 ML VIAL INH STA (16:22)
--- NOTE | 2023-01-31 16:25 | Emergency Department Note ---
Impression & Plan Hypoxia ADMIT ED Provider Note HPI: History obtained from patient. The patient is a 72-year-old female with history of COPD, on 6 L nasal cannula oxygen at home, usually requiring 8 L nasal cannula oxygen with exertion, who presents to the emergency department with chief complaint of shortness of breath. Patient states that this has been worsening over the past several days since she has been coming down on a steroid taper. On arrival here to the ED, the patient is noted to be hypoxic at 78% despite being on a liters nasal cannula oxygen. Patient was therefore switched to nonrebreather mask with good improvement to 92%. On my initial assessment the patient has diminished bilateral breath sounds, she is conversationally dyspneic. Patient denies any chest pain. Patient is with stable blood pressure on arrival. ROS: - Per HPI Differential Diagnosis: Acute on chronic COPD with exacerbation and hypoxia, pneumonia, pulmonary embolism, pleural effusion, interstitial lung disease, amongst other potential pathologies. *Outpatient medications and allergy history reviewed. PE: General: Alert HEENT: Normocephalic, trachea midline Eyes: Extraocular eye movement is intact, no scleral erythema Pulmonary: Diminished bilateral breath sounds with mild expiratory wheezing bilaterally and throughout Cardio: Regular rate and rhythm GI: Abdomen is soft to palpation : No suprapubic tenderness MSK: No evidence of trauma or malformation of the extremities, no edema Skin: No evidence of rash Neuro: Alert, no focal deficits Psychiatric: Cooperative INDEPENDENT INTERPRETATIONS: monitoring analyst: (As interpreted by myself): - An order was placed for continuous cardiac monitoring - Patient was noted to be in sinus rhythm with a rate of 92 EKG: (As interpreted by myself): Rate: 103 Rhythm: Sinus rhythm Intervals: Within normal limits ST changes: No ST elevation Time: 1647 Chest x-ray: (As interpreted by myself): -Expanded lung lema without obvious infiltrate Interventions provided in ED: -DuoNeb breathing treatment, IV Solu-Medrol, nonrebreather mask Medical Decision Making: IV was established and lab work obtained, patient was given a DuoNeb breathing treatment as well as IV Solu-Medrol, lab work shows no leukocytosis, hemoglobin is normal, platelet count is normal, CMP does not show any critical findings, no evidence of acute kidney injury, troponin is negative x 1, EKG shows sinus rhythm without any acute ischemic changes. BNP is slightly elevated at 159 however chest x-ray does not show any obvious fluid overload changes per my interpretation. Viral panel testing was obtained and is negative. On my reassessment the patient remains with some tachypnea although she appears much improved from previous. She is stabilized on nonrebreather mask with oxygen saturations at 95% on my reassessment. Given the patient's remaining increased work of breathing, and increased oxygen requirement, I do feel she requires inpatient admission. [facility] hospitalist service was consulted for admission and the patient was placed for admission in stable condition. Consultants/Discussions held with other healthcare providers: -Hospitalist, Dr. Rust * CRITICAL CARE TIME: ( 45 ) minutes -Stabilization of patient with hypoxia with oxygen saturations at 78% despite supplemental oxygen via nasal cannula requiring escalation to nonrebreather mask with good improvement, time spent at the bedside, interpretation of diagnostic studies, consultation with other healthcare providers and arrangement of admission Diagnosis: 1. Hypoxia, acute 2. COPD exacerbation, acute Disposition: Admission Filiberto Hadley DO Emergency Medicine Past Med/Surg History Medical History (Updated 01/31/23 @ 21:23 by Filiberto Hadley DO) Acute and chronic respiratory failure with hypoxia Interstitial lung disease NSVT (nonsustained ventricular tachycardia) Osteopenia History of COVID-19 Dx 01/2020; required hospitalization Prediabetes Hypertension B12 deficiency Pneumonia due to COVID-19 virus Urinary incontinence Collagenous colitis Multiple pulmonary nodules determined by computed tomography of lung Raynaud's disease Osteoarthritis Chronic steroid use Peripheral neuropathy bilateral hands & feet On home oxygen therapy 4lpm via n/c continuous Hypertension Pulmonary emphysema Prediabetes monitoring Iron deficiency anemia Insomnia, persistent Gastritis, chronic Depression Asthma Anxiety Scleroderma Obstructive sleep apnea cpap Hyperlipidemia GAVE (gastric antral vascular ectasia) Gastroenterology in [facility]. Dr. Marinelli Right lower lobe pneumonia Gastroparesis pt denies COPD (chronic obstructive pulmonary disease) Surgical History History of cataract extraction (09/30/19) Both eyes H/O cataract extraction (09/2019) b/l eyes History of cystoscopy Hx of lumpectomy Left (-) History of dilatation and curettage History of bilateral tubal ligation History of esophagogastroduodenoscopy (EGD) H/O tooth extraction History of tonsillectomy H/O laminectomy Lumbar area History of colonoscopy History of bladder surgery bladder tack History of cholecystectomy Open Family History Mother Stroke Father Lung cancer Sister Non Hodgkin's lymphoma Lupus Denies family history of Ovarian cancer Prostate cancer Myocardial infarction Breast cancer Colorectal cancer Social History Smoking Status: Never smoker Tobacco Type: Cigarettes Age Quit Using Tobacco: 59; Cigarettes Per Day: 40; Second Hand Exposure: No; Do You Dip or Chew Tobacco: No; Hx Alcohol Use: No Hx Substance Use: No Preferred Language: Estonian Communication Ability: Effective Visual Impairment: Limited Hearing Ability: Normal [employer] Supervisor Required: No Beliefs That Will Affect Care: None marital status: Current Living Situation: Spouse current occupational status: retired 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 ; 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 How many Children do You have: 2 Feels Safe at Home: Yes Childhood Exposure to Second-Hand Smoke: Yes Diet: regular Diet Comment: Regular caffeine: Yes during the past year weight has: remained stable Dental Care, Regularly: Yes Physical Activity Frequency: Does not Exercise Seatbelt Use: always Sunscreen Use: Yes Assistive Devices: Stair Lift, Walker and Wheelchair Allergies Allergies Allergy/AdvReac Type Severity Reaction Status Date / Time ferric carboxymaltose Allergy Intermediate SOB, Verified 01/03/23 19:10 [From Injectafer] tachycardia Home Meds Home Medications Medication Instructions Recorded Confirmed Oxygen Home #1 ea 09/03/22 01/13/23 amlodipine 10 mg tablet 10 mg PO QAM 09/03/22 01/31/23 sildenafil (pulm.hypertension) 20 20 mg PO Q8H 09/03/22 01/31/23 mg tablet guaifenesin 600 mg tablet, 600 mg PO BID 12/17/22 01/31/23 extended release 12 hr (Mucinex) azithromycin 250 mg tablet 250 mg PO 3XWK 01/03/23 01/31/23 prednisone 10 mg tablet 10 mg PO Q OTHER DAY 01/03/23 01/31/23 Previous Rx's Medication Instructions Recorded mupirocin 2 % topical ointment 1 applic topical BID PRN nasal 11/26/21 irritation #22 grams hydroxyzine HCl 25 mg tablet 25 mg PO HS #90 tabs 02/02/23 bisoprolol 10 1 tab PO DAILY #90 tabs 05/17/22 mg-hydrochlorothiazide 6.25 mg tablet duloxetine 60 mg capsule,delayed 60 mg PO QAM #90 caps 05/17/22 release Portable Oxygen #1 ea 09/03/22 CPAP Machine #1 ea 09/04/22 albuterol sulfate 90 mcg/actuation 2 puff inhalation QID PRN 09/04/22 aerosol inhaler (Ventolin HFA) Shortness Of Breath #18 grams ipratropium 0.5 mg-albuterol 3 mg 3 ml inhalation Q8H PRN COPD- DX 09/04/22 (2.5 mg base)/3 mL nebulization J44.9 J43.9 J45.909 #180 mL soln tiotropium bromide 18 mcg capsule 1 cap inhalation QAM #90 09/04/22 with inhalation device (Spiriva inhalations with HandiHaler) Advair HFA 230 mcg-21 2 puff inhalation BID #12 grams 09/17/22 mcg/actuation aerosol inhaler (fluticasone propion-salmeterol) oxycodone 5 mg tablet 5 mg PO Q6H PRN pain #20 tabs 10/17/22 gabapentin 300 mg capsule 300 mg PO HS #90 caps 12/17/22 glipizide 5 mg tablet See Rx Instructions .Route 01/11/23 .COMPLEX #10 tabs potassium chloride 20 mEq 20 meq PO BID #60 tabs 01/11/23 tablet,extended release(part/cryst) bupropion HCl 100 mg tablet,12 hr 100 mg PO QAM #180 ea 01/13/23 sustained-release (Wellbutrin SR) pantoprazole 40 mg tablet,delayed 40 mg PO BID #180 tabs 01/30/23 release Results & Data (ED) Vital Signs Vital Signs - 24 hr 01/31/23 16:04 01/31/23 16:04 01/31/23 16:15 Temperature 36.6 C Temperature Source Temporal Artery Scan Pulse Rate Pulse Rate [Finger] Pulse Rhythm [Finger] Respiratory Rate 30 H Respiratory Effort / Characteristics Accessory Muscle Use Short of Breath Respiratory Depth Shallow Respiratory Pattern Blood Pressure 101/58 L Blood Pressure [Left Arm] Blood Pressure Mean 72 Blood Pressure Mean [Left Arm] Blood Pressure Position [Left Arm] Pulse Oximetry 78 L Oxygen Delivery Method Nasal Cannula Nasal Cannula Oxygen Flow Rate 8 8 Sepsis Recent Fever Within 48 Hours No Sepsis New/Unexplained Change in Mental Status No Sepsis Action Taken by Nursing No Action Required Oxygen Flow Rate - Titration Pulse Oximetry Post Tiitration 01/31/23 16:19 01/31/23 16:22 01/31/23 16:54 Temperature Temperature Source Pulse Rate 103 H Pulse Rate [Finger] 102 H Pulse Rhythm [Finger] Respiratory Rate 26 H Respiratory Effort / Characteristics Spontaneous Accessory Muscle Use Labored Respiratory Depth Normal Respiratory Pattern Regular Blood Pressure Blood Pressure [Left Arm] 111/78 Blood Pressure Mean Blood Pressure Mean [Left Arm] 89 Blood Pressure Position [Left Arm] Sitting Pulse Oximetry 78 L 96 Oxygen Delivery Method Nasal Cannula Non-rebreather Non-rebreather Oxygen Flow Rate 8 15 Sepsis Recent Fever Within 48 Hours Sepsis New/Unexplained Change in Mental Status Sepsis Action Taken by Nursing Oxygen Flow Rate - Titration 15 Pulse Oximetry Post Tiitration 94 01/31/23 18:22 Temperature Temperature Source Pulse Rate Pulse Rate [Finger] 98 H Pulse Rhythm [Finger] Regular Respiratory Rate 24 Respiratory Effort / Characteristics Non-Labored Spontaneous Respiratory Depth Normal Respiratory Pattern Regular Blood Pressure Blood Pressure [Left Arm] 114/86 Blood Pressure Mean Blood Pressure Mean [Left Arm] 95 Blood Pressure Position [Left Arm] Sitting Pulse Oximetry 95 Oxygen Delivery Method Non-rebreather Oxygen Flow Rate 15 Sepsis Recent Fever Within 48 Hours Sepsis New/Unexplained Change in Mental Status Sepsis Action Taken by Nursing Oxygen Flow Rate - Titration Pulse Oximetry Post Tiitration Laboratory Data 01/31/23 16:22 01/31/23 16:22 Lab Results 01/31/23 01/31/23 01/31/23 Range/Units 16:22 16:47 17:24 WBC 8.30 (4.8-10.8) K/ul RBC 4.20 (4.20-5.40) M/uL Hgb 12.4 (12.0-16.0) g/dl Hct 38.7 (37.0-47.0) % MCV 92.1 (80.0-100.0) fL MCH 29.5 (25.0-34.0) pg MCHC 32.0 (32.0-36.0) g/dL RDW Std Deviation 48.8 H (36.4-46.3) fL RDW Coeff of Mag 14.5 (11.5-14.5) % Plt Count 352 (130-400) K/uL MPV 10.1 (9.4-12.4) fL Immature Gran % (Auto) 0.5 % Neut % (Auto) 89.2 % Lymph % (Auto) 5.8 % [place] % (Auto) 3.5 % Eos % (Auto) 0.6 % Baso % (Auto) 0.4 % Neut # (Auto) 7.41 H (1.40-6.50) K/uL Lymph # (Auto) 0.48 L (1.20-3.40) K/uL [place] # (Auto) 0.29 (0.11-0.59) K/uL Eos # (Auto) 0.05 (0.00-0.50) K/uL Baso # (Auto) 0.03 (0.00-0.20) K/uL Immature Gran # (Auto) 0.04 (0.01-0.20) K/uL PT 10.9 (9.0-12.0) Seconds INR 1.0 (0.9-1.1) VBG pH 7.36 (7.36-7.41) VBG pCO2 44 (38-50) mmHg VBG pO2 43 mmHg VBG HCO3 25 mmol/L VBG O2 Saturation 73.5 % VBG Base Excess -0.8 mEq/L Sodium 137 (136-145) mmol/L Potassium 4.0 (3.5-5.1) mmol/L Chloride 105 (98-107) mmol/L Carbon Dioxide 23 (21-32) mmol/L Anion Gap 9 (3-11) BUN 13 (6-23) mg/dl Creatinine 0.67 (0.6-1.2) mg/dl Est Cr Clr Drug Dosing Not Reportable Est GFR ( Amer) 102.5 ml/min Est GFR (Non-Af Amer) 88.4 ml/min BUN/Creatinine Ratio 19.4 (10-20) Glucose 212 H (70-99(Fasting)) mg/dl Calcium 8.9 (8.6-10.3) mg/dl Total Bilirubin 0.6 (0.2-1.0) mg/dl AST 11 L (13-39) U/L ALT 9 (7-52) U/L Alkaline Phosphatase 72 (34-104) U/L Troponin I High Sens 7.5 (0-14) pg/ml B-Natriuretic Peptide 159 H (0-100) pg/ml Total Protein 6.4 (6.0-8.3) gm/dl Albumin 3.6 (3.4-5.0) gm/dl Globulin 2.8 (2.5-4.0) gm/dl Albumin/Globulin Ratio 1.3 (0.9-2) Adenovirus (PCR) Not Detected (NotDetected) B. pertussis DNA (PCR) Not Detected (NotDetected) B.parapertussis DNA PCR Not Detected (NotDetected) C. pneumoniae DNA (PCR) Not Detected (NotDetected) Coronavirus OC43 (PCR) Not Detected (NotDetected) Coronavirus HKU1 (PCR) Not Detected (NotDetected) Coronavirus 229E (PCR) Not Detected (NotDetected) SARS-CoV-2 (PCR) Not Detected (NotDetected) Coronavirus NL63 (PCR) Not Detected (NotDetected) Human Metapneumovir PCR Not Detected (NotDetected) Influenza Type A (PCR) Not Detected (NotDetected) Influenza Type B (PCR) Not Detected (NotDetected) M. pneumoniae (PCR) Not Detected (NotDetected) Parainfluenza 1 (PCR) Not Detected (NotDetected) Parainfluenza 2 (PCR) Not Detected (NotDetected) Parainfluenza 3 (PCR) Not Detected (NotDetected) Parainfluenza 4 (PCR) Not Detected (NotDetected) RSV (PCR) Not Detected (NotDetected) Entero/Rhino (PCR) Not Detected (NotDetected) Administered Medications Discontinued Medications Albuterol (Albut/Ipratrop 3mg/0.5mg Neb 3 Ml Vial) 3 ml INH NOW STA Stop: 01/31/23 16:23 Last Admin: 01/31/23 16:43 Dose: 3 ml Documented By: HANNY Methylprednisolone (Methylprednisolone 125 Mg/2 Ml Vial) 125 mg IV NOW STA Stop: 01/31/23 16:23 Last Admin: 01/31/23 16:43 Dose: 125 mg Documented By: SKB Imaging Data Radiologist's Impression: Chest X-Ray 01/31/23 16:22 XR chest 1V portable CLINICAL HISTORY: Dyspnea TECHNIQUE: Single frontal radiograph of the chest was obtained. Comparison: Comparison is made to chest radiograph 01/05/2023 FINDINGS: A port catheter is seen. Calcified aortic knob is seen. Reticular interstitial opacities are seen. No evidence of pleural effusion or pneumothorax. IMPRESSION: Reticular interstitial thickening is seen. ACT 112: Negative or not required by law. Electronically signed by: Black Childs M.D. 01/31/2023 5:54 PM Discharge Plan Visit Data Chief Complaint: Shortness of Breath/Dyspnea Stated Complaint: SOB, COPD FLAIR UP ED Provider: Filiberto Hadley Discharge Problem: Hypoxia Patient Disposition: Admitted As Inpatient Discharge Instructions Interventions: ED Discharge Assessment Last Done: 01/31/23 20:41
[2023-01-31 16:50] LABS: Basophils # (auto) 0.03 K/uL (0.00-0.20); Basophils % (auto) 0.4 %; Eosinophils # (auto) 0.05 K/uL (0.00-0.50); Eosinophils % (auto) 0.6 %; Hematocrit (blood only) 38.7 % (37.0-47.0); Hemoglobin 12.4 g/dl (12.0-16.0); Immature Granulocytes # (auto) 0.04 K/uL (0.01-0.20); Immature Granulocytes % (auto) 0.5 %; Lymphocytes # (auto) 0.48 K/uL (1.20-3.40); Lymphocytes % (auto) 5.8 %; Mean Corpuscular Hemoglobin 29.5 pg (25.0-34.0); Mean Corpuscular Volume 92.1 fL (80.0-100.0); Mean Platelet Volume 10.1 fL (9.4-12.4); Monocytes # (auto) 0.29 K/uL (0.11-0.59); Monocytes % (auto) 3.5 %; Neutrophils # (auto) 7.41 K/uL (1.40-6.50); Neutrophils % (auto) 89.2 %; Platelet Count 352 K/uL (130-400); RDW Coefficient of Variation 14.5 % (11.5-14.5); RDW Standard Deviation 48.8 fL (36.4-46.3)
[2023-01-31 17:06] LABS: Alanine Aminotransferase 9 U/L (7-52); Albumin Globulin Ratio 1.3 (0.9-2); Albumin Level 3.6 gm/dl (3.4-5.0); Alkaline Phosphatase 72 U/L (34-104); Anion Gap 9 (3-11); Aspartate Aminotransferase 11 U/L (13-39); BUN Creatinine Ratio 19.4 (10-20); Bilirubin,Total 0.6 mg/dl (0.2-1.0); Blood Urea Nitrogen 13 mg/dl (6-23); Calcium 8.9 mg/dl (8.6-10.3); Carbon Dioxide 23 mmol/L (21-32); Chloride 105 mmol/L (98-107); Est GFR (African American) 102.5 ml/min; Est GFR (Non-African American) 88.4 ml/min; Globulin 2.8 gm/dl (2.5-4.0); Glucose 212 mg/dl (70-99(Fasting)); Sodium 137 mmol/L (136-145); Total Protein 6.4 gm/dl (6.0-8.3)
[2023-01-31 17:12] LABS: Troponin I High Sensitivity 7.5 pg/ml (0-14)
[2023-01-31 17:13] LABS: Prothrombin Time 10.9 Seconds (9.0-12.0)
[2023-01-31 17:35] LABS: Base Excess VBG -0.8 mEq/L; HCO3 VBG 25 mmol/L; Oxygen Saturation VBG 73.5 %; PCO2 VBG 44 mmHg (38-50); PO2 VBG 43 mmHg; pH VBG 7.36 (7.36-7.41)
--- NOTE | 2023-01-31 17:56 | XRay Report ---
XR chest 1V portable CLINICAL HISTORY: Dyspnea TECHNIQUE: Single frontal radiograph of the chest was obtained. Comparison: Comparison is made to chest radiograph 01/05/2023 FINDINGS: A port catheter is seen. Calcified aortic knob is seen. Reticular interstitial opacities are seen. No evidence of pleural effusion or pneumothorax. IMPRESSION: Reticular interstitial thickening is seen. ACT 112: Negative or not required by law. Electronically signed by: Black Childs M.D. 01/31/2023 5:54 PM
[2023-01-31 18:39] LABS: Adenovirus PCR Not Detected (NotDetected); Bordetella parapertussis PCR Not Detected (NotDetected); Bordetella pertussis PCR Not Detected (NotDetected); Chlamydia pneumoniae PCR Not Detected (NotDetected); Coronavirus 229E PCR Not Detected (NotDetected); Coronavirus CoV-2 (COVID19)PCR Not Detected (NotDetected); Coronavirus HKU1 PCR Not Detected (NotDetected); Coronavirus NL63 PCR Not Detected (NotDetected); Coronavirus OC43PCR Not Detected (NotDetected); Human Metapneumovirus PCR Not Detected (NotDetected); Influenza A PCR Not Detected (NotDetected); Influenza B PCR Not Detected (NotDetected); Mycoplasma pneumoniae PCR Not Detected (NotDetected); Parainfluenza Virus 1 PCR Not Detected (NotDetected); Parainfluenza Virus 2 PCR Not Detected (NotDetected); Parainfluenza Virus 3 PCR Not Detected (NotDetected); Parainfluenza Virus 4 PCR Not Detected (NotDetected); Respiratory Syncytial VirusPCR Not Detected (NotDetected); Rhinovirus/Enterovirus PCR Not Detected (NotDetected)
--- NOTE | 2023-01-31 19:21 | History & Physical Report ---
Date of Service January 31, 2023 Assessment & Plan (1) Acute and chronic respiratory failure with hypoxia: (2) Chronic steroid use: (3) Interstitial lung disease: (4) Pulmonary HTN: (5) BONITA (obstructive sleep apnea): (6) Scleroderma: (7) Asthma: Plan Acute on chronic respiratory failure with hypoxia/progressively worsening interstitial lung disease/COPD exacerbation/pulmonary artery hypertension/BONITA- Status post Solu-Medrol 125 mg IV from the ED, continue Solu-Medrol 40 mg IV every 8 hours Duonebs every 4 hours while awake and every 2 hours when necessary. Likely has progressive interstitial lung disease and pulmonary artery hypertension associated with worsening scleroderma Nasal cannula oxygen 6 to 8 L required at home Continue nonrebreather mask at this time, may need loom overhauler to high flow Change azithromycin from 3 times orally weekly to 500 mg IV daily Guaifenesin extended release 1200 mg p.o. twice daily Continue sildenafil, Incruse Ellipta, Breo Ellipta and Spiriva Hold oral prednisone Follows with pulmonology Dr. Cam Most recent admission from 01/03-01/12/2023 for similar symptoms Scleroderma- Patient feels that her worsening lung disease is more associated with scleroderma She notices rigidity of her hands and fingers worsening She also has to be careful with swallowing, as swallowing has become more difficult She likely does have progressive interstitial lung disease and pulmonary hypertension associate with scleroderma She has an appointment with her scleroderma doctor sometime in February Diabetes mellitus- Glucose is likely going to go up on steroids Holding glipizide Place on Lantus 12 units subcu twice daily with NovoLog SSI Hypertension- Continue amlodipine, bisoprolol, potassium chloride, and HCTZ History of Present Illness Chief Complaint: The patient presents to the emergency department with worsening shortness of breath over the past several days, after she completed her prednisone taper following discharge from [facility] on 01/12/2023 Primary Care Provider: Eliza Mayorga DO The patient is a 72-year-old female with a past medical history including anemia, B12 deficiency, chronic steroid use, 6 L oxygen dependency, interstitial lung disease, COPD, overactive bladder, pulmonary hypertension, BONITA, hypertension, collagenous colitis, anxiety, asthma and gastroparesis. The patient was found to be hypoxic at 78% despite her 8 L oxygen via nasal cannula, and was then placed on 15 L nonrebreather mask. Chest x-ray showed worsening interstitial lung disease, BioFire test was negative. She received methylprednisolone 125 mg IV and DuoNeb treatment from the ED, and was referred for evaluation for admission Allergies Allergy/AdvReac Type Severity Reaction Status Date / Time ferric carboxymaltose Allergy Intermediate SOB, Verified 01/03/23 19:10 [From Injectafer] tachycardia Home Medications Medication Instructions Recorded Confirmed Type mupirocin 2 % topical ointment 1 applic topical BID PRN nasal 11/26/21 01/31/23 Rx irritation #22 grams hydroxyzine HCl 25 mg tablet 25 mg PO HS #90 tabs 03/14/22 01/31/23 Rx bisoprolol 10 1 tab PO DAILY #90 tabs 05/17/22 01/31/23 Rx mg-hydrochlorothiazide 6.25 mg tablet duloxetine 60 mg capsule,delayed 60 mg PO QAM #90 caps 05/17/22 01/31/23 Rx release Oxygen Home #1 ea 09/03/22 01/13/23 History Portable Oxygen #1 ea 09/03/22 01/13/23 Rx amlodipine 10 mg tablet 10 mg PO QAM 09/03/22 01/31/23 History sildenafil (pulm.hypertension) 20 20 mg PO Q8H 09/03/22 01/31/23 History mg tablet CPAP Machine #1 ea 09/04/22 01/13/23 Rx albuterol sulfate 90 mcg/actuation 2 puff inhalation QID PRN 09/04/22 01/31/23 Rx aerosol inhaler (Ventolin HFA) Shortness Of Breath #18 grams ipratropium 0.5 mg-albuterol 3 mg 3 ml inhalation Q8H PRN COPD- DX 09/04/22 01/31/23 Rx (2.5 mg base)/3 mL nebulization J44.9 J43.9 J45.909 #180 mL soln tiotropium bromide 18 mcg capsule 1 cap inhalation QAM #90 09/04/22 01/31/23 Rx with inhalation device (Spiriva inhalations with HandiHaler) Advair HFA 230 mcg-21 2 puff inhalation BID #12 grams 09/17/22 01/31/23 Rx mcg/actuation aerosol inhaler (fluticasone propion-salmeterol) oxycodone 5 mg tablet 5 mg PO Q6H PRN pain #20 tabs 10/17/22 01/31/23 Rx gabapentin 300 mg capsule 300 mg PO HS #90 caps 12/17/22 01/31/23 Rx guaifenesin 600 mg tablet, 600 mg PO BID 12/17/22 01/31/23 History extended release 12 hr (Mucinex) azithromycin 250 mg tablet 250 mg PO 3XWK 01/03/23 01/31/23 History prednisone 10 mg tablet 10 mg PO Q OTHER DAY 01/03/23 01/31/23 History glipizide 5 mg tablet See Rx Instructions .Route 01/11/23 01/31/23 Rx .COMPLEX #10 tabs potassium chloride 20 mEq 20 meq PO BID #60 tabs 01/11/23 01/31/23 Rx tablet,extended release(part/cryst) bupropion HCl 100 mg tablet,12 hr 100 mg PO QAM #180 ea 01/13/23 01/31/23 Rx sustained-release (Wellbutrin SR) pantoprazole 40 mg tablet,delayed 40 mg PO BID #180 tabs 01/30/23 01/31/23 Rx release Past Med/Surg History Medical History (Updated 02/01/23 @ 04:17 by Manny Rust MD) Acute and chronic respiratory failure with hypoxia Interstitial lung disease NSVT (nonsustained ventricular tachycardia) Osteopenia History of COVID-19 Dx 01/2020; required hospitalization Prediabetes Hypertension B12 deficiency Pneumonia due to COVID-19 virus Urinary incontinence Collagenous colitis Multiple pulmonary nodules determined by computed tomography of lung Raynaud's disease Osteoarthritis Chronic steroid use Peripheral neuropathy bilateral hands & feet On home oxygen therapy 4lpm via n/c continuous Hypertension Pulmonary emphysema Prediabetes monitoring Iron deficiency anemia Insomnia, persistent Gastritis, chronic Depression Asthma Anxiety Scleroderma Obstructive sleep apnea cpap Hyperlipidemia GAVE (gastric antral vascular ectasia) Gastroenterology in [facility]. Dr. Marinelli Right lower lobe pneumonia Gastroparesis pt denies COPD (chronic obstructive pulmonary disease) Surgical History History of cataract extraction (09/30/19) Both eyes H/O cataract extraction (09/2019) b/l eyes History of cystoscopy Hx of lumpectomy Left (-) History of dilatation and curettage History of bilateral tubal ligation History of esophagogastroduodenoscopy (EGD) H/O tooth extraction History of tonsillectomy H/O laminectomy Lumbar area History of colonoscopy History of bladder surgery bladder tack History of cholecystectomy Open Family History Mother Stroke Father Lung cancer Sister Non Hodgkin's lymphoma Lupus Denies family history of Ovarian cancer Prostate cancer Myocardial infarction Breast cancer Colorectal cancer Social History Smoking Status: Former smoker Tobacco Type: Cigarettes Age Quit Using Tobacco: 59; Cigarettes Per Day: 40; Second Hand Exposure: No; Do You Dip or Chew Tobacco: No; Tobacco Cessation Education Requested by Patient: No Hx Alcohol Use: No Hx Substance Use: No Preferred Language: Macedonian Communication Ability: Effective Visual Impairment: Limited Hearing Ability: Normal Shoe Laster Required: No Beliefs That Will Affect Care: None marital status: Current Living Situation: Spouse current occupational status: retired 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 ; 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 How many Children do You have: 2 Other Information That Helps Us Care for You: No Feels Safe at Home: Yes Safety Concerns: Feels Safe At This Time Childhood Exposure to Second-Hand Smoke: Yes Diet: regular Diet Comment: Regular caffeine: Yes during the past year weight has: remained stable Dental Care, Regularly: Yes Physical Activity Frequency: Does not Exercise Seatbelt Use: always Sunscreen Use: Yes Assistive Devices: BiPap, Glasses, Oxygen - Continuous, Stair Lift, Walker and Wheelchair Review of Systems Review of Systems: The patient denies chest pain, palpitations, lower extremity swelling, sore throat, fevers, chills, sweats, nausea, vomiting, diarrhea , constipation, abdominal pain, pelvic pain, blood in urine or stool, dysuria, urinary frequency or urgency, lightheadedness, dizziness, headache, memory loss, loss of consciousness, rash, abnormal bruising or bleeding, imbalance, focal weakness, numbness or tingling in arms or legs, generalized arthralgias or myalgias, back or neck pain, or night sweats. The review of systems is otherwise negative other than for that already noted above, and at least 10 systems have been reviewed. Physical Exam Physical Exam: The patient is awake, alert and oriented 3, well developed and well nourished, normocephalic and atraumatic, lying in bed and in no acute distress. HEENT--PERRL, EOMI, mucous membranes and oropharynx dry. Neck--supple. No JVD. No bruits. Thyroid normal, trachea midline, no adenopathy. Heart--normal S1 and S2. No murmurs, rubs or gallops. Lungs--few coarse breath sounds bilaterally. No further respiratory distress or accessory muscle use on nonrebreather mask Abdomen--normal bowel sounds and soft. Nontender. Nondistended, no hernias or masses, no organomegaly. Extremities--no cyanosis or clubbing. No edema. Dermatologic--normal skin turgor, normal color, no abnormal lymph nodes, no rash . Neurologic--cranial nerves II through XII grossly intact. Rheumatologic--normal range of motion. Psychiatric--normal affect. Results & Data Results & Data Vital Signs (Past 12 Hours) Vital Signs Temp Pulse Pulse Resp BP BP Pulse Ox 01/31/23 18:22 98 H 24 114/86 95 01/31/23 16:54 102 H 26 H 111/78 96 01/31/23 16:22 103 H 01/31/23 16:19 78 L 01/31/23 16:15 78 L 01/31/23 16:04 01/31/23 16:04 36.6 C 30 H 101/58 L O2 Del Method O2 Flow Rate 01/31/23 18:22 Non-rebreather 15 01/31/23 16:54 Non-rebreather 15 01/31/23 16:22 01/31/23 16:19 Nasal Cannula, Non-rebreather 8 01/31/23 16:15 Nasal Cannula 8 01/31/23 16:04 Nasal Cannula 8 01/31/23 16:04 Laboratory Results Laboratory Results WBC 8.30 K/ul (4.8-10.8) 01/31/23 16:22 RBC 4.20 M/uL (4.20-5.40) 01/31/23 16:22 Hgb 12.4 g/dl (12.0-16.0) 01/31/23 16:22 Hct 38.7 % (37.0-47.0) 01/31/23 16: MCV 92.1 fL (80.0-100.0) 01/31/23 16: MCH 29.5 pg (25.0-34.0) 01/31/23 16: MCHC 32.0 g/dL (32.0-36.0) 01/31/23 16:22 RDW Std Deviation 48.8 fL (36.4-46.3) H 01/31/23 16: RDW Coeff of Mag 14.5 % (11.5-14.5) 01/31/23 16: Plt Count 352 K/uL (130-400) 01/31/23 16: MPV 10.1 fL (9.4-12.4) 01/31/23 16: Immature Gran % (Auto) 0.5 % 01/31/23 16: Neut % (Auto) 89.2 % 01/31/23 16: Lymph % (Auto) 5.8 % 01/31/23 16:22 Vermilion % (Auto) 3.5 % 01/31/23 16:22 Eos % (Auto) 0.6 % 01/31/23 16: Baso % (Auto) 0.4 % 01/31/23 16: Neut # (Auto) 7.41 K/uL (1.40-6.50) H 01/31/23 16:22 Lymph # (Auto) 0.48 K/uL (1.20-3.40) L 01/31/23 16: Vermilion # (Auto) 0.29 K/uL (0.11-0.59) 01/31/23 16:22 Eos # (Auto) 0.05 K/uL (0.00-0.50) 01/31/23 16: Baso # (Auto) 0.03 K/uL (0.00-0.20) 01/31/23 16: Immature Gran # (Auto) 0.04 K/uL (0.01-0.20) 01/31/23 16: PT 10.9 Seconds (9.0-12.0) 01/31/23 16: INR 1.0 (0.9-1.1) 01/31/23 16:22 VBG pH 7.36 (7.36-7.41) 01/31/23 17:24 VBG pCO2 44 mmHg (38-50) 01/31/23 17:24 VBG pO2 43 mmHg 01/31/23 17:24 VBG HCO3 25 mmol/L 01/31/23 17:24 VBG O2 Saturation 73.5 % 01/31/23 17:24 VBG Base Excess -0.8 mEq/L 01/31/23 17:24 Sodium 137 mmol/L (136-145) 01/31/23 16:22 Potassium 4.0 mmol/L (3.5-5.1) 01/31/23 16:22 Chloride 105 mmol/L (98-107) 01/31/23 16:22 Carbon Dioxide 23 mmol/L (21-32) 01/31/23 16:22 Anion Gap 9 (3-11) 01/31/23 16:22 BUN 13 mg/dl (6-23) 01/31/23 16:22 Creatinine 0.67 mg/dl (0.6-1.2) 01/31/23 16:22 Est Cr Clr Drug Dosing Not Reportable 01/31/23 16:22 Est GFR ( Amer) 102.5 ml/min 01/31/23 16:22 Est GFR (Non-Af Amer) 88.4 ml/min 01/31/23 16:22 BUN/Creatinine Ratio 19.4 (10-20) 01/31/23 16:22 Glucose 212 mg/dl (70-99(Fasting)) H 01/31/23 16:22 POC Glucose 310 mg/dl (70-99) H* 01/31/23 23:16 Calcium 8.9 mg/dl (8.6-10.3) 01/31/23 16:22 Total Bilirubin 0.6 mg/dl (0.2-1.0) 01/31/23 16:22 AST 11 U/L (13-39) L 01/31/23 16:22 ALT 9 U/L (7-52) 01/31/23 16:22 Alkaline Phosphatase 72 U/L (34-104) 01/31/23 16:22 Troponin I High Sens 7.5 pg/ml (0-14) 01/31/23 16:22 B-Natriuretic Peptide 159 pg/ml (0-100) H 01/31/23 16:22 Total Protein 6.4 gm/dl (6.0-8.3) 01/31/23 16:22 Albumin 3.6 gm/dl (3.4-5.0) 01/31/23 16:22 Globulin 2.8 gm/dl (2.5-4.0) 01/31/23 16:22 Albumin/Globulin Ratio 1.3 (0.9-2) 01/31/23 16:22 Adenovirus (PCR) Not Detected (NotDetected) 01/31/23 16:47 B. pertussis DNA (PCR) Not Detected (NotDetected) 01/31/23 16:47 B.parapertussis DNA PCR Not Detected (NotDetected) 01/31/23 16:47 C. pneumoniae DNA (PCR) Not Detected (NotDetected) 01/31/23 16:47 Coronavirus OC43 (PCR) Not Detected (NotDetected) 01/31/23 16:47 Coronavirus HKU1 (PCR) Not Detected (NotDetected) 01/31/23 16:47 Coronavirus 229E (PCR) Not Detected (NotDetected) 01/31/23 16:47 SARS-CoV-2 (PCR) Not Detected (NotDetected) 01/31/23 16:47 Coronavirus NL63 (PCR) Not Detected (NotDetected) 01/31/23 16:47 Human Metapneumovir PCR Not Detected (NotDetected) 01/31/23 16:47 Influenza Type A (PCR) Not Detected (NotDetected) 01/31/23 16:47 Influenza Type B (PCR) Not Detected (NotDetected) 01/31/23 16:47 M. pneumoniae (PCR) Not Detected (NotDetected) 01/31/23 16:47 Parainfluenza 1 (PCR) Not Detected (NotDetected) 01/31/23 16:47 Parainfluenza 2 (PCR) Not Detected (NotDetected) 01/31/23 16:47 Parainfluenza 3 (PCR) Not Detected (NotDetected) 01/31/23 16:47 Parainfluenza 4 (PCR) Not Detected (NotDetected) 01/31/23 16:47 RSV (PCR) Not Detected (NotDetected) 01/31/23 16:47 Entero/Rhino (PCR) Not Detected (NotDetected) 01/31/23 16:47 Impressions Chest X-Ray 01/31/23 16:22 XR chest 1V portable CLINICAL HISTORY: Dyspnea TECHNIQUE: Single frontal radiograph of the chest was obtained. Comparison: Comparison is made to chest radiograph 01/05/2023 FINDINGS: A port catheter is seen. Calcified aortic knob is seen. Reticular interstitial opacities are seen. No evidence of pleural effusion or pneumothorax. IMPRESSION: Reticular interstitial thickening is seen. ACT 112: Negative or not required by law. Electronically signed by: Black Childs M.D. 01/31/2023 5:54 PM Code Status & VTE Plan Code Status Full code VTE Prophylaxis Plan VTE Prophylaxis will be ordered: Yes PG Care Time/CCT Total # of Minutes Spent Total Time Spent with Patient: Total time spent is greater than 50% in coordination of care (as documented) at patient's floor/unit and/or counseling patient: Coding Level of Care Code 27161 INT INP/OBS CARE 3/75MIN Diagnoses Acute and chronic respiratory failure with hypoxia J96.21 Chronic steroid use Interstitial lung disease J84.9 Pulmonary HTN I27.20 BONIAT (obstructive sleep apnea) G47.33 Scleroderma M34.9 Asthma J45.909
[2023-01-31] MEDS ORDERED: CARBOHYDRATES FOR HYPOGLYCEMIA PO PRN (21:35)
[2023-01-31] MEDS ORDERED: DEXTROSE 50% 50 ML SYRINGE IV PRN (21:35)
[2023-01-31] MEDS ORDERED: GLUCOSE 10 TAB/TUBE PO PRN (21:35)
[2023-01-31] MEDS ORDERED: ACETAMINOPHEN 325 MG TAB PO PRN (21:35)
[2023-01-31] MEDS ORDERED: GLUCOSE 40% GEL 15 GM TUBE PO PRN (21:35)
[2023-01-31] MEDS ORDERED: GLUCAGON FOR INJ 1 MG VIAL SQ PRN (21:35)
[2023-01-31] MEDS ORDERED: MUPIROCIN 2% OINT 22 GM TUBE TOP PRN (21:35)
[2023-01-31] MEDS ORDERED: ONDANSETRON INJ 2 MG/ML 2 ML VIAL IV PRN (21:35)
[2023-01-31] MEDS ORDERED: Patient's HEIGHT &/or WEIGHT Needed STA (22:19)
[2023-01-31] MEDS: hydrOXYzine HCl 25 MG TAB PO SCH (23:11)
[2023-01-31] MEDS: PANTOprazole 40 MG TAB PO SCH (23:12)
[2023-01-31] MEDS: POTASSIUM CHLORIDE CRTAB 20 MEQ TABCR PO SCH (23:12)
[2023-01-31] MEDS: SILDENAFIL CITRATE 20 MG TABLET PO SCH (23:12)
[2023-01-31] MEDS: guaiFENesin 600 MG TABCR PO SCH (23:15)
[2023-01-31] MEDS: GABAPENTIN 300 MG CAP PO SCH (23:15)
[2023-01-31] MEDS: ALBUTEROL HFA 8 GM INHALER INH PRN (23:28)
[2023-01-31] MEDS: INSULIN ASPART PER UNIT CHARGE SC SCH (23:38)
[2023-01-31] MEDS: LANTUS PER UNIT CHARGE SQ SCH (23:40)
[2023-01-31] MEDS: ENOXAPARIN INJ 40 MG/0.4 ML SYR SQ SCH (23:43)
[2023-01-31] MEDS: methylPREDNISolone 40 MG in SYRINGE 0 ML IV SCH (23:44)
[2023-01-31] MEDS: AZITHROMYCIN 500 MG in DEXTROSE 5% 250 ML IV SCH (23:44)
[2023-02-01] MEDS ORDERED: IPRATROPIUM BROMIDE NEB SOLN 0.02% 2.5 ML VIAL NEB STA (00:56)
[2023-02-01] MEDS: ALBUT/IPRATROP 3MG/0.5MG NEB 3 ML VIAL NEB SCH ×4 (07:02→19:24)
[2023-02-01 07:13] LABS: Estimated Average Glucose 160 mg/dl; Hemoglobin A1C 7.2 % (4.5-5.6)
--- NOTE | 2023-02-01 08:24 | Hospitalist Progress Note ---
Date of Service February 01, 2023 Assessment & Plan (1) Acute and chronic respiratory failure with hypoxia: Plan: Patient with chronic and progressive interstitial lung disease, COPD, emphysema Continue supplemental oxygen support to maintain SpO2 between 88 and 92% Continue azithromycin IV New fluticasone/cholesterol/umeclidinium Continue montelukast Pulmonary input is appreciated Echocardiogram is pending (2) Interstitial lung disease: Plan: Extensive and progressive disease as listed above. Patient was deemed ineligible for lung transplant per her report Further recommendations per pulmonary (3) Pulmonary HTN: Plan: Continue sildenafil as prescribed by welcome center attendant for scleroderma Repeat echocardiogram is pending (4) BONITA (obstructive sleep apnea): Plan: Continue with CPAP. Patient does have her own machine and is permitted to use this while inpatient (5) COPD with emphysema: Plan: Continue inhalation treatment as above Patient quit smoking several years ago Maintain SpO2 between 88 and 92% (6) Iron deficiency anemia: Plan: Hemoglobin currently within normal range at 12.4 g/Viky Continue with outpatient management of her iron insufficiency Plan Discussion regarding CODE STATUS today. Patient desires to be DNR/DNI. Request that we assist with discussion with family tomorrow. Would consider palliative consult for consideration of treatment options. Await discussion with pulmonary group Admission and Anticipated Discharge Date Admission Date: January 31, 2023 Subjective Attending: Dr. Jones This is a 72-year-old female that was admitted last evening for acute on chronic respiratory failure with hypoxia. Patient has progressively worsening interstitial lung disease and was admitted with shortness of breath yesterday she was started on Solu-Medrol 125 mg IV and continued on 40 mg IV every 8 hours. She is also getting DuoNebs as needed. Patient does use supplemental oxygen at home at 6 to 8 L. Patient is on azithromycin Friday at home. This has been increased to daily while admitted. Patient continues on sildenafil, Incruse Ellipta, Breo Ellipta, and Spiriva while inpatient. She follows with Dr. Cam in the outpatient clinic. Patient also has diabetes. She is currently on glipizide at home. This has been held due to increased steroids while inpatient. Patient is being treated with Lantus twice daily as well as sliding scale insulin as needed. A chest x-ray was obtained on admission. Patient appears to have increasing reticular interstitial opacities. There is no evidence of pleural effusion or pneumothorax. No evidence of pneumonia or other consolidation or infiltrate. Patient has no leukocytosis. No eosinophilia. Patient is negative for COVID adenovirus, RSV, enterorhinovirus, influenza. Pulmonary has been consulted. Consult note is pending. Patient has been struggling for several years with progressive disease. She was evaluated in [place] for lung transplant and was not eligible. Long discussion about prognosis of pulmonary disease and limited treatment options. Patient states that she had long discussion earlier with pulmonary with her present. At this time, she would like to change her resuscitation status to DNR/DNI as she has been told multiple times that she most likely would be a poor candidate for extubation and would not desire to have a tracheostomy tube and be ventilator dependent. She is aware that she has extensive and progressive lung disease that is most likely irreversible and that she has l imited treatment options. Although she has made this decision, she would like us to assist with discussion with her and daughter tomorrow. Patient currently has significant shortness of breath but is oxygenating okay with 7 L/min of supplemental oxygen. She does have conversational dyspnea and increased respiratory rate with any exertion. She denies any chest pain or tightness. She is tolerant of her CPAP and is using this as prescribed. Patient has no other complaints or questions at this time. Review of Systems Review of Systems: A total of 10 systems was reviewed and is negative other than as listed in the HPI Physical Exam Physical Exam: GENERAL : No acute distress EYES: No icterus, gaze conjugate NOSE: No evidence of epistaxis MOUTH: No lesions or candidiasis NECK: Supple LUNGS: CTA B/L, no wheezes, rales or rhonchi. No Velcro type sounds at the time of my examination HEART: Regular, normal sinus rhythm in the low 100s ABDOMEN: Soft, NT, ND, BS Present EXTREMITIES: No LE edema, pedal pulses intact NEURO: A&OX3 Results & Data Results & Data Vital Signs (Past 12 Hours) Vital Signs Temp Pulse Pulse Resp BP Pulse Ox Pulse Ox 02/01/23 08:13 36.5 C 100 H 20 117/73 85 L 02/01/23 07:03 100 H 22 100 02/01/23 03:00 36.6 C 95 H 24 118/77 94 02/01/23 02:24 96 H 18 91 01/31/23 23:28 112 H 24 92 01/31/23 23:00 36.4 C L 112 H 26 H 139/70 88 L 01/31/23 22:47 110 H 01/31/23 21:39 103 H 01/31/23 21:39 36.8 C 108 H 24 144/87 H 99 01/31/23 21:39 01/31/23 21:39 36.8 C 108 H 24 144/87 H 99 01/31/23 21:35 99 O2 Del Method O2 Del Method O2 Flow Rate O2 Flow Rate 02/01/23 08:13 Nasal Cannula 9 02/01/23 07:03 CPAP 8 02/01/23 03:00 Nasal Cannula 02/01/23 02:24 CPAP 8 01/31/23 23:28 Nasal Cannula 8 01/31/23 23:00 Nasal Cannula 01/31/23 22:47 01/31/23 21:39 01/31/23 21:39 Non-rebreather 12 01/31/23 21:39 Non-rebreather 12 01/31/23 21:39 Non-rebreather 12 01/31/23 21:35 Non-rebreather 12 Laboratory Results Abnormal lab results 01/31/23 01/31/23 02/01/23 Range/Units 16:22 23:16 07:20 RDW Std Deviation 48.8 H (36.4-46.3) fL Neut # (Auto) 7.41 H (1.40-6.50) K/uL Lymph # (Auto) 0.48 L (1.20-3.40) K/uL Glucose 212 H (70-99(Fasting)) mg/dl POC Glucose 310 H* 157 H (70-99) mg/dl Hemoglobin A1c 7.2 H (4.5-5.6) % AST 11 L (13-39) U/L B-Natriuretic Peptide 159 H (0-100) pg/ml PG Care Time/CCT Total # of Minutes Spent Total Time Spent with Patient: Total time spent is greater than 50% in coordination of care (as documented) at patient's floor/unit and/or counseling patient: 65 minutes spent [id number] with patient with end-of-life discussion and treatment discussion Coding Level of Care Code 85385 SUB INP/OBS CARE 3/50MIN Diagnoses Acute and chronic respiratory failure with hypoxia J96.21 Interstitial lung disease J84.9 Pulmonary HTN I27.20 BONITA (obstructive sleep apnea) G47.33 COPD with emphysema J43.1 Emphysema type: panlobular Iron deficiency anemia D50.9 Time Spent (min) 75 (5) COPD with emphysema Emphysema type: panlobular Qualified Code(s): J43.1 - Panlobular emphysema
[2023-02-01] MEDS: methylPREDNISolone 40 MG in SYRINGE 0 ML IV SCH ×3 (08:37→23:53)
[2023-02-01] MEDS: SILDENAFIL CITRATE 20 MG TABLET PO SCH ×3 (08:37→20:21)
[2023-02-01] MEDS: POTASSIUM CHLORIDE CRTAB 20 MEQ TABCR PO SCH ×2 (08:37→20:22)
[2023-02-01] MEDS: hydroCHLOROthiazide 25 MG TAB PO SCH (08:38)
[2023-02-01] MEDS: guaiFENesin 600 MG TABCR PO SCH ×2 (08:39→20:26)
[2023-02-01] MEDS: DULoxetine HCL 60 MG CAP PO SCH (08:39)
[2023-02-01] MEDS: PANTOprazole 40 MG TAB PO SCH ×2 (08:39→20:21)
[2023-02-01] MEDS: buPROPion SR 100 MG TABCR PO SCH (08:39)
[2023-02-01] MEDS: amLODIPine BESYLATE 5 MG TAB PO SCH (08:39)
[2023-02-01] MEDS: BISOPROLOL FUMARATE 5 MG TAB PO SCH (08:40)
[2023-02-01] MEDS: UMECLIDINIUM BROMIDE 62.5MCG/BLISTER 7 PUFFS/INHALER INH SCH (08:40)
[2023-02-01] MEDS: FLUTICASONE/VILANTEROL 200/25MCG 14 PUFFS/INHALER INH SCH (08:40)
[2023-02-01] MEDS: LANTUS PER UNIT CHARGE SQ SCH ×2 (08:47→20:41)
[2023-02-01] MEDS: INSULIN ASPART PER UNIT CHARGE SC SCH ×4 (08:47→20:41)
[2023-02-01 11:32] LABS: Appearance Urine Clear (Clear); Bacteria Urine Automated Negative (Negative); Bilirubin Urine Negative (Negative); Blood Urine Trace (Negative); Color Urine Yellow; Glucose Urine UA Negative (Negative); Ketones Urine Negative (Negative); Leukocyte Esterase Urine 1+ (Negative); Nitrite Urine Negative (Negative); Protein Urine Negative (Negative); Specific Gravity Urine 1.019 (1.000-1.030); Urobilinogen Urine Negative (Negative); pH Urine 5.5 (4.5-7.5)
--- NOTE | 2023-02-01 12:34 | Pulmonary Consultation ---
Date of Consultation February 01, 2023 Assessment & Plan (1) Acute and chronic respiratory failure with hypoxia: Patient notes that she uses 6 L of oxygen at baseline. She is currently on 6 L oxygen via her CPAP. She has a nasal CPAP on. She notes that she has had very frequent readmissions to the hospital due to COPD exacerbations and her symptoms flareup anytime she is weaned off of prednisone. We discussed the nature of her disease. We discussed that her COPD is quite advanced and appears to be pro gressing. Unfortunately she is a poor candidate for lung transplantation and was evaluated at [facility] and ultimately denied transplant candidacy. She will need updated PFTs in our system. She is likely a poor candidate for bronchoscopic lung volume reduction given underlying pulmonary hypertension and diffuse emphysema. Agree with continuing IV Solu-Medrol at this time and tapering to p.o. predni sone over the next 1 to 2 days. Continue bronchodilator therapy. (2) Pulmonary emphysema: She has severe emphysema. Likely poor candidate for BLVR. (3) Acute exacerbation of COPD with asthma: See comments above. Continue IV methylprednisone and wean to prednisone over the next 1 to 2 days. No clear signs of infectious etiology. (4) BONITA (obstructive sleep apnea): Very compliant with CPAP therapy. (5) Pulmonary HTN: Diagnosis somewhat unclear. Patient indicates that she had a right heart cath eterization at an outside facility. Do not have the records of these results. I have ordered for repeat echocardiogram. It appears that she is on sildenafil 20 mg 3 times daily for the treatment of pulmonary hypertension. If she indeed has pulm hypertension noted on echo, would recommend a repeat right heart catheterization and considering switching to Tyvaso. Patient is concerned that pulmonary hypertension secondary to ILD and scleroderma. I do not see any evidence of interstitial lung disease on her CT chest. I suspect her pulm hypertension is secondary to cor pulmonale from COPD and BONITA. (6) Goals of care, counseling/discussion: We had a lengthy discussion regarding her goals of care and quality of life. She indicates that lately her quality of life has been poor due to frequent hospitalizations. She understands that the likelihood of her surviving a cardiac arrest or intubation with mechanical ventilation is poor. We discussed palliative care and possible transition to hospice as an outpatient. She is going to consider these options and talk to her family. Recommend either inpatient or outpatient palliative care consultation. Patient's nurse updated regarding this discussion. CODE STATUS will be deferred to the primary team. History of Present Illness Reason for Consultation: Acute/chronic respiratory failure with hypoxia, scleroderma Attending Physician: Mainor Jones MD History of Present Illness 72-year-old female with past medical history of overlap syndrome (BONITA and COPD) pulmonary hypertension, scleroderma, anxiety and gastroparesis who presented to the hospital due to acute on chronic shortness of breath and hypoxemia. She is currently on 9 L of oxygen saturating 99%. Chest x-ray was personally reviewed from 01/31/2023 which reveals reticular interstitial opacities and diffuse emphysematous change unchanged compared to prior. CT chest from 12/30/2022 with severe bullous emphysema noted. She follows with Dr. Quezada in the outpatient setting who has her on Advair and Spiriva. He also added azithromycin 250 mg every other day. Patient notes that whenever she weans off of prednisone, her symptoms flareup and she has severe dyspnea with very minimal exertion. She is on supplemental oxygen at a flow rate of 6 L/min at baseline. She notes that she had a workup at [facility] for lung transplant and was denied transplant due to comorbidities. She had PFTs in outside facility 01/21/2022 as a preoperative transplant workup. FEV1 at that time was 67% predicted. Unfortunately no lung volumes or diffusion was available. VBG on admission was unremarkable. No hypercapnia noted. She is currently on methylprednisone 40 mg 3 times daily and azithromycin 500 mg daily. Respiratory bio fire was negative on admission. Echocardiogram 09/22/2022 revealed normal LVEF of 55 to 60%. RV was normal in size and function. Pulmonary arteries are poorly visualized. No comment was made on pulmonary hypertension. Patient notes that she was recently told that she has pulmonary pretension. Allergies Allergy/AdvReac Type Severity Reaction Status Date / Time ferric carboxymaltose Allergy Intermediate SOB, Verified 01/03/23 19:10 [From Injectafer] tachycardia Home Medications Medication Instructions Recorded Confirmed Type mupirocin 2 % topical ointment 1 applic topical BID PRN nasal 11/26/21 01/31/23 Rx irritation #22 grams hydroxyzine HCl 25 mg tablet 25 mg PO HS #90 tabs 03/14/22 01/31/23 Rx bisoprolol 10 1 tab PO DAILY #90 tabs 05/17/22 01/31/23 Rx mg-hydrochlorothiazide 6.25 mg tablet duloxetine 60 mg capsule,delayed 60 mg PO QAM #90 caps 05/17/22 01/31/23 Rx release Oxygen Home #1 ea 09/03/22 01/13/23 History Portable Oxygen #1 ea 09/03/22 01/13/23 Rx amlodipine 10 mg tablet 10 mg PO QAM 09/03/22 01/31/23 History sildenafil (pulm.hypertension) 20 20 mg PO Q8H 09/03/22 01/31/23 History mg tablet CPAP Machine #1 ea 09/04/22 01/13/23 Rx albuterol sulfate 90 mcg/actuation 2 puff inhalation QID PRN 09/04/22 01/31/23 Rx aerosol inhaler (Ventolin HFA) Shortness Of Breath #18 grams ipratropium 0.5 mg-albuterol 3 mg 3 ml inhalation Q8H PRN COPD- DX 09/04/22 01/31/23 Rx (2.5 mg base)/3 mL nebulization J44.9 J43.9 J45.909 #180 mL soln tiotropium bromide 18 mcg capsule 1 cap inhalation QAM #90 09/04/22 01/31/23 Rx with inhalation device (Spiriva inhalations with HandiHaler) Advair HFA 230 mcg-21 2 puff inhalation BID #12 grams 09/17/22 01/31/23 Rx mcg/actuation aerosol inhaler (fluticasone propion-salmeterol) oxycodone 5 mg tablet 5 mg PO Q6H PRN pain #20 tabs 10/17/22 01/31/23 Rx gabapentin 300 mg capsule 300 mg PO HS #90 caps 12/17/22 01/31/23 Rx guaifenesin 600 mg tablet, 600 mg PO BID 12/17/22 01/31/23 History extended release 12 hr (Mucinex) azithromycin 250 mg tablet 250 mg PO 3XWK 01/03/23 01/31/23 History prednisone 10 mg tablet 10 mg PO Q OTHER DAY 01/03/23 01/31/23 History glipizide 5 mg tablet See Rx Instructions .Route 01/11/23 01/31/23 Rx .COMPLEX #10 tabs potassium chloride 20 mEq 20 meq PO BID #60 tabs 01/11/23 01/31/23 Rx tablet,extended release(part/cryst) bupropion HCl 100 mg tablet,12 hr 100 mg PO QAM #180 ea 01/13/23 01/31/23 Rx sustained-release (Wellbutrin SR) pantoprazole 40 mg tablet,delayed 40 mg PO BID #180 tabs 01/30/23 01/31/23 Rx release Patient History Medical History (Updated 02/01/23 @ 14:30 by Dipak Jamison MD) Goals of care, counseling/discussion Acute exacerbation of COPD with asthma Acute and chronic respiratory failure with hypoxia Interstitial lung disease NSVT (nonsustained ventricular tachycardia) Osteopenia History of COVID-19 Dx 01/2020; required hospitalization Prediabetes Hypertension B12 deficiency Pneumonia due to COVID-19 virus Urinary incontinence Collagenous colitis Multiple pulmonary nodules determined by computed tomography of lung Raynaud's disease Osteoarthritis Chronic steroid use Peripheral neuropathy bilateral hands & feet On home oxygen therapy 4lpm via n/c continuous Hypertension Pulmonary emphysema Prediabetes monitoring Iron deficiency anemia Insomnia, persistent Gastritis, chronic Depression Asthma Anxiety Scleroderma Obstructive sleep apnea cpap Hyperlipidemia GAVE (gastric antral vascular ectasia) Gastroenterology in [facility]. Dr. Marinelli Right lower lobe pneumonia Gastroparesis pt denies COPD (chronic obstructive pulmonary disease) Surgical History History of cataract extraction (09/30/19) Both eyes H/O cataract extraction (09/2019) b/l eyes History of cystoscopy Hx of lumpectomy Left (-) History of dilatation and curettage History of bilateral tubal ligation History of esophagogastroduodenoscopy (EGD) H/O tooth extraction History of tonsillectomy H/O laminectomy Lumbar area History of colonoscopy History of bladder surgery bladder tack History of cholecystectomy Open Family History Mother Stroke Father Lung cancer Sister Non Hodgkin's lymphoma Lupus Denies family history of Ovarian cancer Prostate cancer Myocardial infarction Breast cancer Colorectal cancer Social History Smoking Status: Former smoker Tobacco Type: Cigarettes Age Quit Using Tobacco: 59; Cigarettes Per Day: 40; Second Hand Exposure: No; Do You Dip or Chew Tobacco: No; Tobacco Cessation Education Requested by Patient: No Hx Alcohol Use: No Hx Substance Use: No Preferred Language: Estonian Communication Ability: Effective Visual Impairment: Limited Hearing Ability: Normal Pediatric Associate Required: No Beliefs That Will Affect Care: None marital status: Current Living Situation: Spouse current occupational status: retired 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 ; 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 How many Children do You have: 2 Other Information That Helps Us Care for You: No Feels Safe at Home: Yes Safety Concerns: Feels Safe At This Time Childhood Exposure to Second-Hand Smoke: Yes Diet: regular Diet Comment: Regular caffeine: Yes during the past year weight has: remained stable Dental Care, Regularly: Yes Physical Activity Frequency: Does not Exercise Seatbelt Use: always Sunscreen Use: Yes Assistive Devices: BiPap, Glasses, Oxygen - Continuous, Stair Lift, Walker and Wheelchair Review of Systems Review of Systems: All systems reviewed & are unremarkable except as noted in HPI & below Physical Exam Physical Exam: Constitutional: Patient appears to be of their stated age. Patient is in no apparent distress. Patient is well-developed. Obese. Eyes: Pupils are equal round and reactive to light. Conjunctivae are normal. Anicteric sclera. Ears nose, mouth and throat: Mallampati class 2. Normal posterior oropharynx. Uvula is midline. Neck: Trachea is midline. Visual inspection is normal. Respiratory: Barrel chested. Prolonged phase of exhalation. No wheezes. Cardiovascular: Regular rate and rhythm. No murmurs. No edema. Gastrointestinal: Normal bowel sounds, soft, nontender and nondistended. No hepatosplenomegaly noted. Musculoskeletal: No cyanosis. Patient is able to move all extremities. Strength is 5 out of 5 in the upper and lower extremities. Skin: No rashes, warm dry and intact. Neurologic: No obvious focal neurological deficits seen. Psychiatric: Alert and oriented x3 with a euthymic affect. Results & Data Results & Data Vital Signs (Past 12 Hours) Vital Signs Temp Pulse Pulse Resp BP Pulse Ox O2 Del Method 02/01/23 12:10 36.7 C 108 H 18 116/76 99 Nasal Cannula 02/01/23 10:59 110 H 32 H 99 CPAP 02/01/23 08:13 36.5 C 100 H 20 117/73 85 L Nasal Cannula 02/01/23 08:00 96 H 02/01/23 08:00 Nasal Cannula, CPAP 02/01/23 07:03 100 H 22 100 CPAP 02/01/23 03:00 36.6 C 95 H 24 118/77 94 Nasal Cannula 02/01/23 02:24 96 H 18 91 CPAP O2 Flow Rate 02/01/23 12:10 9 02/01/23 10:59 8 02/01/23 08:13 9 02/01/23 08:00 02/01/23 08:00 02/01/23 07:03 8 02/01/23 03:00 02/01/23 02:24 8 PG Care Time/CCT Total # of Minutes Spent Total Time Spent with Patient: Total time spent is greater than 50% in coordination of care (as documented) at patient's floor/unit and/or counseling patient: Coding Level of Care Code 13574 INT INP/OBS CARE 3/75MIN Diagnoses Acute and chronic respiratory failure with hypoxia J96.21 Pulmonary emphysema J43.9 Acute exacerbation of COPD with asthma J44.1; J45.901 BONITA (obstructive sleep apnea) G47.33 Pulmonary HTN I27.20 Goals of care, counseling/discussion Z71.89
[2023-02-01] MEDS: hydrOXYzine HCl 25 MG TAB PO SCH (20:23)
[2023-02-01] MEDS: GABAPENTIN 300 MG CAP PO SCH (20:24)
[2023-02-01] MEDS: ENOXAPARIN INJ 40 MG/0.4 ML SYR SQ SCH (20:25)
[2023-02-01] MEDS: oxyCODONE HCL IR 5 MG TAB (IMMEDIATE RELEASE) PO PRN (21:50)
[2023-02-01] MEDS: AZITHROMYCIN 500 MG in DEXTROSE 5% 250 ML IV SCH (23:53)
[2023-02-02] MEDS: ALBUT/IPRATROP 3MG/0.5MG NEB 3 ML VIAL NEB SCH ×4 (06:58→18:35)
[2023-02-02] MEDS: UMECLIDINIUM BROMIDE 62.5MCG/BLISTER 7 PUFFS/INHALER INH SCH (08:47)
[2023-02-02] MEDS: methylPREDNISolone 40 MG in SYRINGE 0 ML IV SCH ×2 (08:47→20:55)
[2023-02-02] MEDS: FLUTICASONE/VILANTEROL 200/25MCG 14 PUFFS/INHALER INH SCH (08:47)
[2023-02-02] MEDS: DULoxetine HCL 60 MG CAP PO SCH (08:48)
[2023-02-02] MEDS: BISOPROLOL FUMARATE 5 MG TAB PO SCH (08:48)
[2023-02-02] MEDS: amLODIPine BESYLATE 5 MG TAB PO SCH (08:48)
[2023-02-02] MEDS: buPROPion SR 100 MG TABCR PO SCH (08:48)
[2023-02-02] MEDS: guaiFENesin 600 MG TABCR PO SCH ×2 (08:48→20:54)
[2023-02-02] MEDS: hydroCHLOROthiazide 25 MG TAB PO SCH (08:48)
[2023-02-02] MEDS: PANTOprazole 40 MG TAB PO SCH ×2 (08:49→20:51)
[2023-02-02] MEDS: INSULIN ASPART PER UNIT CHARGE SC SCH ×4 (08:49→21:08)
[2023-02-02] MEDS: POTASSIUM CHLORIDE CRTAB 20 MEQ TABCR PO SCH ×2 (08:49→20:52)
[2023-02-02] MEDS: SILDENAFIL CITRATE 20 MG TABLET PO SCH ×3 (08:49→20:53)
[2023-02-02] MEDS: LANTUS PER UNIT CHARGE SQ SCH ×2 (08:49→21:07)
--- NOTE | 2023-02-02 08:56 | Pulmonology Progress Note ---
Date of Service February 02, 2023 Assessment & Plan (1) Acute and chronic respiratory failure with hypoxia: (2) Pulmonary emphysema: (3) Acute exacerbation of COPD with asthma: (4) BONITA (obstructive sleep apnea): (5) Pulmonary HTN: Plan CTA chest 01/03/2023 personally reviewed: Severe centrilobular and paraseptal emphysema appreciated bilaterally Motion degraded study, Edac cannot be ruled out Left upper lobe peripheral pulmonary nodule No significant mediastinal lymphadenopathy 2D echo 09/22/2022: EF 55-60%, grade 1 diastolic dysfunction, RV normal in size and function ABG 01/07/2023: 7.43/37/74 on 6 L -- Chronic hypoxic hypercapnic respiratory failure Gold class E Respiratory bio fire negative for everything on 01/31/2023 BNP 159 On Advair 230-21 mcg and Spiriva. Azithromycin 250 mg [id number], QTc 458 on 01/31/2023 Continue with as needed albuterol and Teresita's Patient was asking about AVAPS machine. Her last FEV1 was 67% predicted. It needs to be less than 50% to qualify. Patient is also on chronic prednisone 10 mg every other day as per the transplant physician at [facility]. Unfortunately [facility] told her that she would not be a transplant candidate. She followed up with [facility] since then but she got infection was in the hospital multiple times. She is going to follow-up with them again She is not a candidate for lung volume reduction or endobronchial valve placement given that her RV was only 113% and TLC 94% based on PFT 08/17/2020 For chronic bronchitis continue with Mucinex and flutter valve. If that does not help and I will add hypertonic saline Spirometry 01/21/2022 personally reviewed: Moderate obstructive lung dysfunction (Decrease in FVC by 60 mm, increase in FEV1 by 90 mL compared to 03/2021) FVC 2.70 L 95%, FEV1 1.36 L 67%, FEV1/FVC 50% --Chronic hypoxic respiratory failure On 6 L nasal cannula at rest with 8 L on exertion Advised to keep oxygen saturation between 88-92% --Pulmonary nodule Left upper lobe 5 mm Has been stable --BONITA She was on CPAP of 9 cm H2O Continue with CPAP while in the hospital --Pulmonary hypertension Combination of type I, type II and type III Type I likely from underlying scleroderma 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 She had a cardiac catheter in January 2022 at [facility]. I will try to get the results to see what was the capillary wedge pressure at that time She is being treated for primary pulmonary hypertension with sildenafil. If she truly has primary pulmonary hypertension then addition of either macitentan or adding could be thought of Prostacyclin Case was discussed with Dr. Jones Please note the above document was generated using voice recognition software. It may contain grammatical, syntax or spelling errors.Any formal questions or concerns about the content, text or information contained within the body of this dictation should be directly addressed to the provider for clarification. Admission and Anticipated Discharge Date Admission Date: January 31, 2023 Subjective Patient seen and examined at bedside. Case was discussed with outgoing filer finish. She was on her CPAP machine. Saturating 96%. She states she is feeling better since coming to the hospital. As per her whenever she weans herself off of prednisone she gets short of breath Denies any chest pain. No fever or chills Bringing up clear phlegm. Denies any chest congestion Fair appetite Urinating well Review of Systems 2 Review of Systems: All systems reviewed & are unremarkable except as noted in Subjective Physical Exam 2 Physical Exam: Constitutional: No acute distress HEENT: EOMI, PERRLA Respiratory system: Decreased air entry bilaterally, minimal expiratory wheeze, no rhonchi, minimal crackles bilateral lower lobes CVS: S1-S2 positive, no murmurs or gallops, accentuated P2 Abdomen: Soft, nontender, nondistended, positive bowel sounds x4 obese Extremities: +2 pulses bilaterally radialis/ dorsalis pedis, no cyanosis, no edema Neuro: Awake alert oriented x3 Psych: Normal mood and affect G/U: No Bailey Skin: no rashes, warm and dry Lymphatic: no cervical or axillary lymphadenopathy Results & Data Results & Data Vital Signs (Past 12 Hours) Vital Signs Temp Pulse Pulse Pulse Resp BP Pulse Ox 02/02/23 08:07 36.5 C 102 H 18 127/85 92 02/02/23 07:47 90 02/02/23 06:59 94 H 20 91 02/01/23 23:00 36.9 C 98 H 21 115/75 97 02/01/23 22:00 100 H 02/01/23 21:35 Pulse Ox O2 Del Method O2 Del Method O2 Flow Rate O2 Flow Rate 02/02/23 08:07 Nasal Cannula 11 02/02/23 07:47 02/02/23 06:59 CPAP 7 02/01/23 23:00 BiPAP 02/01/23 22:00 02/01/23 21:35 97 BiPAP 7 Laboratory Results 01/31/23 16:22 01/31/23 16:22 PG Care Time/CCT Total # of Minutes Spent Total Time Spent with Patient: Total time spent is greater than 50% in coordination of care (as documented) at patient's floor/unit and/or counseling patient: Coding Level of Care Code 88018 SUB INP/OBS CARE 3/50MIN Diagnoses Acute and chronic respiratory failure with hypoxia J96.21 Pulmonary emphysema J43.9 Acute exacerbation of COPD with asthma J44.1; J45.901 BONTIA (obstructive sleep apnea) G47.33 Pulmonary HTN I27.20
--- NOTE | 2023-02-02 09:22 | Electrocardiogram Report ---
Test Reason : Blood Pressure : / mmHG Vent. Rate : 103 BPM Atrial Rate : 103 BPM P-R Int : 192 ms QRS Dur : 082 ms QT Int : 350 ms P-R-T Axes : 070 -34 062 degrees QTc Int : 458 ms Poor data quality, interpretation may be adversely affected Sinus tachycardia with frequent Premature ventricular complexes Left axis deviation Low voltage QRS Inferior infarct (cited on or before 03-JAN-2023) Cannot rule out Anterior infarct , age undetermined Abnormal ECG When compared with ECG of 03-JAN-2023 18:23, Minimal criteria for Anterior infarct are now Present Confirmed by Clay Claire ([id number]) on 02/02/2023 9:22:20 AM Referred By: REFERRED SELF Confirmed By:Clay Claire
[2023-02-02] MEDS ORDERED: COUGH DROP (SUGAR FREE) LOZ 24 LOZ/1 BOX BUCCAL PRN (18:40)
--- NOTE | 2023-02-02 18:45 | Hospitalist Progress Note ---
Date of Service February 02, 2023 Assessment & Plan (1) Acute and chronic respiratory failure with hypoxia: Plan: Patient with chronic and progressive interstitial lung disease, COPD, emphysema Continue supplemental oxygen support to maintain SpO2 between 88 and 92% Continue azithromycin IV New fluticasone/cholesterol/umeclidinium Continue montelukast Pulmonary input is appreciated Echocardiogram is pending Request right heart cath report from [facility] - consent signed (2) Interstitial lung disease: Plan: Extensive and progressive disease as listed above. 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 Cam (4) BONITA (obstructive sleep apnea): Plan: Continue with CPAP. Patient does have her own machine and is permitted to use this while inpatient (5) COPD with emphysema: Plan: Continue inhalation treatment as above Patient quit smoking several years ago Maintain SpO2 between 88 and 92% (6) Iron deficiency anemia: Plan: Hemoglobin currently within normal range at 12.4 g/Viky Continue with outpatient management of her iron insufficiency (7) Thrush, oral: Plan: Oral candidiasis Nystatin swish and swallow 4 times daily Fisherman friend cough drops Plan Discussion regarding CODE STATUS reaffirmed today with patient in the presence of her , daughter, son. Patient desires to be DNR/DNI. Await discussion with pulmonary and family. Dr. Cam called but deferred meeting with family. Family would like to speak with him when available Admission and Anticipated Discharge Date Admission Date: January 31, 2023 Subjective Attending: Dr. Jones Patient seen and examined at bedside. She seems to be doing better today. Patient states that she had oxycodone last night and slept well. Long discussion regarding progression of care. Seen by pulmonary and awaiting their recommendations Patient denies any significant cough or sputum production. No fever or chills. No chest pain or tightness. She finds that she typically needs to have CPAP in order to maintain comfort at this time. She was seen twice today and both times had CPAP in place. Review of Systems 2 Review of Systems: A total of 10 systems was reviewed and is negative other than as listed in the HPI Physical Exam 2 Physical Exam: GENERAL : No acute distress EYES: No icterus, gaze conjugate NOSE: No evidence of epistaxis. CPAP nasal pillow in place MOUTH: No lesions or candidiasis. Posterior oropharynx dry. Question of early candidiasis NECK: Supple LUNGS: CTA B/L, no wheezes, rales or rhonchi HEART: Regular, rate controlled ABDOMEN: Soft, NT, ND, BS Present EXTREMITIES: No LE edema, pedal pulses intact NEURO: A&OX3 Results & Data Results & Data Vital Signs (Past 12 Hours) Vital Signs Temp Pulse Pulse Resp BP Pulse Ox O2 Del Method 02/02/23 15:35 36.5 C 103 H 18 124/61 96 CPAP 02/02/23 15:14 98 H 02/02/23 14:33 93 H 20 97 CPAP 02/02/23 12:05 36.5 C 103 H 18 141/83 H 97 High Flow Nasal Cannula 02/02/23 11:12 High Flow Nasal Cannula 02/02/23 10:58 93 H 20 96 CPAP 02/02/23 08:07 36.5 C 102 H 18 127/85 92 Nasal Cannula 02/02/23 07:47 90 02/02/23 06:59 94 H 20 91 CPAP O2 Flow Rate 02/02/23 15:35 02/02/23 15:14 02/02/23 14:33 7 02/02/23 12:05 7 02/02/23 11:12 7 02/02/23 10:58 7 02/02/23 08:07 11 02/02/23 07:47 02/02/23 06:59 7 Laboratory Results Abnormal lab results 02/01/23 02/02/23 02/02/23 Range/Units 20:21 07:32 10:54 POC Glucose 175 H 209 H 229 H (70-99) mg/dl 02/02/23 Range/Units 15:43 POC Glucose 270 H (70-99) mg/dl 01/31/23 16:22 01/31/23 16:22 PG Care Time/CCT Total # of Minutes Spent Total Time Spent with Patient: Total time spent is greater than 50% in coordination of care (as documented) at patient's floor/unit and/or counseling patient:70 minutes including family meeting to discuss ongoing care Coding Level of Care Code 49696 SUB INP/OBS CARE 3/50MIN Diagnoses Acute and chronic respiratory failure with hypoxia J96.21 Interstitial lung disease J84.9 Pulmonary HTN I27.20 BONITA (obstructive sleep apnea) G47.33 COPD with emphysema J43.1 Emphysema type: panlobular Iron deficiency anemia D50.9 Thrush, oral B37.0 Time Spent (min) 70 (5) COPD with emphysema Emphysema type: panlobular Qualified Code(s): J43.1 - Panlobular emphysema
[2023-02-02] MEDS: NYSTATIN SUSP 500,000 U/5 ML UDC PO SCH (20:52)
[2023-02-02] MEDS: GABAPENTIN 300 MG CAP PO SCH (20:52)
[2023-02-02] MEDS: ENOXAPARIN INJ 40 MG/0.4 ML SYR SQ SCH (20:54)
[2023-02-02] MEDS: hydrOXYzine HCl 25 MG TAB PO SCH (20:55)
[2023-02-02] MEDS: oxyCODONE HCL IR 5 MG TAB (IMMEDIATE RELEASE) PO PRN (21:09)
[2023-02-02] MEDS: AZITHROMYCIN 500 MG in DEXTROSE 5% 250 ML IV SCH (22:28)
[2023-02-03] MEDS: ALBUT/IPRATROP 3MG/0.5MG NEB 3 ML VIAL NEB SCH ×4 (07:12→19:25)
--- NOTE | 2023-02-03 07:39 | Pulmonology Progress Note ---
Date of Service February 03, 2023 Assessment & Plan (1) Acute and chronic respiratory failure with hypoxia: (2) Pulmonary emphysema: (3) Acute exacerbation of COPD with asthma: (4) BONITA (obstructive sleep apnea): (5) Pulmonary HTN: Plan CTA chest 01/03/2023 personally reviewed: Severe centrilobular and paraseptal emphysema appreciated bilaterally Motion degraded study, Edac cannot be ruled out Left upper lobe peripheral pulmonary nodule No significant mediastinal lymphadenopathy 2D echo 02/03/2023: EF 55 to 60%, normal RV size and function, moderate to severe pulmonary hypertension with PASP 55-60 mmHg 2D echo 09/22/2022: EF 55-60%, grade 1 diastolic dysfunction, RV normal in size and function ABG 01/07/2023: 7.43/37/74 on 6 L -- 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 Azithromycin 250 mg Dpwwnp-Qmldhigml-Qyvxcc, QTc 458 on 01/31/2023 Continue with as needed albuterol and Teresita's Patient was asking about AVAPS machine. Her last FEV1 was 67% predicted in 01/2022. It needs to be less than 50% to qualify. Patient is also on chronic prednisone 10 mg every other day as per the transplant physician at [facility]. Unfortunately [facility] told her that she would not be a transplant candidate. She followed up with [facility] since then but she got infection was in the hospital multiple times. She is going to follow-up with them again She is not a candidate for lung volume reduction or endobronchial valve placement given that her RV was only 113% and TLC 94% based on PFT 08/17/2020 For chronic bronchitis continue with Mucinex and flutter valve. If that does not help and I will add hypertonic saline Spirometry 01/21/2022 personally reviewed: Moderate obstructive lung dysfunction (Decrease in FVC by 60 mL, increase in FEV1 by 90 mL compared to 03/2021) FVC 2.70 L 95%, FEV1 1.36 L 67%, FEV1/FVC 50% --Pulmonary hypertension Combination of type I, type II and type III Type I possibly from underlying scleroderma Patient has been on sildenafil from the club former Defer management to them Patient's pulmonary hypertension is a combination of 3 things. She had a cardiac catheter in January 2022 at [facility]. I will try to get the results to see what was the capillary wedge pressure at that time She is being treated for primary pulmonary hypertension with sildenafil. If she truly has primary pulmonary hypertension then addition of either macitentan or adding Prostacyclin could be thought of 2D echo 02/03/2023: EF 55 to 60%, normal RV size and function, moderate to severe pulmonary hypertension with PASP 55-60 mmHg 2D echo 09/22/2022: EF 55-60%, grade 1 diastolic dysfunction, RV normal in size and function 2D echo 01/04/2022: EF 60-65%, grade 1 diastolic dysfunction, RV normal in size and function, RVSP 40-50 mmHg --Pulmonary nodule Left upper lobe 5 mm Has been stable --BONITA She was on CPAP of 9 cm H2O Continue with CPAP while in the hospital --S/p COVID-19 pneumonia January 2020, was hospitalized S/p treatment with dexamethasone --Scleroderma Following up with rheumatology Plan: Decree Solu-Medrol to 40 mg daily, can transition to prednisone as of tomorrow Continue with Breo and Incruse while in the hospital Patient is not on any diuretics at home. Would recommend patient to be discharged on diuretics (Lasix 20-40 mg on daily basis to alternate days), keep a close eye on her weight. If her weight is increasing by 2 pounds in duration of 2 days will need to increase her diuretics I discussed the case with patient as well as patient's daughter and goals of care. All questions inquiries with the patient and patient's daughter were answered in depth Case was discussed with Dr. Jones Please note the above document was generated using voice recognition software. It may contain grammatical, syntax or spelling errors.Any formal questions or concerns about the content, text or information contained within the body of this dictation should be directly addressed to the provider for clarification. Admission and Anticipated Discharge Date Admission Date: January 31, 2023 Subjective Patient seen and examined at bedside. No acute distress Patient was just taken off of the CPAP and put on nasal cannula She was moving around prior to me coming to the room. She was saturating 85% on 9 L, she was able to gradually go up to 88-89% Overall she says she is feeling better since coming to the hospital Denies any headache, no nausea, no vomiting Appetite is fair Review of Systems 2 Review of Systems: All systems reviewed & are unremarkable except as noted in Subjective Physical Exam 2 Physical Exam: Constitutional: No acute distress HEENT: EOMI, PERRLA Respiratory system: Decreased air entry bilaterally, minimal expiratory wheeze, no rhonchi, minimal crackles bilateral lower lobes CVS: S1-S2 positive, no murmurs or gallops, accentuated P2 Abdomen: Soft, nontender, nondistended, positive bowel sounds x4 obese Extremities: +2 pulses bilaterally radialis/ dorsalis pedis, no cyanosis, no edema Neuro: Awake alert oriented x3 Psych: Normal mood and affect G/U: No Bailey Skin: no rashes, warm and dry Lymphatic: no cervical or axillary lymphadenopathy Results & Data Results & Data Vital Signs (Past 12 Hours) Vital Signs Temp Pulse Pulse Resp BP Pulse Ox O2 Del Method 02/03/23 07:13 97 H 20 90 Other 02/03/23 03:00 36.5 C 84 23 116/72 90 CPAP 02/03/23 00:00 97 H 02/02/23 23:38 36.7 C 95 H 19 136/81 97 CPAP 02/02/23 21:00 BiPAP, High Flow Nasal Cannula O2 Flow Rate 02/03/23 07:13 10 02/03/23 03:00 02/03/23 00:00 02/02/23 23:38 9 02/02/23 21:00 8 Laboratory Results 01/31/23 16:22 01/31/23 16:22 PG Care Time/CCT Total # of Minutes Spent Total Time Spent with Patient: Total time spent is greater than 50% in coordination of care (as documented) at patient's floor/unit and/or counseling patient: Coding Level of Care Code 67318 SUB INP/OBS CARE 3/50MIN Diagnoses Acute and chronic respiratory failure with hypoxia J96.21 Pulmonary emphysema J43.9 Acute exacerbation of COPD with asthma J44.1; J45.901 BONITA (obstructive sleep apnea) G47.33 Pulmonary HTN I27.20
[2023-02-03] MEDS: INSULIN ASPART PER UNIT CHARGE SC SCH ×4 (08:18→21:34)
[2023-02-03] MEDS: LANTUS PER UNIT CHARGE SQ SCH ×2 (08:19→21:34)
[2023-02-03] MEDS: NYSTATIN SUSP 500,000 U/5 ML UDC PO SCH ×2 (08:54→12:58)
[2023-02-03] MEDS: BISOPROLOL FUMARATE 5 MG TAB PO SCH (08:54)
[2023-02-03] MEDS: amLODIPine BESYLATE 5 MG TAB PO SCH (08:55)
[2023-02-03] MEDS: hydroCHLOROthiazide 25 MG TAB PO SCH (08:56)
[2023-02-03] MEDS: DULoxetine HCL 60 MG CAP PO SCH (08:56)
[2023-02-03] MEDS: buPROPion SR 100 MG TABCR PO SCH (08:56)
[2023-02-03] MEDS: guaiFENesin 600 MG TABCR PO SCH ×2 (08:57→21:37)
[2023-02-03] MEDS: FLUTICASONE/VILANTEROL 200/25MCG 14 PUFFS/INHALER INH SCH (08:58)
[2023-02-03] MEDS: UMECLIDINIUM BROMIDE 62.5MCG/BLISTER 7 PUFFS/INHALER INH SCH (08:58)
[2023-02-03] MEDS: SILDENAFIL CITRATE 20 MG TABLET PO SCH ×3 (08:58→21:38)
[2023-02-03] MEDS: POTASSIUM CHLORIDE CRTAB 20 MEQ TABCR PO SCH ×2 (08:59→21:37)
[2023-02-03] MEDS: PANTOprazole 40 MG TAB PO SCH ×2 (08:59→21:37)
[2023-02-03] MEDS: methylPREDNISolone 40 MG in SYRINGE 0 ML IV SCH (09:00)
--- NOTE | 2023-02-03 10:34 | XCELERA ---
[id number] \\[email or web address]\[id number]
--- NOTE | 2023-02-03 14:28 | XRay Report ---
XR chest 1V portable CLINICAL HISTORY: Hypoxia. COMPARISON STUDY: Chest CT January 03, 2023. Chest radiograph January 31, 2023. FINDINGS: Left subclavian Pjnffs-v-Lkdr is unchanged in position. Multiple healing left-sided rib fra ctures are again noted. There is severe emphysema. No pneumothorax or pleural effusion. There is no c onsolidation to suggest pneumonia. Mild bibasilar linear densities favor atelectasis. Cardiomediastin al silhouette is stable. No evidence for pulmonary edema. IMPRESSION: 1. No acute cardiopulmonary findings. No change in appearance of the chest. 2. Emphysema. ACT 112: Negative or not required by law. Electronically signed by: Po Stern M.D. 02/03/2023 2:26 PM
[2023-02-03] MEDS ORDERED: FLUCONAZOLE 100 MG TAB PO SCH (16:15)
[2023-02-03] MEDS ORDERED: NYSTATIN SUSP 500,000 U/5 ML UDC PO PRN (16:23)
--- NOTE | 2023-02-03 16:24 | Hospitalist Progress Note ---
Date of Service February 03, 2023 Assessment & Plan (1) Acute and chronic respiratory failure with hypoxia: Plan: Patient with chronic and progressive interstitial lung disease, COPD, emphysema Continue supplemental oxygen support to maintain SpO2 between 88 and 92% Continue azithromycin IV New fluticasone/cholesterol/umeclidinium Continue montelukast Pulmonary input is appreciated Echocardiogram is pending Request right heart cath report from [facility] - consent signed Further management per pulmonary (2) UTI (urinary tract infection): Plan: Patient with increased urinary incontinence Continue pure wick Urine culture with Nayeli glabrata. Sensitivities are pending Will empirically start patient on Diflucan 200 mg p.o. daily for 14 days pending sensitivities. Follow QTc as patient is also on Zofran, azithromycin, and oxycodone. Currently Qtc is 458 ms Await sensitivities (3) Interstitial lung disease: Plan: Extensive and progressive disease as listed above. Patient was deemed ineligible for lung transplant per her report Further recommendations per pulmonary (4) Pulmonary HTN: Plan: Continue sildenafil as prescribed by syrup mixer helper for scleroderma Repeat echocardiogram is pending Further recommendations per Dr. Cam (5) BONITA (obstructive sleep apnea): Plan: Continue with CPAP. Patient does have her own machine and is permitted to use this while inpatient (6) COPD with emphysema: Plan: Continue inhalation treatment as above Patient quit smoking several years ago Maintain SpO2 between 88 and 92% (7) Iron deficiency anemia: Plan: Hemoglobin currently within normal range at 12.4 g/Viky Continue with outpatient management of her iron insufficiency (8) Thrush, oral: Plan: Oral candidiasis Change nystatin swish and swallow to pro re lynne as we are adding systemic therapy for UTI Fisherman friend cough drops Plan Discussion regarding CODE STATUS reaffirmed with patient in the presence of her , daughter, son. Patient desires to be DNR/DNI. Await discussion with pulmonary and family. Dr. Cam called but deferred meeting with family. Family would like to speak with him when available. I spoke with him and he is aware Admission and Anticipated Discharge Date Admission Date: January 31, 2023 Supervising Physician Co-Signing Physician Notes The patient was not seen by me. The chart was reviewed. Case discussed with MACIEJ Chase. Agree with assessment and plan Subjective Attending: Dr. Cespedes Patient seen and examined at bedside. She continues to have increased urine output (0.2-->0.32-->1.11 ml/kg/hr over the past 72 hours. She is requiring a bedpan due to incontinence. Pure wick has been ordered and being used and patient. Patient feels slightly improved regarding her respiratory status but continues to require supplemental oxygen and CPAP throughout the day for comfort. No fever or chills. No chest pain or tightness. Although patient has increased urinary output she denies any burning or hematuria. Review of Systems 2 Review of Systems: A total of 10 systems was reviewed and is negative other than as listed in the HPI Physical Exam 2 Physical Exam: GENERAL : No acute distress EYES: No icterus, gaze conjugate NOSE: No evidence of epistaxis MOUTH: No lesions or candidiasis NECK: Supple LUNGS: CTA B/L, no wheezes, rales or rhonchi HEART: Regular, rate controlled ABDOMEN: Soft, NT, ND, BS Present EXTREMITIES: No LE edema, pedal pulses intact NEURO: A&OX3 Results & Data Results & Data Vital Signs (Past 12 Hours) Vital Signs Temp Pulse Pulse Resp BP Pulse Ox O2 Del Method 02/03/23 15:39 36.8 C 92 H 24 127/78 98 High Flow Nasal Cannula 02/03/23 15:20 89 20 90 Other 02/03/23 12:03 36.6 C 83 24 123/74 91 High Flow Nasal Cannula 02/03/23 10:59 81 20 100 Other 02/03/23 09:35 36.7 C 87 24 145/94 H 94 High Flow Nasal Cannula 02/03/23 08:36 36.5 C 103 H 25 H 123/74 86 L High Flow Nasal Cannula 02/03/23 07:13 97 H 20 90 Other O2 Flow Rate 02/03/23 15:39 02/03/23 15:20 7 02/03/23 12:03 02/03/23 10:59 9 02/03/23 09:35 02/03/23 08:36 02/03/23 07:13 10 Laboratory Results 01/31/23 16:22 01/31/23 16:22 PG Care Time/CCT Total # of Minutes Spent Total Time Spent with Patient: Total time spent is greater than 50% in coordination of care (as documented) at patient's floor/unit and/or counseling patient: 30 minutes Coding Level of Care Code 48405 SUB INP/OBS CARE 3/50MIN Diagnoses Acute and chronic respiratory failure with hypoxia J96.21 UTI (urinary tract infection) N39.0 Interstitial lung disease J84.9 Pulmonary HTN I27.20 BONITA (obstructive sleep apnea) G47.33 COPD with emphysema J43.1 Emphysema type: panlobular Iron deficiency anemia D50.9 Thrush, oral B37.0 Time Spent (min) 30 (6) COPD with emphysema Emphysema type: panlobular Qualified Code(s): J43.1 - Panlobular emphysema
[2023-02-03] MEDS: ENOXAPARIN INJ 40 MG/0.4 ML SYR SQ SCH (21:36)
[2023-02-03] MEDS: GABAPENTIN 300 MG CAP PO SCH (21:36)
[2023-02-03] MEDS: hydrOXYzine HCl 25 MG TAB PO SCH (21:37)
[2023-02-03] MEDS: oxyCODONE HCL IR 5 MG TAB (IMMEDIATE RELEASE) PO PRN (21:46)
[2023-02-03] MEDS: AZITHROMYCIN 500 MG in DEXTROSE 5% 250 ML IV SCH (23:34)
[2023-02-04] MEDS: ALBUT/IPRATROP 3MG/0.5MG NEB 3 ML VIAL NEB SCH ×4 (06:52→19:19)
--- NOTE | 2023-02-04 07:33 | Pulmonology Progress Note ---
Date of Service February 04, 2023 Assessment & Plan (1) Acute and chronic respiratory failure with hypoxia: (2) Pulmonary emphysema: (3) Acute exacerbation of COPD with asthma: (4) BONITA (obstructive sleep apnea): (5) Pulmonary HTN: Plan CTA chest 01/03/2023 personally reviewed: Severe centrilobular and paraseptal emphysema appreciated bilaterally Motion degraded study, Edac cannot be ruled out Left upper lobe peripheral pulmonary nodule No significant mediastinal lymphadenopathy 2D echo 02/03/2023: EF 55 to 60%, normal RV size and function, moderate to severe pulmonary hypertension with PASP 55-60 mmHg 2D echo 09/22/2022: EF 55-60%, grade 1 diastolic dysfunction, RV normal in size and function ABG 01/07/2023: 7.43/37/74 on 6 L -- 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 Azithromycin 250 mg Nwddoj-Vwhuqkkzt-Fwkqcp, QTc 458 on 01/31/2023 Continue with as needed albuterol and Teresita's Patient was asking about AVAPS machine. Her last FEV1 was 67% predicted in 01/2022. It needs to be less than 50% to qualify. Patient is also on chronic prednisone 10 mg every other day as per the transplant physician at [facility]. Unfortunately [facility] told her that she would not be a transplant candidate. She followed up with [facility] since then but she got infection was in the hospital multiple times. She is going to follow-up with them again She is not a candidate for lung volume reduction or endobronchial valve placement given that her RV was only 113% and TLC 94% based on PFT 08/17/2020 For chronic bronchitis continue with Mucinex and flutter valve. If that does not help and I will add hypertonic saline Spirometry 01/21/2022 personally reviewed: Moderate obstructive lung dysfunction (Decrease in FVC by 60 mL, increase in FEV1 by 90 mL compared to 03/2021) FVC 2.70 L 95%, FEV1 1.36 L 67%, FEV1/FVC 50% --Pulmonary hypertension Combination of type I, type II and type III Type I possibly from underlying scleroderma Patient has been on sildenafil from the photograph inspector Defer management to them Patient's pulmonary hypertension is a combination of 3 things. She had a cardiac catheter in January 2022 at [facility]. I will try to get the results to see what was the capillary wedge pressure at that time She is being treated for primary pulmonary hypertension with sildenafil. If she truly has primary pulmonary hypertension then addition of either macitentan or adding Prostacyclin could be thought of 2D echo 02/03/2023: EF 55 to 60%, normal RV size and function, moderate to severe pulmonary hypertension with PASP 55-60 mmHg 2D echo 09/22/2022: EF 55-60%, grade 1 diastolic dysfunction, RV normal in size and function 2D echo 01/04/2022: EF 60-65%, grade 1 diastolic dysfunction, RV normal in size and function, RVSP 40-50 mmHg --Pulmonary nodule Left upper lobe 5 mm Has been stable --BONITA She was on CPAP of 9 cm H2O Continue with CPAP while in the hospital --S/p COVID-19 pneumonia January 2020, was hospitalized S/p treatment with dexamethasone --Scleroderma Following up with rheumatology I discussed the case with patient as well as patient's daughterto discuss goals of care on 02/03/2023 Plan: Transition Solu-Medrol to prednisone and tapered off in 5 days to her home dose Continue with Breo and Incruse while in the hospital Patient is not on any diuretics at home. Would recommend patient to be discharged on diuretics (Lasix 20-40 mg on daily basis to alternate days), keep a close eye on her weight. If her weight is increasing by 2 pounds in duration of 2 days will need to increase her diuretics Recommend against treating Nayeli in the urine as it is likely a colonizer. Patient is already on a lot of medication which can prolong the QTc. If needed would recommend ID consult to get the recommendation Nystatin swish and swallow every 6 hours for 5-7 days. Case was discussed with Dr. Jones Please note the above document was generated using voice recognition software. It may contain grammatical, syntax or spelling errors.Any formal questions or concerns about the content, text or information contained within the body of this dictation should be directly addressed to the provider for clarification. Admission and Anticipated Discharge Date Admission Date: January 31, 2023 Subjective Patient seen and examined at bedside. No acute distress, notable symptoms overnight Did use her CPAP overnight. She was saturating 90-91% on 9 L oxygen while having breakfast Does complain of some sore throat especially on swallowing. Denies any significant dysphagia or odynophagia. Denied any chest pain Has been urinating well Currently she does not complain of any dysuria. Appetite is good Denies any cough Review of Systems 2 Review of Systems: All systems reviewed & are unremarkable except as noted in Subjective Physical Exam 2 Physical Exam: Constitutional: No acute distress HEENT: EOMI, PERRLA Respiratory system: Decreased air entry bilaterally, minimal expiratory wheeze, no rhonchi, minimal crackles bilateral lower lobes CVS: S1-S2 positive, no murmurs or gallops, accentuated P2 Abdomen: Soft, nontender, nondistended, positive bowel sounds x4 obese Extremities: +2 pulses bilaterally radialis/ dorsalis pedis, no cyanosis, minimal pitting edema bilateral lower extremity Neuro: Awake alert oriented x3 Psych: Normal mood and affect G/U: No Bailey Skin: no rashes, warm and dry Lymphatic: no cervical or axillary lymphadenopathy Results & Data Results & Data Vital Signs (Past 12 Hours) Vital Signs Temp Pulse Pulse Resp BP Pulse Ox O2 Del Method 02/04/23 07:22 36.2 C L 79 22 127/80 94 CPAP, High Flow Nasal Cannula 02/04/23 03:40 36.3 C L 79 18 158/78 H 92 Nasal CPAP 02/03/23 23:56 89 02/03/23 22:33 36.6 C 88 18 154/84 H 93 High Flow Nasal Cannula, Nasal CPAP 02/03/23 21:51 CPAP O2 Flow Rate 02/04/23 07:22 11 02/04/23 03:40 02/03/23 23:56 02/03/23 22:33 02/03/23 21:51 Laboratory Results 01/31/23 16:22 01/31/23 16:22 PG Care Time/CCT Total # of Minutes Spent Total Time Spent with Patient: Total time spent is greater than 50% in coordination of care (as documented) at patient's floor/unit and/or counseling patient: Coding Level of Care Code 10642 SUB INP/OBS CARE 3/50MIN Diagnoses Acute and chronic respiratory failure with hypoxia J96.21 Pulmonary emphysema J43.9 Acute exacerbation of COPD with asthma J44.1; J45.901 BONITA (obstructive sleep apnea) G47.33 Pulmonary HTN I27.20
--- NOTE | 2023-02-04 08:13 | Hospitalist Progress Note ---
Date of Service February 04, 2023 Assessment & Plan (1) Acute and chronic respiratory failure with hypoxia: Plan: Patient with chronic and progressive interstitial lung disease, COPD, emphysema Continue supplemental oxygen support to maintain SpO2 between 88 and 92% Continue azithromycin IV New fluticasone/cholesterol/umeclidinium Continue montelukast Pulmonary input is appreciated Echocardiogram shows preserved EF and worsening of Pulmonary hypertension Request right heart cath report from [facility] - consent signed (2) Fungus present in urine: Plan: funguria with symptoms >100,000 colonies of Nayeli Glabrata given Qt affects will top fluconazole after 2 doses , if symptomatic may consider ID eval (3) Interstitial lung disease: Plan: Extensive and progressive disease Patient was deemed ineligible for lung transplant per her report tapering steroids to po with eye toward home doses (4) BONITA (obstructive sleep apnea): Plan: Continue with CPAP. Patient does have her own machine and is permitted to use this while inpatient (5) Iron deficiency anemia: Plan: Hemoglobin currently within normal range at 12.4 g/Viky Continue with outpatient management of her iron insufficiency (6) Thrush, oral: Plan: Oral candidiasis Change nystatin swish and swallow Fisherman friend cough drops Plan Discussion regarding CODE STATUS reaffirmed with patient in the presence of her , daughter, son. Patient desires to be DNR/DNI. Await discussion with pulmonary and family. Admission and Anticipated Discharge Date Admission Date: January 31, 2023 Subjective pt is below her baseline in regard to her breathing, thinks she is about 40% of her baseline Physical Exam Physical Exam: Pt is pleasant slighlty tremulous lungs are with coarse breath sounds in all lema, has exp wheezed mosly in right upper lobe Results & Data Results & Data Vital Signs (Past 12 Hours) Vital Signs Temp Pulse Pulse Resp BP Pulse Ox O2 Del Method 02/04/23 07:53 79 20 90 CPAP 02/04/23 07:22 97.2 F L 79 22 127/80 94 CPAP, High Flow Nasal Cannula 02/04/23 03:40 97.3 F L 79 18 158/78 H 92 Nasal CPAP 02/03/23 23:56 89 02/03/23 22:33 97.9 F 88 18 154/84 H 93 High Flow Nasal Cannula, Nasal CPAP 02/03/23 21:51 CPAP O2 Flow Rate 02/04/23 07:53 7 02/04/23 07:22 11 12/26/23 03:40 02/03/23 23:56 02/03/23 22:33 02/03/23 21:51 Laboratory Results Reviewed CBC Reviewed PRP Reviewed pulmonary progress note concern of QT prolongation recommend discontinuation of PG Care Time/CCT Total # of Minutes Spent Total Time Spent with Patient: Total time spent is greater than 50% in coordination of care (as documented) at patient's floor/unit and/or counseling patient: Coding Level of Care Code 26945 SUB INP/OBS CARE 2/35MIN Diagnoses Acute and chronic respiratory failure with hypoxia J96.21 Fungus present in urine B49 Interstitial lung disease J84.9 BONITA (obstructive sleep apnea) G47.33 Iron deficiency anemia D50.9 Thrush, oral B37.0
[2023-02-04] MEDS ORDERED: HEPARIN 100 UNIT/ML 5ML FLUSH FLUSH PRN (08:25)
[2023-02-04] MEDS: HEPARIN 100 UNIT/ML 5ML FLUSH FLUSH PRN (08:27)
[2023-02-04 08:36] LABS: Basophils # (auto) 0.02 K/uL (0.00-0.20); Basophils % (auto) 0.2 %; Hematocrit (blood only) 39.8 % (37.0-47.0); Hemoglobin 12.8 g/dl (12.0-16.0); Immature Granulocytes # (auto) 0.19 K/uL (0.01-0.20); Immature Granulocytes % (auto) 1.5 %; Lymphocytes # (auto) 1.72 K/uL (1.20-3.40); Lymphocytes % (auto) 13.7 %; Mean Corpuscular Hemoglobin 29.1 pg (25.0-34.0); Mean Corpuscular Hgb Conc 32.2 g/dL (32.0-36.0); Mean Corpuscular Volume 90.5 fL (80.0-100.0); Mean Platelet Volume 9.5 fL (9.4-12.4); Monocytes # (auto) 0.87 K/uL (0.11-0.59); Monocytes % (auto) 6.9 %; Neutrophils # (auto) 9.79 K/uL (1.40-6.50); Neutrophils % (auto) 77.7 %; Platelet Count 482 K/uL (130-400); RDW Coefficient of Variation 14.3 % (11.5-14.5); RDW Standard Deviation 47.6 fL (36.4-46.3); White Blood Count 12.59 K/ul (4.8-10.8)
[2023-02-04 08:51] LABS: Creatinine Clr Calc Pharmacy 85.2 ml/min; Est GFR (African American) 103.5 ml/min; Est GFR (Non-African American) 89.3 ml/min; Potassium 4.2 mmol/L (3.5-5.1)
[2023-02-04] MEDS ORDERED: methylPREDNISolone 40 MG in SYRINGE 0 ML IV SCH (09:00)
[2023-02-04] MEDS ORDERED: FUROSEMIDE 20 MG TAB PO SCH (09:00)
[2023-02-04] MEDS: PANTOprazole 40 MG TAB PO SCH ×2 (09:13→23:06)
[2023-02-04] MEDS: guaiFENesin 600 MG TABCR PO SCH ×2 (09:13→22:00)
[2023-02-04] MEDS: LANTUS PER UNIT CHARGE SQ SCH ×2 (09:13→23:38)
[2023-02-04] MEDS: INSULIN ASPART PER UNIT CHARGE SC SCH ×4 (09:13→20:00)
[2023-02-04] MEDS: buPROPion SR 100 MG TABCR PO SCH (09:14)
[2023-02-04] MEDS: SILDENAFIL CITRATE 20 MG TABLET PO SCH ×3 (09:14→22:00)
[2023-02-04] MEDS: BISOPROLOL FUMARATE 5 MG TAB PO SCH (09:14)
[2023-02-04] MEDS: amLODIPine BESYLATE 5 MG TAB PO SCH (09:14)
[2023-02-04] MEDS: DULoxetine HCL 60 MG CAP PO SCH (09:14)
[2023-02-04] MEDS: POTASSIUM CHLORIDE CRTAB 20 MEQ TABCR PO SCH ×2 (09:14→22:00)
[2023-02-04] MEDS ORDERED: predniSONE 20 MG TAB PO SCH (10:15)
[2023-02-04] MEDS: FLUTICASONE/VILANTEROL 200/25MCG 14 PUFFS/INHALER INH SCH (10:52)
[2023-02-04] MEDS: UMECLIDINIUM BROMIDE 62.5MCG/BLISTER 7 PUFFS/INHALER INH SCH (10:53)
[2023-02-04] MEDS: NYSTATIN SUSP 500,000 U/5 ML UDC PO SCH ×3 (14:10→22:00)
--- NOTE | 2023-02-04 14:30 | XRay Report ---
XR chest 1V portable HISTORY: 72 years-old Female Hypoxia acute shortness of breath with hypoxia COMPARISON: 02/03/2023 TECHNIQUE: AP view of the chest FINDINGS: , Mediastinal and hilar silhouettes are unchanged. Pulmonary emphysema with chronic interstitial coar sening. Unchanged appearance of the healing left-sided rib fractures. Left subclavian Fcvezo-h-Wkxf c atheter. There are changes of the shoulders and spine. IMPRESSION: 1. Emphysema without acute processes of the chest. 2. Healing subacute left-sided rib fractures appear unchanged. 3. No pneumothorax. ACT 112: Negative or not required by law. The above report was generated using voice recognition software. It may contain grammatical, syntax o r spelling errors. Electronically signed by: Reagan Faith M.D. 02/04/2023 2:29 PM
[2023-02-04] MEDS: GABAPENTIN 300 MG CAP PO SCH (22:00)
[2023-02-04] MEDS: ENOXAPARIN INJ 40 MG/0.4 ML SYR SQ SCH (22:00)
[2023-02-04] MEDS: hydrOXYzine HCl 25 MG TAB PO SCH (22:00)
[2023-02-04] MEDS: AZITHROMYCIN 500 MG in DEXTROSE 5% 250 ML IV SCH (23:37)
[2023-02-04] MEDS: oxyCODONE HCL IR 5 MG TAB (IMMEDIATE RELEASE) PO PRN (23:38)
[2023-02-04] MEDS: ALBUTEROL HFA 8 GM INHALER INH PRN (23:53)
[2023-02-05] MEDS: ALBUT/IPRATROP 3MG/0.5MG NEB 3 ML VIAL NEB SCH ×4 (07:03→18:53)
[2023-02-05 08:52] LABS: Basophils # (auto) 0.05 K/uL (0.00-0.20); Basophils % (auto) 0.4 %; Eosinophils # (auto) 0.06 K/uL (0.00-0.50); Eosinophils % (auto) 0.4 %; Hematocrit (blood only) 40.9 % (37.0-47.0); Hemoglobin 13.1 g/dl (12.0-16.0); Immature Granulocytes # (auto) 0.48 K/uL (0.01-0.20); Immature Granulocytes % (auto) 3.5 %; Lymphocytes # (auto) 2.57 K/uL (1.20-3.40); Lymphocytes % (auto) 18.8 %; Mean Corpuscular Hemoglobin 29.2 pg (25.0-34.0); Mean Corpuscular Volume 91.1 fL (80.0-100.0); Mean Platelet Volume 9.6 fL (9.4-12.4); Monocytes # (auto) 1.27 K/uL (0.11-0.59); Monocytes % (auto) 9.3 %; Neutrophils # (auto) 9.25 K/uL (1.40-6.50); Neutrophils % (auto) 67.6 %; Platelet Count 484 K/uL (130-400); RDW Coefficient of Variation 14.4 % (11.5-14.5); RDW Standard Deviation 48.2 fL (36.4-46.3); Red Blood Count 4.49 M/uL (4.20-5.40); White Blood Count 13.68 K/ul (4.8-10.8)
[2023-02-05 09:07] LABS: BUN Creatinine Ratio 33.8 (10-20); Calcium 8.8 mg/dl (8.6-10.3); Creatinine Clr Calc Pharmacy 77.3 ml/min; Est GFR (African American) 99.3 ml/min; Est GFR (Non-African American) 85.7 ml/min; Potassium 3.8 mmol/L (3.5-5.1)
[2023-02-05] MEDS: INSULIN ASPART PER UNIT CHARGE SC SCH ×4 (09:07→21:54)
[2023-02-05] MEDS: buPROPion SR 100 MG TABCR PO SCH (09:07)
[2023-02-05] MEDS: PANTOprazole 40 MG TAB PO SCH ×2 (09:07→19:40)
[2023-02-05] MEDS: amLODIPine BESYLATE 5 MG TAB PO SCH (09:07)
[2023-02-05] MEDS: guaiFENesin 600 MG TABCR PO SCH ×2 (09:07→19:38)
[2023-02-05] MEDS: POTASSIUM CHLORIDE CRTAB 20 MEQ TABCR PO SCH ×2 (09:07→19:40)
[2023-02-05] MEDS: LANTUS PER UNIT CHARGE SQ SCH ×2 (09:07→21:54)
[2023-02-05] MEDS: FUROSEMIDE 40 MG TAB PO SCH (09:08)
[2023-02-05] MEDS: predniSONE 10 MG TABLET PO SCH (09:08)
[2023-02-05] MEDS: BISOPROLOL FUMARATE 5 MG TAB PO SCH (09:08)
[2023-02-05] MEDS: SILDENAFIL CITRATE 20 MG TABLET PO SCH ×3 (09:08→19:39)
[2023-02-05] MEDS: NYSTATIN SUSP 500,000 U/5 ML UDC PO SCH ×4 (09:08→19:39)
[2023-02-05] MEDS: DULoxetine HCL 60 MG CAP PO SCH (09:09)
[2023-02-05] MEDS: UMECLIDINIUM BROMIDE 62.5MCG/BLISTER 7 PUFFS/INHALER INH SCH (09:09)
[2023-02-05] MEDS: FLUTICASONE/VILANTEROL 200/25MCG 14 PUFFS/INHALER INH SCH (09:09)
--- NOTE | 2023-02-05 10:16 | Pulmonology Progress Note ---
Date of Service February 05, 2023 Assessment & Plan (1) Acute and chronic respiratory failure with hypoxia: (2) Pulmonary emphysema: (3) Acute exacerbation of COPD with asthma: (4) BONITA (obstructive sleep apnea): (5) Pulmonary HTN: Plan CTA chest 01/03/2023 personally reviewed: Severe centrilobular and paraseptal emphysema appreciated bilaterally Motion degraded study, Edac cannot be ruled out Left upper lobe peripheral pulmonary nodule No significant mediastinal lymphadenopathy 2D echo 02/03/2023: EF 55 to 60%, normal RV size and function, moderate to severe pulmonary hypertension with PASP 55-60 mmHg 2D echo 09/22/2022: EF 55-60%, grade 1 diastolic dysfunction, RV normal in size and function ABG 01/07/2023: 7.43/37/74 on 6 L -- 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 Azithromycin 250 mg Beibxk-Dubfytebl-Fwqjsp, QTc 458 on 01/31/2023 Continue with as needed albuterol and Teresita's Patient was asking about AVAPS machine. Her last FEV1 was 67% predicted in 01/2022. It needs to be less than 50% to qualify. Patient is also on chronic prednisone 10 mg every other day as per the transplant physician at [place]. Unfortunately [facility] told her that she would not be a transplant candidate. She followed up with [facility] since then but she got infection was in the hospital multiple times. She is going to follow-up with them again She is not a candidate for lung volume reduction or endobronchial valve placement given that her RV was only 113% and TLC 94% based on PFT 08/17/2020 For chronic bronchitis continue with Mucinex and flutter valve. If that does not help and I will add hypertonic saline Spirometry 01/21/2022 personally reviewed: Moderate obstructive lung dysfunction (Decrease in FVC by 60 mL, increase in FEV1 by 90 mL compared to 03/2021) FVC 2.70 L 95%, FEV1 1.36 L 67%, FEV1/FVC 50% --Pulmonary hypertension Combination of type I, type II and type III Type I possibly from underlying scleroderma Patient has been on sildenafil from the director of customer acquisition Defer management to them Patient's pulmonary hypertension is a combination of 3 things. She had a cardiac catheter in January 2022 at [facility]. I will try to get the results to see what was the capillary wedge pressure at that time She is being treated for primary pulmonary hypertension with sildenafil. If she truly has primary pulmonary hypertension then addition of either macitentan or adding Prostacyclin could be thought of 2D echo 02/03/2023: EF 55 to 60%, normal RV size and function, moderate to severe pulmonary hypertension with PASP 55-60 mmHg 2D echo 09/22/2022: EF 55-60%, grade 1 diastolic dysfunction, RV normal in size and function 2D echo 01/04/2022: EF 60-65%, grade 1 diastolic dysfunction, RV normal in size and function, RVSP 40-50 mmHg --Pulmonary nodule Left upper lobe 5 mm Has been stable --BONITA She was on CPAP of 9 cm H2O Continue with CPAP while in the hospital --S/p COVID-19 pneumonia January 2020, was hospitalized S/p treatment with dexamethasone --Scleroderma Following up with rheumatology I discussed the case with patient as well as patient's daughterto discuss goals of care on 02/03/2023 Plan: Taper prednisone off in 4 days to her home dose Continue with Breo and Incruse while in the hospital Patient is not on any diuretics at home. Would recommend patient to be discharged on diuretics (Lasix 20-40 mg on daily basis to alternate days), keep a close eye on her weight. If her weight is increasing by 2 pounds in duration of 2 days will need to increase her diuretics Continue with nystatin swish and swallow every 6 hours for 5-7 days. Unfortunately we have not received the report of the cardiac cath from January 2022. I discussed with the nurse today at bedside to see if you are able to get the results Please note the above document was generated using voice recognition software. It may contain grammatical, syntax or spelling errors.Any formal questions or concerns about the content, text or information contained within the body of this dictation should be directly addressed to the provider for clarification. Admission and Anticipated Discharge Date Admission Date: January 31, 2023 Subjective Patient seen and examined at bedside. No acute distress, no events overnight She says she is feeling better today compared to yesterday Did not have the need to use CPAP so far in the morning. She was saturating 93-94% on 8 L nasal cannula Fair appetite No headache, no blurry vision Review of Systems 2 Review of Systems: All systems reviewed & are unremarkable except as noted in Subjective Physical Exam 2 Physical Exam: Constitutional: No acute distress HEENT: EOMI, PERRLA Respiratory system: Decreased air entry bilaterally, minimal expiratory wheeze, no rhonchi, minimal crackles bilateral lower lobes CVS: S1-S2 positive, no murmurs or gallops, accentuated P2 Abdomen: Soft, nontender, nondistended, positive bowel sounds x4 obese Extremities: +2 pulses bilaterally radialis/ dorsalis pedis, no cyanosis, no edema Neuro: Awake alert oriented x3 Psych: Normal mood and affect G/U: No Bailey Skin: no rashes, warm and dry Lymphatic: no cervical or axillary lymphadenopathy Results & Data Results & Data Vital Signs (Past 12 Hours) Vital Signs Temp Pulse Pulse Resp BP Pulse Ox O2 Del Method 02/05/23 07:53 99 H 02/05/23 07:53 High Flow Nasal Cannula 02/05/23 07:47 36.4 C L 85 20 127/77 96 BiPAP 02/05/23 07:03 82 20 92 BiPAP 02/05/23 03:25 36.4 C L 96 H 18 138/90 94 Nasal CPAP 02/04/23 23:53 97 H 18 94 Nasal Cannula 02/04/23 22:53 36.6 C 95 H 22 143/83 H 96 High Flow Nasal Cannula O2 Flow Rate 02/05/23 07:53 02/05/23 07:53 9 02/05/23 07:47 02/05/23 07:03 8 02/05/23 03:25 02/04/23 23:53 8 02/04/23 22:53 9 Laboratory Results 02/05/23 08:38 02/05/23 08:38 PG Care Time/CCT Total # of Minutes Spent Total Time Spent with Patient: Total time spent is greater than 50% in coordination of care (as documented) at patient's floor/unit and/or counseling patient: Coding Level of Care Code 01216 SUB INP/OBS CARE 2/35MIN Diagnoses Acute and chronic respiratory failure with hypoxia J96.21 Pulmonary emphysema J43.9 Acute exacerbation of COPD with asthma J44.1; J45.901 BONITA (obstructive sleep apnea) G47.33 Pulmonary HTN I27.20
--- NOTE | 2023-02-05 13:58 | XRay Report ---
SINGLE VIEW CHEST CLINICAL HISTORY: Hypoxia. FINDINGS: An AP, portable, upright chest radiograph is compared to study dated 02/04/2023 and correla milton with chest CT dated 01/03/2023. A left subclavian central venous infusion port is unchanged posit ion. The heart is mildly enlarged noting atherosclerotic calcification of the thoracic aorta. The pul monary vasculature is noncongested. Emphysema and chronic interstitial thickening is similar to previ ous. Chronic bibasilar airspace opacities foci of parenchymal scarring are similar to prior studies. No large pleural effusion or pneumothorax is seen. The skeletal structures are osteopenic. Subacute l eft-sided rib fractures are again noted. IMPRESSION: Cardiomegaly and emphysema with no acute cardiopulmonary abnormality identified. ACT 112: Negative or not required by law. Electronically signed by: Walter Rothman M.D. 02/05/2023 1:56 PM
--- NOTE | 2023-02-05 17:10 | Hospitalist Progress Note ---
Date of Service February 05, 2023 Assessment & Plan (1) Acute and chronic respiratory failure with hypoxia: Plan: Patient with chronic and progressive interstitial lung disease, COPD, emphysema Continue supplemental oxygen support to maintain SpO2 between 88 and 92% Continue azithromycin may change to 3 x a week New fluticasone/cholesterol/umeclidinium Continue montelukast Echocardiogram shows preserved EF and worsening of Pulmonary hypertension Request right heart cath report from [facility] -has not made it to chart yet (2) Fungus present in urine: Plan: funguria without symptoms >100,000 colonies of Nayeli Glabrata given Qt affects will top fluconazole after 2 doses , if symptomatic may consider ID eval (3) Interstitial lung disease: Plan: Extensive and progressive disease Patient was deemed ineligible for lung transplant per her report tapering steroids to po with eye toward home doses (4) BONITA (obstructive sleep apnea): Plan: Continue with CPAP. Patient does have her own machine and is permitted to use this while inpatient (5) Iron deficiency anemia: Plan: Hemoglobin currently within normal range at 12.4 g/Viky Continue with outpatient management of her iron insufficiency (6) Thrush, oral: Plan: Oral candidiasis Change nystatin swish and swallow Fisherman friend cough drops Plan Discussion regarding CODE STATUS reaffirmed with patient in the presence of her , daughter, son. Patient desires to be DNR/DNI. Await discussion with pulmonary and family. Admission and Anticipated Discharge Date Admission Date: January 31, 2023 Subjective pt feels no worse but not much better, she has non productive cough, still dyspneic but with good airmovement Physical Exam Physical Exam: Pt is pleasant remains slightly tremulous lungs are clear today with much less wheezes almost none and good air movement Results & Data Results & Data Vital Signs (Past 12 Hours) Vital Signs Temp Pulse Pulse Resp BP Pulse Ox O2 Del Method 02/05/23 15:51 93 H 02/05/23 15:25 97.3 F L 103 H 22 117/71 90 Nasal Cannula 02/05/23 14:31 90 20 96 Nasal Cannula 02/05/23 11:26 97.7 F 91 H 20 124/81 95 BiPAP, CPAP 02/05/23 10:39 18 93 BiPAP 02/05/23 07:53 99 H 02/05/23 07:53 High Flow Nasal Cannula 02/05/23 07:47 97.5 F L 85 20 127/77 96 BiPAP 02/05/23 07:03 82 20 92 BiPAP O2 Flow Rate 02/05/23 15:51 02/05/23 15:25 8 02/05/23 14:31 8 02/05/23 11:26 8 02/05/23 10:39 8 02/05/23 07:53 02/05/23 07:53 9 02/05/23 07:47 02/05/23 07:03 8 PG Care Time/CCT Total # of Minutes Spent Total Time Spent with Patient: Total time spent is greater than 50% in coordination of care (as documented) at patient's floor/unit and/or counseling patient: Coding Level of Care Code 94878 SUB INP/OBS CARE 2/35MIN Diagnoses Acute and chronic respiratory failure with hypoxia J96.21 Fungus present in urine B49 Interstitial lung disease J84.9 BONITA (obstructive sleep apnea) G47.33 Iron deficiency anemia D50.9 Thrush, oral B37.0
[2023-02-05] MEDS: ENOXAPARIN INJ 40 MG/0.4 ML SYR SQ SCH (19:37)
[2023-02-05] MEDS: GABAPENTIN 300 MG CAP PO SCH (19:39)
[2023-02-05] MEDS: hydrOXYzine HCl 25 MG TAB PO SCH (19:40)
[2023-02-05] MEDS: oxyCODONE HCL IR 5 MG TAB (IMMEDIATE RELEASE) PO PRN (21:54)
[2023-02-05] MEDS: AZITHROMYCIN 500 MG in DEXTROSE 5% 250 ML IV SCH (21:59)
[2023-02-06] MEDS: ALBUT/IPRATROP 3MG/0.5MG NEB 3 ML VIAL NEB SCH ×4 (07:06→19:49)
--- NOTE | 2023-02-06 08:11 | Pulmonology Progress Note ---
Date of Service February 06, 2023 Assessment & Plan (1) Acute and chronic respiratory failure with hypoxia: (2) Pulmonary emphysema: (3) Acute exacerbation of COPD with asthma: (4) BONITA (obstructive sleep apnea): (5) Pulmonary HTN: Plan CTA chest 01/03/2023 personally reviewed: Severe centrilobular and paraseptal emphysema appreciated bilaterally Motion degraded study, Edac cannot be ruled out Left upper lobe peripheral pulmonary nodule No significant mediastinal lymphadenopathy 2D echo 02/03/2023: EF 55 to 60%, normal RV size and function, moderate to severe pulmonary hypertension with PASP 55-60 mmHg 2D echo 09/22/2022: EF 55-60%, grade 1 diastolic dysfunction, RV normal in size and function ABG 01/07/2023: 7.43/37/74 on 6 L -- 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 Azithromycin 250 mg Cafmjr-Tlsxicoak-Dixsdl, QTc 458 on 01/31/2023 Continue with as needed albuterol and Teresita's Patient was asking about AVAPS machine. Her last FEV1 was 67% predicted in 01/2022. It needs to be less than 50% to qualify. Patient is also on chronic prednisone 10 mg every other day as per the transplant physician at [place]. Unfortunately [facility] told her that she would not be a transplant candidate. She followed up with [facility] since then but she got infection was in the hospital multiple times. She is going to follow-up with them again She is not a candidate for lung volume reduction or endobronchial valve placement given that her RV was only 113% and TLC 94% based on PFT 08/17/2020 For chronic bronchitis continue with Mucinex and flutter valve. If that does not help and I will add hypertonic saline Spirometry 01/21/2022 personally reviewed: Moderate obstructive lung dysfunction (Decrease in FVC by 60 mL, increase in FEV1 by 90 mL compared to 03/2021) FVC 2.70 L 95%, FEV1 1.36 L 67%, FEV1/FVC 50% --Pulmonary hypertension Combination of type I, type II and type III Type I possibly from underlying scleroderma Patient has been on sildenafil from the development coordinator Defer management to them Patient's pulmonary hypertension is a combination of 3 things. She had a cardiac catheter in January 2022 at [facility]. I will try to get the results to see what was the capillary wedge pressure at that time She is being treated for primary pulmonary hypertension with sildenafil. If she truly has primary pulmonary hypertension then addition of either macitentan or adding Prostacyclin could be thought of 2D echo 02/03/2023: EF 55 to 60%, normal RV size and function, moderate to severe pulmonary hypertension with PASP 55-60 mmHg 2D echo 09/22/2022: EF 55-60%, grade 1 diastolic dysfunction, RV normal in size and function 2D echo 01/04/2022: EF 60-65%, grade 1 diastolic dysfunction, RV normal in size and function, RVSP 40-50 mmHg --Pulmonary nodule Left upper lobe 5 mm Has been stable --BONITA She was on CPAP of 9 cm H2O Continue with CPAP while in the hospital --S/p COVID-19 pneumonia January 2020, was hospitalized S/p treatment with dexamethasone --Scleroderma Following up with rheumatology I discussed the current condition with patient as well as patient's daughter and went over goals of care on 02/03/2023 Plan: Taper prednisone off in 3 days to her home dose Continue with Breo and Incruse while in the hospital Patient is not on any diuretics at home. Would recommend patient to be discharged on diuretics (Lasix 20-40 mg on daily basis to alternate days), keep a close eye on her weight. If her weight is increasing by 2 pounds in duration of 2 days will need to increase her diuretics Unfortunately we have not received the report of the cardiac cath from January 2022. I discussed with the RN Chen as well as HIM. Please note the above document was generated using voice recognition software. It may contain grammatical, syntax or spelling errors.Any formal questions or concerns about the content, text or information contained within the body of this dictation should be directly addressed to the provider for clarification. Admission and Anticipated Discharge Date Admission Date: January 31, 2023 Subjective Patient seen and examined at bedside. No acute distress, notable symptoms overnight Patient was saturating 90% on 10 L nasal cannula at time of examination She stated that she is feeling tired today. Did use her CPAP overnight Appetite is well. Not complaining of any chest congestion. Throat is no more sore. Review of Systems 2 Review of Systems: All systems reviewed & are unremarkable except as noted in Subjective Physical Exam 2 Physical Exam: Constitutional: No acute distress HEENT: EOMI, PERRLA Respiratory system: Decreased air entry bilaterally, minimal expiratory wheeze, no rhonchi, minimal crackles bilateral lower lobes CVS: S1-S2 positive, no murmurs or gallops, accentuated P2 Abdomen: Soft, nontender, nondistended, positive bowel sounds x4 obese Extremities: +2 pulses bilaterally radialis/ dorsalis pedis, no cyanosis, no edema Neuro: Awake alert oriented x3 Psych: Normal mood and affect G/U: No Bailey Skin: no rashes, warm and dry Lymphatic: no cervical or axillary lymphadenopathy Results & Data Results & Data Vital Signs (Past 12 Hours) Vital Signs Temp Pulse Pulse Resp BP Pulse Ox O2 Del Method 02/06/23 07:30 36.4 C L 81 20 126/82 93 BiPAP 02/06/23 07:08 82 20 97 Other 02/06/23 04:20 36.3 C L 88 20 122/83 96 BiPAP 02/05/23 22:14 36.8 C 95 H 22 121/74 91 Nasal Cannula 02/05/23 22:00 93 H 02/05/23 21:00 High Flow Nasal Cannula O2 Flow Rate 02/06/23 07:30 8 02/06/23 07:08 9 02/06/23 04:20 10 02/05/23 22:14 10 02/05/23 22:00 02/05/23 21:00 10 Laboratory Results 02/05/23 08:38 02/05/23 08:38 PG Care Time/CCT Total # of Minutes Spent Total Time Spent with Patient: Total time spent is greater than 50% in coordination of care (as documented) at patient's floor/unit and/or counseling patient: Coding Level of Care Code 01994 SUB INP/OBS CARE 2/35MIN Diagnoses Acute and chronic respiratory failure with hypoxia J96.21 Pulmonary emphysema J43.9 Acute exacerbation of COPD with asthma J44.1; J45.901 BONITA (obstructive sleep apnea) G47.33 Pulmonary HTN I27.20
[2023-02-06] MEDS: HEPARIN 100 UNIT/ML 5ML FLUSH FLUSH PRN (08:58)
[2023-02-06] MEDS: FLUTICASONE/VILANTEROL 200/25MCG 14 PUFFS/INHALER INH SCH (09:35)
[2023-02-06] MEDS: UMECLIDINIUM BROMIDE 62.5MCG/BLISTER 7 PUFFS/INHALER INH SCH (09:35)
[2023-02-06] MEDS: BISOPROLOL FUMARATE 5 MG TAB PO SCH (09:36)
[2023-02-06] MEDS: DULoxetine HCL 60 MG CAP PO SCH (09:36)
[2023-02-06] MEDS: FUROSEMIDE 40 MG TAB PO SCH (09:37)
[2023-02-06] MEDS: POTASSIUM CHLORIDE CRTAB 20 MEQ TABCR PO SCH ×2 (09:37→20:56)
[2023-02-06] MEDS: amLODIPine BESYLATE 5 MG TAB PO SCH (09:38)
[2023-02-06] MEDS: PANTOprazole 40 MG TAB PO SCH ×2 (09:38→20:56)
[2023-02-06] MEDS: buPROPion SR 100 MG TABCR PO SCH (09:39)
[2023-02-06] MEDS: SILDENAFIL CITRATE 20 MG TABLET PO SCH ×3 (09:39→20:56)
[2023-02-06] MEDS: predniSONE 10 MG TABLET PO SCH (09:40)
[2023-02-06] MEDS: guaiFENesin 600 MG TABCR PO SCH ×2 (09:40→20:56)
[2023-02-06] MEDS: NYSTATIN SUSP 500,000 U/5 ML UDC PO SCH ×4 (09:41→20:57)
[2023-02-06] MEDS: INSULIN ASPART PER UNIT CHARGE SC SCH ×4 (09:55→20:57)
[2023-02-06] MEDS: LANTUS PER UNIT CHARGE SQ SCH ×2 (09:55→20:56)
[2023-02-06] MEDS ORDERED: DEXAMETHASONE SOD INJ 4 MG/ML VIAL IV STA (11:38)
[2023-02-06] MEDS ORDERED: MAGNESIUM SULFATE / D5W 1 GM/100 ML BAG IV ONE (11:41)
[2023-02-06] MEDS ORDERED: dexAMETHasone 6 MG in SYRINGE 0 ML IV ONE (11:47)
--- NOTE | 2023-02-06 15:45 | Hospitalist Progress Note ---
Date of Service February 06, 2023 Assessment & Plan (1) Acute and chronic respiratory failure with hypoxia: Plan: Patient with chronic and progressive interstitial lung disease, COPD, emphysema Continue supplemental oxygen support to maintain SpO2 between 88 and 92% Requiring significant oxygen supplementation prohibiting us from discharge to home Continue azithromycin may change to 3 x a week New fluticasone/cholesterol/umeclidinium Continue montelukast Echocardiogram shows preserved EF and worsening of Pulmonary hypertension Request right heart cath report from [facility] - (2) Interstitial lung disease: Plan: Extensive and progressive disease Patient was deemed ineligible for lung transplant per her report tapering steroids. The patient feel worse with increased oxygen demands will give augmented dose of dexamethasone on 1228 and increase daily prednisone to 40 (3) BONITA (obstructive sleep apnea): Plan: Continue with CPAP. Patient does have her own machine and is permitted to use this while inpatient (4) Iron deficiency anemia: Plan: Hemoglobin currently within normal range at 12.4 g/Viky Continue with outpatient management of her iron insufficiency (5) Thrush, oral: Plan: Oral candidiasis Change nystatin swish and swallow Fisherman friend cough drops (6) Fungus present in urine: Plan: funguria without symptoms >100,000 colonies of Nayeli Glabrata given Qt affects will top fluconazole after 2 doses , if symptomatic may consider ID eval Plan Discussion regarding CODE STATUS reaffirmed with patient in the presence of her , daughter, son. Patient desires to be DNR/DNI. Challenging to get patient home on such high oxygen demands at this time Admission and Anticipated Discharge Date Admission Date: January 31, 2023 Subjective Patient continues to be very short of breath not feeling much improvement herself. Still dry nonproductive cough. Feels did worse when downgraded to prednisone 30 Still does not feel able to go home on significant oxygen supplementation augmenting with NIPPV during the day. Currently on 13 L oxygen Physical Exam Physical Exam: Pleasant comes dyspneic with talking even after a few words Card exam is distant but regular Lungs have reasonable air movement dry rales are heard in all lung lema no wheezes Abdomen NABS soft and nontender Extremities are with trace edema at best Results & Data Results & Data Vital Signs (Past 12 Hours) Vital Signs Temp Pulse Pulse Resp BP Pulse Ox O2 Del Method 02/06/23 15:23 90 15 95 Nasal Cannula 02/06/23 15:20 97.9 F 90 20 108/67 95 High Flow Nasal Cannula 02/06/23 11:31 78 02/06/23 11:20 98.1 F 91 H 22 107/70 90 High Flow Nasal Cannula 02/06/23 10:33 83 20 90 Nasal Cannula 02/06/23 07:30 97.5 F L 81 20 126/82 93 BiPAP 02/06/23 07:08 82 20 97 Other 02/06/23 04:20 97.3 F L 88 20 122/83 96 BiPAP O2 Flow Rate 02/06/23 15:23 13 02/06/23 15:20 13 02/06/23 11:31 02/06/23 11:20 13 02/06/23 10:33 13 02/06/23 07:30 8 02/06/23 07:08 9 02/06/23 04:20 10 PG Care Time/CCT Total # of Minutes Spent Total Time Spent with Patient: Total time spent is greater than 50% in coordination of care (as documented) at patient's floor/unit and/or counseling patient: Coding Level of Care Code 80438 SUB INP/OBS CARE 2/35MIN Diagnoses Acute and chronic respiratory failure with hypoxia J96.21 Interstitial lung disease J84.9 BONITA (obstructive sleep apnea) G47.33 Iron deficiency anemia D50.9 Thrush, oral B37.0 Fungus present in urine B49
[2023-02-06] MEDS: ENOXAPARIN INJ 40 MG/0.4 ML SYR SQ SCH (20:56)
[2023-02-06] MEDS: hydrOXYzine HCl 25 MG TAB PO SCH (20:56)
[2023-02-06] MEDS: GABAPENTIN 300 MG CAP PO SCH (20:56)
[2023-02-06] MEDS: oxyCODONE HCL IR 5 MG TAB (IMMEDIATE RELEASE) PO PRN (21:01)
[2023-02-06] MEDS: AZITHROMYCIN 500 MG in DEXTROSE 5% 250 ML IV SCH (21:45)
[2023-02-07] MEDS: ALBUT/IPRATROP 3MG/0.5MG NEB 3 ML VIAL NEB SCH ×4 (07:13→20:45)
--- NOTE | 2023-02-07 07:51 | Hospitalist Progress Note ---
Date of Service February 07, 2023 Assessment & Plan (1) Acute and chronic respiratory failure with hypoxia: Plan: Patient with chronic and progressive interstitial lung disease, COPD, emphysema, now with improving oxygen requirements Continue supplemental oxygen support to maintain SpO2 between 88 and 92%, up to 13L/min when not on cpap Requiring significant oxygen supplementation prohibiting us from discharge to home Continue azithromycin 3 x a week New fluticasone/vilanterol/umeclidinium Continue montelukast Echocardiogram shows preserved EF and worsening of Pulmonary hypertension Request right heart cath report from [facility] - (2) Interstitial lung disease: Plan: Extensive and progressive disease Patient was deemed ineligible for lung transplant per her report did not do well tapering steroids. The patient feel worse with increased oxygen demands was given augmented dose of dexamethasone on 02/06 and increase daily prednisone to 40 (3) BONITA (obstructive sleep apnea): Plan: Continue with CPAP. Patient does have her own machine and is permitted to use this while inpatient (4) Iron deficiency anemia: Plan: Hemoglobin currently within normal range at 12.4 g/Viky Continue with outpatient management of her iron insufficiency (5) Thrush, oral: Plan: Oral candidiasis Change nystatin swish and swallow Fisherman friend cough drops (6) Fungus present in urine: Plan: funguria without symptoms >100,000 colonies of Nayeli Glabrata given Qt affects will top fluconazole after 2 doses , if symptomatic may consider ID eval Plan Discussion regarding CODE STATUS reaffirmed with patient in the presence of her , daughter, son. Patient desires to be DNR/DNI. Challenging to get patient home on such high oxygen demands at this time Admission and Anticipated Discharge Date Admission Date: January 31, 2023 Subjective Patient feels better however we did increase steroids on 02/06 is now on lowering amounts of oxygen and able to be able to go home in the next few days as her oxygen delivery was her initial barrier to going home Physical Exam Physical Exam: Awake alert appropriate. Patient has good excursion and air movement although has some dry crackles heard in all lung lema Card exam is regular extremities are with trace edema Results & Data Results & Data Vital Signs (Past 12 Hours) Vital Signs Temp Pulse Pulse Resp BP Pulse Ox O2 Del Method 02/07/23 07:13 118 H 20 100 CPAP 02/07/23 07:03 97.7 F 86 20 121/82 100 Nasal Cannula 02/07/23 02:34 98.6 F 89 20 128/83 96 Nasal CPAP 02/06/23 23:22 110 H 02/06/23 23:09 98.6 F 111 H 20 126/75 96 Nasal CPAP 02/06/23 19:53 18 94 Nasal Cannula O2 Flow Rate 02/07/23 07:13 9 02/07/23 07:03 6 02/07/23 02:34 02/06/23 23:22 02/06/23 23:09 02/06/23 19:53 9 Laboratory Results Reviewed CBC reviewed chemistry PG Care Time/CCT Total # of Minutes Spent Total Time Spent with Patient: Total time spent is greater than 50% in coordination of care (as documented) at patient's floor/unit and/or counseling patient: Coding Level of Care Code 03334 SUB INP/OBS CARE 2/35MIN Diagnoses Acute and chronic respiratory failure with hypoxia J96.21 Interstitial lung disease J84.9 BONITA (obstructive sleep apnea) G47.33 Iron deficiency anemia D50.9 Thrush, oral B37.0 Fungus present in urine B49
[2023-02-07] MEDS: PANTOprazole 40 MG TAB PO SCH ×2 (08:15→20:13)
[2023-02-07] MEDS: guaiFENesin 600 MG TABCR PO SCH ×2 (08:15→20:13)
[2023-02-07] MEDS: BISOPROLOL FUMARATE 5 MG TAB PO SCH (08:15)
[2023-02-07] MEDS: buPROPion SR 100 MG TABCR PO SCH (08:16)
[2023-02-07] MEDS: amLODIPine BESYLATE 5 MG TAB PO SCH (08:16)
[2023-02-07] MEDS: predniSONE 20 MG TAB PO SCH (08:16)
[2023-02-07] MEDS: FUROSEMIDE 40 MG TAB PO SCH (08:16)
[2023-02-07] MEDS: DULoxetine HCL 60 MG CAP PO SCH (08:16)
[2023-02-07] MEDS: SILDENAFIL CITRATE 20 MG TABLET PO SCH ×3 (08:17→20:13)
[2023-02-07] MEDS: NYSTATIN SUSP 500,000 U/5 ML UDC PO SCH ×4 (08:17→20:12)
[2023-02-07] MEDS: UMECLIDINIUM BROMIDE 62.5MCG/BLISTER 7 PUFFS/INHALER INH SCH (08:17)
[2023-02-07] MEDS: FLUTICASONE/VILANTEROL 200/25MCG 14 PUFFS/INHALER INH SCH (08:17)
[2023-02-07] MEDS: POTASSIUM CHLORIDE CRTAB 20 MEQ TABCR PO SCH ×2 (08:17→20:13)
--- NOTE | 2023-02-07 08:23 | Pulmonology Progress Note ---
Date of Service February 07, 2023 Assessment & Plan (1) Acute and chronic respiratory failure with hypoxia: (2) Pulmonary emphysema: (3) Acute exacerbation of COPD with asthma: (4) BONITA (obstructive sleep apnea): (5) Pulmonary HTN: Plan CTA chest 01/03/2023 personally reviewed: Severe centrilobular and paraseptal emphysema appreciated bilaterally Motion degraded study, Edac cannot be ruled out Left upper lobe peripheral pulmonary nodule No significant mediastinal lymphadenopathy 2D echo 02/03/2023: EF 55 to 60%, normal RV size and function, moderate to severe pulmonary hypertension with PASP 55-60 mmHg 2D echo 09/22/2022: EF 55-60%, grade 1 diastolic dysfunction, RV normal in size and function ABG 01/07/2023: 7.43/37/74 on 6 L -- 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 Azithromycin 250 mg Uleybz-Odzobucdn-Rframl, QTc 458 on 01/31/2023 Continue with as needed albuterol and Teresita's Patient was asking about AVAPS machine. Her last FEV1 was 67% predicted in 01/2022. It needs to be less than 50% to qualify. Patient is also on chronic prednisone 10 mg every other day as per the transplant physician at [place]. Unfortunately [facility] told her that she would not be a transplant candidate. She followed up with [facility] since then but she got infection was in the hospital multiple times. She is going to follow-up with them again She is not a candidate for lung volume reduction or endobronchial valve placement given that her RV was only 113% and TLC 94% based on PFT 08/17/2020 For chronic bronchitis continue with Mucinex and flutter valve. 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 She had a cardiac catheter in January 2022 at [facility]. I will try to get the results to see what was the capillary wedge pressure at that time She is being treated for primary pulmonary hypertension with sildenafil. If she truly has primary pulmonary hypertension then addition of either macitentan or adding Prostacyclin could be thought of Right heart cath 01/22/2022: RA 12/8 7 RV 53/2 12 PA 55/23 35 PCWP 14/13 11 PVR 4.6 Quintanilla units, normal thermodilution cardiac index 2D echo 02/03/2023: EF 55 to 60%, normal RV size and function, moderate to severe pulmonary hypertension with PASP 55-60 mmHg 2D echo 09/22/2022: EF 55-60%, grade 1 diastolic dysfunction, RV normal in size and function 2D echo 01/04/2022: EF 60-65%, grade 1 diastolic dysfunction, RV normal in size and function, RVSP 40-50 mmHg --Pulmonary nodule Left upper lobe 5 mm Has been stable --BONITA She was on CPAP of 9 cm H2O Continue with CPAP while in the hospital --S/p COVID-19 pneumonia January 2020, was hospitalized S/p treatment with dexamethasone --Scleroderma Following up with rheumatology I discussed the current condition with patient as well as patient's daughter and went over goals of care on 02/03/2023 Plan: Taper prednisone off in 3 days to her home dose Continue with Breo and Incruse while in the hospital Patient is not on any diuretics at home. Would recommend patient to be discharged on diuretics (Lasix 20-40 mg on daily basis to alternate days), keep a close eye on her weight. If her weight is increasing by 2 pounds in duration of 2 days will need to increase her diuretics I was finally able to get the cardiac cath report from 01/22/2022. Patient's wedge was only 11 with elevated pulmonary artery pressure as well as PVR. She does follow into a type I pulmonary hypertension I we will plan to add macitentan to her sildenafil regimen. It usually comes from a special pharmacy so I will do it from Outpatient office Case was discussed with primary team Please note the above document was generated using voice recognition software. It may contain grammatical, syntax or spelling errors.Any formal questions or concerns about the content, text or information contained within the body of this dictation should be directly addressed to the provider for clarification. Admission and Anticipated Discharge Date Admission Date: January 31, 2023 Subjective Patient seen and examined at bedside. No acute distress, no adverse events overnight. Patient was saturating 91-92% on 7 L nasal cannula at rest She stated she had a good night. She is feeling more energetic today. Denies any nausea vomiting Fair appetite. No headache, no blurry vision Review of Systems 2 Review of Systems: All systems reviewed & are unremarkable except as noted in Subjective Physical Exam 2 Physical Exam: Constitutional: No acute distress HEENT: EOMI, PERRLA Respiratory system: Decreased air entry bilaterally, minimal expiratory wheeze, no rhonchi, minimal crackles bilateral lower lobes CVS: S1-S2 positive, no murmurs or gallops, accentuated P2 Abdomen: Soft, nontender, nondistended, positive bowel sounds x4 obese Extremities: +2 pulses bilaterally radialis/ dorsalis pedis, no cyanosis, no edema Neuro: Awake alert oriented x3 Psych: Normal mood and affect G/U: No Bailey Skin: no rashes, warm and dry Lymphatic: no cervical or axillary lymphadenopathy Results & Data Results & Data Vital Signs (Past 12 Hours) Vital Signs Temp Pulse Pulse Resp BP Pulse Ox O2 Del Method 02/07/23 07:13 118 H 20 100 CPAP 02/07/23 07:03 36.5 C 86 20 121/82 100 Nasal Cannula 02/07/23 02:34 37 C 89 20 128/83 96 Nasal CPAP 02/06/23 23:22 110 H 02/06/23 23:09 37 C 111 H 20 126/75 96 Nasal CPAP O2 Flow Rate 02/07/23 07:13 9 02/07/23 07:03 6 02/07/23 02:34 02/06/23 23:22 02/06/23 23:09 Laboratory Results 02/05/23 08:38 02/05/23 08:38 PG Care Time/CCT Total # of Minutes Spent Total Time Spent with Patient: Total time spent is greater than 50% in coordination of care (as documented) at patient's floor/unit and/or counseling patient: Coding Level of Care Code 17841 SUB INP/OBS CARE 3/50MIN Diagnoses Acute and chronic respiratory failure with hypoxia J96.21 Pulmonary emphysema J43.9 Acute exacerbation of COPD with asthma J44.1; J45.901 BONITA (obstructive sleep apnea) G47.33 Pulmonary HTN I27.20
[2023-02-07] MEDS: INSULIN ASPART PER UNIT CHARGE SC SCH ×4 (08:38→20:19)
[2023-02-07] MEDS: LANTUS PER UNIT CHARGE SQ SCH ×2 (08:38→20:19)
[2023-02-07 14:39] LABS: Hematocrit (blood only) 40.2 % (37.0-47.0); Hemoglobin 13.1 g/dl (12.0-16.0); Mean Corpuscular Hemoglobin 29.6 pg (25.0-34.0); Mean Corpuscular Hgb Conc 32.6 g/dL (32.0-36.0); Mean Corpuscular Volume 90.7 fL (80.0-100.0); Mean Platelet Volume 9.7 fL (9.4-12.4); Platelet Count 487 K/uL (130-400); RDW Coefficient of Variation 14.5 % (11.5-14.5); RDW Standard Deviation 48.5 fL (36.4-46.3); Red Blood Count 4.43 M/uL (4.20-5.40); White Blood Count 14.93 K/ul (4.8-10.8)
[2023-02-07 14:57] LABS: Calcium 8.6 mg/dl (8.6-10.3); Est GFR (African American) 88.6 ml/min; Est GFR (Non-African American) 76.5 ml/min; Magnesium 2.1 mg/dl (1.7-2.4); Potassium 4.4 mmol/L (3.5-5.1)
[2023-02-07] MEDS: GABAPENTIN 300 MG CAP PO SCH (20:13)
[2023-02-07] MEDS: ENOXAPARIN INJ 40 MG/0.4 ML SYR SQ SCH (20:13)
[2023-02-07] MEDS: hydrOXYzine HCl 25 MG TAB PO SCH (20:13)
[2023-02-07] MEDS: oxyCODONE HCL IR 5 MG TAB (IMMEDIATE RELEASE) PO PRN (20:19)
[2023-02-08] MEDS: HEPARIN 100 UNIT/ML 5ML FLUSH FLUSH PRN ×2 (05:47→08:43)
[2023-02-08] MEDS: ALBUT/IPRATROP 3MG/0.5MG NEB 3 ML VIAL NEB SCH ×4 (07:20→19:36)
--- NOTE | 2023-02-08 08:08 | Pulmonology Progress Note ---
Date of Service February 08, 2023 Assessment & Plan (1) Acute and chronic respiratory failure with hypoxia: (2) Pulmonary emphysema: (3) Acute exacerbation of COPD with asthma: (4) BONITA (obstructive sleep apnea): (5) Pulmonary HTN: Plan CTA chest 01/03/2023 personally reviewed: Severe centrilobular and paraseptal emphysema appreciated bilaterally Motion degraded study, Edac cannot be ruled out Left upper lobe peripheral pulmonary nodule No significant mediastinal lymphadenopathy 2D echo 02/03/2023: EF 55 to 60%, normal RV size and function, moderate to severe pulmonary hypertension with PASP 55-60 mmHg 2D echo 09/22/2022: EF 55-60%, grade 1 diastolic dysfunction, RV normal in size and function ABG 01/07/2023: 7.43/37/74 on 6 L -- 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 Azithromycin 250 mg Eouzky-Frfsayzox-Qxiobx, QTc 458 on 01/31/2023 Continue with as needed albuterol and Teresita's Patient was asking about AVAPS machine. Her last FEV1 was 67% predicted in 01/2022. It needs to be less than 50% to qualify. Patient is also on chronic prednisone 10 mg every other day as per the transplant physician at [place]. Unfortunately [facility] told her that she would not be a transplant candidate. She followed up with [facility] since then but she got infection was in the hospital multiple times. She is going to follow-up with them again She is not a candidate for lung volume reduction or endobronchial valve placement given that her RV was only 113% and TLC 94% based on PFT 08/17/2020 For chronic bronchitis continue with Mucinex and flutter valve. 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 She had a cardiac catheter in January 2022 at [facility]. I will try to get the results to see what was the capillary wedge pressure at that time She is being treated for primary pulmonary hypertension with sildenafil. If she truly has primary pulmonary hypertension then addition of either macitentan or adding Prostacyclin could be thought of Right heart cath 01/22/2022: RA 12/8 7 RV 53/2 12 PA 55/23 35 PCWP 14/13 11 PVR 4.6 Quintanilla units, normal thermodilution cardiac index 2D echo 02/03/2023: EF 55 to 60%, normal RV size and function, moderate to severe pulmonary hypertension with PASP 55-60 mmHg 2D echo 09/22/2022: EF 55-60%, grade 1 diastolic dysfunction, RV normal in size and function 2D echo 01/04/2022: EF 60-65%, grade 1 diastolic dysfunction, RV normal in size and function, RVSP 40-50 mmHg --Pulmonary nodule Left upper lobe 5 mm Has been stable --BONITA She was on CPAP of 9 cm H2O Continue with CPAP while in the hospital --S/p COVID-19 pneumonia January 2020, was hospitalized S/p treatment with dexamethasone --Scleroderma Following up with rheumatology I discussed the current condition with patient as well as patient's daughter and went over goals of care on 02/03/2023 Plan: Taper prednisone off in 1 day to her home dose Continue with Breo and Incruse while in the hospital Patient is not on any diuretics at home. Would recommend patient to be discharged on diuretics (Lasix 20-40 mg on daily basis to alternate days), keep a close eye on her weight. If her weight is increasing by 2 pounds in duration of 2 days will need to increase her diuretics I was finally able to get the cardiac cath report from 01/22/2022. Patient's wedge was only 11 with elevated pulmonary artery pressure as well as PVR. She does follow into a type I pulmonary hypertension I we will plan to add macitentan to her sildenafil regimen. It usually comes from a special pharmacy, order has been placed by my office Case was discussed with primary team Please note the above document was generated using voice recognition software. It may contain grammatical, syntax or spelling errors.Any formal questions or concerns about the content, text or information contained within the body of this dictation should be directly addressed to the provider for clarification. Admission and Anticipated Discharge Date Admission Date: January 31, 2023 Subjective Patient seen and examined at bedside. No acute distress, no adverse events overnight She says she is feeling better compared to before Still generalized weakness especially getting out of the bed Diuresing well Fair appetite No nausea vomiting No headache, no blurry vision Review of Systems 2 Review of Systems: All systems reviewed & are unremarkable except as noted in Subjective Physical Exam 2 Physical Exam: Constitutional: No acute distress HEENT: EOMI, PERRLA Respiratory system: Decreased air entry bilaterally, minimal expiratory wheeze, no rhonchi, minimal crackles bilateral lower lobes CVS: S1-S2 positive, no murmurs or gallops, accentuated P2 Abdomen: Soft, nontender, nondistended, positive bowel sounds x4 obese Extremities: +2 pulses bilaterally radialis/ dorsalis pedis, no cyanosis, no edema Neuro: Awake alert oriented x3 Psych: Normal mood and affect G/U: No Bailey Skin: no rashes, warm and dry Lymphatic: no cervical or axillary lymphadenopathy Results & Data Results & Data Vital Signs (Past 12 Hours) Vital Signs Temp Pulse Pulse Resp BP Pulse Ox O2 Del Method 02/08/23 07:21 86 15 95 CPAP 02/08/23 03:20 36.6 C 84 20 118/64 95 Nasal Cannula 02/08/23 01:40 101 H 02/07/23 23:26 36.8 C 101 H 20 124/64 93 Nasal Cannula 02/07/23 20:46 98 H 24 96 Nasal Cannula O2 Flow Rate 02/08/23 07:21 8 02/08/23 03:20 02/08/23 01:40 02/07/23 23:26 02/07/23 20:46 8 Laboratory Results 02/07/23 14:00 02/07/23 14:00 PG Care Time/CCT Total # of Minutes Spent Total Time Spent with Patient: Total time spent is greater than 50% in coordination of care (as documented) at patient's floor/unit and/or counseling patient: Coding Level of Care Code 92021 SUB INP/OBS CARE 2/35MIN Diagnoses Acute and chronic respiratory failure with hypoxia J96.21 Pulmonary emphysema J43.9 Acute exacerbation of COPD with asthma J44.1; J45.901 BONITA (obstructive sleep apnea) G47.33 Pulmonary HTN I27.20
[2023-02-08] MEDS: INSULIN ASPART PER UNIT CHARGE SC SCH ×4 (08:25→20:32)
[2023-02-08] MEDS: LANTUS PER UNIT CHARGE SQ SCH ×2 (08:26→20:32)
[2023-02-08] MEDS: SILDENAFIL CITRATE 20 MG TABLET PO SCH ×3 (08:28→20:23)
[2023-02-08] MEDS: PANTOprazole 40 MG TAB PO SCH ×2 (08:30→20:24)
[2023-02-08] MEDS: POTASSIUM CHLORIDE CRTAB 20 MEQ TABCR PO SCH ×2 (08:30→20:24)
[2023-02-08] MEDS: guaiFENesin 600 MG TABCR PO SCH ×2 (08:31→20:24)
[2023-02-08] MEDS: predniSONE 20 MG TAB PO SCH (08:31)
[2023-02-08] MEDS: NYSTATIN SUSP 500,000 U/5 ML UDC PO SCH ×4 (08:31→20:23)
[2023-02-08] MEDS: DULoxetine HCL 60 MG CAP PO SCH (08:32)
[2023-02-08] MEDS: FLUTICASONE/VILANTEROL 200/25MCG 14 PUFFS/INHALER INH SCH (08:32)
[2023-02-08] MEDS: UMECLIDINIUM BROMIDE 62.5MCG/BLISTER 7 PUFFS/INHALER INH SCH (08:32)
[2023-02-08] MEDS: BISOPROLOL FUMARATE 5 MG TAB PO SCH (08:33)
[2023-02-08] MEDS: buPROPion SR 100 MG TABCR PO SCH (08:33)
[2023-02-08] MEDS: FUROSEMIDE 40 MG TAB PO SCH (08:34)
[2023-02-08] MEDS: amLODIPine BESYLATE 5 MG TAB PO SCH (08:35)
--- NOTE | 2023-02-08 12:38 | Hospitalist Progress Note ---
Date of Service February 08, 2023 Assessment & Plan (1) Acute and chronic respiratory failure with hypoxia: Plan: Acute/unstable - Patient with acute on chronic hypercapnic hypoxic respiratory failure secondary to progressive interstitial lung disease, COPD with emphysema, and pulmonary HTN - Continue supplemental oxygen support to maintain SpO2 between 88 and 92%, currently up to 8L/min when not on cpap Requiring significant oxygen supplementation prohibiting us from discharge to home (requiring up to 13L), baseline was on 6L at rest and 8L with exertion - Continue azithromycin 3 x a week - New fluticasone/vilanterol/umeclidinium - Continue montelukast - Continue monitoring pulse ox continuously - Start weaning down to patient's home Prednisone 10mg dose. Decrease to 20mg Prednisone on 02/10/23. - Pulmonology following, appreciate assistance. Echocardiogram shows preserved EF and worsening of Pulmonary hypertension Requested right heart cath report from [facility] - reviewed by Dr. Cam, intends to add Macitentan to her Sildenafil regimen (as outpatient) and wants d/c'd on alternating doses of Lasix 20mg/40mg as outpatient with attention to daily weights. Will follow up with [facility] as outpatient. (2) Interstitial lung disease: Plan: Extensive and progressive disease - Patient was deemed ineligible for lung transplant per her report from [facility], intends to f/u with [facility] - Did not do well tapering steroids initially, felt worse with increased oxygen demands and was given augmented dose of dexamethasone on 02/06 and increase daily prednisone to 40mg - Will attempt weaning again on 02/10 to Prednisone 20mg (3) BONITA (obstructive sleep apnea): Plan: Chronic/stable - Continue with CPAP. Patient does have her own machine and is permitted to use this while inpatient (4) Iron deficiency anemia: Plan: Chronic/stable - Hemoglobin currently within normal range at 12.4 g/Viky - Continue with outpatient management of her iron insufficiency (5) Thrush, oral: Plan: Oral candidiasis Change nystatin swish and swallow Fisherman friend cough drops (6) Fungus present in urine: Plan: Asymptomatic funguria >100,000 colonies of Nayeli Glabrata - given Qt affects will fluconazole stopped after 2 doses, if symptomatic may consider ID eval Plan Discussion regarding CODE STATUS reaffirmed with patient in the presence of her , daughter, son. Patient desires to be DNR/DNI. On Lovenox for VTE ppx. Challenging to get patient home on such high oxygen demands at this time and also generalized weakness. PT/OT eval to determine oxygen needs with exertion. Ideally get her out of bed to chair. Need to assess patient's ability to transition home. D/w Dr. Pearson. Admission and Anticipated Discharge Date Admission Date: January 31, 2023 Subjective Patient was seen on daily rounds. Remains hospitalized for acute on chronic respiratory failure with hypoxia. Current oxygen requirements are down to 8L at rest. However, with talking during my assessment, oxygen sat dropped to 76% on the 8L and then recovered back to upper 80s low 90s. She is concerned regarding her generalized weakness that she would not do well if discharged home. She feels that her breathing is maybe slightly improved. No chest pain, fever, chills, gu symptoms, n/v/d. Review of Systems Review of Systems: All systems reviewed and are unremarkable except as noted in HPI and below. Denies fever, chills, fatigue, headache, nasal congestion, sore throat, chest pain, palpitations, orthopnea, PND, abdominal pain, n/v/d, constipation, dysuria, hematuria, frequency, back pain, joint pain or swelling, easy bruising or bleeding, skin lesions or rashes. Physical Exam Physical Exam: GENERAL: 72 yo overweight female. Pleasant, cooperative. LUNGS: +Conversational dyspnea. Diminished lung sounds throughout. CARDIOVASCULAR: Regular rate and rhythm. ABDOMEN: Soft, non-tender and non-distended. BS normoactive x 4 quad. EXTREMITIES: No edema. Non-tender. Peripheral pulses +2/4. Results & Data Results & Data Vital Signs (Past 12 Hours) Vital Signs Temp Pulse Pulse Resp BP Pulse Ox O2 Del Method 02/08/23 11:19 79 15 91 Nasal Cannula 02/08/23 10:59 36.4 C L 79 21 130/82 91 High Flow Nasal Cannula 02/08/23 08:44 36.4 C L 71 18 122/79 91 Nasal Cannula 02/08/23 08:00 High Flow Nasal Cannula 02/08/23 07:21 86 15 95 CPAP 02/08/23 03:20 36.6 C 84 20 118/64 95 Nasal Cannula 02/08/23 01:40 101 H O2 Flow Rate 02/08/23 11:19 8 02/08/23 10:59 9 02/08/23 08:44 8 02/08/23 08:00 8 02/08/23 07:21 8 02/08/23 03:20 02/08/23 01:40 PG Care Time/CCT Total # of Minutes Spent Total Time Spent with Patient: Total time spent is greater than 50% in coordination of care (as documented) at patient's floor/unit and/or counseling patient: Coding Level of Care Code 18170 SUB INP/OBS CARE 2/35MIN Diagnoses Acute and chronic respiratory failure with hypoxia J96.21 Interstitial lung disease J84.9 BONITA (obstructive sleep apnea) G47.33 Iron deficiency anemia D50.9 Thrush, oral B37.0 Fungus present in urine B49
[2023-02-08] MEDS: GABAPENTIN 300 MG CAP PO SCH (20:23)
[2023-02-08] MEDS: hydrOXYzine HCl 25 MG TAB PO SCH (20:24)
[2023-02-08] MEDS: ENOXAPARIN INJ 40 MG/0.4 ML SYR SQ SCH (20:26)
[2023-02-09] MEDS: HEPARIN 100 UNIT/ML 5ML FLUSH FLUSH PRN (06:29)
[2023-02-09] MEDS: ALBUT/IPRATROP 3MG/0.5MG NEB 3 ML VIAL NEB SCH ×4 (07:18→19:28)
[2023-02-09] MEDS: LANTUS PER UNIT CHARGE SQ SCH ×2 (08:42→20:34)
[2023-02-09] MEDS: INSULIN ASPART PER UNIT CHARGE SC SCH ×4 (08:42→20:34)
[2023-02-09] MEDS: DULoxetine HCL 60 MG CAP PO SCH (08:43)
[2023-02-09] MEDS: NYSTATIN SUSP 500,000 U/5 ML UDC PO SCH ×4 (08:43→20:31)
[2023-02-09] MEDS: FUROSEMIDE 40 MG TAB PO SCH (08:43)
[2023-02-09] MEDS: FLUTICASONE/VILANTEROL 200/25MCG 14 PUFFS/INHALER INH SCH (08:43)
[2023-02-09] MEDS: buPROPion SR 100 MG TABCR PO SCH (08:43)
[2023-02-09] MEDS: UMECLIDINIUM BROMIDE 62.5MCG/BLISTER 7 PUFFS/INHALER INH SCH (08:43)
[2023-02-09] MEDS: predniSONE 20 MG TAB PO SCH (08:43)
[2023-02-09] MEDS: BISOPROLOL FUMARATE 5 MG TAB PO SCH (08:44)
[2023-02-09] MEDS: POTASSIUM CHLORIDE CRTAB 20 MEQ TABCR PO SCH ×2 (08:44→20:31)
[2023-02-09] MEDS: guaiFENesin 600 MG TABCR PO SCH ×2 (08:44→20:30)
[2023-02-09] MEDS: SILDENAFIL CITRATE 20 MG TABLET PO SCH ×3 (08:44→20:31)
[2023-02-09] MEDS: PANTOprazole 40 MG TAB PO SCH ×2 (08:44→20:31)
[2023-02-09] MEDS: amLODIPine BESYLATE 5 MG TAB PO SCH (08:45)
--- NOTE | 2023-02-09 09:16 | Pulmonology Progress Note ---
Date of Service February 09, 2023 Assessment & Plan (1) Acute and chronic respiratory failure with hypoxia: (2) Pulmonary emphysema: (3) Acute exacerbation of COPD with asthma: (4) BONITA (obstructive sleep apnea): (5) Pulmonary HTN: Plan CTA chest 01/03/2023 personally reviewed: Severe centrilobular and paraseptal emphysema appreciated bilaterally Motion degraded study, Edac cannot be ruled out Left upper lobe peripheral pulmonary nodule No significant mediastinal lymphadenopathy 2D echo 02/03/2023: EF 55 to 60%, normal RV size and function, moderate to severe pulmonary hypertension with PASP 55-60 mmHg 2D echo 09/22/2022: EF 55-60%, grade 1 diastolic dysfunction, RV normal in size and function ABG 01/07/2023: 7.43/37/74 on 6 L -- 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 Azithromycin 250 mg Esovam-Oyckageuq-Skswuc, QTc 458 on 01/31/2023 Continue with as needed albuterol and Teresita's Patient was asking about AVAPS machine. Her last FEV1 was 67% predicted in 01/2022. It needs to be less than 50% to qualify. Patient is also on chronic prednisone 10 mg every other day as per the transplant physician at [place]. Unfortunately [facility] told her that she would not be a transplant candidate. She followed up with Lupilol since then but she got infection was in the hospital multiple times. She is going to follow-up with them again She is not a candidate for lung volume reduction or endobronchial valve placement given that her RV was only 113% and TLC 94% based on PFT 08/17/2020 For chronic bronchitis continue with Mucinex and flutter valve. If that does not help and I will add hypertonic saline Spirometry 01/21/2022 personally reviewed: Moderate obstructive lung dysfunction (Decrease in FVC by 60 mL, increase in FEV1 by 90 mL compared to 03/2021) FVC 2.70 L 95%, FEV1 1.36 L 67%, FEV1/FVC 50% --Pulmonary hypertension Combination of type I, type II and type III Type I possibly from underlying scleroderma Patient has been on sildenafil from the chimney mechanic Defer management to them Patient's pulmonary hypertension is a combination of 3 things. She had a cardiac catheter in January 2022 at [facility]. I will try to get the results to see what was the capillary wedge pressure at that time She is being treated for primary pulmonary hypertension with sildenafil. If she truly has primary pulmonary hypertension then addition of either macitentan or adding Prostacyclin could be thought of Right heart cath 01/22/2022: RA 12/8 7 RV 53/2 12 PA 55/23 35 PCWP 14/13 11 PVR 4.6 Quintanilla units, normal thermodilution cardiac index 2D echo 02/03/2023: EF 55 to 60%, normal RV size and function, moderate to severe pulmonary hypertension with PASP 55-60 mmHg 2D echo 09/22/2022: EF 55-60%, grade 1 diastolic dysfunction, RV normal in size and function 2D echo 01/04/2022: EF 60-65%, grade 1 diastolic dysfunction, RV normal in size and function, RVSP 40-50 mmHg --Pulmonary nodule Left upper lobe 5 mm Has been stable --BONITA She was on CPAP of 9 cm H2O Continue with CPAP while in the hospital --S/p COVID-19 pneumonia January 2020, was hospitalized S/p treatment with dexamethasone --Scleroderma Following up with rheumatology I discussed the current condition with patient as well as patient's daughter and went over goals of care on 02/03/2023 Plan: Taper prednisone off in 1 day to her home dose Continue with Breo and Incruse while in the hospital Patient is not on any diuretics at home. Would recommend patient to be discharged on diuretics (Lasix 20-40 mg on daily basis to alternate days), keep a close eye on her weight. If her weight is increasing by 2 pounds in duration of 2 days will need to increase her diuretics I was finally able to get the cardiac cath report from 01/22/2022. Patient's wedge was only 11 with elevated pulmonary artery pressure as well as PVR. She does follow into a type I pulmonary hypertension I we will plan to add macitentan to her sildenafil regimen. It usually comes from a special pharmacy, order has been placed by my office No further recommendation from pulmonary perspective, will sign off Please call directly with any questions Please note the above document was generated using voice recognition software. It may contain grammatical, syntax or spelling errors.Any formal questions or concerns about the content, text or information contained within the body of this dictation should be directly addressed to the provider for clarification. Admission and Anticipated Discharge Date Admission Date: January 31, 2023 Subjective Patient seen and examined at bedside. No acute distress, no adverse events overnight She was saturating 93% on 9 L nasal cannula while asleep. She says she is overall is feeling good. Did not sleep well last night Bringing up clear phlegm Denies any nausea vomiting No headache, no blurry vision Urinating well Has been afebrile Review of Systems 2 Review of Systems: All systems reviewed & are unremarkable except as noted in Subjective Physical Exam 2 Physical Exam: Constitutional: No acute distress HEENT: EOMI, PERRLA Respiratory system: Decreased air entry bilaterally, minimal expiratory wheeze, no rhonchi, minimal crackles bilateral lower lobes CVS: S1-S2 positive, no murmurs or gallops, accentuated P2 Abdomen: Soft, nontender, nondistended, positive bowel sounds x4 obese Extremities: +2 pulses bilaterally radialis/ dorsalis pedis, no cyanosis, no edema Neuro: Awake alert oriented x3 Psych: Normal mood and affect G/U: No Bailey Skin: no rashes, warm and dry Lymphatic: no cervical or axillary lymphadenopathy Results & Data Results & Data Vital Signs (Past 12 Hours) Vital Signs Temp Pulse Pulse Pulse Resp BP Pulse Ox 02/09/23 07:25 36.6 C 82 18 109/64 98 02/09/23 07:19 81 15 96 02/09/23 03:05 36.5 C 82 20 127/84 100 02/08/23 23:19 36.8 C 91 H 20 131/85 100 02/08/23 23:01 98 H O2 Del Method O2 Flow Rate 02/09/23 07:25 CPAP 8 02/09/23 07:19 CPAP 8 02/09/23 03:05 Nasal Cannula 02/08/23 23:19 Nasal CPAP 02/08/23 23:01 Laboratory Results 02/07/23 14:00 02/07/23 14:00 PG Care Time/CCT Total # of Minutes Spent Total Time Spent with Patient: Total time spent is greater than 50% in coordination of care (as documented) at patient's floor/unit and/or counseling patient: Coding Level of Care Code 68726 SUB INP/OBS CARE MIN Diagnoses Acute and chronic respiratory failure with hypoxia J96.21 Pulmonary emphysema J43.9 Acute exacerbation of COPD with asthma J44.1; J45.901 BONITA (obstructive sleep apnea) G47.33 Pulmonary HTN I27.20
--- NOTE | 2023-02-09 16:23 | Hospitalist Progress Note ---
Date of Service February 09, 2023 Assessment & Plan (1) Acute and chronic respiratory failure with hypoxia: Plan: Acute/unstable-improving - Patient with acute on chronic hypercapnic hypoxic respiratory failure secondary to severe acute on chronic COPD with emphysema, and pulmonary HTN. It should be noted previously patient with diagnosis of interstitial lung disease but pulmonology notes that she does not have this diagnosis Echocardiogram shows preserved EF and worsening of Pulmonary hypertension -Continue supplemental oxygen support to maintain SpO2 between 88 and 92%, currently up to 8L/min when not on cpap-Previously requiring significant oxygen supplementation (requiring up to 13L), baseline 6L at rest and 8L with exertion -Check two-step walk test prior to discharge to further assess oxygen needs - Continue azithromycin 3 x a week -Continue fluticasone/vilanterol/umeclidinium - Continue montelukast -Continue weaning down to patient's home Prednisone 10mg dose. Decrease to 30mg Prednisone on 02/10/23. - Pulmonology following, appreciate assistance. -Requested right heart cath report from [facility] - reviewed by Dr. Cam, consistent with type I pulmonary hypertension-intends to add Macitentan to her Sildenafil regimen (as outpatient) and wants d/c'd on Lasix 20 Mg every other day as outpatient with attention to daily weights and BMP -Will follow up with [facility] as outpatient when she feels she is up to further evaluation for lung transplant (2) COPD with emphysema: Plan: Severe, end-stage On oxygen as above and follows with pulmonology Has been evaluated for lung transplant-not deemed a candidate in [place] but is being reevaluated at [place] but has not been well enough to complete the necessary testing (3) BONITA (obstructive sleep apnea): Plan: Chronic/stable - Continue with CPAP (4) Thrush, oral: Plan: Oral candidiasis Continue nystatin swish and swallow Fisherman friend cough drops (5) Fungus present in urine: Plan: Asymptomatic funguria >100,000 colonies of Nayeli Glabrata - given Qt affects will fluconazole stopped after 2 doses, if symptomatic may consider ID eval (6) Diabetes mellitus: Plan: Hemoglobin A1c is now 7.2% in the diabetes range With hyperglycemia here secondary to steroid use Does not take medications at home but could consider starting medication as an outpatient Continue NovoLog supplemental insulin for now and weaning down steroids will help (7) Pulmonary HTN: Plan: Type I as noted above Continue sildenafil and pulmonology plans to add macitentan to her regimen- ordered from special pharmacy as an outpatient (8) Hypertension: Plan: Blood pressures are well-controlled Continue bisoprolol, amlodipine and furosemide (9) Scleroderma: Plan: Follows with rheumatology (10) Peripheral neuropathy: Plan: Continue gabapentin and duloxetine (11) Depression: Plan: Continue Wellbutrin, duloxetine Plan DVT prophylaxis-Lovenox Disposition-likely discharge to home tomorrow Admission and Anticipated Discharge Date Admission Date: January 31, 2023 Subjective Patient feels just about at her baseline with her dyspnea. She is not able to do much activity limited by dyspnea. I discussed her care with pulmonology. She feels like she will probably be ready to go home tomorrow. Telemetry with normal sinus rhythm and sinus tachycardia and PVCs with rates in the 70s to low 100s Physical Exam Constitutional: + ill appearing (Chronically ill-appeari ng) and average body habitus Respiratory: able to speak in complete sentences; no cough Auscultation: + diminished lung sounds (Throughout), + crackles (Bibasilar) and + wheezes (Faint bilateral expiratory); no rhonchi Cardiovascular: Rate/Rhythm: regular rate and regular rhythm Extremities: no edema Gastrointestinal (Abdomen): normal bowel sounds, soft, nontender, no hepatosplenomegaly Psychiatric: A+Ox3, euthymic affect Results & Data Results & Data Vital Signs (Past 12 Hours) Vital Signs Temp Pulse Pulse Resp BP Pulse Ox O2 Del Method 02/09/23 16:10 36.6 C 89 22 113/74 91 High Flow Nasal Cannula 02/09/23 15:18 78 16 97 Nasal Cannula 02/09/23 11:37 83 14 93 Nasal Cannula 02/09/23 10:52 36.6 C 87 20 125/81 90 High Flow Nasal Cannula 02/09/23 08:00 High Flow Nasal Cannula 02/09/23 07:25 36.6 C 82 18 109/64 98 CPAP 02/09/23 07:19 81 15 96 CPAP O2 Flow Rate 02/09/23 16:10 8 02/09/23 15:18 8 02/09/23 11:37 8 02/09/23 10:52 8 02/09/23 08:00 8 12/31/23 07:25 8 02/09/23 07:19 8 Laboratory Results No labs PG Care Time/CCT Total # of Minutes Spent Total Time Spent with Patient: Total time spent is greater than 50% in coordination of care (as documented) at patient's floor/unit and/or counseling patient: Coding Level of Care Code 55590 SUB INP/OBS CARE 2/35MIN Diagnoses Acute and chronic respiratory failure with hypoxia J96.21 COPD with emphysema J43.1 Emphysema type: panlobular BONITA (obstructive sleep apnea) G47.33 Thrush, oral B37.0 Fungus present in urine B49 Diabetes mellitus E11.9 Pulmonary HTN I27.20 Hypertension I10 Scleroderma M34.9 Peripheral neuropathy G62.9 Depression F32.9 (2) COPD with emphysema Emphysema type: panlobular Qualified Code(s): J43.1 - Panlobular emphysema
[2023-02-09] MEDS: hydrOXYzine HCl 25 MG TAB PO SCH (20:29)
[2023-02-09] MEDS: ENOXAPARIN INJ 40 MG/0.4 ML SYR SQ SCH (20:29)
[2023-02-09] MEDS: GABAPENTIN 300 MG CAP PO SCH (20:30)
[2023-02-09] MEDS: oxyCODONE HCL IR 5 MG TAB (IMMEDIATE RELEASE) PO PRN (20:30)
[2023-02-10] MEDS: ALBUT/IPRATROP 3MG/0.5MG NEB 3 ML VIAL NEB SCH ×2 (07:37→11:13)
[2023-02-10] MEDS: LANTUS PER UNIT CHARGE SQ SCH (08:19)
[2023-02-10] MEDS: INSULIN ASPART PER UNIT CHARGE SC SCH ×2 (08:19→12:11)
[2023-02-10] MEDS: FLUTICASONE/VILANTEROL 200/25MCG 14 PUFFS/INHALER INH SCH (08:21)
[2023-02-10] MEDS: NYSTATIN SUSP 500,000 U/5 ML UDC PO SCH ×2 (08:21→12:11)
[2023-02-10] MEDS: UMECLIDINIUM BROMIDE 62.5MCG/BLISTER 7 PUFFS/INHALER INH SCH (08:21)
[2023-02-10] MEDS: BISOPROLOL FUMARATE 5 MG TAB PO SCH (08:22)
[2023-02-10] MEDS: guaiFENesin 600 MG TABCR PO SCH (08:22)
[2023-02-10] MEDS: DULoxetine HCL 60 MG CAP PO SCH (08:22)
[2023-02-10] MEDS: buPROPion SR 100 MG TABCR PO SCH (08:22)
[2023-02-10] MEDS: PANTOprazole 40 MG TAB PO SCH (08:22)
[2023-02-10] MEDS: SILDENAFIL CITRATE 20 MG TABLET PO SCH (08:22)
[2023-02-10] MEDS: amLODIPine BESYLATE 5 MG TAB PO SCH (08:23)
[2023-02-10] MEDS: POTASSIUM CHLORIDE CRTAB 20 MEQ TABCR PO SCH (08:23)
[2023-02-10] MEDS ORDERED: predniSONE 10 MG TABLET PO SCH (09:00)
[2023-02-10] MEDS ORDERED: predniSONE 20 MG TAB PO SCH (09:00)
[2023-02-10] MEDS ORDERED: FUROSEMIDE 20 MG TAB PO SCH (09:00)
--- NOTE | 2023-02-10 12:27 | Discharge Summary ---
Discharge Summary Date of Service February 10, 2023 Notes For Next Care Provider Medication Changes From Visit Prednisone 30 mg daily x 2 days, then 20 mg daily x 3 days, then 10 mg daily until seen by pulmonology Lasix 20 mg every other day Admission HPI Per Admitting Provider The patient is a 72-year-old female with a past medical history including anemia, B12 deficiency, chronic steroid use, 6 L oxygen dependency, interstitial lung disease, COPD, overactive bladder, pulmonary hypertension, BONITA, hypertension, collagenous colitis, anxiety, asthma and gastroparesis. The howard ent was found to be hypoxic at 78% despite her 8 L oxygen via nasal cannula, and was then placed on 15 L nonrebreather mask. Chest x-ray showed worsening interstitial lung disease, BioFire test was negative. She received methylprednisolone 125 mg IV and DuoNeb treatment from the ED, and was referred for evaluation for admission Principal Dx & Hospital Course #1 = Principal Diagnosis (1) Acute and chronic respiratory failure with hypoxia: Improved - Patient with acute on chronic hypercapnic hypoxic respiratory failure secondary to severe acute on chronic COPD with emphysema, and pulmonary HTN. It should be noted previously patient with diagnosis of interstitial lung disease but pulmonology notes that she does not have this diagnosis Echocardiogram shows preserved EF and worsening of Pulmonary hypertension -Continue supplemental oxygen support to maintain SpO2 between 88 and 92%, initially was requiring significant oxygen supplementation (requiring up to 13L), baseline 6L at rest and 8L with exertion -two-step walk test prior to discharge to further assess oxygen needs shows that she needs 6 L nasal cannula at rest and 10 L with exertion - Continue azithromycin 3 x a week -Continue daily maintenance inhalers - Continue montelukast -Continue weaning down to patient's home Prednisone 10mg dose. Decrease to 30mg Prednisone on 02/10/23 and continue x 3 days, then 20 mg daily x 3 days, then 10 mg daily until seen by pulmonology - Pulmonology following, appreciate assistance. -Requested right heart cath report from [facility] - reviewed by Dr. Cam, consistent with type I pulmonary hypertension-intends to add Macitentan to her Sildenafil regimen (as outpatient) and wants d/c'd on Lasix 20 Mg every other day as outpatient with attention to daily weights and BMP as an outpatient with PCP -Will follow up with [facility] as outpatient when she feels she is up to further evaluation for lung transplant (2) COPD with emphysema: Severe, end-stage On oxygen as above and follows with pulmonology Has been evaluated for lung transplant-not deemed a candidate in [place] but is being reevaluated at [place] but has not been well enough to complete the necessary testing (3) BONITA (obstructive sleep apnea): Chronic/stable - Continue with CPAP (4) Thrush, oral: Oral candidiasis Continue nystatin swish and swallow (5) Fungus present in urine: Asymptomatic funguria >100,000 colonies of Nayeli Glabrata - given Qt affects will fluconazole stopped after 2 doses, if symptomatic may consider ID eval (6) Diabetes mellitus: Hemoglobin A1c is now 7.2% in the diabetes range With hyperglycemia here secondary to steroid use requiring Lantus and NovoLog Does not take medications at home but will start glipizide 2.5 mg p.o. once daily in the morning on discharge, recommend low carbohydrate diet Should be checking blood sugar at home periodically throughout the day (7) Pulmonary HTN: Type I as noted above Continue sildenafil and pulmonology plans to add macitentan to her regimen- ordered from special pharmacy as an outpatient (8) Hypertension: Blood pressures are well-controlled Continue bisoprolol-HCT, amlodipine and furosemide added as above (9) Scleroderma: Follows with rheumatology for scleroderma and Sjogren's syndrome (10) Peripheral neuropathy: Continue gabapentin and duloxetine (11) Depression: Continue Wellbutrin, duloxetine Plan DVT prophylaxis-Lovenox Disposition-discharge to home with home health Discharge Exam Constitutional + ill appearing (Chronically ill-appearing) and average body habitus Respiratory able to speak in complete sentences; no cough Auscultation: + diminished lung sounds (Throughout); no crackles, no rhonchi and no wheezes Cardiovascular Rate/Rhythm: regular rate and regular rhythm Extremities: no edema Gastrointestinal (Abdomen) normal bowel sounds, soft, nontender, no hepatosplenomegaly Psychiatric A+Ox3, euthymic affect Updated Medication List Medication Instructions Recorded Confirmed Type mupirocin 2 % topical ointment 1 applic topical BID PRN nasal 11/26/21 01/31/23 Rx irritation #22 grams hydroxyzine HCl 25 mg tablet 25 mg PO HS #90 tabs 03/14/22 01/31/23 Rx bisoprolol 10 1 tab PO DAILY #90 tabs 05/17/22 01/31/23 Rx mg-hydrochlorothiazide 6.25 mg tablet duloxetine 60 mg capsule,delayed 60 mg PO QAM #90 caps 05/17/22 01/31/23 Rx release Oxygen Home #1 ea 09/03/22 01/13/23 History amlodipine 10 mg tablet 10 mg PO QAM 09/03/22 01/31/23 History sildenafil (pulm.hypertension) 20 20 mg PO Q8H 09/03/22 01/31/23 History mg tablet CPAP Machine #1 ea 09/04/22 01/13/23 Rx albuterol sulfate 90 mcg/actuation 2 puff inhalation QID PRN 09/04/22 01/31/23 Rx aerosol inhaler (Ventolin HFA) Shortness Of Breath #18 grams ipratropium 0.5 mg-albuterol 3 mg 3 ml inhalation Q8H PRN COPD- DX 09/04/22 01/31/23 Rx (2.5 mg base)/3 mL nebulization J44.9 J43.9 J45.909 #180 mL soln tiotropium bromide 18 mcg capsule 1 cap inhalation QAM #90 09/04/22 01/31/23 Rx with inhalation device (Spiriva inhalations with HandiHaler) Advair HFA 230 mcg-21 2 puff inhalation BID #12 grams 09/17/22 01/31/23 Rx mcg/actuation aerosol inhaler (fluticasone propion-salmeterol) oxycodone 5 mg tablet 5 mg PO Q6H PRN pain #20 tabs 10/17/22 01/31/23 Rx gabapentin 300 mg capsule 300 mg PO HS #90 caps 12/17/22 01/31/23 Rx guaifenesin 600 mg tablet, 600 mg PO BID 12/17/22 01/31/23 History extended release 12 hr (Mucinex) azithromycin 250 mg tablet 250 mg PO 3XWK 01/03/23 01/31/23 History potassium chloride 20 mEq 20 meq PO BID #60 tabs 01/11/23 01/31/23 Rx tablet,extended release(part/cryst) bupropion HCl 100 mg tablet,12 hr 100 mg PO QAM #180 ea 01/13/23 01/31/23 Rx sustained-release (Wellbutrin SR) pantoprazole 40 mg tablet,delayed 40 mg PO BID #180 tabs 01/30/23 01/31/23 Rx release macitentan 10 mg tablet 10 mg PO DAILY #90 tabs 02/07/23 Rx Portable Oxygen #1 ea 02/10/23 Rx furosemide 20 mg tablet 20 mg PO Q2D #30 tabs 02/10/23 Rx glipizide 5 mg tablet 2.5 mg (1/2 x 5 mg) PO DAILY #30 02/10/23 Rx tabs nystatin 100,000 unit/mL oral 5 ml PO QID 14 days #280 mL 02/10/23 Rx suspension Hospital Stay Data Consultations 01/31/23 18:31 ED Decision to Admit Stat 01/31/23 21:35 Consult Pulmonology Routine 02/02/23 11:30 HIM [Consult Health Information Management] Routine Pending Results Patient Have Any Pending Studies at Discharge: No Discharge Instructions Given to Patient (Per Discharging Provider) You were admitted with lower oxygen levels than usual. You are treated with an increased dose of steroids as well as Lasix to get extra fluid off your lungs. [employer] is recommending starting a new medication for your pulmonary hypertension which is being ordered for you through his office. Please follow- up with wood coater within 2 weeks. You should remain on the Lasix 20 mg in the morning every other day to keep fluid off. Keep an eye on your daily weight. If your weight increases by 2 or 3 pounds from 1 day to the next, you can take an extra dose of 20 mg of Lasix. Your new oxygen requirement is 6 L at rest and to turn the oxygen up to 10 L with any exertion. Finish out the prednisone taper with 30 mg daily for 2 more days, then 20 mg daily x 3 days, then 10 mg daily until seen by pulmonology. Because of your chronic prednisone use, you do now officially have diabetes. You should take the glipizide 2.5 mg (1/2 tablet of those prescribed to you) each morning and keep an eye on your blood sugars with blood sugar checks throughout the day as directed. You should eat a low carbohydrate diet which includes minimizing complex carbohydrates including pastas and breads as well as sweets, fruits, and juices. Total Time Total Time Spent Total Time Spent (In Minutes): 35 minutes Coding Level of Care Code 18273 INP/OBS DISCH >30 MIN Diagnoses Acute and chronic respiratory failure with hypoxia J96.21 COPD with emphysema J43.1 Emphysema type: panlobular BONITA (obstructive sleep apnea) G47.33 Thrush, oral B37.0 Fungus present in urine B49 Diabetes mellitus E11.9 Pulmonary HTN I27.20 Hypertension I10 Scleroderma M34.9 Peripheral neuropathy G62.9 Depression F32.9
== END 2023-02-10 14:25 | disposition home health service (06) | DRG 189 ==
LOC: ED 15:57 → 2S 19:20 → SUATTDRO 19:20 → 2S 20:41

== ENCOUNTER 2023-07-15 17:16 | Inpatient (IN) ==
--- NOTE | 2023-07-15 17:48 | Emergency Department Note ---
Impression & Plan Acute and chronic respiratory failure with hypoxia, PATEL (dyspnea on exertion), COPD exacerbation ED Provider Note NAME: DOMINIQUE AVILES AGE: 73 SEX: F : 1950 ARRIVES VIA: Ambulance INFORMANT: Patient, triage note, prior record ED PROVIDER(S): Riki Sanabria MD CHIEF COMPLAINT: Shortness of breath, outpatient referral MEDICAL DECISION MAKING: Patient presented due to concern for worsening shortness of breath. IV was established and blood work was obtained. The patient was placed on BiPAP DuoNeb ordered along with magnesium to be given over 20 minutes and IV methylprednisolone. Procalcitonin is and also ordered. White count 11.4 with normal hemoglobin and platelet count. Kidney function is unremarkable. VBG shows pCO2 of 51 but VBG pH is normal. Potassium 3.4. Patient's BNP is elevated at 147. Procalcitonin negative. The patient's chest x-ray does not show evidence of obvious pneumonia. I did speak with the on-call hospitalist service and the patient was admitted by Dr. Monique. The patient was informed of the findings and recommendations and is comfortable with plan of care and does feel comfortable on the BiPAP. Critical Care: I have personally spent 45 minutes of critical care time in direct management of this patient. This includes bedside care, interpretation of diagnostic studies, and testing, discussion with consultants, patient, and family members, and other require inpatient management activities. This 45 minutes is in excess of all separately billable procedures. Discussion w/ other healthcare providers: Dr. Monique inpatient medicine service Prior /Outside records reviewed: I reviewed a discharge summary from [facility]. Patient was diagnosed with CHF with preserved EF acute exacerbation of COPD and acute on chronic hypoxemic respiratory failure. Patient also with known history of BONITA who is on 6 to 8 L via nasal cannula at all times. Patient had an echo with an EF of 55%. BNP was elevated at that time.Discharge summary was dated from May 18 the patient had been admitted on May 10. Differential diagnosis: Reactive airway disease, pneumonia, pneumothorax, COPD, CHF, ACS, pulmonary embolism, musculoskeletal, GERD as well as other pathologies were considered. Diagnostics, as interpreted by me: ECG: Sinus with PVCs and pattern of bigeminy. Ventricular rate of 95 with normal intervals. Left axis deviation. Cardiac monitoring: An order was placed for continuous cardiac monitoring. The monitor shows a rate of 85 with sinus rhythm. Patient was placed on pulse oximetry Medical decision rules: None Imaging studies: I informally interpreted the patient's chest x-ray does not show obvious pneumonia or pneumothorax with formal report to follow. HPI: Patient presents at the behest of her primary care physician due to concern for low oxygen saturation in clinic. Patient reportedly is felt more short of breath over the last 2 to 3 weeks. The patient does complain of cough but it is nonproductive. Patient does complain of worsening exertional dyspnea cannot "get very far" without feeling very short of breath and this is progressively gotten worse. The patient did have a routine checkup today was noted to have low oxygen saturation in the 80s and then was referred here for further evaluation and treatment as the patient was unable to have an increase in her oxygen titration in clinic. Patient reportedly has been using her CPAP more during the day and typically only wears it at nighttime this is a new change for her. Patient denies any significant leg swelling. She states that she is compliant with her medications and does have some associated orthopnea. PAST MEDICAL HISTORY: See Below PAST SURGICAL HISTORY: See Below SOCIAL HISTORY: See Below HOME MEDICATIONS: See Below ALLERGIES: See Below VITALS: See Below PHYSICAL EXAMINATION: GENERAL: NAD, non-toxic. Wearing glasses. EYE EXAM: Normal conjunctiva. PERRL, no anisocoria and EOM's grossly intact w/o pain. OROPHARYNX: Moist mucus membranes, grossly normal dentition. NECK: Trachea midline, no stridor. Supple, no nuchal rigidity, no adenopathy, non-tender. No signs of meningismus. FROM of the neck with good chin to chest and neck extension. LUNGS: Diminished breath sounds, no obvious rhonchi or wheezing. Normal chest wall mechanics. HEART: NSR, no MRG. ABDOMEN: Abdomen soft, non-tender, no masses, no rebound or guarding. BACK: No CVA TTP. SKIN: No rashes and no bruising. UPPER EXTREMITIES: Upper extremities are grossly normal. LOWER EXTREMITIES: Grossly normal, trace pretibial edema without any calf pain or erythema. NEURO EXAM: A&O x3, cranial nerves II-XII grossly intact, normal speech, moves all 4 extremities. Past Med/Surg History Problem List (Updated 07/16/23 @ 01:00 by Riki Sanabria MD) COPD exacerbation (Acute) PATEL (dyspnea on exertion) (Acute) Acute and chronic respiratory failure with hypoxia (Acute) Peripheral neuropathy bilateral hands & feet Diabetes mellitus Hypoxia (Acute) History of anemia due to vitamin B12 deficiency Chronic steroid use Abnormal chest CT Cervical radicular pain Carpal tunnel syndrome on both sides Nocturia Stress incontinence Overactive bladder Pulmonary HTN (Acute) PATEL (dyspnea on exertion) (Acute) Perforated nasal septum BONITA (obstructive sleep apnea) Osteopenia B12 deficiency History of COVID-19 Dx 01/2020; required hospitalization Hypertension Folate deficiency Chronic respiratory failure with hypoxia Scleroderma Pulmonary arterial hypertension COPD with emphysema (Acute) Urinary incontinence Collagenous colitis Right lower lobe lung mass Chronic anemia Vitamin D deficiency Fatty liver Pulmonary emphysema Iron deficiency anemia Insomnia, persistent Gastritis, chronic Asthma Anxiety Hyperlipidemia Gastroparesis pt denies Medical History Interstitial lung disease NSVT (nonsustained ventricular tachycardia) B12 deficiency Pneumonia due to COVID-19 virus Multiple pulmonary nodules determined by computed tomography of lung Raynaud's disease Osteoarthritis On home oxygen therapy 4lpm via n/c continuous Hypertension Prediabetes monitoring Depression Scleroderma Obstructive sleep apnea cpap GAVE (gastric antral vascular ectasia) Gastroenterology in [facility]. Dr. Marinelli Right lower lobe pneumonia COPD (chronic obstructive pulmonary disease) Surgical History History of cataract extraction (09/30/19) Both eyes H/O cataract extraction (09/2019) b/l eyes History of cystoscopy Hx of lumpectomy Left (-) History of dilatation and curettage History of bilateral tubal ligation History of esophagogastroduodenoscopy (EGD) H/O tooth extraction History of tonsillectomy H/O laminectomy Lumbar area History of colonoscopy History of bladder surgery bladder tack History of cholecystectomy Open Family History Mother , age 73 Stroke Father , age 71 Lung cancer Sister Non Hodgkin's lymphoma Lupus Denies family history of Ovarian cancer Prostate cancer Myocardial infarction Breast cancer Colorectal cancer Social History Smoking Status: Former smoker Tobacco Type: Cigarettes Age Quit Using Tobacco: 59; Cigarettes Per Day: 40; Second Hand Exposure: No; Do You Dip or Chew Tobacco: No; Hx Alcohol Use: No Hx Substance Use: No Preferred Language: Tamazight Communication Ability: Effective Visual Impairment: Limited Hearing Ability: Normal Reading Instructor Required: No Beliefs That Will Affect Care: None marital status: Current Living Situation: Spouse current occupational status: retired 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 ; 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 How many Children do You have: 2 Other Information That Helps Us Care for You: No Feels Safe at Home: Yes Safety Concerns: Feels Safe At This Time Childhood Exposure to Second-Hand Smoke: Yes Diet: regular Diet Comment: Regular caffeine: Yes during the past year weight has: remained stable Dental Care, Regularly: Yes Physical Activity Frequency: Does not Exercise Seatbelt Use: always Sunscreen Use: Yes Assistive Devices: BiPap, Glasses, Oxygen - Continuous, Stair Lift, Walker and Wheelchair Allergies Allergies Allergy/AdvReac Type Severity Reaction Status Date / Time ferric carboxymaltose Allergy Severe SOB, Verified 07/15/23 18:44 [From Injectafer] tachycardia Home Meds Home Medications Medication Instructions Recorded Confirmed Oxygen Home #1 ea 09/03/22 07/15/23 amlodipine 10 mg tablet 10 mg PO QAM 09/03/22 07/15/23 sildenafil (pulm.hypertension) 20 20 mg PO Q8H 09/03/22 07/15/23 mg tablet guaifenesin 600 mg tablet, 600 mg PO BID 12/17/22 07/15/23 extended release 12 hr (Mucinex) acetaminophen 500 mg tablet 1,000 mg PO DIRECTED PRN pain 05/21/23 07/15/23 (Acetaminophen Extra Strength) cholecalciferol (vitamin D3) 50 50 mcg PO DAILY 05/21/23 07/15/23 mcg (2,000 unit) tablet cyanocobalamin (vitamin B-12) See Rx Instructions IM .EVERY 6 05/21/23 07/15/23 1,000 mcg/mL injection solution WEEKS blood-glucose meter (OneTouch #1 ea 07/15/23 07/15/23 Verio Flex Meter) macitentan 10 mg tablet 10 mg PO .DAILY @ 1400 07/15/23 07/15/23 prednisone 10 mg tablet 10 mg PO Q OTHER DAY 07/15/23 07/15/23 Previous Rx's Medication Instructions Recorded Portable Oxygen #1 ea 02/10/23 Advair HFA 230 mcg-21 2 puff inhalation BID #12 grams 02/14/23 mcg/actuation aerosol inhaler (fluticasone propion-salmeterol) albuterol sulfate 90 mcg/actuation 2 puff inhalation QID PRN 02/14/23 aerosol inhaler (Ventolin HFA) Shortness Of Breath #18 grams azithromycin 250 mg tablet 250 mg PO 3XWK #36 tabs 02/14/23 ipratropium 0.5 mg-albuterol 3 mg 3 ml inhalation Q8H PRN COPD- DX 02/14/23 (2.5 mg base)/3 mL nebulization J44.9 J43.9 J45.909 #180 mL soln bisoprolol 10 1 tab PO DAILY #90 tabs 04/07/23 mg-hydrochlorothiazide 6.25 mg tablet duloxetine 60 mg capsule,delayed 60 mg PO QAM #90 caps 04/21/23 release bupropion HCl 100 mg tablet,12 hr 100 mg PO BID #180 ea 05/21/23 sustained-release (Wellbutrin SR) Spacer for Inhaler #1 ea 06/16/23 tiotropium bromide 18 mcg capsule 1 cap inhalation QAM #90 06/16/23 with inhalation device (Spiriva inhalations with HandiHaler) CPAP Machine #1 ea 06/23/23 pantoprazole 40 mg tablet,delayed 40 mg PO BID #180 tabs 06/23/23 release oxycodone 5 mg tablet 5 mg PO Q6H PRN pain #20 tabs 07/01/23 gabapentin 300 mg capsule 300 mg PO HS #90 caps 07/14/23 furosemide 20 mg tablet 20 mg PO DAILY #45 tabs 07/15/23 hydroxyzine HCl 25 mg tablet 25 mg PO Q8H #90 tabs 07/15/23 Results & Data (ED) Vital Signs Vital Signs - 24 hr 07/15/23 17:20 07/15/23 17:38 07/15/23 17:43 Temperature 37.2 C Temperature Source Oral Pulse Rate 96 H 93 H Pulse Rate [Apical] Pulse Rate from SpO2 Sensor Pulse Rhythm Respiratory Rate 24 Respiratory Effort / Characteristics Non-Labored Respiratory Depth Normal Respiratory Pattern Regular Blood Pressure 162/81 H Blood Pressure Mean 108 Pulse Oximetry 98 84 L Oxygen Delivery Method Non-rebreather Nasal Cannula Non-rebreather Oxygen Flow Rate 15 6 Fraction of Inspired Oxygen Sepsis Recent Fever Within 48 Hours No Sepsis New/Unexplained Change in Mental Status N/A Sepsis Action Taken by Nursing No Action Required Oxygen Flow Rate - Titration 15 Pulse Oximetry Post Tiitration 94 07/15/23 17:43 07/15/23 18:10 07/15/23 18:20 Temperature Temperature Source Pulse Rate 94 H 94 H Pulse Rate [Apical] 91 H Pulse Rate from SpO2 Sensor Pulse Rhythm Regular Respiratory Rate 22 22 20 Respiratory Effort / Characteristics Spontaneous Spontaneous Respiratory Depth Normal Respiratory Pattern Regular Blood Pressure Blood Pressure Mean Pulse Oximetry 94 98 93 Oxygen Delivery Method Non-rebreather Non-rebreather Oxygen Flow Rate 8 Fraction of Inspired Oxygen 40 Sepsis Recent Fever Within 48 Hours Sepsis New/Unexplained Change in Mental Status Sepsis Action Taken by Nursing Oxygen Flow Rate - Titration Pulse Oximetry Post Tiitration 07/15/23 18:24 07/15/23 18:43 07/15/23 18:51 Temperature Temperature Source Pulse Rate 94 H 88 Pulse Rate [Apical] Pulse Rate from SpO2 Sensor 90 Pulse Rhythm Respiratory Rate 22 19 Respiratory Effort / Characteristics Respiratory Depth Respiratory Pattern Blood Pressure 145/85 H Blood Pressure Mean 105 Pulse Oximetry 100 92 Oxygen Delivery Method BiPAP CPAP Oxygen Flow Rate Fraction of Inspired Oxygen Sepsis Recent Fever Within 48 Hours Sepsis New/Unexplained Change in Mental Status Sepsis Action Taken by Nursing Oxygen Flow Rate - Titration Pulse Oximetry Post Tiitration 07/15/23 19:08 07/15/23 19:12 07/15/23 19:24 Temperature Temperature Source Pulse Rate 78 90 92 H Pulse Rate [Apical] Pulse Rate from SpO2 Sensor 87 87 Pulse Rhythm Respiratory Rate 22 22 Respiratory Effort / Characteristics Respiratory Depth Respiratory Pattern Blood Pressure Blood Pressure Mean Pulse Oximetry 89 L 92 Oxygen Delivery Method Oxygen Flow Rate Fraction of Inspired Oxygen Sepsis Recent Fever Within 48 Hours Sepsis New/Unexplained Change in Mental Status Sepsis Action Taken by Nursing Oxygen Flow Rate - Titration Pulse Oximetry Post Tiitration 07/15/23 19:33 07/15/23 19:42 Temperature Temperature Source Pulse Rate 95 H 93 H Pulse Rate [Apical] Pulse Rate from SpO2 Sensor 85 Pulse Rhythm Respiratory Rate 20 21 Respiratory Effort / Characteristics Respiratory Depth Respiratory Pattern Blood Pressure Blood Pressure Mean Pulse Oximetry 81 L 87 L Oxygen Delivery Method Oxygen Flow Rate Fraction of Inspired Oxygen Sepsis Recent Fever Within 48 Hours Sepsis New/Unexplained Change in Mental Status Sepsis Action Taken by Nursing Oxygen Flow Rate - Titration Pulse Oximetry Post Tiitration Home Medications Current Medication List: was personally reviewed by me Laboratory Data Attestation: I reviewed the patient's lab results. 07/15/23 18:15 07/15/23 18:15 Lab Results 07/15/23 Range/Units 18:15 WBC 11.48 H (4.8-10.8) K/ul RBC 4.37 (4.20-5.40) M/uL Hgb 13.0 (12.0-16.0) g/dl Hct 39.6 (37.0-47.0) % MCV 90.6 (80.0-100.0) fL MCH 29.7 (25.0-34.0) pg MCHC 32.8 (32.0-36.0) g/dL RDW Std Deviation 49.7 H (36.4-46.3) fL RDW Coeff of Mag 15.0 H (11.5-14.5) % Plt Count 284 (130-400) K/uL MPV 9.8 (9.4-12.4) fL Immature Gran % (Auto) 0.7 % Neut % (Auto) 76.3 % Lymph % (Auto) 10.7 % Calhoun % (Auto) 6.0 % Eos % (Auto) 5.6 % Baso % (Auto) 0.7 % Neut # (Auto) 8.76 H (1.40-6.50) K/uL Lymph # (Auto) 1.23 (1.20-3.40) K/uL Calhoun # (Auto) 0.69 H (0.11-0.59) K/uL Eos # (Auto) 0.64 H (0.00-0.50) K/uL Baso # (Auto) 0.08 (0.00-0.20) K/uL Immature Gran # (Auto) 0.08 (0.01-0.20) K/uL PT 10.1 (9.0-12.0) Seconds INR 0.9 (0.9-1.1) APTT 25 (21-31) Seconds PTT Ratio 0.9 VBG pH 7.41 (7.36-7.41) VBG pCO2 51 H (38-50) mmHg VBG pO2 34 mmHg VBG HCO3 32 mmol/L VBG O2 Saturation < 60.0 % VBG Base Excess 6.3 mEq/L Sodium 139 (136-145) mmol/L Potassium 3.4 L (3.5-5.1) mmol/L Chloride 102 (98-107) mmol/L Carbon Dioxide 30 (21-32) mmol/L Anion Gap 7 (3-11) BUN 12 (6-23) mg/dl Creatinine 0.67 (0.6-1.2) mg/dl Est Cr Clr Drug Dosing 80.5 ml/min Est GFR ( Amer) 101.8 ml/min Est GFR (Non-Af Amer) 87.8 ml/min BUN/Creatinine Ratio 17.9 (10-20) Glucose 120 H (70-99(Fasting)) mg/dl Calcium 9.2 (8.6-10.3) mg/dl Phosphorus 4.5 (2.5-4.9) mg/dl Magnesium 1.8 (1.7-2.4) mg/dl Total Bilirubin 0.6 (0.2-1.0) mg/dl AST 13 (13-39) U/L ALT 7 (7-52) U/L Alkaline Phosphatase 69 (34-104) U/L Troponin I High Sens 7.6 (0-14) pg/ml B-Natriuretic Peptide 147 H (0-100) pg/ml Total Protein 6.4 (6.0-8.3) gm/dl Albumin 3.9 (3.4-5.0) gm/dl Globulin 2.5 (2.5-4.0) gm/dl Albumin/Globulin Ratio 1.6 (0.9-2) Procalcitonin < 0.02 (0-0.5) ng/ml Administered Medications Albuterol (Albut/Ipratrop 3mg/0.5mg Neb 3 Ml Vial) 3 ml NEB Q4R JAVIER; Protocol Stop: 08/14/23 22:59 Last Admin: 07/15/23 23:30 Dose: 3 ml Documented By: EML Bupropion HCl (Bupropion Sr 100 Mg Tabcr) 100 mg PO BID JAVIER Stop: 08/14/23 22:59 Last Admin: 07/15/23 23:41 Dose: 100 mg Documented By: NGOC Gabapentin (Gabapentin 300 Mg Cap) 300 mg PO HS JAVIER Stop: 08/14/23 22:59 Last Admin: 07/15/23 23:41 Dose: 300 mg Documented By: NGOC Guaifenesin (Guaifenesin 600 Mg Tabcr) 600 mg PO BID JAVIER Stop: 08/14/23 22:59 Last Admin: 07/15/23 23:41 Dose: 600 mg Documented By: NGOC Hydroxyzine HCl (Hydroxyzine Hcl 25 Mg Tab) 25 mg PO Q8H JAVIER Stop: 08/14/23 22:59 Last Admin: 07/15/23 23:42 Dose: 25 mg Documented By: NGOC Pantoprazole Sodium (Pantoprazole 40 Mg Tab) 40 mg PO BID JAVIER Stop: 08/14/23 22:59 Last Admin: 07/15/23 23:41 Dose: 40 mg Documented By: NGOC Sildenafil Citrate (Sildenafil Citrate 20 Mg Tablet) 20 mg PO TID@0800,1700,2100 JAVIER Stop: 08/14/23 22:59 Last Admin: 07/15/23 23:41 Dose: 20 mg Documented By: NGOC Discontinued Medications Albuterol (Albut/Ipratrop 3mg/0.5mg Neb 3 Ml Vial) 3 ml INH NOW STA Stop: 07/15/23 17:58 Last Admin: 07/15/23 18:10 Dose: 3 ml Documented By: CALLIE Diphenhydramine HCl (Diphenhydramine 50 Mg/Ml Vial) 25 mg IV NOW STA Stop: 07/15/23 19:44 Last Admin: 07/15/23 20:01 Dose: 25 mg Documented By: KATHY Diphenhydramine HCl (Diphenhydramine 50 Mg/Ml Vial) 25 mg IV NOW STA Stop: 07/15/23 21:00 Last Admin: 07/15/23 21:17 Dose: 25 mg Documented By: KATHY Magnesium Sulfate/Dextrose (Magnesium Sulfate / D5w) 1 gm in 100 mls @ 300 mls/hr IV NOW STA Stop: 07/15/23 18:19 Last Infusion: 07/15/23 19:23 Dose: Infused Documented By: Admin: 07/15/23 18:30 Dose: 300 mls/hr Documented By: DARIN Methylprednisolone (Methylprednisolone 125 Mg/2 Ml Vial) 125 mg IV NOW STA Stop: 07/15/23 17:58 Last Admin: 07/15/23 18:30 Dose: 125 mg Documented By: DARIN Potassium Chloride (Potassium Chloride Crtab 20 Meq Tabcr) 40 meq PO NOW STA Stop: 07/15/23 23:01 Last Admin: 07/15/23 23:41 Dose: 40 meq Documented By: NGOC Imaging Data Radiologist's Impression: Chest X-Ray 07/15/23 17:58 XR chest 1V portable HISTORY: Dyspnea COMPARISON: Chest 02/05/2023. FINDINGS: No pneumothorax. No pleural effusions. Emphysema with chronic interstitial thickening. This remains unchanged. The heart is normal in size. No new focal lung consolidations to suggest a pneumonia. There are old, healed left-sided rib fractures. A left subclavian Port-A-Cath terminates at the distal SVC. This remains unchanged. IMPRESSION: 1. Emphysema and chronic interstitial thickening again noted. 2. No new focal lung consolidations to suggest a pneumonia. ACT 112: Negative or not required by law. Electronically signed by: Jose Ramon Morrow M.D. 07/15/2023 6:56 PM Discharge Plan Visit Data Chief Complaint: Shortness of Breath/Dyspnea Stated Complaint: SOB ED Provider: Riki Sanabria Discharge Problem: Acute and chronic respiratory failure with hypoxia, PATEL (dyspnea on exertion), COPD exacerbation Patient Disposition: Admitted As Inpatient Discharge Instructions Interventions: ED Discharge Assessment Last Done: 07/15/23 22:01
[2023-07-15] MEDS: ALBUT/IPRATROP 3MG/0.5MG NEB 3 ML VIAL INH STA (18:10)
[2023-07-15 18:26] LABS: Base Excess VBG 6.3 mEq/L; HCO3 VBG 32 mmol/L; Oxygen Saturation VBG < 60.0 %; PCO2 VBG 51 mmHg (38-50); PO2 VBG 34 mmHg; pH VBG 7.41 (7.36-7.41)
[2023-07-15] MEDS: MAGNESIUM SULFATE / D5W 1 GM/100 ML BAG IV STA (18:30)
[2023-07-15] MEDS: methylPREDNISolone 125 MG/2 ML VIAL IV STA (18:30)
[2023-07-15 18:32] LABS: Basophils # (auto) 0.08 K/uL (0.00-0.20); Basophils % (auto) 0.7 %; Eosinophils # (auto) 0.64 K/uL (0.00-0.50); Eosinophils % (auto) 5.6 %; Hematocrit (blood only) 39.6 % (37.0-47.0); Immature Granulocytes # (auto) 0.08 K/uL (0.01-0.20); Immature Granulocytes % (auto) 0.7 %; Lymphocytes # (auto) 1.23 K/uL (1.20-3.40); Lymphocytes % (auto) 10.7 %; Mean Corpuscular Hemoglobin 29.7 pg (25.0-34.0); Mean Corpuscular Hgb Conc 32.8 g/dL (32.0-36.0); Mean Corpuscular Volume 90.6 fL (80.0-100.0); Mean Platelet Volume 9.8 fL (9.4-12.4); Monocytes # (auto) 0.69 K/uL (0.11-0.59); Neutrophils # (auto) 8.76 K/uL (1.40-6.50); Neutrophils % (auto) 76.3 %; Platelet Count 284 K/uL (130-400); RDW Standard Deviation 49.7 fL (36.4-46.3); Red Blood Count 4.37 M/uL (4.20-5.40); White Blood Count 11.48 K/ul (4.8-10.8)
[2023-07-15 18:48] LABS: Albumin Globulin Ratio 1.6 (0.9-2); Albumin Level 3.9 gm/dl (3.4-5.0); BUN Creatinine Ratio 17.9 (10-20); Bilirubin,Total 0.6 mg/dl (0.2-1.0); Calcium 9.2 mg/dl (8.6-10.3); Creatinine Clr Calc Pharmacy 80.5 ml/min; Est GFR (African American) 101.8 ml/min; Est GFR (Non-African American) 87.8 ml/min; Globulin 2.5 gm/dl (2.5-4.0); Potassium 3.4 mmol/L (3.5-5.1); Total Protein 6.4 gm/dl (6.0-8.3)
[2023-07-15 18:55] LABS: Troponin I High Sensitivity 7.6 pg/ml (0-14)
[2023-07-15 18:57] LABS: INR 0.9 (0.9-1.1); Partial Thromboplastin Ratio 0.9; Partial Thromboplastin Time 25 Seconds (21-31); Prothrombin Time 10.1 Seconds (9.0-12.0)
--- NOTE | 2023-07-15 18:58 | XRay Report ---
XR chest 1V portable HISTORY: Dyspnea COMPARISON: Chest 02/05/2023. FINDINGS: No pneumothorax. No pleural effusions. Emphysema with chronic interstitial thickening. This remains unchanged. The heart is normal in size. No new focal lung consolidations to suggest a pneumo natalie. There are old, healed left-sided rib fractures. A left subclavian Port-A-Cath terminates at the distal SVC. This remains unchanged. IMPRESSION: 1. Emphysema and chronic interstitial thickening again noted. 2. No new focal lung consolidations to suggest a pneumonia. ACT 112: Negative or not required by law. Electronically signed by: Jose Ramon Morrow M.D. 07/15/2023 6:56 PM
--- NOTE | 2023-07-15 19:55 | History & Physical Report ---
Date of Service July 15, 2023 Assessment & Plan (1) Acute and chronic respiratory failure with hypoxia: Plan: 73 yo female with history of ILD, BONITA, COPD, BONITA and PH presenting with 3 weeks of progressive shortness of breath. Patient hypoxic on arrival - presently doi ng well on HFNC. Possibly COPD exacerbation. Does not appear to have active infection or edema. Respiratory status has improved. Now with adequate oxygenation on HFNC. -Admit to PCU -Continue supplemental O2 as needed -Solumedrol 40mg IV BID -Guaifenesin 600mg po BID -Azithromycin 250mg po daily - patient is typically on this medication Friday/Friday/Friday -DuoNeb q4R -Albuterol q2hour PRN - -Continue Fluticasone/Vilanterol -Flutter valve -Continue Umeclidinium -Continue Sildenafil for PH (2) Rash: Plan: Patient report her rash is common for her Scleroderma flare. She gets relief with Hydroxyzine -Continue Hydroxyzine 25mg po q8hr Plan BONITA - chronic -Continue CPAP GERD - chronic -Continue Protonix Hypertension- blood pressure well controlled -Continue Amlodipine History of Present Illness Chief Complaint: shortness of breath Primary Care Provider: Eliza Mayorga DO Victoria Richter is a pleasant 73yo female with history of ILD, Scleroderma, BONITA, COPD, PH and HTN presenting from home with progressive shortness of breath for the last 3 weeks. Patient was admitted to [facility] with similar complaints in May. She reports feeling well when she is on steroids but her shortness of breath returns as she tapers off the steroids. She has had progressive PATEL over the last three weeks. Recently she becomes short of breath with minimal movement in her home. She has a persistent dry cough and occasional cold sweats. No report of fever, chest pain, palpitations, nausea, vomiting, abdominal pain or diarrhea. She has had a worsening diffuse, pruritic rash over the last week which is consistent with her scleroderma. No report of edema, orthopnea or weight gain. No additional complaints at this time. Patient is on CPAP 9cmH2O qHS and supplemental O2 by NC 6-8L continuous during the day In the ER she is afebrile, HD stable. Hypoxic on arrival at 80% on room air. She was placed on NRB then BiPAP. She was having difficulty tolerating the BiPAP so she was placed on HFNC. Presently doing well on HFNC. Allergies Allergy/AdvReac Type Severity Reaction Status Date / Time ferric carboxymaltose Allergy Severe SOB, Verified 07/15/23 18:44 [From Injectafer] tachycardia Home Medications Medication Instructions Recorded Confirmed Type Oxygen Home #1 ea 09/03/22 07/15/23 History amlodipine 10 mg tablet 10 mg PO QAM 09/03/22 07/15/23 History sildenafil (pulm.hypertension) 20 20 mg PO Q8H 09/03/22 07/15/23 History mg tablet guaifenesin 600 mg tablet, 600 mg PO BID 12/17/22 07/15/23 History extended release 12 hr (Mucinex) Portable Oxygen #1 ea 02/10/23 07/15/23 Rx Advair HFA 230 mcg-21 2 puff inhalation BID #12 grams 02/14/23 07/15/23 Rx mcg/actuation aerosol inhaler (fluticasone propion-salmeterol) albuterol sulfate 90 mcg/actuation 2 puff inhalation QID PRN 02/14/23 07/15/23 Rx aerosol inhaler (Ventolin HFA) Shortness Of Breath #18 grams azithromycin 250 mg tablet 250 mg PO 3XWK #36 tabs 02/14/23 07/15/23 Rx ipratropium 0.5 mg-albuterol 3 mg 3 ml inhalation Q8H PRN COPD- DX 02/14/23 07/15/23 Rx (2.5 mg base)/3 mL nebulization J44.9 J43.9 J45.909 #180 mL soln bisoprolol 10 1 tab PO DAILY #90 tabs 04/07/23 07/15/23 Rx mg-hydrochlorothiazide 6.25 mg tablet duloxetine 60 mg capsule,delayed 60 mg PO QAM #90 caps 04/21/23 07/15/23 Rx release acetaminophen 500 mg tablet 1,000 mg PO DIRECTED PRN pain 05/21/23 07/15/23 History (Acetaminophen Extra Strength) bupropion HCl 100 mg tablet,12 hr 100 mg PO BID #180 ea 05/21/23 07/15/23 Rx sustained-release (Wellbutrin SR) cholecalciferol (vitamin D3) 50 50 mcg PO DAILY 05/21/23 07/15/23 History mcg (2,000 unit) tablet cyanocobalamin (vitamin B-12) See Rx Instructions IM .EVERY 6 05/21/23 07/15/23 History 1,000 mcg/mL injection solution WEEKS Spacer for Inhaler #1 ea 06/16/23 07/15/23 Rx tiotropium bromide 18 mcg capsule 1 cap inhalation QAM #90 06/16/23 07/15/23 Rx with inhalation device (Spiriva inhalations with HandiHaler) CPAP Machine #1 ea 06/23/23 07/15/23 Rx pantoprazole 40 mg tablet,delayed 40 mg PO BID #180 tabs 06/23/23 07/15/23 Rx release oxycodone 5 mg tablet 5 mg PO Q6H PRN pain #20 tabs 07/01/23 07/15/23 Rx gabapentin 300 mg capsule 300 mg PO HS #90 caps 07/14/23 07/15/23 Rx blood-glucose meter (OneTouch #1 ea 07/15/23 07/15/23 History Verio Flex Meter) furosemide 20 mg tablet 20 mg PO DAILY #45 tabs 07/15/23 07/15/23 Rx hydroxyzine HCl 25 mg tablet 25 mg PO Q8H #90 tabs 07/15/23 07/15/23 Rx macitentan 10 mg tablet 10 mg PO .DAILY @ 1400 07/15/23 07/15/23 History prednisone 10 mg tablet 10 mg PO Q OTHER DAY 07/15/23 07/15/23 History Past Med/Surg History Problem List (Updated 07/16/23 @ 01:26 by Nida Monique DO) Rash COPD exacerbation (Acute) PATEL (dyspnea on exertion) (Acute) Acute and chronic respiratory failure with hypoxia (Acute) Peripheral neuropathy bilateral hands & feet Diabetes mellitus Hypoxia (Acute) History of anemia due to vitamin B12 deficiency Chronic steroid use Abnormal chest CT Cervical radicular pain Carpal tunnel syndrome on both sides Nocturia Stress incontinence Overactive bladder Pulmonary HTN (Acute) PATEL (dyspnea on exertion) (Acute) Perforated nasal septum BONITA (obstructive sleep apnea) Osteopenia B12 deficiency History of COVID-19 Dx 01/2020; required hospitalization Hypertension Folate deficiency Chronic respiratory failure with hypoxia Scleroderma Pulmonary arterial hypertension COPD with emphysema (Acute) Urinary incontinence Collagenous colitis Right lower lobe lung mass Chronic anemia Vitamin D deficiency Fatty liver Pulmonary emphysema Iron deficiency anemia Insomnia, persistent Gastritis, chronic Asthma Anxiety Hyperlipidemia Gastroparesis pt denies Medical History Interstitial lung disease NSVT (nonsustained ventricular tachycardia) B12 deficiency Pneumonia due to COVID-19 virus Multiple pulmonary nodules determined by computed tomography of lung Raynaud's disease Osteoarthritis On home oxygen therapy 4lpm via n/c continuous Hypertension Prediabetes monitoring Depression Scleroderma Obstructive sleep apnea cpap GAVE (gastric antral vascular ectasia) Gastroenterology in [facility]. Dr. Marinelli Right lower lobe pneumonia COPD (chronic obstructive pulmonary disease) Surgical History History of cataract extraction (09/30/19) Both eyes H/O cataract extraction (09/2019) b/l eyes History of cystoscopy Hx of lumpectomy Left (-) History of dilatation and curettage History of bilateral tubal ligation History of esophagogastroduodenoscopy (EGD) H/O tooth extraction History of tonsillectomy H/O laminectomy Lumbar area History of colonoscopy History of bladder surgery bladder tack History of cholecystectomy Open Family History Mother , age 73 Stroke Father , age 71 Lung cancer Sister Non Hodgkin's lymphoma Lupus Denies family history of Ovarian cancer Prostate cancer Myocardial infarction Breast cancer Colorectal cancer Social History Smoking Status: Former smoker Tobacco Type: Cigarettes Age Quit Using Tobacco: 59; Cigarettes Per Day: 40; Second Hand Exposure: No; Do You Dip or Chew Tobacco: No; Hx Alcohol Use: No Hx Substance Use: No Preferred Language: Belarusian Communication Ability: Effective Visual Impairment: Limited Hearing Ability: Normal Wheel Alignment Mechanic Required: No Beliefs That Will Affect Care: None marital status: Current Living Situation: Spouse current occupational status: retired 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 ; 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 How many Children do You have: 2 Other Information That Helps Us Care for You: No Feels Safe at Home: Yes Safety Concerns: Feels Safe At This Time Childhood Exposure to Second-Hand Smoke: Yes Diet: regular Diet Comment: Regular caffeine: Yes during the past year weight has: remained stable Dental Care, Regularly: Yes Physical Activity Frequency: Does not Exercise Seatbelt Use: always Sunscreen Use: Yes Assistive Devices: BiPap, Glasses, Oxygen - Continuous, Stair Lift, Walker and Wheelchair Review of Systems Review of Systems: All systems reviewed & are unremarkable except as noted in HPI & below Physical Exam Physical Exam: General: patient with BiPAP in place, no respiratory distress, AA&O Skin: diffuse, scaling pruritic rash, no active bleeding or evidence of cellulitis HEENT: NC/AT, PERRL, EOMI, anicteric sclera, conjunctiva without injection, external ear normal to inspection and nontender, nares patent, moist mucus membranes, dentition intact, no oropharyngeal lesions, neck supple, trachea midline, no LAD, no thyromegaly, no JVD Heart: +S1/S2, Bigeminy present on monitor, 3/6 DESTINY at LSB, no rubs or gallops Lungs: equal air entry bilaterally, mildly diminished, no rales/rhonchi/wheezes Abd: +BS, soft, NT/ND, no masses/organomegaly/ascites Ext: warm, 2+ pulses in UE/LE bilaterally, no clubbing/cyanosis or edema, Raynaud's changes to hands bilaterally Neuro: nonfocal, patient AA&O x 4, speech intact, no facial droop, moving all extremities on command with equal strength 5/5 Results & Data Results & Data Vital Signs (Past 12 Hours) Vital Signs Temp Pulse Pulse Resp BP Pulse Ox O2 Del Method 07/15/23 19:08 78 07/15/23 18:43 CPAP 07/15/23 18:24 94 H 22 145/85 H 100 BiPAP 07/15/23 18:20 94 H 20 93 07/15/23 18:10 91 H 22 98 Non-rebreather 07/15/23 17:43 94 H 22 94 Non-rebreather 07/15/23 17:43 84 L Nasal Cannula, Non-rebreather 07/15/23 17:38 93 H 07/15/23 17:20 37.2 C 96 H 24 162/81 H 98 Non-rebreather O2 Flow Rate FiO2 07/15/23 19:08 07/15/23 18:43 07/15/23 18:24 07/15/23 18:20 40 07/15/23 18:10 8 07/15/23 17:43 07/15/23 17:43 6 07/15/23 17:38 07/15/23 17:20 15 Laboratory Results Laboratory Results WBC 11.48 K/ul (4.8-10.8) H 07/15/23 18:15 RBC 4.37 M/uL (4.20-5.40) 07/15/23 18:15 Hgb 13.0 g/dl (12.0-16.0) 07/15/23 18:15 Hct 39.6 % (37.0-47.0) 07/15/23 18:15 MCV 90.6 fL (80.0-100.0) 07/15/23 18:15 MCH 29.7 pg (25.0-34.0) 07/15/23 18:15 MCHC 32.8 g/dL (32.0-36.0) 07/15/23 18:15 RDW Std Deviation 49.7 fL (36.4-46.3) H 07/15/23 18:15 RDW Coeff of Mag 15.0 % (11.5-14.5) H 07/15/23 18:15 Plt Count 284 K/uL (130-400) 07/15/23 18:15 MPV 9.8 fL (9.4-12.4) 07/15/23 18:15 Immature Gran % (Auto) 0.7 % 07/15/23 18:15 Neut % (Auto) 76.3 % 07/15/23 18:15 Lymph % (Auto) 10.7 % 07/15/23 18:15 [place] % (Auto) 6.0 % 07/15/23 18:15 Eos % (Auto) 5.6 % 07/15/23 18:15 Baso % (Auto) 0.7 % 07/15/23 18:15 Neut # (Auto) 8.76 K/uL (1.40-6.50) H 07/15/23 18:15 Lymph # (Auto) 1.23 K/uL (1.20-3.40) 07/15/23 18:15 [place] # (Auto) 0.69 K/uL (0.11-0.59) H 07/15/23 18:15 Eos # (Auto) 0.64 K/uL (0.00-0.50) H 07/15/23 18:15 Baso # (Auto) 0.08 K/uL (0.00-0.20) 07/15/23 18:15 Immature Gran # (Auto) 0.08 K/uL (0.01-0.20) 07/15/23 18:15 PT 10.1 Seconds (9.0-12.0) 07/15/23 18:15 INR 0.9 (0.9-1.1) 07/15/23 18:15 APTT 25 Seconds (21-31) 07/15/23 18:15 PTT Ratio 0.9 07/15/23 18:15 VBG pH 7.41 (7.36-7.41) 07/15/23 18:15 VBG pCO2 51 mmHg (38-50) H 07/15/23 18:15 VBG pO2 34 mmHg 07/15/23 18:15 VBG HCO3 32 mmol/L 07/15/23 18:15 VBG O2 Saturation < 60.0 % 07/15/23 18:15 VBG Base Excess 6.3 mEq/L 07/15/23 18:15 Sodium 139 mmol/L (136-145) 07/15/23 18:15 Potassium 3.4 mmol/L (3.5-5.1) L 07/15/23 18:15 Chloride 102 mmol/L (98-107) 07/15/23 18:15 Carbon Dioxide 30 mmol/L (21-32) 07/15/23 18:15 Anion Gap 7 (3-11) 07/15/23 18:15 BUN 12 mg/dl (6-23) 07/15/23 18:15 Creatinine 0.67 mg/dl (0.6-1.2) 07/15/23 18:15 Est Cr Clr Drug Dosing 80.5 ml/min 07/15/23 18:15 Est GFR ( Amer) 101.8 ml/min 07/15/23 18:15 Est GFR (Non-Af Amer) 87.8 ml/min 07/15/23 18:15 BUN/Creatinine Ratio 17.9 (10-20) 07/15/23 18:15 Glucose 120 mg/dl (70-99(Fasting)) H 07/15/23 18:15 Calcium 9.2 mg/dl (8.6-10.3) 07/15/23 18:15 Total Bilirubin 0.6 mg/dl (0.2-1.0) 07/15/23 18:15 AST 13 U/L (13-39) 07/15/23 18:15 ALT 7 U/L (7-52) 07/15/23 18:15 Alkaline Phosphatase 69 U/L (34-104) 07/15/23 18:15 Troponin I High Sens 7.6 pg/ml (0-14) 07/15/23 18:15 B-Natriuretic Peptide 147 pg/ml (0-100) H 07/15/23 18:15 Total Protein 6.4 gm/dl (6.0-8.3) 07/15/23 18:15 Albumin 3.9 gm/dl (3.4-5.0) 07/15/23 18:15 Globulin 2.5 gm/dl (2.5-4.0) 07/15/23 18:15 Albumin/Globulin Ratio 1.6 (0.9-2) 07/15/23 18:15 Procalcitonin < 0.02 ng/ml (0-0.5) 07/15/23 18:15 Impressions Chest X-Ray 07/15/23 17:58 XR chest 1V portable HISTORY: Dyspnea COMPARISON: Chest 02/05/2023. FINDINGS: No pneumothorax. No pleural effusions. Emphysema with chronic in terstitial thickening. This remains unchanged. The heart is normal in size. No new focal lung consolidations to suggest a pneumonia. There are old, healed left-sided rib fractures. A left subclavian Port-A-Cath terminates at the distal SVC. This remains unchanged. IMPRESSION: 1. Emphysema and chronic interstitial thickening again noted. 2. No new focal lung consolidations to suggest a pneumonia. ACT 112: Negative or not required by law. Electronically signed by: Jose Ramon Morrow M.D. 07/15/2023 6:56 PM PG Care Time/CCT Total # of Minutes Spent Total Time Spent with Patient: Total time spent is greater than 50% in coordination of care (as documented) at patient's floor/unit and/or counseling patient: Coding Level of Care Code 92662 INT INP/OBS CARE MIN Diagnoses Acute and chronic respiratory failure with hypoxia J96.21 Rash R21
[2023-07-15] MEDS: diphenhydrAMINE 50 MG/ML VIAL IV STA ×2 (20:01→21:17)
[2023-07-15] MEDS ORDERED: ONDANSETRON INJ 2 MG/ML 2 ML VIAL IV PRN (23:00)
[2023-07-15] MEDS ORDERED: ALBUTEROL 0.5% NEB SOLN 2.5 MG/0.5 ML VIAL NEB PRN (23:00)
[2023-07-15] MEDS: ALBUT/IPRATROP 3MG/0.5MG NEB 3 ML VIAL NEB SCH (23:30)
[2023-07-15] MEDS: guaiFENesin 600 MG TABCR PO SCH (23:41)
[2023-07-15] MEDS: buPROPion SR 100 MG TABCR PO SCH (23:41)
[2023-07-15] MEDS: POTASSIUM CHLORIDE CRTAB 20 MEQ TABCR PO STA (23:41)
[2023-07-15] MEDS: SILDENAFIL CITRATE 20 MG TABLET PO SCH (23:41)
[2023-07-15] MEDS: PANTOprazole 40 MG TAB PO SCH (23:41)
[2023-07-15] MEDS: GABAPENTIN 300 MG CAP PO SCH (23:41)
[2023-07-15] MEDS: hydrOXYzine HCl 25 MG TAB PO SCH (23:42)
[2023-07-15 23:45] LABS: Magnesium 1.8 mg/dl (1.7-2.4); Phosphorus 4.5 mg/dl (2.5-4.9)
[2023-07-16] MEDS: methylPREDNISolone 40 MG in SYRINGE 0 ML IV SCH (06:12)
[2023-07-16] MEDS: DULoxetine HCL 60 MG CAP PO SCH (09:20)
[2023-07-16] MEDS: FUROSEMIDE 20 MG TAB PO SCH (09:20)
[2023-07-16] MEDS: amLODIPine BESYLATE 5 MG TAB PO SCH (09:20)
[2023-07-16] MEDS: FLUTICASONE/VILANTEROL 200/25MCG 14 PUFFS/INHALER INH SCH (09:22)
[2023-07-16] MEDS: UMECLIDINIUM BROMIDE 62.5MCG/BLISTER 7 PUFFS/INHALER INH SCH (09:22)
[2023-07-16] MEDS: AZITHROMYCIN 250 MG TAB PO SCH (09:24)
[2023-07-16] MEDS: ACETAMINOPHEN 500 MG TAB PO PRN (09:24)
[2023-07-16 09:25] LABS: Hematocrit (blood only) 38.8 % (37.0-47.0); Hemoglobin 12.4 g/dl (12.0-16.0); Mean Corpuscular Hemoglobin 29.2 pg (25.0-34.0); Mean Corpuscular Volume 91.3 fL (80.0-100.0); Platelet Count 317 K/uL (130-400); RDW Coefficient of Variation 15.2 % (11.5-14.5); RDW Standard Deviation 50.5 fL (36.4-46.3); Red Blood Count 4.25 M/uL (4.20-5.40); White Blood Count 6.89 K/ul (4.8-10.8)
[2023-07-16 09:44] LABS: BUN Creatinine Ratio 22.5 (10-20); Calcium 8.8 mg/dl (8.6-10.3); Creatinine Clr Calc Pharmacy 75.1 ml/min; Est GFR (African American) 98.6 ml/min; Est GFR (Non-African American) 85.1 ml/min; Potassium 4.4 mmol/L (3.5-5.1)
[2023-07-16] MEDS: ALTEPLASE, RECOMBINANT 1 MG/ML 2ML VIAL INSTIL ONE (13:11)
--- NOTE | 2023-07-16 13:25 | Hospitalist Progress Note ---
Date of Service July 16, 2023 Assessment & Plan (1) Acute and chronic respiratory failure with hypoxia: Plan: 73 yo female with history of ILD, BONITA, severe COPD, BONITA and PH presenting with 3 weeks of progressive shortness of breath. Patient hypoxic on arrival - presen tly doing well on HFNC. Possibly COPD exacerbation. Does not appear to have active infection or edema. Respiratory status has improved. Now with adequate oxygenation on HFNC. -Continue supplemental O2 as needed -Continue Solumedrol 40mg IV BID -Guaifenesin 600mg po BID -Azithromycin 250mg po daily - patient is typically on this medication Friday/Friday/Friday -DuoNeb q4R -Albuterol q2hour PRN -Continue Fluticasone/Vilanterol -Flutter valve -Continue Umeclidinium -Continue Sildenafil for PH Consult pulmonology (2) Rash: Plan: Patient report her rash is common for her Scleroderma flare. She gets relief with Hydroxyzine -Continue Hydroxyzine 25mg po q8hr Plan BONITA - chronic -Continue CPAP GERD - chronic -Continue Protonix Hypertension- blood pressure well controlled -Continue Amlodipine Admission and Anticipated Discharge Date Admission Date: July 15, 2023 Subjective Patient says that she feels slightly better than yesterday but is still needing high flow oxygen. Review of Systems Review of Systems: All systems reviewed & are unremarkable except as noted in Subjective Physical Exam Physical Exam: General: Awake, conversant. High flow nasal cannula on. Heart: S1, S2/regular rate and rhythm, no murmur rubs or gallops Lungs: Diminished breath sounds bilaterally. Normal effort Abdomen: Soft/nontender/nondistended. No hepatosplenomegaly Extremities: No clubbing/cyanosis. No edema Behavior: Appropriate, cooperative Results & Data Results & Data Vital Signs (Past 12 Hours) Vital Signs Temp Pulse Pulse Resp BP Pulse Ox O2 Del Method 07/16/23 11:36 36.6 C 98 H 21 104/65 90 High Flow Nasal Cannula 07/16/23 11:28 88 20 90 High Flow Nasal Cannula 07/16/23 11:02 93 H 07/16/23 07:45 High Flow Nasal Cannula 07/16/23 07:28 92 H 20 93 High Flow Nasal Cannula 07/16/23 06:36 36.8 C 90 22 118/73 98 High Flow Nasal Cannula 07/16/23 03:48 92 H 20 99 High Flow Nasal Cannula 07/16/23 02:49 36.5 C 94 H 22 112/69 94 High Flow Nasal Cannula O2 Flow Rate FiO2 07/16/23 11:36 40 45 07/16/23 11:28 40 45 07/16/23 11:02 07/16/23 07:45 45 40 07/16/23 07:28 40 50 07/16/23 06:36 07/16/23 03:48 50 60 07/16/23 02:49 Laboratory Results Abnormal lab results 07/15/23 07/16/23 Range/Units 18:15 08:53 WBC 11.48 H (4.8-10.8) K/ul RDW Std Deviation 49.7 H 50.5 H (36.4-46.3) fL RDW Coeff of Mag 15.0 H 15.2 H (11.5-14.5) % Neut # (Auto) 8.76 H (1.40-6.50) K/uL [place] # (Auto) 0.69 H (0.11-0.59) K/uL Eos # (Auto) 0.64 H (0.00-0.50) K/uL VBG pCO2 51 H (38-50) mmHg Potassium 3.4 L (3.5-5.1) mmol/L BUN/Creatinine Ratio 22.5 H (10-20) Glucose 120 H 244 H (70-99(Fasting)) mg/dl B-Natriuretic Peptide 147 H (0-100) pg/ml Diagnostic Findings Chest X-Ray 07/15/23 17:58 XR chest 1V portable HISTORY: Dyspnea COMPARISON: Chest 02/05/2023. FINDINGS: No pneumothorax. No pleural effusions. Emphysema with chronic interstitial thickening. This remains unchanged. The heart is normal in size. No new focal lung consolidations to suggest a pneumonia. There are old, healed left-sided rib fractures. A left subclavian Port-A-Cath terminates at the distal SVC. This remains unchanged. IMPRESSION: 1. Emphysema and chronic interstitial thickening again noted. 2. No new focal lung consolidations to suggest a pneumonia. ACT 112: Negative or not required by law. Electronically signed by: Jose Ramon Morrow M.D. 07/15/2023 6:56 PM PG Care Time/CCT Total # of Minutes Spent Total Time Spent with Patient: Total time spent is greater than 50% in coordination of care (as documented) at patient's floor/unit and/or counseling patient: Coding Level of Care Code 17978 SUB INP/OBS CARE 2/35MIN Diagnoses Acute and chronic respiratory failure with hypoxia J96.21 Rash R21
--- NOTE | 2023-07-16 14:10 | Pulmonary Consultation ---
Date of Consultation July 16, 2023 Assessment & Plan (1) Acute and chronic respiratory failure with hypoxia: (2) PATEL (dyspnea on exertion): (3) Chronic steroid use: (4) Pulmonary HTN: (5) BONITA (obstructive sleep apnea): (6) Pulmonary arterial hypertension: (7) COPD with emphysema: Emphysema type: panlobular Qualified Code(s): J43.1 - Panlobular emphysema Plan Chest x-ray 07/15/2023 personally reviewed: Portable film, good inspiratory effort, bilateral costophrenic and cardiophrenic intersecting, no clear lung infiltrate appreciated Spirometry 06/16/2023 personally reviewed: Moderate obstructive lung dysfunction, insignificant bronchodilator response (Decrease in FVC by 440 mL, decrease in FEV1 by 180 mL compared to 01/31) FVC 2.26 L 76%, FEV1 1.18 L 52%, FEV1/FVC 52% -- Acute on chronic hypoxic respiratory failure Multifactorial Pulmonary hypertension which is a combination of 1, 2 and 3 On 6 L nasal cannula at rest with 8 L on exertion BNP 147 Procalcitonin negative --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 Azithromycin 250 mg Qqzvay-Ipjrjqkma-Ijdycr, QTc 469 on 07/15/2023 at home Usually on chronic prednisone 10 mg every other day Spirometry 06/16/2023 personally reviewed: Moderate obstructive lung dysfunction, insignificant bronchodilator response (Decrease in FVC by 440 mL, decrease in FEV1 by 180 mL compared to 01/31) FVC 2.26 L 76%, FEV1 1.18 L 52%, FEV1/FVC 52% --Pulmonary hypertension Combination of type I, type II and type III Type I likely from underlying scleroderma Patient has been on sildenafil from the drying room attendant Continue with macitentan as well as sildenafil. Will consider adding selexipag as an outpatient Right heart cath 01/22/2022: RA 01/17 7 RV 53/2 12 PA 55/23 35 PCWP 11 PVR 4.6 Quintanilla units, normal thermodilution cardiac index 2D echo 02/03/2023: EF 55 to 60%, normal RV size and function, moderate to severe pulmonary hypertension with PASP 55-60 mmHg --Pulmonary nodule Left upper lobe 5 mm Has been stable CTA chest 01/03/2023 personally reviewed: Severe centrilobular and paraseptal emphysema appreciated bilaterally Motion degraded study, Edac cannot be ruled out Left upper lobe peripheral pulmonary nodule (Stable) No significant mediastinal lymphadenopathy --BONITA On CPAP of 9 cm H2O at home --Scleroderma Following up with rheumatology Plan: Will get 2D echo to see how the right-sided pressures look like. If they are more elevated than at baseline then outpatient Selexipag could be thought of Influenza A/B, RSV to be done to make sure that is not playing a role in patient's worsening hypoxia. Chest x-ray did not show any new finding compared to previous x-rays. No consolidative process. Continue with Solu-Medrol Continue with inhalers. Given the patient is already taking azithromycin at home, give the patient doxycycline instead for 5 days Continue with home dose Lasix, she does not seem to be overtly fluid overloaded Continue with CPAP as needed shortness of breath and nightly Case was discussed with RN at bedside Please note the above document was generated using voice recognition software. It may contain grammatical, syntax or spelling errors.Any formal questions or concerns about the content, text or information contained within the body of this dictation should be directly addressed to the provider for clarification. History of Present Illness Attending Physician: Blair Jiménez MD History of Present Illness 73-year-old female following with pulmonary for her severe COPD with emphysema on home O2 6 L at baseline 8 L on activity, pulmonary hypertension on sildenafil, presented to the hospital for Past medical history: Scleroderma following up with rheumatology, hypertension, anxiety, she is a transplant candidate and follows up with [facility] on chronic prednisone 10 mg every other day as per the transplant physician Patient was last seen by me in the clinic on 02/14/2023 Patient's partner was in the room at the time of examination. Patient says that she was doing reasonably well up until couple of weeks ago when she started to get exertional shortness of breath She is compliant with her oxygen, has been using sildenafil as well as macitentan on a regular basis. She is also taking Lasix on a daily basis She is using nebulizers as well along with azithromycin Kbwxqg-Goswosoyb-Thyshb. Does state that they keep the house temperature and 70 F Denies any fever. Does have chronic night sweats and chills which have been unchanged in frequency and intensity. Denies any cough, no hemoptysis. At the time of examination patient was saturating 86% on 40 L high flow, 45% FiO2. I went up to 50% Social history: Greater than [id number] smoking history, quit at the age of 61 , denies any illicit drug use, no alcohol use. 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 Pets: Has a cat and a dog at home. No birds or poultry nearby Allergies: Seasonal takes hiyu-skw-ucernxs medications for it Asthma: No personal or family history of asthma Lung cancer: Family history of lung cancer in the father who was a smoker Allergies Allergy/AdvReac Type Severity Reaction Status Date / Time ferric carboxymaltose Allergy Severe SOB, Verified 07/15/23 18:44 [From Injectafer] tachycardia Home Medications Medication Instructions Recorded Confirmed Type Oxygen Home #1 ea 09/03/22 07/15/23 History amlodipine 10 mg tablet 10 mg PO QAM 09/03/22 07/15/23 History sildenafil (pulm.hypertension) 20 20 mg PO Q8H 09/03/22 07/15/23 History mg tablet guaifenesin 600 mg tablet, 600 mg PO BID 12/17/22 07/15/23 History extended release 12 hr (Mucinex) Portable Oxygen #1 ea 02/10/23 07/15/23 Rx Advair HFA 230 mcg-21 2 puff inhalation BID #12 grams 02/14/23 07/15/23 Rx mcg/actuation aerosol inhaler (fluticasone propion-salmeterol) albuterol sulfate 90 mcg/actuation 2 puff inhalation QID PRN 02/14/23 07/15/23 Rx aerosol inhaler (Ventolin HFA) Shortness Of Breath #18 grams azithromycin 250 mg tablet 250 mg PO 3XWK #36 tabs 02/14/23 07/15/23 Rx ipratropium 0.5 mg-albuterol 3 mg 3 ml inhalation Q8H PRN COPD- DX 02/14/23 07/15/23 Rx (2.5 mg base)/3 mL nebulization J44.9 J43.9 J45.909 #180 mL soln bisoprolol 10 1 tab PO DAILY #90 tabs 04/07/23 07/15/23 Rx mg-hydrochlorothiazide 6.25 mg tablet duloxetine 60 mg capsule,delayed 60 mg PO QAM #90 caps 04/21/23 07/15/23 Rx release acetaminophen 500 mg tablet 1,000 mg PO DIRECTED PRN pain 05/21/23 07/15/23 History (Acetaminophen Extra Strength) bupropion HCl 100 mg tablet,12 hr 100 mg PO BID #180 ea 05/21/23 07/15/23 Rx sustained-release (Wellbutrin SR) cholecalciferol (vitamin D3) 50 50 mcg PO DAILY 05/21/23 07/15/23 History mcg (2,000 unit) tablet cyanocobalamin (vitamin B-12) See Rx Instructions IM .EVERY 6 05/21/23 07/15/23 History 1,000 mcg/mL injection solution WEEKS Spacer for Inhaler #1 ea 06/16/23 07/15/23 Rx tiotropium bromide 18 mcg capsule 1 cap inhalation QAM #90 06/16/23 07/15/23 Rx with inhalation device (Spiriva inhalations with HandiHaler) CPAP Machine #1 ea 06/23/23 07/15/23 Rx pantoprazole 40 mg tablet,delayed 40 mg PO BID #180 tabs 06/23/23 07/15/23 Rx release oxycodone 5 mg tablet 5 mg PO Q6H PRN pain #20 tabs 07/01/23 07/15/23 Rx gabapentin 300 mg capsule 300 mg PO HS #90 caps 07/14/23 07/15/23 Rx blood-glucose meter (OneTouch #1 ea 07/15/23 07/15/23 History Verio Flex Meter) furosemide 20 mg tablet 20 mg PO DAILY #45 tabs 07/15/23 07/15/23 Rx hydroxyzine HCl 25 mg tablet 25 mg PO Q8H #90 tabs 07/15/23 07/15/23 Rx macitentan 10 mg tablet 10 mg PO .DAILY @ 1400 07/15/23 07/15/23 History prednisone 10 mg tablet 10 mg PO Q OTHER DAY 07/15/23 07/15/23 History Patient History Medical History Interstitial lung disease NSVT (nonsustained ventricular tachycardia) B12 deficiency Pneumonia due to COVID-19 virus Multiple pulmonary nodules determined by computed tomography of lung Raynaud's disease Osteoarthritis On home oxygen therapy 4lpm via n/c continuous Hypertension Prediabetes monitoring Depression Scleroderma Obstructive sleep apnea cpap GAVE (gastric antral vascular ectasia) Gastroenterology in [facility]. Dr. Marinelli Right lower lobe pneumonia COPD (chronic obstructive pulmonary disease) Surgical History History of cataract extraction (09/30/19) Both eyes H/O cataract extraction (09/2019) b/l eyes History of cystoscopy Hx of lumpectomy Left (-) History of dilatation and curettage History of bilateral tubal ligation History of esophagogastroduodenoscopy (EGD) H/O tooth extraction History of tonsillectomy H/O laminectomy Lumbar area History of colonoscopy History of bladder surgery bladder tack History of cholecystectomy Open Family History Mother , age 73 Stroke Father , age 71 Lung cancer Sister Non Hodgkin's lymphoma Lupus Denies family history of Ovarian cancer Prostate cancer Myocardial infarction Breast cancer Colorectal cancer Social History Smoking Status: Former smoker Tobacco Type: Cigarettes Age Quit Using Tobacco: 59; Cigarettes Per Day: 40; Second Hand Exposure: No; Do You Dip or Chew Tobacco: No; Hx Alcohol Use: No Hx Substance Use: No Preferred Language: Mohawk Communication Ability: Effective Visual Impairment: Limited Hearing Ability: Normal Overlay Plastician Required: No Beliefs That Will Affect Care: None marital status: Current Living Situation: Spouse current occupational status: retired 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 ; 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 How many Children do You have: 2 Other Information That Helps Us Care for You: No Feels Safe at Home: Yes Safety Concerns: Feels Safe At This Time Childhood Exposure to Second-Hand Smoke: Yes Diet: regular Diet Comment: Regular caffeine: Yes during the past year weight has: remained stable Dental Care, Regularly: Yes Physical Activity Frequency: Does not Exercise Seatbelt Use: always Sunscreen Use: Yes Assistive Devices: Bedside Commode, Oxygen - Continuous, Stair Lift, Walker and Wheelchair Review of Systems 2 Review of Systems: All systems reviewed & are unremarkable except as noted in HPI & below Physical Exam 2 Physical Exam: Constitutional: No acute distress HEENT: EOMI, PERRLA Respiratory system: Decreased air entry bilaterally, no wheeze, no rhonchi, positive crackles bilateral lower lobes CVS: S1-S2 positive, no murmurs or gallops, distant heart sounds Abdomen: Soft, nontender, nondistended, positive bowel sounds x4 Extremities: +2 pulses bilaterally radialis/DP, no cyanosis, no edema Neuro: Awake alert oriented x3 Psych: Normal mood and affect G/U: No Bailey Skin: no rashes, warm and dry Lymphatic: no cervical or axillary lymphadenopathy Results & Data Results & Data Vital Signs (Past 12 Hours) Vital Signs Temp Pulse Pulse Resp BP Pulse Ox O2 Del Method 07/16/23 11:36 36.6 C 98 H 21 104/65 90 High Flow Nasal Cannula 07/16/23 11:28 88 20 90 High Flow Nasal Cannula 07/16/23 11:02 93 H 07/16/23 07:45 High Flow Nasal Cannula 07/16/23 07:28 92 H 20 93 High Flow Nasal Cannula 07/16/23 06:36 36.8 C 90 22 118/73 98 High Flow Nasal Cannula 07/16/23 03:48 92 H 20 99 High Flow Nasal Cannula 07/16/23 02:49 36.5 C 94 H 22 112/69 94 High Flow Nasal Cannula O2 Flow Rate FiO2 07/16/23 11:36 40 45 07/16/23 11:28 40 45 07/16/23 11:02 07/16/23 07:45 45 40 07/16/23 07:28 40 50 07/16/23 06:36 07/16/23 03:48 50 60 07/16/23 02:49 Laboratory Results 07/16/23 08:53 07/16/23 08:53 PG Care Time/CCT Total # of Minutes Spent Total Time Spent with Patient: Total time spent is greater than 50% in coordination of care (as documented) at patient's floor/unit and/or counseling patient: [place] [address] INT INP/OBS CARE 3/75MIN Patient Type New Diagnoses Acute and chronic respiratory failure with hypoxia J96.21 PATEL (dyspnea on exertion) R06.09 Chronic steroid use Pulmonary HTN I27.20 BONITA (obstructive sleep apnea) G47.33 Pulmonary arterial hypertension I27.21 COPD with emphysema J43.1 Emphysema type: panlobular
[2023-07-16] MEDS ORDERED: Nursing to Pharmacy Communication SCH ×2 (16:15→16:45)
[2023-07-16] MEDS: MACITENTAN PO SCH (17:33)
[2023-07-16] MEDS: buPROPion SR 100 MG TABCR PO SCH (17:34)
[2023-07-16] MEDS: DOXYCYCLINE HYCLATE 100 MG CAP PO SCH (20:06)
[2023-07-16] MEDS: oxyCODONE HCL IR 5 MG TAB (IMMEDIATE RELEASE) PO PRN (20:07)
[2023-07-16 21:25] LABS: Influenza A PCR (Fusion) Negative (Negative); Influenza B PCR (Fusion) Negative (Negative); RSV PCR (Fusion) Negative (Negative)
--- NOTE | 2023-07-17 13:05 | Pulmonology Progress Note ---
Date of Service July 17, 2023 Assessment & Plan (1) Acute and chronic respiratory failure with hypoxia: (2) PATEL (dyspnea on exertion): (3) Chronic steroid use: (4) Pulmonary HTN: (5) BONITA (obstructive sleep apnea): (6) Pulmonary arterial hypertension: (7) COPD with emphysema: Emphysema type: panlobular Qualified Code(s): J43.1 - Panlobular emphysema Plan Chest x-ray 07/15/2023 personally reviewed: Portable film, good inspiratory effort, bilateral costophrenic and cardiophrenic intersecting, no clear lung infiltrate appreciated Spirometry 06/16/2023 personally reviewed: Moderate obstructive lung dysfunction, insignificant bronchodilator response (Decrease in FVC by 440 mL, decrease in FEV1 by 180 mL compared to 01/31) FVC 2.26 L 76%, FEV1 1.18 L 52%, FEV1/FVC 52% -- Acute on chronic hypoxic respiratory failure Multifactorial Pulmonary hypertension which is a combination of 1, 2 and 3 On 6 L nasal cannula at rest with 8 L on exertion BNP 147 Procalcitonin negative, influenza A/B, RSV negative --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 Azithromycin 250 mg Wlnewr-Yajdswxca-Xnsxdr, QTc 469 on 07/15/2023 at home Usually on chronic prednisone 10 mg every other day Spirometry 06/16/2023 personally reviewed: Moderate obstructive lung dysfunction, insignificant bronchodilator response (Decrease in FVC by 440 mL, decrease in FEV1 by 180 mL compared to 01/31) FVC 2.26 L 76%, FEV1 1.18 L 52%, FEV1/FVC 52% --Pulmonary hypertension Combination of type I, type II and type III Type I likely from underlying scleroderma Patient has been on sildenafil from the senior manager [id number] Continue with macitentan as well as sildenafil. Will consider adding selexipag as an outpatient Right heart cath 01/22/2022: RA 12 7 RV 53/2 12 PA 55/23 35 PCWP 14/13 11 PVR 4.6 Quintanilla units, normal thermodilution cardiac index 2D echo 02/03/2023: EF 55 to 60%, normal RV size and function, moderate to severe pulmonary hypertension with PASP 55-60 mmHg --Pulmonary nodule Left upper lobe 5 mm Has been stable CTA chest 01/03/2023 personally reviewed: Severe centrilobular and paraseptal emphysema appreciated bilaterally Motion degraded study, Edac cannot be ruled out Left upper lobe peripheral pulmonary nodule (Stable) No significant mediastinal lymphadenopathy --BONITA On CPAP of 9 cm H2O at home --Scleroderma Following up with rheumatology Plan: Follow-up 2D echo to see how the right-sided pressures look like. If they are more elevated than at baseline then outpatient Selexipag could be thought of Continue with Solu-Medrol Continue with inhalers. Complete the course of doxycycline for 5 days Continue with home dose Lasix, she does not seem to be overtly fluid overloaded Continue with CPAP as needed shortness of breath and nightly Please note the above document was generated using voice recognition software. It may contain grammatical, syntax or spelling errors.Any formal questions or concerns about the content, text or information contained within the body of this dictation should be directly addressed to the provider for clarification. Admission and Anticipated Discharge Date Admission Date: July 15, 2023 Subjective Patient seen and examined at bedside. No acute distress, no adverse events overnight. Patient was saturating 89-90% on 40 L, 50% high flow He stated that she is feeling little bit better compared to when she came to the hospital Has been diuresing well Denied any headache, no nausea vomiting Has been afebrile Review of Systems 2 Review of Systems: All systems reviewed & are unremarkable except as noted in Subjective Physical Exam 2 Physical Exam: Constitutional: No acute distress HEENT: EOMI, PERRLA Respiratory system: Decreased air entry bilaterally, no wheeze, no rhonchi, positive crackles bilateral lower lobes CVS: S1-S2 positive, no murmurs or gallops, distant heart sounds Abdomen: Soft, nontender, nondistended, positive bowel sounds x4 Extremities: +2 pulses bilaterally radialis/DP, no cyanosis, no edema Neuro: Awake alert oriented x3 Psych: Normal mood and affect G/U: No Bailey Skin: no rashes, warm and dry Lymphatic: no cervical or axillary lymphadenopathy Results & Data Results & Data Vital Signs (Past 12 Hours) Vital Signs Temp Pulse Pulse Resp BP Pulse Ox O2 Del Method 07/17/23 11:10 36.5 C 97 H 26 H 119/71 90 High Flow Nasal Cannula 07/17/23 10:38 95 H 24 94 High Flow Nasal Cannula 07/17/23 10:29 95 H 24 94 High Flow Nasal Cannula 07/17/23 07:52 36.5 C 95 H 22 142/89 H 90 High Flow Nasal Cannula 07/17/23 07:31 90 24 90 High Flow Nasal Cannula 07/17/23 02:35 36.6 C 88 20 114/75 94 High Flow Nasal Cannula 07/17/23 02:08 84 22 90 High Flow Nasal Cannula O2 Flow Rate FiO2 07/17/23 11:10 40 07/17/23 10:38 40 50 07/17/23 10:29 40 50 07/17/23 07:52 40 50 07/17/23 07:31 40 50 07/17/23 02:35 07/17/23 02:08 40 50 Laboratory Results 07/16/23 08:53 07/16/23 08:53 PG Care Time/CCT Total # of Minutes Spent Total Time Spent with Patient: Total time spent is greater than 50% in coordination of care (as documented) at patient's floor/unit and/or counseling patient: Coding Level of Care Code 09054 SUB INP/OBS CARE 3/50MIN Diagnoses Acute and chronic respiratory failure with hypoxia J96.21 PATEL (dyspnea on exertion) R06.09 Chronic steroid use Pulmonary HTN I27.20 BONITA (obstructive sleep apnea) G47.33 Pulmonary arterial hypertension I27.21 COPD with emphysema J43.1 Emphysema type: panlobular
--- NOTE | 2023-07-17 14:03 | Hospitalist Progress Note ---
Date of Service July 17, 2023 Assessment & Plan (1) Acute and chronic respiratory failure with hypoxia: Plan: 73 yo female with history of ILD, BONITA, severe COPD, BONITA and PH presenting with 3 weeks of progressive shortness of breath. Patient hypoxic on arrival - presen tly doing well on HFNC. This is most likely multifactorial Severe COPD, pulmonary hypertension playing roles Reel Hooker involved Switched from azithromycin to doxycycline Echocardiogram completed per patient. Pending results. This was ordered to check right atrial pressures Pulmonology recommends continuing with Solu-Medrol, inhalers, course of doxycycline Continue home dose of Lasix (2) Rash: Plan: Patient report her rash is common for her Scleroderma flare. She gets relief with Hydroxyzine -Continue Hydroxyzine 25mg po q8hr Plan BONITA - chronic -Continue CPAP GERD - chronic -Continue Protonix Hypertension- blood pressure well controlled -Continue Amlodipine Admission and Anticipated Discharge Date Admission Date: July 15, 2023 Subjective Patient says that she feels very slightly better. Still short of breath. Still needing high flow oxygen. Review of Systems Review of Systems: All systems reviewed & are unremarkable except as noted in Subjective Physical Exam Physical Exam: General: Awake, conversant. High flow nasal cannula on. Heart: S1, S2/regular rate and rhythm, no murmur rubs or gallops Lungs: Diminished breath sounds bilaterally. Normal effort Abdomen: Soft/nontender/nondistended. No hepatosplenomegaly Extremities: No clubbing/cyanosis. No edema Behavior: Appropriate, cooperative Results & Data Results & Data Vital Signs (Past 12 Hours) Vital Signs Temp Pulse Pulse Resp BP Pulse Ox O2 Del Method 07/17/23 11:10 36.5 C 97 H 26 H 119/71 90 High Flow Nasal Cannula 07/17/23 10:38 95 H 24 94 High Flow Nasal Cannula 07/17/23 10:29 95 H 24 94 High Flow Nasal Cannula 07/17/23 07:52 36.5 C 95 H 22 142/89 H 90 High Flow Nasal Cannula 07/17/23 07:31 90 24 90 High Flow Nasal Cannula 07/17/23 02:35 36.6 C 88 20 114/75 94 High Flow Nasal Cannula 07/17/23 02:08 84 22 90 High Flow Nasal Cannula O2 Flow Rate FiO2 07/17/23 11:10 40 07/17/23 10:38 40 50 07/17/23 10:29 40 50 07/17/23 07:52 40 50 07/17/23 07:31 40 50 07/17/23 02:35 07/17/23 02:08 40 50 PG Care Time/CCT Total # of Minutes Spent Total Time Spent with Patient: Total time spent is greater than 50% in coordination of care (as documented) at patient's floor/unit and/or counseling patient: Coding Level of Care Code 80412 SUB INP/OBS CARE 2/35MIN Diagnoses Acute and chronic respiratory failure with hypoxia J96.21 Rash R21
--- NOTE | 2023-07-17 16:53 | XCELERA ---
[id number] \\[id number]
[2023-07-18] MEDS: HEPARIN 100 UNIT/ML 5ML FLUSH FLUSH PRN (05:36)
[2023-07-18 06:45] LABS: BUN Creatinine Ratio 33.8 (10-20); Calcium 9.1 mg/dl (8.6-10.3); Est GFR (African American) 93.8 ml/min; Est GFR (Non-African American) 80.9 ml/min; Potassium 4.1 mmol/L (3.5-5.1)
--- NOTE | 2023-07-18 11:41 | Pulmonology Progress Note ---
Date of Service July 18, 2023 Assessment & Plan (1) Acute and chronic respiratory failure with hypoxia: (2) PATEL (dyspnea on exertion): (3) Chronic steroid use: (4) Pulmonary HTN: (5) BONITA (obstructive sleep apnea): (6) Pulmonary arterial hypertension: (7) COPD with emphysema: Emphysema type: panlobular Qualified Code(s): J43.1 - Panlobular emphysema Plan Chest x-ray 07/15/2023 personally reviewed: Portable film, good inspiratory effort, bilateral costophrenic and cardiophrenic intersecting, no clear lung infiltrate appreciated Spirometry 06/16/2023 personally reviewed: Moderate obstructive lung dysfunction, insignificant bronchodilator response (Decrease in FVC by 440 mL, decrease in FEV1 by 180 mL compared to 01/31) FVC 2.26 L 76%, FEV1 1.18 L 52%, FEV1/FVC 52% 2D echo 07/17/2023: EF 60-65%, mildly dilated RV, RVSP 51 mmHg -- Acute on chronic hypoxic respiratory failure Multifactorial Pulmonary hypertension which is a combination of 1, 2 and 3 On 6 L nasal cannula at rest with 8 L on exertion BNP 147 Procalcitonin negative, influenza A/B, RSV negative --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 Azithromycin 250 mg Olrtuh-Unhvzufex-Ihagwm, QTc 469 on 07/15/2023 at home Usually on chronic prednisone 10 mg every other day Spirometry 06/16/2023 personally reviewed: Moderate obstructive lung dysfunction, insignificant bronchodilator response (Decrease in FVC by 440 mL, decrease in FEV1 by 180 mL compared to 01/31) FVC 2.26 L 76%, FEV1 1.18 L 52%, FEV1/FVC 52% --Pulmonary hypertension Combination of type I, type II and type III Type I likely from underlying scleroderma Patient has been on sildenafil from the equine breeder Continue with macitentan as well as sildenafil. Will consider adding selexipag as an outpatient Right heart cath 01/22/2022: RA 12/ 7 RV 53/2 12 PA 55/23 35 PCWP / 11 PVR 4.6 Quintanilla units, normal thermodilution cardiac index 2D echo 02/03/2023: EF 55 to 60%, normal RV size and function, moderate to severe pulmonary hypertension with PASP 55-60 mmHg 2D echo 07/17/2023: EF 60-65%, mildly dilated RV, RVSP 51 mmHg --Pulmonary nodule Left upper lobe 5 mm Has been stable CTA chest 01/03/2023 personally reviewed: Severe centrilobular and paraseptal emphysema appreciated bilaterally Motion degraded study, Edac cannot be ruled out Left upper lobe peripheral pulmonary nodule (Stable) No significant mediastinal lymphadenopathy --BONITA On CPAP of 9 cm H2O at home --Scleroderma Following up with rheumatology Plan: 2D echo 07/17/2023 still shows moderately elevated right-sided systolic pressures of 51 mmHg. I will consider selexipag as an outpatient. Decrease Solu-Medrol to 40 mg on a daily basis Continue with inhalers. Complete the course of doxycycline for 5 days Continue with home dose Lasix Continue with CPAP as needed shortness of breath and nightly Recommend out of the bed to chair, case was discussed with RN at bedside Please note the above document was generated using voice recognition software. It may contain grammatical, syntax or spelling errors.Any formal questions or concerns about the content, text or information contained within the body of this dictation should be directly addressed to the provider for clarification. Admission and Anticipated Discharge Date Admission Date: July 15, 2023 Subjective Patient seen and examined at bedside. No acute distress, no adverse events overnight She was saturating 93-94% on 10 L nasal cannula Overall she stated that she is feeling better. She was little bit anxious when she woke up. Nurse was at bedside stated that she was 100% when she entered the room on 10 L but when she woke up she desaturated to 90-92% No nausea or vomiting. Fair appetite Urinating well Review of Systems 2 Review of Systems: All systems reviewed & are unremarkable except as noted in Subjective Physical Exam 2 Physical Exam: Constitutional: No acute distress HEENT: EOMI, PERRLA Respiratory system: Decreased air entry bilaterally, no wheeze, no rhonchi, positive crackles bilateral lower lobes CVS: S1-S2 positive, no murmurs or gallops, distant heart sounds Abdomen: Soft, nontender, nondistended, positive bowel sounds x4 Extremities: +2 pulses bilaterally radialis/DP, no cyanosis, no edema Neuro: Awake alert oriented x3 Psych: Normal mood and affect G/U: No Bailey Skin: no rashes, warm and dry Lymphatic: no cervical or axillary lymphadenopathy Results & Data Results & Data Vital Signs (Past 12 Hours) Vital Signs Temp Pulse Resp BP Pulse Ox O2 Del Method O2 Flow Rate 07/18/23 10:49 104 H 22 98 Nasal Cannula 9 07/18/23 07:26 36.8 C 106 H 19 125/80 91 High Flow Nasal Cannula 07/18/23 07:07 98 H 22 98 High Flow Nasal Cannula 40 07/18/23 07:06 93 H 22 98 High Flow Nasal Cannula 40 07/18/23 03:27 36.5 C 92 H 18 139/82 96 High Flow Nasal Cannula 07/18/23 02:58 94 H 22 94 High Flow Nasal Cannula 40 FiO2 07/18/23 10:49 07/18/23 07:26 07/18/23 07:07 50 07/18/23 07:06 50 07/18/23 03:27 07/18/23 02:58 50 Laboratory Results 07/16/23 08:53 07/18/23 05:35 PG Care Time/CCT Total # of Minutes Spent Total Time Spent with Patient: Total time spent is greater than 50% in coordination of care (as documented) at patient's floor/unit and/or counseling patient: Coding Level of Care Code 07085 SUB INP/OBS CARE 2/35MIN Diagnoses Acute and chronic respiratory failure with hypoxia J96.21 PATEL (dyspnea on exertion) R06.09 Chronic steroid use Pulmonary HTN I27.20 BONITA (obstructive sleep apnea) G47.33 Pulmonary arterial hypertension I27.21 COPD with emphysema J43.1 Emphysema type: panlobular
[2023-07-18] MEDS: MAGNESIUM SULFATE / D5W 1 GM/100 ML BAG IV ONE (13:39)
[2023-07-18 14:42] LABS: Magnesium 2.1 mg/dl (1.7-2.4)
--- NOTE | 2023-07-18 16:10 | Hospitalist Progress Note ---
Date of Service July 18, 2023 Assessment & Plan (1) Acute and chronic respiratory failure with hypoxia: Plan: 73 yo female with history of ILD, BONITA, severe COPD, BONITA and PH presenting with 3 weeks of progressive shortness of breath. Patient hypoxic on arrival - presen tly doing well on HFNC. This is most likely multifactorial Severe COPD, pulmonary hypertension playing roles Front Desk Admin involved Switched from azithromycin to doxycycline Echocardiogram showed no significant changes Pulmonology recommends continuing with Solu-Medrol (reduce the frequency), inhalers, course of doxycycline Continue home dose of Lasix Per branch manager who knows the patient from the outpatient world, patient had seen palliative care before. Although I could not find a note in her chart. I will address the CODE STATUS tomorrow. Per the branch manager, he believes that she was a DNR. But full code is documented here. I will revisit tomorrow. (2) Rash: Plan: Patient report her rash is common for her Scleroderma flare. She gets relief with Hydroxyzine -Continue Hydroxyzine 25mg po q8hr Plan BONITA - chronic -Continue CPAP GERD - chronic -Continue Protonix Hypertension- blood pressure well controlled -Continue Amlodipine Admission and Anticipated Discharge Date Admission Date: July 15, 2023 Subjective Patient feels slightly better today. But she tells me that she gets anxious when she gets short of breath and ends up in a vicious cycle. Review of Systems Review of Systems: All systems reviewed & are unremarkable except as noted in Subjective Physical Exam Physical Exam: General: Awake, conversant. Was on nasal cannula 10 L when I saw the patient. Heart: S1, S2/regular rate and rhythm, no murmur rubs or gallops Lungs: Diminished breath sounds bilaterally. Normal effort Abdomen: Soft/nontender/nondistended. No hepatosplenomegaly Extremities: No clubbing/cyanosis. No edema Behavior: Appropriate, cooperative Results & Data Results & Data Vital Signs (Past 12 Hours) Vital Signs Temp Pulse Pulse Resp BP Pulse Ox O2 Del Method 07/18/23 15:49 36.6 C 118 H 20 124/84 92 High Flow Nasal Cannula 07/18/23 14:01 112 H 24 92 Nasal Cannula 07/18/23 11:45 36.7 C 98 H 26 H 151/83 H 93 Nasal Cannula 07/18/23 10:49 104 H 22 98 Nasal Cannula 07/18/23 07:26 36.8 C 106 H 19 125/80 91 High Flow Nasal Cannula 07/18/23 07:07 98 H 22 98 High Flow Nasal Cannula 07/18/23 07:06 93 H 22 98 High Flow Nasal Cannula O2 Flow Rate FiO2 07/18/23 15:49 07/18/23 14:01 7 07/18/23 11:45 07/18/23 10:49 9 07/18/23 07:26 07/18/23 07:07 40 50 07/18/23 07:06 40 50 Laboratory Results Abnormal lab results 07/18/23 Range/Units 05:35 BUN 25 H (6-23) mg/dl BUN/Creatinine Ratio 33.8 H (10-20) Glucose 206 H (70-99(Fasting)) mg/dl PG Care Time/CCT Total # of Minutes Spent Total Time Spent with Patient: Total time spent is greater than 50% in coordination of care (as documented) at patient's floor/unit and/or counseling patient: Coding Level of Care Code 85200 SUB INP/OBS CARE 2/35MIN Diagnoses Acute and chronic respiratory failure with hypoxia J96.21 Rash R21
--- NOTE | 2023-07-19 00:03 | Ultrasound Report ---
Exam(s): US VENOUS BILATERAL LOWER EXTREMITIES EXAM: US Duplex Bilateral Lower Extremities Veins CLINICAL HISTORY: Reason for exam: ?DVT. TECHNIQUE: Real-time duplex ultrasound scan of the bilateral lower extremity veins integrating B-mode two-dimensional vascular structure, Doppler spectral analysis, color flow Doppler imaging and compression. COMPARISON: No relevant prior studies available. FINDINGS: Right deep veins: Unremarkable. No DVT in the right common femoral, femoral, proximal deep femoral or popliteal veins. The veins demonstrate normal color flow, are normally compressible, with normal phasic flow and/or augmentation response. Right superficial veins: Unremarkable. No thrombus in the visualized right great saphenous vein. Left deep veins: Unremarkable. No DVT in the left common femoral, femoral, proximal deep femoral or popliteal veins. The veins demonstrate normal color flow, are normally compressible, with normal phasic flow and/or augmentation response. Left superficial veins: Unremarkable. No thrombus in the visualized left great saphenous vein. Soft tissues: No acute findings. No popliteal cyst. IMPRESSION: Normal bilateral lower extremity duplex venous ultrasound. Electronically signed by: Sabino Skelton MD 07/19/23 00:02 AM
[2023-07-19] MEDS: ENOXAPARIN INJ 40 MG/0.4 ML SYR SQ ONE (00:34)
--- NOTE | 2023-07-19 06:36 | Electrocardiogram Report ---
Test Reason : Blood Pressure : / mmHG Vent. Rate : 095 BPM Atrial Rate : 095 BPM P-R Int : 184 ms QRS Dur : 086 ms QT Int : 374 ms P-R-T Axes : 100 -35 053 degrees QTc Int : 469 ms Sinus rhythm with frequent Premature ventricular complexes in a pattern of bigeminy Left axis deviation Cannot rule out Inferior infarct (cited on or before 03-JAN-2023) Abnormal ECG When compared with ECG of 31-JAN-2023 16:47, Minimal criteria for Anterior infarct are no longer Present Confirmed by Jarred Flynn ([id number]) on 07/19/2023 6:35:30 AM Referred By: REFERRED SELF Confirmed By:Jarred Flynn
--- NOTE | 2023-07-19 07:08 | Electrocardiogram Report ---
Test Reason : Blood Pressure : / mmHG Vent. Rate : 126 BPM Atrial Rate : 126 BPM P-R Int : 162 ms QRS Dur : 096 ms QT Int : 294 ms P-R-T Axes : 064 -40 082 degrees QTc Int : 425 ms Poor data quality, interpretation may be adversely affected Sinus tachycardia with occasional Premature ventricular complexes and Fusion complexes Left axis deviation Abnormal ECG When compared with ECG of 15-JUL-2023 17:22, (unconfirmed) Fusion complexes are now Present Criteria for Inferior infarct are no longer Present ST no longer depressed in Anterior leads Nonspecific T wave abnormality now evident in Lateral leads Confirmed by Rao Redmond ([id number]) on 07/19/2023 7:08:08 AM Referred By: REFERRED SELF Confirmed By:Miguelito Redmond
[2023-07-19 08:03] LABS: BUN Creatinine Ratio 39.7 (10-20); Calcium 8.9 mg/dl (8.6-10.3); Est GFR (African American) 103.9 ml/min; Est GFR (Non-African American) 89.6 ml/min; Potassium 4.2 mmol/L (3.5-5.1)
[2023-07-19] MEDS: methylPREDNISolone 40 MG in SYRINGE 0 ML IV SCH (08:08)
[2023-07-19] MEDS ORDERED: ENOXAPARIN INJ 40 MG/0.4 ML SYR SQ SCH (09:00)
--- NOTE | 2023-07-19 10:19 | Pulmonology Progress Note ---
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 Qualified Code(s): J43.1 - Panlobular emphysema Plan Chest x-ray 07/15/2023 personally reviewed: Portable film, good inspiratory effort, bilateral costophrenic and cardiophrenic intersecting, no clear lung infiltrate appreciated Spirometry 06/16/2023 personally reviewed: Moderate obstructive lung dysfunction, insignificant bronchodilator response (Decrease in FVC by 440 mL, decrease in FEV1 by 180 mL compared to 01/31) FVC 2.26 L 76%, FEV1 1.18 L 52%, FEV1/FVC 52% 2D echo 07/17/2023: EF 60-65%, mildly dilated RV, RVSP 51 mmHg -- Acute on chronic hypoxic respiratory failure Multifactorial Pulmonary hypertension which is a combination of 1, 2 and 3 On 6 L nasal cannula at rest with 8 L on exertion BNP 147 Procalcitonin negative, influenza A/B, RSV negative --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 Azithromycin 250 mg Iwgdoq-Htmdgyxua-Ekovcm, QTc 469 on 07/15/2023 at home Usually on chronic prednisone 10 mg every other day Spirometry 06/16/2023 personally reviewed: Moderate obstructive lung dysfunction, insignificant bronchodilator response (Decrease in FVC by 440 mL, decrease in FEV1 by 180 mL compared to 01/31) FVC 2.26 L 76%, FEV1 1.18 L 52%, FEV1/FVC 52% --Pulmonary hypertension Combination of type I, type II and type III Type I likely from underlying scleroderma Patient has been on sildenafil from the vascular ultrasound technologist Continue with macitentan as well as sildenafil. Will consider adding selexipag as an outpatient Right heart cath 01/22/2022: RA 12/ 7 RV 53/2 12 PA 55/23 35 PCWP / 11 PVR 4.6 Quintanilla units, normal thermodilution cardiac index 2D echo 07/17/2023: EF 60-65%, mildly dilated RV, RVSP 51 mmHg 2D echo 02/03/2023: EF 55 to 60%, normal RV size and function, moderate to severe pulmonary hypertension with PASP 55-60 mmHg --Pulmonary nodule Left upper lobe 5 mm Has been stable CTA chest 01/03/2023 personally reviewed: Severe centrilobular and paraseptal emphysema appreciated bilaterally Motion degraded study, Edac cannot be ruled out Left upper lobe peripheral pulmonary nodule (Stable) No significant mediastinal lymphadenopathy --BONITA On CPAP of 9 cm H2O at home --Scleroderma Following up with rheumatology Plan: 2D echo 07/17/2023 still shows moderately elevated right-sided systolic pressures of 51 mmHg. I will consider selexipag as an outpatient. Transition to p.o. prednisone as of tomorrow Continue with inhalers. Complete the course of doxycycline for 5 days Continue with home dose Lasix Continue with CPAP as needed shortness of breath and nightly Recommend out of the bed to chair, case was discussed with RN at bedside Please note the above document was generated using voice recognition software. It may contain grammatical, syntax or spelling errors.Any formal questions or concerns about the content, text or information contained within the body of this dictation should be directly addressed to the provider for clarification. Admission and Anticipated Discharge Date Admission Date: July 15, 2023 Subjective Patient seen and examined at bedside. No acute distress, no adverse events overnight She was saturating 97% on 10 L oxygen, I went down to 7 L Overall she stated she is feeling better compared to yesterday Breathing is improved Denies any chest pain Used her CPAP overnight. Review of Systems 2 Review of Systems: All systems reviewed & are unremarkable except as noted in Subjective Physical Exam 2 Physical Exam: Constitutional: No acute distress HEENT: EOMI, PERRLA Respiratory system: Decreased air entry bilaterally, no wheeze, no rhonchi, positive crackles bilateral lower lobes CVS: S1-S2 positive, no murmurs or gallops, distant heart sounds Abdomen: Soft, nontender, nondistended, positive bowel sounds x4 Extremities: +2 pulses bilaterally radialis/DP, no cyanosis, no edema Neuro: Awake alert oriented x3 Psych: Normal mood and affect G/U: No Bailey Skin: no rashes, warm and dry Lymphatic: no cervical or axillary lymphadenopathy Results & Data Results & Data Vital Signs (Past 12 Hours) Vital Signs Temp Pulse Pulse Resp BP Pulse Ox Pulse Ox 07/19/23 07:35 108 H 24 94 07/19/23 07:04 36.7 C 101 H 20 139/74 96 07/19/23 03:32 107 H 19 97 07/19/23 03:19 36.7 C 109 H 20 127/69 96 07/18/23 23:00 96 07/18/23 23:00 93 07/18/23 22:52 07/18/23 22:41 124 H O2 Del Method O2 Del Method O2 Flow Rate O2 Flow Rate 07/19/23 07:35 Nasal Cannula 10 07/19/23 07:04 CPAP 07/19/23 03:32 CPAP 8 07/19/23 03:19 CPAP 07/18/23 23:00 CPAP 9 07/18/23 23:00 CPAP 7 07/18/23 22:52 CPAP, High Flow Nasal Cannula 9 07/18/23 22:41 Laboratory Results 07/16/23 08:53 07/19/23 06:40 PG Care Time/CCT Total # of Minutes Spent Total Time Spent with Patient: Total time spent is greater than 50% in coordination of care (as documented) at patient's floor/unit and/or counseling patient: Coding Level of Care Code 73108 SUB INP/OBS CARE 2MIN Diagnoses Acute and chronic respiratory failure with hypoxia J96.21 PATEL (dyspnea on exertion) R06.09 Chronic steroid use Pulmonary HTN I27.20 BONITA (obstructive sleep apnea) G47.33 Pulmonary arterial hypertension I27.21 COPD with emphysema J43.1 Emphysema type: panlobular
--- NOTE | 2023-07-19 14:01 | Hospitalist Progress Note ---
Date of Service July 19, 2023 Assessment & Plan (1) Acute and chronic respiratory failure with hypoxia: Plan: 73 yo female with history of ILD, BONITA, severe COPD, BONITA and PH presenting with 3 weeks of progressive shortness of breath. Patient hypoxic on arrival - presen tly doing well on HFNC. This is most likely multifactorial Severe COPD, pulmonary hypertension playing roles Heel Stainer involved Switched from azithromycin to doxycycline Echocardiogram showed no significant changes Pulmonology recommends continuing with Solu-Medrol (reduce the frequency), inhalers, course of doxycycline Continue home dose of Lasix CODE STATUS revisited today. Patient confirmed DNR/DNI status. Order changed accordingly (2) Rash: Plan: Patient report her rash is common for her Scleroderma flare. She gets relief with Hydroxyzine -Continue Hydroxyzine 25mg po q8hr Plan BONITA - chronic -Continue CPAP GERD - chronic -Continue Protonix Hypertension- blood pressure well controlled -Continue Amlodipine CODE STATUS: DNR/DNI Admission and Anticipated Discharge Date Admission Date: July 15, 2023 Subjective Patient says that she is feeling slightly better overall. I spoke to her about CODE STATUS and she stated that she had decided on DNR/DNI earlier and would like to continue that. She understands that she has a progressive disease. Review of Systems Review of Systems: All systems reviewed & are unremarkable except as noted in Subjective Physical Exam Physical Exam: General: Awake, conversant. Was on nasal cannula 7 L when I saw the patient. Heart: S1, S2/regular rate and rhythm, no murmur rubs or gallops Lungs: Diminished breath sounds bilaterally. Normal effort Abdomen: Soft/nontender/nondistended. No hepatosplenomegaly Extremities: No clubbing/cyanosis. No edema Behavior: Appropriate, cooperative Results & Data Results & Data Vital Signs (Past 12 Hours) Vital Signs Temp Pulse Resp BP Pulse Ox O2 Del Method O2 Flow Rate 07/19/23 11:11 114 H 26 H 93 Nasal Cannula 10 07/19/23 11:03 36.7 C 108 H 20 124/78 93 High Flow Nasal Cannula 10 07/19/23 07:35 108 H 24 94 Nasal Cannula 10 07/19/23 07:04 36.7 C 101 H 20 139/74 96 CPAP 07/19/23 03:32 107 H 19 97 CPAP 8 07/19/23 03:19 36.7 C 109 H 20 127/69 96 CPAP Laboratory Results Abnormal lab results 07/18/23 07/19/23 Range/Units 05:35 06:40 BUN 25 H 25 H (6-23) mg/dl BUN/Creatinine Ratio 33.8 H 39.7 H (10-20) Glucose 206 H 208 H (70-99(Fasting)) mg/dl PG Care Time/CCT Total # of Minutes Spent Total Time Spent with Patient: Total time spent is greater than 50% in coordination of care (as documented) at patient's floor/unit and/or counseling patient: Coding Level of Care Code 44833 SUB INP/OBS CARE 2/35MIN Diagnoses Acute and chronic respiratory failure with hypoxia J96.21 Rash R21
[2023-07-19] MEDS: ENOXAPARIN INJ 40 MG/0.4 ML SYR SQ SCH (20:02)
[2023-07-20] MEDS: MAGNESIUM SULFATE / D5W 1 GM/100 ML BAG IV ONE (03:03)
[2023-07-20 07:00] LABS: Basophils # (auto) 0.03 K/uL (0.00-0.20); Basophils % (auto) 0.2 %; Eosinophils % (auto) 0.7 %; Hematocrit (blood only) 39.3 % (37.0-47.0); Hemoglobin 12.7 g/dl (12.0-16.0); Immature Granulocytes % (auto) 2.2 %; Lymphocytes # (auto) 2.34 K/uL (1.20-3.40); Lymphocytes % (auto) 17.5 %; Mean Corpuscular Hemoglobin 29.6 pg (25.0-34.0); Mean Corpuscular Hgb Conc 32.3 g/dL (32.0-36.0); Mean Corpuscular Volume 91.6 fL (80.0-100.0); Mean Platelet Volume 9.8 fL (9.4-12.4); Monocytes # (auto) 1.06 K/uL (0.11-0.59); Monocytes % (auto) 7.9 %; Neutrophils # (auto) 9.52 K/uL (1.40-6.50); Neutrophils % (auto) 71.5 %; Nucleated RBC # (auto) 0.03 K/uL (0.00-0.12); Nucleated RBC % (auto) 0.2 %; Platelet Count 333 K/uL (130-400); RDW Coefficient of Variation 15.4 % (11.5-14.5); RDW Standard Deviation 51.7 fL (36.4-46.3); Red Blood Count 4.29 M/uL (4.20-5.40); White Blood Count 13.35 K/ul (4.8-10.8)
[2023-07-20 07:20] LABS: BUN Creatinine Ratio 41.2 (10-20); Calcium 8.6 mg/dl (8.6-10.3); Creatinine Clr Calc Pharmacy 79.4 ml/min; Est GFR (African American) 101.3 ml/min; Est GFR (Non-African American) 87.4 ml/min; Magnesium 2.5 mg/dl (1.7-2.4); Potassium 3.7 mmol/L (3.5-5.1)
--- NOTE | 2023-07-20 07:20 | Electrocardiogram Report ---
Test Reason : Blood Pressure : / mmHG Vent. Rate : 150 BPM Atrial Rate : 129 BPM P-R Int : 164 ms QRS Dur : 090 ms QT Int : 310 ms P-R-T Axes : 070 -47 063 degrees QTc Int : 489 ms Sinus tachycardia with Premature atrial complexes Left axis deviation Low voltage QRS Inferior infarct , age undetermined Possible Anterolateral infarct , age undetermined Abnormal ECG When compared with ECG of 18-JUL-2023 22:06, Significant changes have occurred Confirmed by Rao Redmond ([id number]) on 07/20/2023 7:19:59 AM Referred By: REFERRED SELF Confirmed By:Miguelito Redmond
[2023-07-20] MEDS: predniSONE 20 MG TAB PO SCH (08:08)
--- NOTE | 2023-07-20 10:44 | Pulmonology Progress Note ---
Date of Service July 20, 2023 Assessment & Plan (1) Acute and chronic respiratory failure with hypoxia: (2) PATEL (dyspnea on exertion): (3) Chronic steroid use: (4) Pulmonary HTN: (5) BONITA (obstructive sleep apnea): (6) Pulmonary arterial hypertension: (7) COPD with emphysema: Emphysema type: panlobular Qualified Code(s): J43.1 - Panlobular emphysema Plan Chest x-ray 07/15/2023 personally reviewed: Portable film, good inspiratory effort, bilateral costophrenic and cardiophrenic intersecting, no clear lung infiltrate appreciated Spirometry 06/16/2023 personally reviewed: Moderate obstructive lung dysfunction, insignificant bronchodilator response (Decrease in FVC by 440 mL, decrease in FEV1 by 180 mL compared to 01/31) FVC 2.26 L 76%, FEV1 1.18 L 52%, FEV1/FVC 52% 2D echo 07/17/2023: EF 60-65%, mildly dilated RV, RVSP 51 mmHg -- Acute on chronic hypoxic respiratory failure Multifactorial Pulmonary hypertension which is a combination of 1, 2 and 3 On 6 L nasal cannula at rest with 8 L on exertion BNP 147 Procalcitonin negative, influenza A/B, RSV negative --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 Will consider adding selexipag as an outpatient Right heart cath 01/22/2022: RA 12/ 7 RV 53/2 12 PA 55/23 35 PCWP / 11 PVR 4.6 [place] units, normal thermodilution cardiac index 2D echo 07/17/2023: EF 60-65%, mildly dilated RV, RVSP 51 mmHg 2D echo 02/03/2023: EF 55 to 60%, normal RV size and function, moderate to severe pulmonary hypertension with PASP 55-60 mmHg --Pulmonary nodule Left upper lobe 5 mm Has been stable CTA chest 01/03/2023 personally reviewed: Severe centrilobular and paraseptal emphysema appreciated bilaterally Motion degraded study, Edac cannot be ruled out Left upper lobe peripheral pulmonary nodule (Stable) No significant mediastinal lymphadenopathy --BONITA On CPAP of 9 cm H2O at home --Scleroderma Following up with rheumatology Plan: 2D echo 07/17/2023 still shows moderately elevated right-sided systolic pressures of 51 mmHg. I will consider selexipag as an outpatient. Prednisone 40 mg p.o. for 4 days followed by 20 mg for 4 days followed by 10 mg on a daily basis. Patient usually takes 10 mg prednisone every other day. She has a feeling that she feels better when she takes it on a daily basis. Risk of taking prednisone on a daily basis explained. Continue with inhalers. Complete the course of doxycycline for 5 days Continue with home dose Lasix Continue with CPAP as needed shortness of breath and nightly Recommend out of the bed to chair, case was discussed with RN at bedside No further recommendation from pulmonary perspective, will sign off Please call directly with any questions Please note the above document was generated using voice recognition software. It may contain grammatical, syntax or spelling errors.Any formal questions or concerns about the content, text or information contained within the body of this dictation should be directly addressed to the provider for clarification. Admission and Anticipated Discharge Date Admission Date: July 15, 2023 Subjective Patient seen and examined at bedside. No acute distress, no AutoSense overnight She was saturating 94-95% on 10 L nasal cannula. Her oxygen does fluctuate. She says she is feeling little bit better compared to when she was at home. Appetite is fair. No nausea vomiting No headache, no blurry vision No fever or chills Review of Systems 2 Review of Systems: All systems reviewed & are unremarkable except as noted in Subjective Physical Exam 2 Physical Exam: Constitutional: No acute distress HEENT: EOMI, PERRLA Respiratory system: Decreased air entry bilaterally, no wheeze, no rhonchi, positive crackles bilateral lower lobes CVS: S1-S2 positive, no murmurs or gallops, distant heart sounds Abdomen: Soft, nontender, nondistended, positive bowel sounds x4 Extremities: +2 pulses bilaterally radialis/DP, no cyanosis, no edema Neuro: Awake alert oriented x3 Psych: Normal mood and affect G/U: No Bailey Skin: no rashes, warm and dry Lymphatic: no cervical or axillary lymphadenopathy Results & Data Results & Data Vital Signs (Past 12 Hours) Vital Signs Temp Pulse Resp BP Pulse Ox O2 Del Method O2 Flow Rate 07/20/23 07:40 36.3 C L 94 H 20 118/67 94 CPAP 07/20/23 07:21 100 H 22 90 CPAP 6 07/20/23 03:19 108 H 16 96 CPAP 5 07/20/23 03:11 37.1 C 112 H 18 142/70 H 100 CPAP 07/19/23 23:17 CPAP 8 Laboratory Results 07/20/23 06:38 07/20/23 06:38 PG Care Time/CCT Total # of Minutes Spent Total Time Spent with Patient: Total time spent is greater than 50% in coordination of care (as documented) at patient's floor/unit and/or counseling patient: Coding Level of Care Code 06637 SUB INP/OBS CARE 2/35MIN Diagnoses Acute and chronic respiratory failure with hypoxia J96.21 PATEL (dyspnea on exertion) R06.09 Chronic steroid use Pulmonary HTN I27.20 BONITA (obstructive sleep apnea) G47.33 Pulmonary arterial hypertension I27.21 COPD with emphysema J43.1 Emphysema type: panlobular
--- NOTE | 2023-07-20 12:40 | Hospitalist Progress Note ---
Date of Service July 20, 2023 Assessment & Plan (1) Acute and chronic respiratory failure with hypoxia: Plan: 73 yo female with history of ILD, BONITA, severe COPD, BONITA and PH presenting with 3 weeks of progressive shortness of breath. Patient hypoxic on arrival - presen tly doing well on HFNC. This is most likely multifactorial Severe COPD, pulmonary hypertension playing roles Family Partner involved Switched from azithromycin to doxycycline. End date 07/20 Echocardiogram showed no significant changes Pulmonology recommended switching from IV Solu-Medrol to prednisone today. Order placed. Continue inhalers. Continue home dose of Lasix PT/OT consulted Mobilize patient. Out of bed. CODE STATUS revisited 07/18. Patient confirmed DNR/DNI status. Order changed accordingly (2) Rash: Plan: Patient report her rash is common for her Scleroderma flare. She gets relief with Hydroxyzine -Continue Hydroxyzine 25mg po q8hr Plan BONITA - chronic -Continue CPAP GERD - chronic -Continue Protonix Hypertension- blood pressure well controlled -Continue Amlodipine CODE STATUS: DNR/DNI Admission and Anticipated Discharge Date Admission Date: July 15, 2023 Subjective Per nurse, patient had issues with anxiety last night. Currently on 9 L of oxygen. Review of Systems Review of Systems: All systems reviewed & are unremarkable except as noted in Subjective Physical Exam Physical Exam: General: Awake, conversant. Was on nasal cannula 8 L when I saw the patient. Anxious appearing Heart: S1, S2/regular rate and rhythm, no murmur rubs or gallops Lungs: Diminished breath sounds bilaterally. Normal effort Abdomen: Soft/nontender/nondistended. No hepatosplenomegaly Extremities: No clubbing/cyanosis. No edema Behavior: Appropriate, cooperative Results & Data Results & Data Vital Signs (Past 12 Hours) Vital Signs Temp Pulse Resp BP Pulse Ox O2 Del Method O2 Flow Rate 07/20/23 11:39 93 H 22 93 Nasal Cannula 9 07/20/23 11:36 36.3 C L 90 20 119/66 93 High Flow Nasal Cannula 9 07/20/23 11:18 High Flow Nasal Cannula 07/20/23 07:40 36.3 C L 94 H 20 118/67 94 CPAP 07/20/23 07:21 100 H 22 90 CPAP 6 07/20/23 03:19 108 H 16 96 CPAP 5 07/20/23 03:11 37.1 C 112 H 18 142/70 H 100 CPAP Laboratory Results Abnormal lab results 07/20/23 Range/Units 06:38 WBC 13.35 H (4.8-10.8) K/ul RDW Std Deviation 51.7 H (36.4-46.3) fL RDW Coeff of Mag 15.4 H (11.5-14.5) % Neut # (Auto) 9.52 H (1.40-6.50) K/uL [place] # (Auto) 1.06 H (0.11-0.59) K/uL Immature Gran # (Auto) 0.30 H (0.01-0.20) K/uL BUN 28 H (6-23) mg/dl BUN/Creatinine Ratio 41.2 H (10-20) Glucose 136 H (70-99(Fasting)) mg/dl Magnesium 2.5 H (1.7-2.4) mg/dl PG Care Time/CCT Total # of Minutes Spent Total Time Spent with Patient: Total time spent is greater than 50% in coordination of care (as documented) at patient's floor/unit and/or counseling patient: Coding Level of Care Code 06887 SUB INP/OBS CARE 2/35MIN Diagnoses Acute and chronic respiratory failure with hypoxia J96.21 Rash R21
[2023-07-20] MEDS: MoRPHine SULFATE 2 MG/ML CARP IV STA (16:50)
[2023-07-20] MEDS: dilTIAZem HCl 5 MG/ML 5 ML VIAL IV STA ×3 (17:27→18:06)
[2023-07-20] MEDS ORDERED: STAT IV Infusion **Titration per Protocol STA (18:06)
[2023-07-20] MEDS: dilTIAZem HCL 125 MG in DEXTROSE 5% 100 ML IV SCH (19:19)
[2023-07-20] MEDS ORDERED: 0.2 MICRON FILTER SET 1 EACH IV ONE ×2 (21:21→23:26)
--- NOTE | 2023-07-20 21:30 | Communication Note ---
Date of Service: July 20, 2023 Patient was started on Cardizem drip for management of elevated heart rate. Patient currently at drip rate of 15 - HR sustained 140-150's. Noted on monitor to have frequent PVCs, runs of NSVT 7-8 beats in duration. Blood pressure borderline low. -Will discontinue Cardizem drip -Initiate Amiodarone drip without bolus -Will change PRN Albuterol nebs to Xopenex for elevated HR
[2023-07-20] MEDS: AMIODARONE / D5W 360 MG/200 ML BAG IV ONE (21:34)
[2023-07-20] MEDS: LEVALBUTEROL HCL 0.63 MG/3 ML NEB NEB PRN (21:53)
[2023-07-20] MEDS: POTASSIUM CHLORIDE CRTAB 20 MEQ TABCR PO STA (23:30)
[2023-07-20] MEDS: AMIODARONE / D5W 150 MG/100 ML BAG IV STA (23:39)
[2023-07-21] MEDS: POTASSIUM CHLORIDE CRTAB 20 MEQ TABCR PO STA (03:20)
[2023-07-21] MEDS: AMIODARONE / D5W 360 MG/200 ML BAG IV SCH (03:21)
[2023-07-21 08:08] LABS: BUN Creatinine Ratio 36.9 (10-20); Calcium 8.7 mg/dl (8.6-10.3); Creatinine Clr Calc Pharmacy 64.6 ml/min; Est GFR (African American) 80.5 ml/min; Est GFR (Non-African American) 69.4 ml/min; Magnesium 2.3 mg/dl (1.7-2.4); Potassium 4.8 mmol/L (3.5-5.1)
--- NOTE | 2023-07-21 14:33 | Cardiology Consultation ---
Date of Consultation July 21, 2023 Assessment & Plan (1) Atrial flutter: Plan 1 Atrial flutter: Initial telemetry suggests that the initial arrhythmia was atrial flutter. This would be consistent with her known lung disease. Ventricular rates were high. She did convert at 1 point and has maintained a sinus rhythm with frequent atrial ectopy. She does have a history of an atrial tachycardia and frequent atrial ectopy. This was seen during prior hospitalizations and and earlier in this hospitalization. Unclear if she had associated symptoms. She did report some more breathing difficulty which would be a reasonable symptom. However, she has compromised breathing at most times. It is very likely she has had some of these arrhythmias in the past, in the outpatient setting. I think continuing amiodarone for 24 hours would be reasonable. We can then convert her to oral regimen. I think suppression is probably worthwhile given the likelihood of recurrence and her other significant comorbidities. While there is the potential for lung toxicity, this is generally dose related and I think her longevity is limited by her lung disease. Given the duration of the episode and her risk factors for stroke, she would be advised to start apixaban 5 mg twice daily. 2. Wide complex tachycardia: There were some periods of wide complex tachycardia on her telemetry which do appear to be ventricular in origin. Overall rates are relatively slow suggesting this was either an idioventricular or accelerated junctional rhythm with aberrancy. Prior EKGs have revealed some left bundle branch block aberrancy. This was likely related to the changes in rate associated with her atrial arrhythmias. She has preserved LV systolic function. No sustained episodes. I do not think this requires additional treatment. History of Present Illness Reason for Consultation: Atrial fibrillation Requesting Physician: Fariba Attending Physician: Amita Link MD History of Present Illness Patient is a 73-year-old woman with severe COPD who was admitted for acute on chronic respiratory insufficiency. Etiology of her decompensation is unclear. However, last evening she did develop an episode of high heart rates consistent with atrial flutter. After several hours her rhythm converted back to normal. During this time frame the patient was unaware of an elevated heart rate, but did report some worsening dyspnea. No associated chest pain. She did not have dizziness or lightheadedness but has not really been ambulatory or out of bed either. She has not reported significant palpitations or high heart rates in the outpatient setting. She does not check her heart rate regularly. She does have a pulse oximeter but this is difficulty picking up her pulse due to her scleroderma. She has difficulty with activity at home due to chronic dyspnea. She is on supplemental oxygen at all times. She cannot recall a diagnosis of atrial fibrillation previously. Currently she reports some mild improvement in her breathing difficulty. She has had some gradual improvement since admission. Allergies Allergy/AdvReac Type Severity Reaction Status Date / Time ferric carboxymaltose Allergy Severe SOB, Verified 07/15/23 18:44 [From Injectafer] tachycardia Home Medications Medication Instructions Recorded Confirmed Type Oxygen Home #1 ea 09/03/22 07/15/23 History amlodipine 10 mg tablet 10 mg PO QAM 09/03/22 07/15/23 History sildenafil (pulm.hypertension) 20 20 mg PO Q8H 09/03/22 07/15/23 History mg tablet guaifenesin 600 mg tablet, 600 mg PO BID 12/17/22 07/15/23 History extended release 12 hr (Mucinex) Portable Oxygen #1 ea 02/10/23 07/15/23 Rx Advair HFA 230 mcg-21 2 puff inhalation BID #12 grams 02/14/23 07/15/23 Rx mcg/actuation aerosol inhaler (fluticasone propion-salmeterol) albuterol sulfate 90 mcg/actuation 2 puff inhalation QID PRN 02/14/23 07/15/23 Rx aerosol inhaler (Ventolin HFA) Shortness Of Breath #18 grams azithromycin 250 mg tablet 250 mg PO 3XWK #36 tabs 02/14/23 07/15/23 Rx ipratropium 0.5 mg-albuterol 3 mg 3 ml inhalation Q8H PRN COPD- DX 02/14/23 07/15/23 Rx (2.5 mg base)/3 mL nebulization J44.9 J43.9 J45.909 #180 mL soln bisoprolol 10 1 tab PO DAILY #90 tabs 04/07/23 07/15/23 Rx mg-hydrochlorothiazide 6.25 mg tablet duloxetine 60 mg capsule,delayed 60 mg PO QAM #90 caps 04/21/23 07/15/23 Rx release acetaminophen 500 mg tablet 1,000 mg PO DIRECTED PRN pain 05/21/23 07/15/23 History (Acetaminophen Extra Strength) bupropion HCl 100 mg tablet,12 hr 100 mg PO BID #180 ea 05/21/23 07/15/23 Rx sustained-release (Wellbutrin SR) cholecalciferol (vitamin D3) 50 50 mcg PO DAILY 05/21/23 07/15/23 History mcg (2,000 unit) tablet cyanocobalamin (vitamin B-12) See Rx Instructions IM .EVERY 6 05/21/23 07/15/23 History 1,000 mcg/mL injection solution WEEKS Spacer for Inhaler #1 ea 06/16/23 07/15/23 Rx tiotropium bromide 18 mcg capsule 1 cap inhalation QAM #90 06/16/23 07/15/23 Rx with inhalation device (Spiriva inhalations with HandiHaler) CPAP Machine #1 ea 06/23/23 07/15/23 Rx pantoprazole 40 mg tablet,delayed 40 mg PO BID #180 tabs 06/23/23 07/15/23 Rx release oxycodone 5 mg tablet 5 mg PO Q6H PRN pain #20 tabs 07/01/23 07/15/23 Rx gabapentin 300 mg capsule 300 mg PO HS #90 caps 07/14/23 07/15/23 Rx blood-glucose meter (OneTouch #1 ea 07/15/23 07/15/23 History Verio Flex Meter) furosemide 20 mg tablet 20 mg PO DAILY #45 tabs 07/15/23 07/15/23 Rx hydroxyzine HCl 25 mg tablet 25 mg PO Q8H #90 tabs 07/15/23 07/15/23 Rx macitentan 10 mg tablet 10 mg PO .DAILY @ 1400 07/15/23 07/15/23 History prednisone 10 mg tablet 10 mg PO Q OTHER DAY 07/15/23 07/15/23 History Patient History Medical History Interstitial lung disease NSVT (nonsustained ventricular tachycardia) B12 deficiency Pneumonia due to COVID-19 virus Multiple pulmonary nodules determined by computed tomography of lung Raynaud's disease Osteoarthritis On home oxygen therapy 4lpm via n/c continuous Hypertension Prediabetes monitoring Depression Scleroderma Obstructive sleep apnea cpap GAVE (gastric antral vascular ectasia) Gastroenterology in [facility]. Dr. Marinelli Right lower lobe pneumonia COPD (chronic obstructive pulmonary disease) Surgical History History of cataract extraction (09/30/19) Both eyes H/O cataract extraction (09/2019) b/l eyes History of cystoscopy Hx of lumpectomy Left (-) History of dilatation and curettage History of bilateral tubal ligation History of esophagogastroduodenoscopy (EGD) H/O tooth extraction History of tonsillectomy H/O laminectomy Lumbar area History of colonoscopy History of bladder surgery bladder tack History of cholecystectomy Open Family History Mother , age 73 Stroke Father , age 71 Lung cancer Sister Non Hodgkin's lymphoma Lupus Denies family history of Ovarian cancer Prostate cancer Myocardial infarction Breast cancer Colorectal cancer Social History Smoking Status: Former smoker Tobacco Type: Cigarettes Age Quit Using Tobacco: 59; Cigarettes Per Day: 40; Second Hand Exposure: No; Do You Dip or Chew Tobacco: No; Hx Alcohol Use: No Hx Substance Use: No Preferred Language: [place] Communication Ability: Effective Visual Impairment: Limited Hearing Ability: Normal Tube Puller Required: No Beliefs That Will Affect Care: None marital status: Current Living Situation: Spouse current occupational status: retired 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 ; 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 How many Children do You have: 2 Other Information That Helps Us Care for You: No Feels Safe at Home: Yes Safety Concerns: Feels Safe At This Time Childhood Exposure to Second-Hand Smoke: Yes Diet: regular Diet Comment: Regular caffeine: Yes during the past year weight has: remained stable Dental Care, Regularly: Yes Physical Activity Frequency: Does not Exercise Seatbelt Use: always Sunscreen Use: Yes Assistive Devices: Bedside Commode, Oxygen - Continuous, Stair Lift, Walker and Wheelchair Review of Systems Review of Systems: Per HPI Physical Exam Physical Exam: She is alert and oriented x3. Mood affect appear normal. She answered all questions appropriately. Using supplemental oxygen HEENT: Sclerae are anicteric. Pupils are equal and reactive to light and accommodation. Extraocular movements were intact. Neuro: Cranial nerves intact Chest: Left upper chest infusion port noted. Lungs: Distant breath sounds with prolonged expiratory phase. No expiratory wheezing. No rales. Cardiac: The rhythm was regular. S1 and S2 were normal. There are no murmurs on examination. The PMI was not markedly displaced on palpation. Extremities: Patient has bilateral radial pulses that are equal in intensity. There is no evidence cyanosis or clubbing. There was no evidence of significant peripheral edema bilaterally. Skin: There are no rashes noted on examination today. Results & Data Vital Signs (Past 12 Hours) Vital Signs Temp Pulse Pulse Resp BP Pulse Ox O2 Del Method 07/21/23 11:41 37 C 115 H 93 H 119/66 99 CPAP 07/21/23 10:59 106 H 20 94 Other 07/21/23 10:35 CPAP 07/21/23 08:00 36.6 C 100 H 20 134/76 94 BiPAP 07/21/23 07:30 103 H 20 90 Other 07/21/23 03:38 36.4 C L 103 H 19 123/76 90 CPAP 07/21/23 03:05 100 H 20 93 CPAP O2 Flow Rate 07/21/23 11:41 7 07/21/23 10:59 7 07/21/23 10:35 8 07/21/23 08:00 07/21/23 07:30 7 07/21/23 03:38 07/21/23 03:05 6 Laboratory Results Abnormal Lab Results 07/21/23 07:10 Sodium 137 Potassium 4.8 D Chloride 101 Carbon Dioxide 29 Anion Gap 7 BUN 31 H Creatinine 0.84 Est Cr Clr Drug Dosing 64.6 Est GFR ( Amer) 80.5 Est GFR (Non-Af Amer) 69.4 BUN/Creatinine Ratio 36.9 H Glucose 140 H Calcium 8.7 Ionized Calcium 1.13 Magnesium 2.3 Diagnostic Findings Echocardiogram dated 07/17/2023: Normal LV systolic function with ejection fraction of 60-65%. Mildly dilated right ventricle with normal function. No significant valvular heart disease. Moderate pulmonary hypertension with estimated right ventricular pressure 51 mm of mercury PG Care Time/CCT Total # of Minutes Spent Total Time Spent with Patient: Total time spent is greater than 50% in coordination of care (as documented) at patient's floor/unit and/or counseling patient: Coding Level of Care Code 47879 INT INP/OBS CARE 3/75MIN Diagnoses Atrial flutter I48.92
--- NOTE | 2023-07-21 16:33 | Hospitalist Progress Note ---
Date of Service July 21, 2023 Assessment & Plan (1) Acute and chronic respiratory failure with hypoxia: Plan: 73 yo female with history of ILD, BONITA, severe COPD, BONITA and PH presenting with 3 weeks of progressive shortness of breath. Patient hypoxic on arrival - prese ntly doing well on HFNC. 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 End date 07/20 Echocardiogram showed no significant changes Pulmonology recommended switching from IV Solu-Medrol to prednisone today. Order placed. Continue inhalers. Continue home dose of Lasix PT/OT consulted Mobilize patient. Out of bed. CODE STATUS revisited 07/18. Patient confirmed DNR/DNI status. Order changed accordingly (2) Rash: Plan: Patient report her rash is common for her Scleroderma flare. She gets relief with Hydroxyzine -Continue Hydroxyzine 25mg po q8hr (3) Atrial flutter: Plan: a flutter, herat rate is better started on IV amiodarone eliquis 5 mg bid Plan BONITA - chronic -Continue CPAP GERD - chronic -Continue Protonix Hypertension- blood pressure well controlled -Continue Amlodipine CODE STATUS: DNR/DNI Admission and Anticipated Discharge Date Admission Date: July 15, 2023 Subjective Patient went to [facility] with RVR, started on Amiodarone drip, HR in 110s , feels tired, poor appetite Review of Systems Review of Systems: All systems reviewed & are unremarkable except as noted in Subjective Physical Exam Physical Exam: head atraumatic neck supple chest decreased breath sounds b/l heart tachy abdomen soft, nt nd, bs present extremities no edema Results & Data Results & Data Vital Signs (Past 12 Hours) Vital Signs Temp Pulse Pulse Resp BP Pulse Ox O2 Del Method 07/21/23 16:13 36.5 C 113 H 22 111/68 94 Nasal Cannula, High Flow Nasal Cannula 07/21/23 11:41 37 C 115 H 93 H 119/66 99 CPAP 07/21/23 10:59 106 H 20 94 Other 07/21/23 10:35 CPAP 07/21/23 08:00 36.6 C 100 H 20 134/76 94 BiPAP 07/21/23 07:30 103 H 20 90 Other O2 Flow Rate 07/21/23 16:13 10 07/21/23 11:41 7 07/21/23 10:59 7 07/21/23 10:35 8 07/21/23 08:00 07/21/23 07:30 7 PG Care Time/CCT Total # of Minutes Spent Total Time Spent with Patient: Total time spent is greater than 50% in coordination of care (as documented) at patient's floor/unit and/or counseling patient: Coding Level of Care Code 48305 SUB INP/OBS CARE 2/35MIN Diagnoses Acute and chronic respiratory failure with hypoxia J96.21 Rash R21 Atrial flutter I48.92
--- NOTE | 2023-07-21 17:35 | Electrocardiogram Report ---
Test Reason : Blood Pressure : / mmHG Vent. Rate : 114 BPM Atrial Rate : 114 BPM P-R Int : 166 ms QRS Dur : 086 ms QT Int : 338 ms P-R-T Axes : 004 108 -12 degrees QTc Int : 465 ms Sinus tachycardia with Premature atrial complexes with Aberrant conduction Rightward axis Low voltage QRS Abnormal ECG Confirmed by Rao Redmond ([id number]) on 07/21/2023 5:35:34 PM Referred By: REFERRED SELF Confirmed By:Miguelito Redmond
--- NOTE | 2023-07-21 17:42 | Electrocardiogram Report ---
Test Reason : Blood Pressure : / mmHG Vent. Rate : 158 BPM Atrial Rate : 316 BPM P-R Int : 000 ms QRS Dur : 092 ms QT Int : 298 ms P-R-T Axes : 000 -63 082 degrees QTc Int : 483 ms Atrial flutter with 2:1 A-V conduction Left axis deviation Inferior infarct (cited on or before 03-JAN-2023) Abnormal ECG When compared with ECG of 20-JUL-2023 23:44, (unconfirmed) No significant change was found Confirmed by Rao Rdemond ([id number]) on 07/21/2023 5:41:52 PM Referred By: REFERRED SELF Confirmed By:Miguelito Redmond
[2023-07-21] MEDS: APIXABAN 5 MG TABLET PO SCH (20:36)
[2023-07-22 08:14] LABS: Calcium 8.7 mg/dl (8.6-10.3); Creatinine Clr Calc Pharmacy 73.5 ml/min; Est GFR (African American) 93.8 ml/min; Est GFR (Non-African American) 80.9 ml/min; Phosphorus 4.4 mg/dl (2.5-4.9); Potassium 4.8 mmol/L (3.5-5.1)
--- NOTE | 2023-07-22 10:43 | Cardiology Progress Note ---
Date of Service July 22, 2023 Assessment & Plan (1) Atrial flutter: Plan 1 Atrial flutter: She actually has a variety of atrial arrhythmias. She had some additional episodes of atrial flutter and what appears to be multifocal atrial tachycardia this morning. She did well for some time on amiodarone and I think we will simply continue this therapy. Diltiazem has also been added which I think will help with rate control. 2. Wide complex tachycardia: I think this is likely episodes of nonsustained ventricular tachycardia. The overall rate is relatively slow. Hopefully with continued amiodarone and the addition of diltiazem will see last. I do not think there are a lot of other good options given her other comorbidities. Patient is DNR and DNI and we will simply have to try to suppress the arrhythmia. Hopefully as her clinical condition improves will see less of VT. Admission and Anticipated Discharge Date Admission Date: July 15, 2023 Subjective This morning the patient had no new complaints. She was not aware of any worsening breathing trouble earlier this morning. Gradually her breathing seems to be improving. She has not been aware of any high heart rates or palpitations. She denies dizziness or lightheadedness. No chest pain. Review of Systems Review of Systems: Per HPI Physical Exam Physical Exam: She is alert and oriented x3. Mood affect appear normal. She answered all questions appropriately. Using supplemental oxygen HEENT: Sclerae are anicteric. Pupils are equal and reactive to light and accommodation. Extraocular movements were intact. Neuro: Cranial nerves intact Chest: Left upper chest infusion port noted. Lungs: Distant breath sounds with prolonged expiratory phase. No expiratory wheezing. No rales. Cardiac: The rhythm was irregular. S1 and S2 were normal. There are no murmurs on examination. The PMI was not markedly displaced on palpation. Extremities: Patient has bilateral radial pulses that are equal in intensity. There is no evidence cyanosis or clubbing. There was no evidence of significant peripheral edema bilaterally. Skin: There are no rashes noted on examination today. Results & Data Vital Signs (Past 12 Hours) Vital Signs Temp Pulse Resp BP Pulse Ox O2 Del Method O2 Flow Rate 07/22/23 07:22 36.4 C L 97 H 22 108/65 91 CPAP 7 07/22/23 02:39 36.5 C 93 H 20 109/68 93 CPAP Laboratory Results Abnormal Lab Results 07/22/23 07:35 Sodium 138 Potassium 4.8 Chloride 103 Carbon Dioxide 31 Anion Gap 4 BUN 20 Creatinine 0.74 Est Cr Clr Drug Dosing 73.5 Est GFR ( Amer) 93.8 Est GFR (Non-Af Amer) 80.9 BUN/Creatinine Ratio 27.0 H Glucose 134 H Calcium 8.7 Phosphorus 4.4 Diagnostic Findings Echocardiogram 07/17/2023: Normal LV systolic function with ejection fraction 60-65%. Mildly dilated right ventricle. Moderate pulmonary hypertension. No significant valvular heart disease. PG Care Time/CCT Total # of Minutes Spent Total Time Spent with Patient: Total time spent is greater than 50% in coordination of care (as documented) at patient's floor/unit and/or counseling patient: Coding Level of Care Code 02118 SUB INP/OBS CARE 3/50MIN Diagnoses Atrial flutter I48.92
--- NOTE | 2023-07-22 14:26 | Hospitalist Progress Note ---
Date of Service July 22, 2023 Assessment & Plan (1) Acute and chronic respiratory failure with hypoxia: Plan: 73 yo female with history of ILD, BONITA, severe COPD, BONITA and PH presenting with 3 weeks of progressive shortness of breath. Patient hypoxic on arrival - prese ntly doing well on HFNC. This is most likely multifactorial Severe COPD, pulmonary hypertension playing roles Can Marker involved Switched from azithromycin to doxycycline. End date 07/20 Echocardiogram showed no significant changes Pulmonology recommended switching from IV Solu-Medrol to prednisone today. Order placed. Continue inhalers. Continue home dose of Lasix PT/OT consulted Mobilize patient. Out of bed. CODE STATUS revisited 07/18. Patient confirmed DNR/DNI status. Order changed accordingly (2) Rash: Plan: Patient report her rash is common for her Scleroderma flare. She gets relief with Hydroxyzine -Continue Hydroxyzine 25mg po q8hr (3) Atrial flutter: Plan: a flutter, herat rate is better started on IV amiodarone eliquis 5 mg bid start Cardizem 30 mg TID Plan BONITA - chronic -Continue CPAP GERD - chronic -Continue Protonix Hypertension- blood pressure well controlled -Continue Amlodipine CODE STATUS: DNR/DNI Admission and Anticipated Discharge Date Admission Date: July 15, 2023 Subjective This morning the patient had no new complaints. She was not aware of any worsening breathing trouble earlier this morning. Gradually her breathing seems to be improving. She has not been aware of any high heart rates or palpitations. She denies dizziness or lightheadedness. No chest pain. Her heart rate is better controlled Physical Exam Physical Exam: head atraumatic neck supple chest decreased breath sounds b/l heart tachy abdomen soft, nt nd, bs present extremities no edema Results & Data Results & Data Vital Signs (Past 12 Hours) Vital Signs Temp Pulse Resp BP Pulse Ox O2 Del Method O2 Flow Rate 07/22/23 11:06 36.6 C 105 H 20 104/60 91 Nasal Cannula 10 07/22/23 08:37 High Flow Nasal Cannula 8 07/22/23 07:22 36.4 C L 97 H 22 108/65 91 CPAP 7 07/22/23 02:39 36.5 C 93 H 20 109/68 93 CPAP PG Care Time/CCT Total # of Minutes Spent Total Time Spent with Patient: Total time spent is greater than 50% in coordination of care (as documented) at patient's floor/unit and/or counseling patient: Coding Level of Care Code 72160 SUB INP/OBS CARE 2/35MIN Diagnoses Acute and chronic respiratory failure with hypoxia J96.21 Rash R21 Atrial flutter I48.92
[2023-07-22] MEDS: dilTIAZem HCL 30 MG TAB PO SCH (15:19)
[2023-07-22] MEDS: AMIODARONE 200 MG TAB PO SCH (18:21)
--- NOTE | 2023-07-22 20:29 | Palliative Care Consultation ---
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 her goals are to make the most of time she can with family, remain at home/is willing to add hospice when medical specialists tell her there are not other meds etc to try and/or she is told she is nearing her dying time/hospice is appropriate she has no worry about hospice care 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 SHe will follow up w/me in OP Pall med clinic - we will schedule for this within 1mo of dc Thank you for allowing us to participate in the ongoing care of this patient. Please page with any additional concerns. 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 She has been on macitentan for her PH but may be switching to selexipag after dc She states she has about 5-6 'good weeks' at home after admissions before the declining cycle begins leading to another readmission Appetite fair declining QOL - selling their camper, no longer enjoys/able to safely enjoy favorite hobbies and annual traditions such as RV camping/fishing etc with grandkids is not tolerable constipation and diarrhea, makes going out of the home challenging no n/v appetite ok of 25 yr at home with pt son is nearby daughter in [place] Allergies Allergy/AdvReac Type Severity Reaction Status Date / Time ferric carboxymaltose Allergy Severe SOB, Verified 07/15/23 18:44 [From Injectafer] tachycardia Home Medications Medication Instructions Recorded Confirmed Type Oxygen Home #1 ea 09/03/22 07/15/23 History amlodipine 10 mg tablet 10 mg PO QAM 09/03/22 07/15/23 History sildenafil (pulm.hypertension) 20 20 mg PO Q8H 09/03/22 07/15/23 History mg tablet guaifenesin 600 mg tablet, 600 mg PO BID 12/17/22 07/15/23 History extended release 12 hr (Mucinex) Portable Oxygen #1 ea 02/10/23 07/15/23 Rx Advair HFA 230 mcg-21 2 puff inhalation BID #12 grams 02/14/23 07/15/23 Rx mcg/actuation aerosol inhaler (fluticasone propion-salmeterol) albuterol sulfate 90 mcg/actuation 2 puff inhalation QID PRN 02/14/23 07/15/23 Rx aerosol inhaler (Ventolin HFA) Shortness Of Breath #18 grams azithromycin 250 mg tablet 250 mg PO 3XWK #36 tabs 02/14/23 07/15/23 Rx ipratropium 0.5 mg-albuterol 3 mg 3 ml inhalation Q8H PRN COPD- DX 02/14/23 07/15/23 Rx (2.5 mg base)/3 mL nebulization J44.9 J43.9 J45.909 #180 mL soln bisoprolol 10 1 tab PO DAILY #90 tabs 04/07/23 07/15/23 Rx mg-hydrochlorothiazide 6.25 mg tablet duloxetine 60 mg capsule,delayed 60 mg PO QAM #90 caps 04/21/23 07/15/23 Rx release acetaminophen 500 mg tablet 1,000 mg PO DIRECTED PRN pain 05/21/23 07/15/23 History (Acetaminophen Extra Strength) bupropion HCl 100 mg tablet,12 hr 100 mg PO BID #180 ea 05/21/23 07/15/23 Rx sustained-release (Wellbutrin SR) cholecalciferol (vitamin D3) 50 50 mcg PO DAILY 05/21/23 07/15/23 History mcg (2,000 unit) tablet cyanocobalamin (vitamin B-12) See Rx Instructions IM .EVERY 6 05/21/23 07/15/23 History 1,000 mcg/mL injection solution WEEKS Spacer for Inhaler #1 ea 06/16/23 07/15/23 Rx tiotropium bromide 18 mcg capsule 1 cap inhalation QAM #90 06/16/23 07/15/23 Rx with inhalation device (Spiriva inhalations with HandiHaler) CPAP Machine #1 ea 06/23/23 07/15/23 Rx pantoprazole 40 mg tablet,delayed 40 mg PO BID #180 tabs 06/23/23 07/15/23 Rx release oxycodone 5 mg tablet 5 mg PO Q6H PRN pain #20 tabs 07/01/23 07/15/23 Rx gabapentin 300 mg capsule 300 mg PO HS #90 caps 07/14/23 07/15/23 Rx blood-glucose meter (OneTouch #1 ea 07/15/23 07/15/23 History Verio Flex Meter) furosemide 20 mg tablet 20 mg PO DAILY #45 tabs 07/15/23 07/15/23 Rx hydroxyzine HCl 25 mg tablet 25 mg PO Q8H #90 tabs 07/15/23 07/15/23 Rx macitentan 10 mg tablet 10 mg PO .DAILY @ 1400 07/15/23 07/15/23 History prednisone 10 mg tablet 10 mg PO Q OTHER DAY 07/15/23 07/15/23 History Patient History Medical History Interstitial lung disease NSVT (nonsustained ventricular tachycardia) B12 deficiency Pneumonia due to COVID-19 virus Multiple pulmonary nodules determined by computed tomography of lung Raynaud's disease Osteoarthritis On home oxygen therapy 4lpm via n/c continuous Hypertension Prediabetes monitoring Depression Scleroderma Obstructive sleep apnea cpap GAVE (gastric antral vascular ectasia) Gastroenterology in [facility] Dr. Marinelli Right lower lobe pneumonia COPD (chronic obstructive pulmonary disease) Surgical History History of cataract extraction (09/30/19) Both eyes H/O cataract extraction (09/2019) b/l eyes History of cystoscopy Hx of lumpectomy Left (-) History of dilatation and curettage History of bilateral tubal ligation History of esophagogastroduodenoscopy (EGD) H/O tooth extraction History of tonsillectomy H/O laminectomy Lumbar area History of colonoscopy History of bladder surgery bladder tack History of cholecystectomy Open Family History Mother , age 73 Stroke Father , age 71 Lung cancer Sister Non Hodgkin's lymphoma Lupus Denies family history of Ovarian cancer Prostate cancer Myocardial infarction Breast cancer Colorectal cancer Social History Smoking Status: Former smoker Tobacco Type: Cigarettes Age Quit Using Tobacco: 59; Cigarettes Per Day: 40; Second Hand Exposure: No; Do You Dip or Chew Tobacco: No; Hx Alcohol Use: No Hx Substance Use: No Preferred Language: Maltese Communication Ability: Effective Visual Impairment: Limited Hearing Ability: Normal Hot End Operator Required: No Beliefs That Will Affect Care: None marital status: Current Living Situation: Spouse current occupational status: retired 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 ; 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 How many Children do You have: 2 Feels Safe at Home: Yes Childhood Exposure to Second-Hand Smoke: Yes Diet: regular Diet Comment: Regular caffeine: Yes during the past year weight has: remained stable Dental Care, Regularly: Yes Physical Activity Frequency: Does not Exercise Seatbelt Use: always Sunscreen Use: Yes Assistive Devices: Bedside Commode, Oxygen - Continuous, Stair Lift, Walker and Wheelchair Review of Systems Review of Systems: All systems reviewed & are unremarkable except as noted in Subjective Physical Exam Constitutional: + acute distress, + ill appearing, + fra il appearing, + combative and + diaphoretic Eyes: PERRL, conjunctivae normal, anicteric sclerae ENMT: external ear and nose normal, oropharynx normal Neck: trachea midline, no thyromegaly Respiratory: + respiratory distress, + uses accessory muscles, + prolonged expiratory phase and + pursed lip breathing; + not able to speak in complete sentence Auscultation: + diminished lung sounds and + crackles Cardiovascular: Rate/Rhythm: + tachycardic Heart Sounds: normal S1 and normal S2 (loud) Extremities: + pedal edema Gastrointestinal (Abdomen): Inspection/Auscultation: abdomen normal to inspection and normal bowel sounds Musculoskeletal: gen weakness Skin: + turgor decreased, + dry skin and + pal dara Neurologic: aaox3 Results & Data Vital Signs (Past 12 Hours) Vital Signs Temp Pulse Resp BP Pulse Ox O2 Del Method O2 Flow Rate 07/22/23 19:09 36.6 C 106 H 22 142/79 H 93 CPAP 07/22/23 16:25 36.5 C 102 H 17 117/67 91 Nasal Cannula 8 07/22/23 11:06 36.6 C 105 H 20 104/60 91 Nasal Cannula 10 07/22/23 08:37 High Flow Nasal Cannula 8 Laboratory Results 07/22/23 07/21/23 07/20/23 Range/Units 07:35 07:10 06:38 WBC 13.35 H (4.8-10.8) K/ul RBC 4.29 (4.20-5.40) M/uL Hgb 12.7 (12.0-16.0) g/dl Hct 39.3 (37.0-47.0) % MCV 91.6 (80.0-100.0) fL MCH 29.6 (25.0-34.0) pg MCHC 32.3 (32.0-36.0) g/dL RDW Std Deviation 51.7 H (36.4-46.3) fL RDW Coeff of Mag 15.4 H (11.5-14.5) % Plt Count 333 (130-400) K/uL MPV 9.8 (9.4-12.4) fL Immature Gran % (Auto) 2.2 % Neut % (Auto) 71.5 % Lymph % (Auto) 17.5 % Luce % (Auto) 7.9 % Eos % (Auto) 0.7 % Baso % (Auto) 0.2 % Neut # (Auto) 9.52 H (1.40-6.50) K/uL Lymph # (Auto) 2.34 (1.20-3.40) K/uL Luce # (Auto) 1.06 H (0.11-0.59) K/uL Eos # (Auto) 0.10 (0.00-0.50) K/uL Baso # (Auto) 0.03 (0.00-0.20) K/uL Immature Gran # (Auto) 0.30 H (0.01-0.20) K/uL Absolute Nucleated RBC 0.03 (0.00-0.12) K/uL Nucleated RBC % (auto) 0.2 % Sodium 138 137 137 (136-145) mmol/L Potassium 4.8 4.8 D 3.7 (3.5-5.1) mmol/L Chloride 103 101 101 (98-107) mmol/L Carbon Dioxide 31 29 29 (21-32) mmol/L Anion Gap 4 7 7 (3-11) BUN 20 31 H 28 H (6-23) mg/dl Creatinine 0.74 0.84 0.68 (0.6-1.2) mg/dl Est Cr Clr Drug Dosing 73.5 64.6 79.4 ml/min Est GFR ( Amer) 93.8 80.5 101.3 ml/min Est GFR (Non-Af Amer) 80.9 69.4 87.4 ml/min BUN/Creatinine Ratio 27.0 H 36.9 H 41.2 H (10-20) Glucose 134 H 140 H 136 H (70-99(Fasting)) mg/dl Calcium 8.7 8.7 8.6 (8.6-10.3) mg/dl Ionized Calcium 1.13 (1.12-1.32) mmol/L Phosphorus 4.4 (2.5-4.9) mg/dl Magnesium 2.3 2.5 H (1.7-2.4) mg/dl Influenza A (RT-PCR) (Negative) Influenza B (RT-PCR) (Negative) RSV (RT-PCR) (Negative) 07/19/23 07/18/23 07/16/23 Range/Units 06:40 05:35 17:50 WBC (4.8-10.8) K/ul RBC (4.20-5.40) M/uL Hgb (12.0-16.0) g/dl Hct (37.0-47.0) % MCV (80.0-100.0) fL MCH (25.0-34.0) pg MCHC (32.0-36.0) g/dL RDW Std Deviation (36.4-46.3) fL RDW Coeff of Mag (11.5-14.5) % Plt Count (130-400) K/uL MPV (9.4-12.4) fL Immature Gran % (Auto) % Neut % (Auto) % Lymph % (Auto) % Luce % (Auto) % Eos % (Auto) % Baso % (Auto) % Neut # (Auto) (1.40-6.50) K/uL Lymph # (Auto) (1.20-3.40) K/uL Luce # (Auto) (0.11-0.59) K/uL Eos # (Auto) (0.00-0.50) K/uL Baso # (Auto) (0.00-0.20) K/uL Immature Gran # (Auto) (0.01-0.20) K/uL Absolute Nucleated RBC (0.00-0.12) K/uL Nucleated RBC % (auto) % Sodium 137 138 (136-145) mmol/L Potassium 4.2 4.1 (3.5-5.1) mmol/L Chloride 101 103 (98-107) mmol/L Carbon Dioxide 27 28 (21-32) mmol/L Anion Gap 9 7 (3-11) BUN 25 H 25 H (6-23) mg/dl Creatinine 0.63 0.74 (0.6-1.2) mg/dl Est Cr Clr Drug Dosing 86.0 74.0 ml/min Est GFR ( Amer) 103.9 93.8 ml/min Est GFR (Non-Af Amer) 89.6 80.9 ml/min BUN/Creatinine Ratio 39.7 H 33.8 H (10-20) Glucose 208 H 206 H (70-99(Fasting)) mg/dl Calcium 8.9 9.1 (8.6-10.3) mg/dl Ionized Calcium (1.12-1.32) mmol/L Phosphorus (2.5-4.9) mg/dl Magnesium 2.1 (1.7-2.4) mg/dl Influenza A (RT-PCR) Negative (Negative) Influenza B (RT-PCR) Negative (Negative) RSV (RT-PCR) Negative (Negative) 07/16/23 07/15/23 Range/Units 08:53 18:15 WBC 6.89 (4.8-10.8) K/ul RBC 4.25 (4.20-5.40) M/uL Hgb 12.4 (12.0-16.0) g/dl Hct 38.8 (37.0-47.0) % MCV 91.3 (80.0-100.0) fL MCH 29.2 (25.0-34.0) pg MCHC 32.0 (32.0-36.0) g/dL RDW Std Deviation 50.5 H (36.4-46.3) fL RDW Coeff of Mag 15.2 H (11.5-14.5) % Plt Count 317 (130-400) K/uL MPV 10.0 (9.4-12.4) fL Immature Gran % (Auto) % Neut % (Auto) % Lymph % (Auto) % Luce % (Auto) % Eos % (Auto) % Baso % (Auto) % Neut # (Auto) (1.40-6.50) K/uL Lymph # (Auto) (1.20-3.40) K/uL Luce # (Auto) (0.11-0.59) K/uL Eos # (Auto) (0.00-0.50) K/uL Baso # (Auto) (0.00-0.20) K/uL Immature Gran # (Auto) (0.01-0.20) K/uL Absolute Nucleated RBC (0.00-0.12) K/uL Nucleated RBC % (auto) % Sodium 137 (136-145) mmol/L Potassium 4.4 D (3.5-5.1) mmol/L Chloride 100 (98-107) mmol/L Carbon Dioxide 27 (21-32) mmol/L Anion Gap 10 (3-11) BUN 16 (6-23) mg/dl Creatinine 0.71 (0.6-1.2) mg/dl Est Cr Clr Drug Dosing 75.1 ml/min Est GFR ( Amer) 98.6 ml/min Est GFR (Non-Af Amer) 85.1 ml/min BUN/Creatinine Ratio 22.5 H (10-20) Glucose 244 H (70-99(Fasting)) mg/dl Calcium 8.8 (8.6-10.3) mg/dl Ionized Calcium (1.12-1.32) mmol/L Phosphorus 4.5 (2.5-4.9) mg/dl Magnesium 1.8 (1.7-2.4) mg/dl Influenza A (RT-PCR) (Negative) Influenza B (RT-PCR) (Negative) RSV (RT-PCR) (Negative) Diagnostic Findings Chest X-Ray 07/15/23 17:58 XR chest 1V portable HISTORY: Dyspnea COMPARISON: Chest 02/05/2023. FINDINGS: No pneumothorax. No pleural effusions. Emphysema with chronic interstitial thickening. This remains unchanged. The heart is normal in size. No new focal lung consolidations to suggest a pneumonia. There are old, healed left-sided rib fractures. A left subclavian Port-A-Cath terminates at the distal SVC. This remains unchanged. IMPRESSION: 1. Emphysema and chronic interstitial thickening again noted. 2. No new focal lung consolidations to suggest a pneumonia. ACT 112: Negative or not required by law. Electronically signed by: Jose Ramon Morrow M.D. 07/15/2023 6:56 PM Venous Doppler Study 07/18/23 22:16 Exam(s): US VENOUS BILATERAL LOWER EXTREMITIES EXAM: US Duplex Bilateral Lower Extremities Veins CLINICAL HISTORY: Reason for exam: ?DVT. TECHNIQUE: Real-time duplex ultrasound scan of the bilateral lower extremity veins integrating B-mode two-dimensional vascular structure, Doppler spectral analysis, color flow Doppler imaging and compression. COMPARISON: No relevant prior studies available. FINDINGS: Right deep veins: Unremarkable. No DVT in the right common femoral, femoral, proximal deep femoral or popliteal veins. The veins demonstrate normal color flow, are normally compressible, with normal phasic flow and/or augmentation response. Right superficial veins: Unremarkable. No thrombus in the visualized right great saphenous vein. Left deep veins: Unremarkable. No DVT in the left common femoral, femoral, proximal deep femoral or popliteal veins. The veins demonstrate normal color flow, are normally compressible, with normal phasic flow and/or augmentation response. Left superficial veins: Unremarkable. No thrombus in the visualized left great saphenous vein. Soft tissues: No acute findings. No popliteal cyst. IMPRESSION: Normal bilateral lower extremity duplex venous ultrasound. Electronically signed by: Sabino Skelton MD 07/19/23 00:02 AM PG Care Time/CCT Total # of Minutes Spent Total Time Spent with Patient: Total time spent is greater than 50% in coordination of care (as documented) at patient's floor/unit and/or counseling patient: I spent 140 minutes overall addressing this case: 25 min in medical data review/discussion with referring provider(s) and/or preparation for the visit 20 min in direct interaction with the patient/exam 60 min in Advance Care Planning/Goals of Care discussions as detailed above in note (must be >16min) 15 min in subsequent review and synthesis of assessment and plan 20 min communicating with other providers regarding the patient's case: Advanced Care Planning 50983 Advanced Care Planning 30 Min 23722 Advanced Care Planning Additional 30 [place] [address] IN/OBS CONSULT LVL 5,80M (25 - SIGNIFICANT, SEPARATELY IDENTIFIABLE ) Patient Type New Medical Decision Making High Complexity Diagnoses Dyspnea and respiratory abnormalities R06.00; R06.89 Advanced care planning/counseling discussion Z71.89 Constipation K59.00 Palliative care by specialist Z51.5 Additional Codes Advanced Care Planning - 15719 Advanced Care Planning Additional 30 Min: 01325 Advanced Care Planning Additional 30 Min ([id number]) Advanced Care Planning - 79122 Advanced Care Planning 30 Min: 40159 Advanced Care Planning 30 Min ([id number])
[2023-07-22] MEDS: oxyCODONE HCL IR 5 MG TAB (IMMEDIATE RELEASE) PO PRN (22:28)
[2023-07-23 06:46] LABS: Basophils # (auto) 0.01 K/uL (0.00-0.20); Basophils % (auto) 0.1 %; Eosinophils # (auto) 0.19 K/uL (0.00-0.50); Eosinophils % (auto) 2.2 %; Hematocrit (blood only) 34.1 % (37.0-47.0); Hemoglobin 11.1 g/dl (12.0-16.0); Immature Granulocytes # (auto) 0.12 K/uL (0.01-0.20); Immature Granulocytes % (auto) 1.4 %; Lymphocytes # (auto) 1.67 K/uL (1.20-3.40); Lymphocytes % (auto) 19.2 %; Mean Corpuscular Hemoglobin 29.4 pg (25.0-34.0); Mean Corpuscular Hgb Conc 32.6 g/dL (32.0-36.0); Mean Corpuscular Volume 90.5 fL (80.0-100.0); Mean Platelet Volume 9.8 fL (9.4-12.4); Monocytes # (auto) 0.81 K/uL (0.11-0.59); Monocytes % (auto) 9.3 %; Neutrophils % (auto) 67.8 %; Nucleated RBC # (auto) 0.02 K/uL (0.00-0.12); Nucleated RBC % (auto) 0.2 %; Platelet Count 231 K/uL (130-400); RDW Coefficient of Variation 15.8 % (11.5-14.5); RDW Standard Deviation 52.5 fL (36.4-46.3); Red Blood Count 3.77 M/uL (4.20-5.40)
[2023-07-23 07:02] LABS: BUN Creatinine Ratio 36.7 (10-20); Calcium 8.4 mg/dl (8.6-10.3); Creatinine Clr Calc Pharmacy 91.1 ml/min; Est GFR (African American) 105.5 ml/min; Est GFR (Non-African American) 91.1 ml/min; Potassium 3.5 mmol/L (3.5-5.1)
--- NOTE | 2023-07-23 13:41 | Hospitalist Progress Note ---
Date of Service July 23, 2023 Assessment & Plan (1) Acute and chronic respiratory failure with hypoxia: Plan: 73 yo female with history of ILD, BONITA, severe COPD, BONITA and PH presenting with 3 weeks of progressive shortness of breath. Patient hypoxic on arrival - prese ntly doing well on HFNC, on 8 l oxygen This is most likely multifactorial Severe COPD, pulmonary hypertension playing roles [employer] involved Switched from azithromycin to doxycycline. End date 07/20 Echocardiogram showed no significant changes Pulmonology recommended switching from IV Solu-Medrol to prednisone Order placed. Continue inhalers. Continue home dose of Lasix PT/OT consulted [facility] patient. Out of bed. CODE STATUS revisited 07/18. Patient confirmed DNR/DNI status. palliative care consulted , she has outpatient appointment with them on Friday (2) Rash: Plan: Patient report her rash is common for her Scleroderma flare. She gets relief with Hydroxyzine -Continue Hydroxyzine 25mg po q8hr (3) Atrial flutter: Plan: a flutter, herat rate is better started on IV amiodarone transition to Amiodarone 400 mg bid eliquis 5 mg bid started Cardizem 30 mg TID Plan BONITA - chronic -Continue CPAP GERD - chronic -Continue Protonix Hypertension- blood pressure well controlled -on Cardizem, BP is controlled CODE STATUS: DNR/DNI Admission and Anticipated Discharge Date Admission Date: July 15, 2023 Subjective This morning the patient had no new complaints. She was not aware of any worsening breathing trouble earlier this morning. Gradually her breathing seems to be improving. She has not been aware of any high heart rates or palpitations. She denies dizziness or lightheadedness. No chest pain. Her heart rate is better controlled 07/22 reports feeling better , but not ready to go home Physical Exam Physical Exam: head atraumatic neck supple chest decreased breath sounds b/l heart tachy abdomen soft, nt nd, bs present extremities no edema Results & Data Results & Data Vital Signs (Past 12 Hours) Vital Signs Temp Pulse Resp BP Pulse Ox O2 Del Method O2 Flow Rate 07/23/23 11:26 36.6 C 88 22 104/63 94 Nasal Cannula 7 07/23/23 11:02 High Flow Nasal Cannula 7 07/23/23 07:32 36.6 C 89 22 115/70 94 Nasal Cannula 7 07/23/23 03:00 36.5 C 89 16 114/71 95 CPAP PG Care Time/CCT Total # of Minutes Spent Total Time Spent with Patient: Total time spent is greater than 50% in coordination of care (as documented) at patient's floor/unit and/or counseling patient: Coding Level of Care Code 15280 SUB INP/OBS CARE 2/35MIN Diagnoses Acute and chronic respiratory failure with hypoxia J96.21 Rash R21 Atrial flutter I48.92
--- NOTE | 2023-07-23 14:13 | Pulmonology Progress Note ---
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 Qualified Code(s): J43.1 - Panlobular emphysema Plan Chest x-ray 07/15/2023 personally reviewed: Portable film, good inspiratory effort, bilateral costophrenic and cardiophrenic intersecting, no clear lung infiltrate appreciated Spirometry 06/16/2023 personally reviewed: Moderate obstructive lung dysfunction, insignificant bronchodilator response (Decrease in FVC by 440 mL, decrease in FEV1 by 180 mL compared to 01/31) FVC 2.26 L 76%, FEV1 1.18 L 52%, FEV1/FVC 52% 2D echo 07/17/2023: EF 60-65%, mildly dilated RV, RVSP 51 mmHg -- Acute on chronic hypoxic respiratory failure Multifactorial Pulmonary hypertension which is a combination of 1, 2 and 3 On 6 L nasal cannula at rest with 8 L on exertion BNP 147 Procalcitonin negative, influenza A/B, RSV negative --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 Azithromycin 250 mg [id number]-Kzcsmr, QTc 469 on 07/15/2023 at home Usually on chronic prednisone 10 mg every other day Spirometry 06/16/2023 personally reviewed: Moderate obstructive lung dysfunction, insignificant bronchodilator response (Decrease in FVC by 440 mL, decrease in FEV1 by 180 mL compared to 01/31) FVC 2.26 L 76%, FEV1 1.18 L 52%, FEV1/FVC 52% --Pulmonary hypertension Combination of type I, type II and type III Type I likely from underlying scleroderma Patient has been on sildenafil from the drapery installer Continue with macitentan as well as sildenafil. Will consider adding selexipag as an outpatient Right heart cath 01/22/2022: RA 12/ 7 RV 53/2 12 PA 55/23 35 PCWP / 11 PVR 4.6 [place] units, normal thermodilution cardiac index 2D echo 07/17/2023: EF 60-65%, mildly dilated RV, RVSP 51 mmHg 2D echo 02/03/2023: EF 55 to 60%, normal RV size and function, moderate to severe pulmonary hypertension with PASP 55-60 mmHg -- New onset A-fib Diagnosed 07/2023 On anticoagulation --Pulmonary nodule Left upper lobe 5 mm Has been stable CTA chest 01/03/2023 personally reviewed: Severe centrilobular and paraseptal emphysema appreciated bilaterally Motion degraded study, Edac cannot be ruled out Left upper lobe peripheral pulmonary nodule (Stable) No significant mediastinal lymphadenopathy --BONITA On CPAP of 9 cm H2O at home --Scleroderma Following up with rheumatology Plan: 2D echo 07/17/2023 still shows moderately elevated right-sided systolic pressures of 51 mmHg. I will consider selexipag as an outpatient. Starting tomorrow can go down to prednisone 20 mg for 4 days followed by 10 mg on a daily basis. Patient usually takes 10 mg prednisone every other day. She has a feeling that she feels better when she takes it on a daily basis. Risk of taking prednisone on a daily basis explained. Continue with inhalers. S/p course of doxycycline for 5 days Continue with home dose Lasix Continue with CPAP as needed shortness of breath and nightly Recommend out of the bed to chair, case was discussed with RN at bedside No further recommendation from pulmonary perspective, will sign off Please call directly with any questions Please note the above document was generated using voice recognition software. It may contain grammatical, syntax or spelling errors.Any formal questions or concerns about the content, text or information contained within the body of this dictation should be directly addressed to the provider for clarification. Admission and Anticipated Discharge Date Admission Date: July 15, 2023 Subjective Patient seen and examined at bedside. No acute distress, no dressings overnight She was saturating 93-94% on 7 L nasal cannula at rest Overall she stated she is feeling okay when it comes to her breathing Occasional cough with clear phlegm. Denies any hemoptysis Fair appetite Did use her CPAP overnight Review of Systems 2 Review of Systems: All systems reviewed & are unremarkable except as noted in Subjective Physical Exam 2 Physical Exam: Constitutional: No acute distress HEENT: EOMI, PERRLA Respiratory system: Decreased air entry bilaterally, no wheeze, no rhonchi, positive crackles bilateral lower lobes CVS: S1-S2 positive, no murmurs or gallops, distant heart sounds Abdomen: Soft, nontender, nondistended, positive bowel sounds x4 Extremities: +2 pulses bilaterally radialis/DP, no cyanosis, no edema Neuro: Awake alert oriented x3 Psych: Normal mood and affect G/U: No Bailey Skin: no rashes, warm and dry Lymphatic: no cervical or axillary lymphadenopathy Results & Data Results & Data Vital Signs (Past 12 Hours) Vital Signs Temp Pulse Resp BP Pulse Ox O2 Del Method O2 Flow Rate 07/23/23 11:26 36.6 C 88 22 104/63 94 Nasal Cannula 7 07/23/23 11:02 High Flow Nasal Cannula 7 07/23/23 07:32 36.6 C 89 22 115/70 94 Nasal Cannula 7 07/23/23 03:00 36.5 C 89 16 114/71 95 CPAP Laboratory Results 07/23/23 06:04 07/23/23 06:04 PG Care Time/CCT Total # of Minutes Spent Total Time Spent with Patient: Total time spent is greater than 50% in coordination of care (as documented) at patient's floor/unit and/or counseling patient: Coding Level of Care Code 03915 SUB INP/OBS CARE 2/35MIN Diagnoses Acute and chronic respiratory failure with hypoxia J96.21 PTAEL (dyspnea on exertion) R06.09 Chronic steroid use Pulmonary HTN I27.20 BONITA (obstructive sleep apnea) G47.33 Pulmonary arterial hypertension I27.21 COPD with emphysema J43.1 Emphysema type: panlobular
--- NOTE | 2023-07-23 16:40 | Palliative Care Progress Note ---
Date of Service July 23, 2023 Assessment & Plan (1) Dyspnea and respiratory abnormalities: Plan: She is using a trial of low-dose Oxy IR for pain and dyspnea relief. She has been using this very cautiously and although the option for a long-acting form exist, at this time she declines the option. (2) Constipation: (3) Palliative care by specialist: Plan A family meeting is planned with her and son Friday at 10 AM. This time and date preference was verified with patient again today. Please note I will be in outpatient palliative medicine clinic tomorrow but available by pager for any urgent needs. Thank you for allowing us to participate in the ongoing care of this patient. Please page with any additional concerns. Savage Puri DNP Director, Palliative Medicine Admission and Anticipated Discharge Date Admission Date: July 15, 2023 Subjective Dyspnea slightly better today however cough remains unchanged and she is still fatigued. She has not yet really been out of bed or ambulating around the room. Review of Systems Review of Systems: All systems reviewed & are unremarkable except as noted in Subjective Physical Exam Constitutional: + acute distress, + ill appearing, + fra il appearing, + combative and + diaphoretic Eyes: PERRL, conjunctivae normal, anicteric sclerae ENMT: external ear and nose normal, oropharynx normal Neck: trachea midline, no thyromegaly Respiratory: + respiratory distress, + uses accessory muscles, + prolonged expiratory phase and + pursed lip breathing; + not able to speak in complete sentence Auscultation: + diminished lung sounds and + crackles Cardiovascular: Rate/Rhythm: + tachycardic Heart Sounds: normal S1 and normal S2 (loud) Extremities: + pedal edema Gastrointestinal (Abdomen): Inspection/Auscultation: abdomen normal to inspection and normal bowel sounds Musculoskeletal: gen weakness Skin: + turgor decreased, + dry skin and + pal dara Neurologic: aaox3 Results & Data Vital Signs (Past 12 Hours) Vital Signs Temp Pulse Resp BP Pulse Ox O2 Del Method O2 Flow Rate 07/23/23 15:07 36.8 C 96 H 20 94 Nasal Cannula 7 07/23/23 11:26 36.6 C 88 22 104/63 94 Nasal Cannula 7 07/23/23 11:02 High Flow Nasal Cannula 7 07/23/23 07:32 36.6 C 89 22 115/70 94 Nasal Cannula 7 Laboratory Results Data reviewed Diagnostic Findings Data reviewed PG Care Time/CCT Total # of Minutes Spent Total Time Spent with Patient: Total time spent is greater than 50% in coordination of care (as documented) at patient's floor/unit and/or counseling patient: I spent 35 minutes overall addressing this case: 5 min in medical data review/discussion with referring provider(s) and/or preparation for the visit 10 min in direct interaction with the patient/exam 00 min in Advance Care Planning/Goals of Care discussions as detailed above in note (must be >16min) 5 min in subsequent review and synthesis of assessment and plan 15 min communicating with other providers regarding the patient's case: Coding [place] [address] SUB INP/OBS CARE 2/35MIN Patient Type Established History Comprehensive Exam Comprehensive Medical Decision Making High Complexity Diagnoses Dyspnea and respiratory abnormalities R06.00; R06.89 Constipation K59.00 Palliative care by specialist Z51.5
--- NOTE | 2023-07-24 11:26 | Hospitalist Progress Note ---
Date of Service July 24, 2023 Assessment & Plan (1) Acute and chronic respiratory failure with hypoxia: Plan: 73 yo female with history of ILD, BONITA, severe COPD, BONITA and PH presenting with 3 weeks of progressive shortness of breath. Patient hypoxic on arrival - prese ntly doing well on HFNC, on 8 l oxygen This is most likely multifactorial Severe COPD, pulmonary hypertension playing roles [employer] involved Switched from azithromycin to doxycycline. End date 07/20 Echocardiogram showed no significant changes Pulmonology continue prednisone Order placed. Continue inhalers. Continue home dose of Lasix PT/OT consulted [facility] patient. Out of bed. CODE STATUS revisited 07/18. Patient confirmed DNR/DNI status. palliative care consulted , she has outpatient appointment with them on Friday (2) Rash: Plan: Patient report her rash is common for her Scleroderma flare. She gets relief with Hydroxyzine -Continue Hydroxyzine 25mg po q8hr (3) Atrial flutter: Plan: a flutter, herat rate is better started on IV amiodarone transition to Amiodarone 400 mg bid eliquis 5 mg bid started Cardizem 30 mg TID Plan BONITA - chronic -Continue CPAP GERD - chronic -Continue Protonix Hypertension- blood pressure well controlled -on Cardizem, BP is controlled CODE STATUS: DNR/DNI Admission and Anticipated Discharge Date Admission Date: July 15, 2023 Subjective Dyspnea slightly better today however cough remains unchanged and she is still fatigued. She has not yet really been out of bed or ambulating around the room. 07/23 report fatigue, SOB Review of Systems Review of Systems: All systems reviewed & are unremarkable except as noted in Subjective Physical Exam Physical Exam: head atraumatic neck supple chest decreased breath sounds b/l heart tachy abdomen soft, nt nd, bs present extremities no edema Results & Data Results & Data Vital Signs (Past 12 Hours) Vital Signs Temp Pulse Pulse Resp BP Pulse Ox O2 Del Method 07/24/23 09:13 High Flow Nasal Cannula 07/24/23 08:59 96 H 07/24/23 07:58 36.4 C L 86 22 118/71 93 CPAP 07/24/23 02:55 36.3 C L 91 H 22 117/67 93 CPAP O2 Flow Rate 07/24/23 09:13 8 07/24/23 08:59 07/24/23 07:58 07/24/23 02:55 PG Care Time/CCT Total # of Minutes Spent Total Time Spent with Patient: Total time spent is greater than 50% in coordination of care (as documented) at patient's floor/unit and/or counseling patient: Coding Level of Care Code 98353 SUB INP/OBS CARE 2/35MIN Diagnoses Acute and chronic respiratory failure with hypoxia J96.21 Rash R21 Atrial flutter I48.92
[2023-07-24] MEDS: cefTRIAXone SODIUM 2,000 MG/50 ML BAG IV SCH (14:40)
[2023-07-24 14:52] LABS: Appearance Urine Clear (Clear); Bilirubin Urine Negative (Negative); Blood Urine Negative (Negative); Color Urine Yellow; Glucose Urine UA 2+ (Negative); Ketones Urine Negative (Negative); Leukocyte Esterase Urine Negative (Negative); Nitrite Urine Negative (Negative); Protein Urine Negative (Negative); Specific Gravity Urine 1.017 (1.000-1.030); Urobilinogen Urine Negative (Negative); pH Urine 5.5 (4.5-7.5)
--- NOTE | 2023-07-24 15:29 | Cardiology Progress Note ---
Date of Service July 24, 2023 Assessment & Plan (1) Atrial flutter: Plan 1 Atrial flutter: She has some atrial ectopy at times, but no sustained arrhythmias recently. We will continue her amiodarone at 400 mg twice daily for another week, then decrease to 200 mg daily. Continue diltiazem. She will continue on apixaban. 2. Wide complex tachycardia: Most likely nonsustained VT. No recurrence in a couple of days now. Continue medications as noted above. Admission and Anticipated Discharge Date Admission Date: July 15, 2023 Subjective This afternoon the patient claims to be feeling better. Her breathing has improved by her report. She was ambulatory earlier today. She plans on being up in a chair later this afternoon. No sense of palpitation. No chest pain. Review of Systems Review of Systems: Per HPI Physical Exam Physical Exam: She is alert and oriented x3. Mood affect appear normal. She answered all questions appropriately. Using supplemental oxygen HEENT: Sclerae are anicteric. Pupils are equal and reactive to light and accommodation. Extraocular movements were intact. Neuro: Cranial nerves intact Chest: Left upper chest infusion port noted. Lungs: Distant breath sounds with prolonged expiratory phase. No expiratory wheezing. No rales. Cardiac: The rhythm was regular with occasional ectopy. S1 and S2 were normal. There are no murmurs on examination. The PMI was not markedly displaced on palpation. Extremities: Patient has bilateral radial pulses that are equal in intensity. There is no evidence cyanosis or clubbing. There was no evidence of significant peripheral edema bilaterally. Skin: There are no rashes noted on examination today. Results & Data Vital Signs (Past 12 Hours) Vital Signs Temp Pulse Pulse Resp BP Pulse Ox O2 Del Method 07/24/23 15:25 36.6 C 91 H 18 130/72 100 CPAP 07/24/23 15:03 89 07/24/23 11:28 36.5 C 87 18 117/70 94 High Flow Nasal Cannula 07/24/23 09:13 High Flow Nasal Cannula 07/24/23 08:59 96 H 07/24/23 07:58 36.4 C L 86 22 118/71 93 CPAP O2 Flow Rate 07/24/23 15:25 07/24/23 15:03 07/24/23 11:28 9 07/24/23 09:13 8 07/24/23 08:59 07/24/23 07:58 Laboratory Results Abnormal Lab Results 07/24/23 14:30 Urine Color Yellow Urine Appearance Clear Urine pH 5.5 Ur Specific [place] 1.017 Urine Protein Negative Urine Glucose (UA) 2+ H Urine Ketones Negative Urine Blood Negative Urine Nitrite Negative Urine Bilirubin Negative Urine Urobilinogen Negative Ur Leukocyte Esterase Negative PG Care Time/CCT Total # of Minutes Spent Total Time Spent with Patient: Total time spent is greater than 50% in coordination of care (as documented) at patient's floor/unit and/or counseling patient: Coding Level of Care Code 10429 SUB INP/OBS CARE 2/35MIN Diagnoses Atrial flutter I48.92
[2023-07-25] MEDS: predniSONE 20 MG TAB PO SCH (08:33)
--- NOTE | 2023-07-25 14:23 | Discharge Summary ---
Date of Service July 25, 2023 Admission HPI Per Admitting Provider Victoria Richter is a pleasant 73yo female with history of ILD, Scleroderma, BONITA, COPD, PH and HTN presenting from home with progressive shortness of breath for the last 3 weeks. Patient was admitted to [facility] with similar complaints in May. She reports feeling well when she is on steroids but her shortness of breath returns as she tapers off the steroids. She has had progressive PATEL over the last three weeks. Recently she becomes short of breath with minimal movement in her home. She has a persistent dry cough and occasional cold sweats. No report of fever, chest pain, palpitations, nausea, vomiting, abdominal pain or diarrhea. She has had a worsening diffuse, pruritic rash over the last week which is consistent with her scleroderma. No report of edema, orthopnea or weight gain. No additional complaints at this time. Patient is on CPAP 9cmH2O qHS and supplemental O2 by NC 6-8L continuous during the day In the ER she is afebrile, HD stable. Hypoxic on arrival at 80% on room air. She was placed on NRB then BiPAP. She was having difficulty tolerating the BiPAP so she was placed on HFNC. Presently doing well on HFNC. Principal Diagnosis acute on chronic respiratory failure with hypoxia Discharge Exam head atraumatic neck supple chest decreased breath sounds b/l heart tachy abdomen soft, nt nd, bs present extremities no edema Discharge Data Allergies Allergy/AdvReac Type Severity Reaction Status Date / Time ferric carboxymaltose Allergy Severe SOB, Verified 07/15/23 18:44 [From Injectafer] tachycardia Consultations 07/15/23 19:33 ED Decision to Admit Stat 07/16/23 13:17 Consult Pulmonology Routine 07/21/23 12:04 Consult Cardiology Routine 07/22/23 09:19 Consult Palliative Care Routine Ordered Studies 07/18/23 22:16 US venous doppler LE Stat Hospital Course (1) Acute and chronic respiratory failure with hypoxia: 73 yo female with history of ILD, BONITA, severe COPD, BONITA and PH presenting with 3 weeks of progressive shortness of breath. Patient hypoxic on arrival - pres ently doing well on HFNC, on 8 l oxygen This is most likely multifactorial Severe COPD, pulmonary hypertension playing roles Winch Operator involved Switched from azithromycin to doxycycline. End date 07/20 Echocardiogram showed no significant changes Pulmonology continue prednisone Order placed. Continue inhalers. Continue home dose of Lasix PT/OT consulted Mobilize patient. Out of bed. CODE STATUS revisited 07/18. Patient confirmed DNR/DNI status. palliative care consulted , she has outpatient appointment with them on Monday 07/24 patient at her baseline stable for discharge (2) Rash: Patient report her rash is common for her Scleroderma flare. She gets relief with Hydroxyzine -Continue Hydroxyzine 25mg po q8hr (3) Atrial flutter: a flutter, herat rate is better started on IV amiodarone transition to Amiodarone 400 mg bid eliquis 5 mg bid started Cardizem 30 mg TID transition to CardizemCD Plan BONITA - chronic -Continue CPAP GERD - chronic -Continue Protonix Hypertension- blood pressure well controlled -on Cardizem, BP is controlled CODE STATUS: DNR/DNI Total Time Total Time Spent Total Time Spent (In Minutes): 45 min Discharge Plan Discharge Items Patient Disposition: Home - Home Health Services Reason For Visit: ACUTE RESPIRATORY FAILURE Discharge Diagnosis: afib, end stage lung diseases Activity: Resume your previous activity Non-emergency contact: Primary Care Provider and Winch Operator Call non-emergency contact if: you have any medication questions Follow-up/Referrals: Eliza Mayorga DO [Primary Care Provider] - 08/13/23 8:20 am (with [facility]. ) Stephie Puri DNP [Nurse Practitioner] - 08/28/23 2:30 pm (Appointment scheduled August 27 at 2:30) Diet: Regular Addtl Attending Provider Instructions: follow up with PCP, museum docent, palliative care Pending Studies at Discharge: No Stand-Alone Forms: [employer], Smoking Cessation Medications and DC Order Prescriptions: New oxycodone 5 mg Tablet 5 mg PO Q4 PRN (Reason: dyspnea) Qty: 30 0RF prednisone 20 mg Tablet 20 mg PO DAILY Qty: 30 0RF Eliquis 5 mg Tablet 5 mg PO BID Qty: 60 0RF fluticasone furoate-vilanterol [Breo Ellipta] 200-25 mcg/dose Blister With Device 1 inh inhalation DAILY Qty: 60 0RF amiodarone 200 mg Tablet 400 mg PO BIDM Qty: 14 0RF diltiazem HCl [Cardizem CD] 120 mg capsule,extended release 24hr 120 mg PO DAILY Qty: 30 0RF amiodarone 200 mg tablet 200 mg PO DAILY Qty: 30 0RF Rx Instructions: 400 mg bid for 1 week, than 200 mg daily Continued sildenafil (pulm.hypertension) 20 mg tablet 20 mg PO Q8H Rx Instructions: TAKES 0800, 1700, & HS duloxetine 60 mg capsule,delayed release(DR/EC) 60 mg PO QAM Qty: 90 1RF acetaminophen [Acetaminophen Extra Strength] 500 mg tablet 1,000 mg PO DIRECTED PRN (Reason: pain) Patient Comments: CONFIRMED W/ PT AND ON PH DC SUMMARY 05/20 cholecalciferol (vitamin D3) 50 mcg (2,000 unit) tablet 50 mcg PO DAILY Patient Comments: CONFIRMED W/ PT AND ON PH DC SUMMARY 05/20 bupropion HCl [Wellbutrin SR] 100 mg tablet sustained-release 12 hr 100 mg PO BID Qty: 180 2RF Rx Instructions: TAKES QAM & 1400. CONFIRMED W/ PT THAT SHE IS TAKING 100MG BID. 05/21/23. pantoprazole 40 mg tablet,delayed release (DR/EC) 40 mg PO BID Qty: 180 0RF oxycodone 5 mg tablet 5 mg PO Q6H PRN (Reason: pain) Qty: 20 0RF gabapentin 300 mg capsule 300 mg PO HS Qty: 90 1RF albuterol sulfate [Ventolin HFA] 90 mcg/actuation HFA aerosol inhaler 2 puff inhalation QID PRN (Reason: Shortness Of Breath) Qty: 18 3RF Rx Instructions: USE 2 PUFFS BY MOUTH 4 TIMES A DAY NEEDED ipratropium-albuterol 0.5 mg-3 mg(2.5 mg base)/3 mL solution for nebulization 3 ml inhalation Q8H PRN (Reason: COPD- DX J44.9 J43.9 J45.909 ) Qty: 180 5RF azithromycin 250 mg tablet 250 mg PO 3XWK Qty: 36 4RF Rx Instructions: 250 mg PO 1 tab p.o. on Nhrxon-Fyqsdjipj-Ipempq; guaifenesin [Mucinex] 600 mg tablet extended release 12hr 600 mg PO BID cyanocobalamin (vitamin B-12) 1,000 mcg/mL solution See Rx Instructions IM .EVERY 6 WEEKS Patient Comments: CONFIRMED W/ PT AND ON PH DC SUMMARY 05/20 Rx Instructions: 1MG intramuscularly EVERY 6 WEEKS; furosemide 20 mg tablet 20 mg PO DAILY Qty: 45 5RF hydroxyzine HCl 25 mg tablet 25 mg PO Q8H Qty: 90 2RF Hold Instructions: Home Medication placed on hold at Doctor's office Discontinued amlodipine 10 mg tablet 10 mg PO QAM bisoprolol-hydrochlorothiazide 10-6.25 mg tablet 1 tab PO DAILY Qty: 90 1RF Advair HFA 230-21 mcg/actuation HFA aerosol inhaler 2 puff INHALATION BID Qty: 12 11RF tiotropium bromide [Spiriva with HandiHaler] 18 mcg capsule, w/inhalation device 1 cap INHALATION QAM Qty: 90 0RF prednisone 10 mg tablet 10 mg PO Q OTHER DAY Rx Instructions: TAPERING No Action (DME) Oxygen Home Liters Per Minute See Rx Instructions .ROUTE .MEDSUPPLY Qty: 1 Rx Instructions: 6 LPM via NC (DME) CPAP Machine Misc See Rx Instructions .Route Qty: 1 0RF Rx Instructions: CPAP 9cmH2O, mask fit to patient comfort, heated humidification, compliance download capabilities, LAURA:99 (DME) Spacer for Inhaler Misc See Rx Instructions .Route Qty: 1 0RF Rx Instructions: As directed (DME) blood-glucose meter [OneTouch Verio Flex meter] Misc See Rx Instructions .ROUTE .MEDSUPPLY Qty: 1 Rx Instructions: As directed (DME) Portable Oxygen Misc See Rx Instructions .MEDSUPPLY Qty: 1 0RF Rx Instructions: Oxygen 6 liters continuous 10 L with portable concentrator macitentan 10 mg tablet 10 mg PO .DAILY @ 1400 Discharge Orders: Discharge Order (Routine); Ordered 07/25/23 Ordered By: Amita Link Admission Data Admit Date/Time: 07/15/23 19:54 Attending Provider: Amita Link Admit Provider: Nida Monique Primary Care Provider: Eliza Mayorga. Other Providers: Nida Monique; Sarah Cam; Jose Dawson; Dawson Cruz; Idris Alvarez; Lazaro Lopez; Clay Claire; Zane Gabriel Jr; Jarred Flynn; Chana Magdaleno; Joanna Burrows; Rao cShmidt; Rao Redmond; Louis Cintron; Melissa Low; Francisco Hillman; Penny Cruz; Alex Bennett; Kayden Sanchez; Shashi Bucio; Darryl Rutherford; Stephie Puri Other Interventions: Discharge Summary Assessment (RN) Last Done: 07/25/23 13:30 Coding Level of Care Code 30540 INP/OBS DISCH >30 MIN Diagnoses Acute and chronic respiratory failure with hypoxia J96.21 Rash R21 Atrial flutter I48.92
--- NOTE | 2023-07-25 14:23 | Palliative Care Progress Note ---
Date of Service July 25, 2023 Assessment & Plan (1) Dyspnea and respiratory abnormalities: Plan: She is using a trial of low-dose Oxy IR for pain and dyspnea relief. She has been using this very cautiously and although the option for a long-acting form exist, at this time she declines the option. (2) Advanced care planning/counseling discussion: Plan: A 60-minute [id number]-kz-vzgb advance care planning discussion was held at the bedside with patient, her and her sister. A very detailed and extensive discussion and review of her medical conditions was provided. Many questions were asked about the overall course of progression, prognostic likelihood's and potential timelines to mortality. All questions were answered to their apparent satisfaction. We agreed for follow-up in outpatient palliative medicine clinic for ongoing symptom management and serious illness planning. They were appreciative of the time spent on the 6 detailed discussion. specifically asked about the role of hospice in her care and we reviewed the parameters for coverage of hospice. I advised that we are working her up for further PH directed therapy with advanced modalities including the selexipag option, at this time I would defer hospice as the medication would not be covered under hospice regulations. (3) Constipation: (4) Palliative care by specialist: Plan As noted above Thank you for allowing us to participate in the ongoing care of this patient. Please page with any additional concerns. Savage Puri DNP Director, Palliative Medicine Admission and Anticipated Discharge Date Admission Date: July 15, 2023 Subjective Patient is seen bedside together with her and her sister present. She reports that her breathing feels a little closer to baseline. She is going to stay on a daily prednisone of 10 mg. She was able to ambulate short distances around the room from bed to the commode and back. She is hopeful that with visiting nurse services and home PT she will be able to improve this enough to be able to safely navigate her home space. She is relieved to be going home and not to a facility. Appetite is okay. Denies nausea or vomiting, denies constipation Shortness of breath with prolonged conversation unchanged Dry cough, intermittent unchanged Denies chest pain, denies palpitation, denies headache or visual changes. Review of Systems Review of Systems: All systems reviewed & are unremarkable except as noted in Subjective Physical Exam Constitutional: + acute distress, + ill appearing, + fra il appearing, + combative and + diaphoretic Eyes: PERRL, conjunctivae normal, anicteric sclerae ENMT: external ear and nose normal, oropharynx normal Neck: trachea midline, no thyromegaly Respiratory: + respiratory distress, + uses accessory muscles, + prolonged expiratory phase and + pursed lip breathing; + not able to speak in complete sentence Auscultation: + diminished lung sounds and + crackles Cardiovascular: Rate/Rhythm: + tachycardic Heart Sounds: normal S1 and normal S2 (loud) Extremities: + pedal edema Gastrointestinal (Abdomen): Inspection/Auscultation: abdomen normal to inspection and normal bowel sounds Musculoskeletal: gen weakness Skin: + turgor decreased, + dry skin and + pal dara Neurologic: [id number] Results & Data Vital Signs (Past 12 Hours) Vital Signs Temp Pulse Pulse Pulse Pulse Resp BP 07/25/23 13:30 36.5 C 113 H 106 H 161 H 18 130/78 07/25/23 08:50 07/25/23 08:34 36.5 C 106 H 18 130/78 07/25/23 07:02 86 07/25/23 02:48 36.6 C 85 20 121/66 Pulse Ox O2 Del Method O2 Flow Rate 07/25/23 13:30 99 07/25/23 08:50 High Flow Nasal Cannula 7 07/25/23 08:34 99 CPAP 07/25/23 07:02 07/25/23 02:48 92 CPAP Laboratory Results Abnormal lab results 07/24/23 Range/Units 14:30 Urine Glucose (UA) 2+ H (Negative) PG Care Time/CCT Total # of Minutes Spent Total Time Spent: 90 Total Time Spent with Patient: Total time spent is greater than 50% in coordination of care (as documented) at patient's floor/unit and/or counseling patient: Advanced Care Planning 00358 Advanced Care Planning 30 Min 68078 Advanced Care Planning Additional 30 [place] [address] SUB INP/OBS CARE 3/50MIN (25 - SIGNIFICANT, SEPARATELY IDENTIFIABLE ) Patient Type New History Comprehensive Exam Comprehensive Medical Decision Making High Complexity Diagnoses Dyspnea and respiratory abnormalities R06.00; R06.89 Advanced care planning/counseling discussion Z71.89 Constipation K59.00 Palliative care by specialist Z51.5 Additional Codes Advanced Care Planning - 27636 Advanced Care Planning 30 Min: 34763 Advanced Care Planning 30 Min ([id number]) Advanced Care Planning - 50247 Advanced Care Planning Additional 30 Min: 82878 Advanced Care Planning Additional 30 Min ([id number])
--- NOTE | 2023-07-26 17:56 | Electrocardiogram Report ---
Test Reason : Blood Pressure : / mmHG Vent. Rate : 106 BPM Atrial Rate : 106 BPM P-R Int : 000 ms QRS Dur : 106 ms QT Int : 374 ms P-R-T Axes : 000 085 267 degrees QTc Int : 496 ms Accelerated Junctional rhythm with Premature supraventricular complexes and with occasional , and con secutive Premature ventricular complexes Abnormal ECG Confirmed by Rao Redmond ([id number]) on 07/26/2023 5:56:07 PM Referred By: REFERRED SELF Confirmed By:Miguelito Redmond
== END 2023-07-25 16:29 | disposition home health service (06) | DRG 314 ==
LOC: ED 17:16 → SUATTDRO 19:54 → 2S 19:54
DX: G47.33 Obstructive sleep apnea (adult) (pediatric); I27.23 Pulmonary hypertension due to lung diseases and hypoxia; E55.9 Vitamin D deficiency, unspecified; M34.9 Systemic sclerosis, unspecified; E53.8 Deficiency of other specified B group vitamins; I48.92 Unspecified atrial flutter; Z79.51 Long term (current) use of inhaled steroids; I27.22 Pulmonary hypertension due to left heart disease; Z79.52 Long term (current) use of systemic steroids; J84.9 Interstitial pulmonary disease, unspecified; Z79.899 Other long term (current) drug therapy; I27.21 Secondary pulmonary arterial hypertension; I47.10 Supraventricular tachycardia, unspecified; Z76.82 Awaiting organ transplant status; R91.1 Solitary pulmonary nodule; Z99.81 Dependence on supplemental oxygen; J96.21 Acute and chronic respiratory failure with hypoxia; I73.00 Raynaud's syndrome without gangrene; J43.1 Panlobular emphysema; Z86.16 Personal history of COVID-19; I48.91 Unspecified atrial fibrillation; Z87.891 Personal history of nicotine dependence; I10 Essential (primary) hypertension; K21.9 Gastro-esophageal reflux disease without esophagitis; J44.1 Chronic obstructive pulmonary disease with (acute) exacerbation; J45.909 Unspecified asthma, uncomplicated; D50.9 Iron deficiency anemia, unspecified; Z66 Do not resuscitate